=== PATIENT | female | born 1930 | race Caucasian/White ===

== ENCOUNTER 2017-08-20 14:53 | Observation (INO) ==
[2017-08-20] MEDS ORDERED: Ondansetron 4 MG/2 ML VIAL IVP ONE (15:06)
[2017-08-20] MEDS ORDERED: *HR* HYDROmorphone (PF) 1 MG/ML SYRINGE IVP ONE (15:06)
--- NOTE | 2017-08-20 15:23 | Emergency Department Note ---
Disposition Clinical Impression: Frequent falls, Weakness, Low back pain, Pancytopenia Disposition: Admitted As Inpatient Condition: Good Referrals: Hong Garnett MD [Primary Care Provider] - Forms: ED Satisfaction Letter General Adult HPI - General Chief complaint: ED Back Pain/Injury Stated complaint: Back pain post fall x 2 days ago Time Seen by Provider: 08/20/17 14:55 Source: patient, EMS Limitations: no limitations Nursing Notes Reviewed: Yes Vital Signs Reviewed: Yes - History of Present Illness Pain Scale: 8 - Related Data Home Medications Medication Instructions Recorded Confirmed ALPRAZolam [Xanax 0.5 MG Tablet] 0.5 mg PO DAILY 08/20/17 08/20/17 Alendronate Sodium [Alendronate 70 mg PO QWEEK 08/20/17 08/20/17 Sodium] Aspirin [Lo-Dose Aspirin EC] 81 mg PO DAILY 08/20/17 08/20/17 Cholecalciferol (Vitamin D3) 2,000 unit PO DAILY 08/20/17 08/20/17 [Vitamin D] Citalopram Hydrobromide 10 mg PO DAILY 08/20/17 08/20/17 [Citalopram HBr] Docusate [Colace] 100 mg PO BID 08/20/17 08/20/17 Fluticasone/Salmeterol [Advair 1 puff IH BID 08/20/17 08/20/17 100-50 Diskus] Levothyroxine Sodium 25 mcg PO DAILY 08/20/17 08/20/17 Lisinopril [Zestril] 10 mg PO DAILY 08/20/17 08/20/17 Metformin HCl [Metformin HCl ER] 500 mg PO QPM 08/20/17 08/20/17 Simvastatin [Zocor] 40 mg PO DAILY 08/20/17 08/20/17 Verapamil ER (24 HR) [Calan SR] 240 mg PO DAILY 08/20/17 08/20/17 Allergies Allergy/AdvReac Type Severity Reaction Status Date / Time cephalexin [From Keflex] AdvReac See Verified 08/20/17 17:00 Comments morphine AdvReac Itching Verified 08/20/17 17:00 Past Medical History - Past Medical History Medical history: Reports: hyperlipidemia, hypertension, osteoporosis Surgical history: Reports: hip replacement, other Psychiatric history: Reports: anxiety, depression 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 - Social History Smoking Status: Never smoker Smokeless Tobacco Status: No Alcohol use: Reports: none Drug use: Reports: none Physical Exam - General Limitations: no limitations General appearance: alert, in no apparent distress Course Vital Signs Temperature 97.6 F 08/20/17 14:56 Pulse Rate 84 08/20/17 14:56 Respiratory Rate 18 08/20/17 14:56 Blood Pressure 129/64 08/20/17 14:56 O2 Sat by Pulse Oximetry 97 08/20/17 14:56 Temperature 97.6 F 08/20/17 14:56 Pulse Rate 72 08/20/17 18:50 Respiratory Rate 18 08/20/17 18:50 Blood Pressure 129/64 08/20/17 18:50 O2 Sat by Pulse Oximetry 99 08/20/17 18:50 Oxygen Delivery Oxygen Delivery Room Air Medical Decision Making - MDM Narrative Medical decision making narrative: This note has been completed with [employer] software. Though attempts have been made to ensure the accuracy of this chart, errors may still exist. I examined this patient and my medical decision-making was reviewed with the Resident Physician. I agree with the documented findings, disposition and treatment plan as described except to the extent set forth below. Patient seen and evaluated on arrival with EMS and Dr. Sandoval, I agree with his evaluation and management plan, I supervised the care of the patient's stay. She had a fall at home. She says this happens to her frequently is mechanical in nature. She is complaining of low back pain. Said a history of compression fracture in the past. Tenderness on the upper posterior portion of the pelvis and L5. will do some imaging studies on her and the determine best disposition for her. Lumbar Spine CT 08/20/17 14:55 IMPRESSION: 1. No acute abdominal/pelvic traumatic abnormality. 2. Small fat containing umbilical hernia containing the anterior wall of the mid transverse colon with no evidence of vascular compromise. Right rectus abdominus atrophy with loss of the main. 3. Hepatic cysts. No follow-up imaging is recommended. 4. Decreased bone mineral density. 5. Stable multilevel lumbar spine degenerative changes with remote T12, L1, and L5 compression versus insufficiency fractures. No acute lumbar spine fracture. 6. Normal pelvic alignment with no acute fracture. Normal bilateral hip arthroplasty alignment. D/ / 08/20/2017 16:31:07 Clarence Conn MD / vickie Interpreting Provider: Clarence Conn MD Abdomen/Pelvis CT 08/20/17 14:56 IMPRESSION: 1. No acute abdominal/pelvic traumatic abnormality. 2. Small fat containing umbilical hernia containing the anterior wall of the mid transverse colon with no evidence of vascular compromise. Right rectus abdominus atrophy with loss of the main. 3. Hepatic cysts. No follow-up imaging is recommended. 4. Decreased bone mineral density. 5. Stable multilevel lumbar spine degenerative changes with remote T12, L1, and L5 compression versus insufficiency fractures. No acute lumbar spine fracture. 6. Normal pelvic alignment with no acute fracture. Normal bilateral hip arthroplasty alignment. D/ / 08/20/2017 16:31:07 Clarence Conn MD / vickie Interpreting Provider: Clarence Conn MD 1820 hrs.: Roque and clemente bring her in the hospital with her chronic falls. The pain she is having from her compression fractures. And her pancytopenia. For workup. She is in agreement as is hospitalist. - Lab Data Result diagrams: 08/20/17 15:10 08/20/17 15:10 Lab Results 08/20/17 08/20/17 08/20/17 Range/Units 15:10 15:10 16:13 WBC 2.9 L (4.3-11.1) K/mcL RBC 3.61 L (3.82-4.97) M/mcL Hgb 11.1 L (11.5-15.4) g/dL Hct 33.9 L (35.3-44.9) % MCV 93.9 (83.0-100.0) fL MCH 30.7 (28.0-33.3) pg MCHC 32.7 (31.6-35.5) g/dL RDW 18.6 H (11.5-14.5) % Plt Count 133 L (140-400) K/mcL MPV 11.5 (9.4-12.4) fL Immature Gran % 0.0 (0-4) % Seg Neutrophils % 51.0 % Lymphocytes % 31.9 % Monocytes % 12.2 % Eosinophils % 4.2 % Basophils % 0.7 % Neutrophils # 1.5 L (1.6-8.9) K/mcL Lymphocytes # 0.9 (0.6-4.6) K/mcL Monocytes # 0.4 (0.0-1.3) K/mcL Eosinophils # 0.1 (0.0-0.6) K/mcL Basophils # 0.0 (0.0-0.2) K/mcL Sodium 137 (136-145) mEq/L Potassium 3.6 (3.5-5.1) mEq/L Chloride 106 (98-107) mEq/L Carbon Dioxide 26 (23-29) mEq/L BUN 18 (8-23) mg/dL Creatinine 0.69 (0.60-1.20) mg/dL Est GFR ( Amer) > 60 (> 60) Est GFR (Non-Af Amer) > 60 (> 60) BUN/Creatinine Ratio 26 (6-26) Glucose 131 H (70-105) mg/dL Calculated Osmolality 288 (280-300) Calcium 8.7 (8.6-10.3) mg/dL Urine Color Yellow (Yellow) Urine Clarity Clear (Clear) Urine pH 6.0 (5.0-8.0) pH Units Ur Specific [place] 1.022 (1.010-1.025) Urine Protein Negative (Neg-Trace) mg/dL Urine Glucose (UA) Normal (Normal) mg/dL Urine Ketones Negative (Negative) mg/dL Urine Blood Negative (Negative) Urine Nitrite Negative (Negative) Urine Bilirubin Negative (Negative) Urine Urobilinogen Normal (Normal) mg/dL Ur Leukocyte Esterase Negative (Negative) Ur Culture Indicated? NO (NO)
[2017-08-20 15:31] LABS: Basophils % 0.7 %; Eosinophils # 0.1 K/mcL (0.0-0.6); Eosinophils % 4.2 %; Hematocrit 33.9 % (35.3-44.9); Hemoglobin 11.1 g/dL (11.5-15.4); Lymphocytes # 0.9 K/mcL (0.6-4.6); Lymphocytes % 31.9 %; Mean Corpuscular HGB Conc 32.7 g/dL (31.6-35.5); Mean Corpuscular Hemoglobin 30.7 pg (28.0-33.3); Mean Corpuscular Volume 93.9 fL (83.0-100.0); Mean Platelet Volume 11.5 fL (9.4-12.4); Monocytes # 0.4 K/mcL (0.0-1.3); Monocytes % 12.2 %; Neutrophils # 1.5 K/mcL (1.6-8.9); Platelet Count 133 K/mcL (140-400); Red Blood Count 3.61 M/mcL (3.82-4.97); Red Cell Distribution Width 18.6 % (11.5-14.5)
--- NOTE | 2017-08-20 15:34 | Emergency Department Note ---
Disposition Clinical Impression: Frequent falls, Weakness, Low back pain, Pancytopenia Disposition: Admitted As Inpatient Condition: Good Referrals: Hong Garentt MD [Primary Care Provider] - Forms: ED Satisfaction Letter Time of Disposition: 18:35 Back Pain HPI - General Chief Complaint: ED Back Pain/Injury Stated Complaint: Back pain post fall x 2 days ago Time Seen by Provider: 08/20/17 14:55 Source: patient, EMS Mode of arrival: EMS Limitations: no limitations Nursing Notes Reviewed: Yes Vital Signs Reviewed: Yes - History of Present Illness HPI Narrative: patient presents to the ED with the complaint of back pain. patient has h/o frequent falls, b/l hip replacements and chronic lumbar fx's according to medical record review. patient reports she fell 2 days ago after standing up from toilet while pulling her pants up. denies pre-syncope or head injury. no LOC. Denies blood thinners. states she falls all the time. C/o low back and R pelvic/hip pain. Difficult to walk. No fever, n/v, CP, SOB. - Related Data Home Medications Medication Instructions Recorded Confirmed ALPRAZolam [Xanax 0.5 MG Tablet] 0.5 mg PO DAILY 08/20/17 08/20/17 Alendronate Sodium [Alendronate 70 mg PO QWEEK 08/20/17 08/20/17 Sodium] Aspirin [Lo-Dose Aspirin EC] 81 mg PO DAILY 08/20/17 08/20/17 Cholecalciferol (Vitamin D3) 2,000 unit PO DAILY 08/20/17 08/20/17 [Vitamin D] Citalopram Hydrobromide 10 mg PO DAILY 08/20/17 08/20/17 [Citalopram HBr] Docusate [Colace] 100 mg PO BID 08/20/17 08/20/17 Fluticasone/Salmeterol [Advair 1 puff IH BID 08/20/17 08/20/17 100-50 Diskus] Levothyroxine Sodium 25 mcg PO DAILY 08/20/17 08/20/17 Lisinopril [Zestril] 10 mg PO DAILY 08/20/17 08/20/17 Metformin HCl [Metformin HCl ER] 500 mg PO QPM 08/20/17 08/20/17 Simvastatin [Zocor] 40 mg PO DAILY 08/20/17 08/20/17 Verapamil ER (24 HR) [Calan SR] 240 mg PO DAILY 08/20/17 08/20/17 Allergies Allergy/AdvReac Type Severity Reaction Status Date / Time cephalexin [From Keflex] AdvReac See Verified 08/20/17 17:00 Comments morphine AdvReac Itching Verified 08/20/17 17:00 All systems ED: reviewed and negative except as stated. Constitutional: Denies: fever Cardiovascular: Denies: chest pain Gastrointestinal: Denies: abdominal pain Musculoskeletal: Reports: as per HPI, back pain Neurological: Denies: headache Past Medical History - Past Medical History Attestation: Yes The following information was validated with the patient. 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 - Social History Smoking Status: Never smoker Smokeless Tobacco Status: No Alcohol use: Reports: none Drug use: Reports: none Physical Exam - General Limitations: no limitations General appearance: alert, in no apparent distress - Head Head exam: atraumatic, normocephalic, normal inspection - Eye Eye exam: Present: normal appearance, PERRL, EOMI - ENT ENT exam: normal exam, normal oropharynx, mucous membranes moist - Neck Neck exam: Present: normal inspection, full ROM, trachea midline - Chest Chest inspection: Present: normal inspection, symmetric chest wall rise - Respiratory Respiratory exam: Present: normal lung sounds bilaterally - Cardiovascular Cardiovascular exam: Present: regular rate, normal rhythm, normal heart sounds - Abdominal Exam Abdominal exam: Present: soft, Non-Tender. Absent: tenderness, distention, guarding, rebound, rigidity - Extremities Exam Extremities exam: Present: normal inspection, full ROM. Absent: tenderness, pedal edema - Expanded Lower Extremity Exam Hip/Pelvis exam: Present: pelvis stable, other (R hip tenderness along greater trochanter) Upper leg exam: Present: normal inspection, full ROM Knee exam: Present: normal inspection, full ROM, other (well healed vertical incision on R knee, patient denies replacement or pain) Lower leg exam: Present: normal inspection, full ROM Ankle exam: Present: normal inspection, full ROM Foot/toe exam: Present: normal inspection, full ROM Neurovascular/Tendon exam: Present: normal capillary refill Gait: not tested/not observed - Back Exam Back exam: Present: tenderness (R lumbar and mid lumbar midline ). Absent: full ROM - Neurological Exam Neurological exam: Present: alert, oriented X3 - Psychiatric Psychiatric exam: Present: normal affect, normal mood Course Course Narrative: no fracture on imaging. However, the patient is newly pancytopenic could be a reason for her increasing falls. When the hospitalist service for pain management, PT, OT and hematology consult to see if further workup would be needed as this is new for her, according relax. Vital Signs Temperature 97.6 F 08/20/17 14:56 Pulse Rate 84 08/20/17 14:56 Respiratory Rate 18 08/20/17 14:56 Blood Pressure 129/64 08/20/17 14:56 O2 Sat by Pulse Oximetry 97 08/20/17 14:56 Temperature 97.6 F 08/20/17 14:56 Pulse Rate 84 08/20/17 14:56 Respiratory Rate 18 08/20/17 14:56 Blood Pressure 129/64 08/20/17 14:56 O2 Sat by Pulse Oximetry 97 08/20/17 14:56 Oxygen Delivery Oxygen Delivery Room Air Back Pain/Injury - Medical Records Medical records reviewed: Yes I reviewed the patient's medical records. - Lab Data Lab results reviewed: Yes I reviewed the patient's lab results. Result diagrams: 08/20/17 15:10 08/20/17 15:10 Lab Results 08/20/17 08/20/17 08/20/17 Range/Units 15:10 15:10 16:13 WBC 2.9 L (4.3-11.1) K/mcL RBC 3.61 L (3.82-4.97) M/mcL Hgb 11.1 L (11.5-15.4) g/dL Hct 33.9 L (35.3-44.9) % MCV 93.9 (83.0-100.0) fL MCH 30.7 (28.0-33.3) pg MCHC 32.7 (31.6-35.5) g/dL RDW 18.6 H (11.5-14.5) % Plt Count 133 L (140-400) K/mcL MPV 11.5 (9.4-12.4) fL Immature Gran % 0.0 (0-4) % Seg Neutrophils % 51.0 % Lymphocytes % 31.9 % Monocytes % 12.2 % Eosinophils % 4.2 % Basophils % 0.7 % Neutrophils # 1.5 L (1.6-8.9) K/mcL Lymphocytes # 0.9 (0.6-4.6) K/mcL Monocytes # 0.4 (0.0-1.3) K/mcL Eosinophils # 0.1 (0.0-0.6) K/mcL Basophils # 0.0 (0.0-0.2) K/mcL Sodium 137 (136-145) mEq/L Potassium 3.6 (3.5-5.1) mEq/L Chloride 106 (98-107) mEq/L Carbon Dioxide 26 (23-29) mEq/L BUN 18 (8-23) mg/dL Creatinine 0.69 (0.60-1.20) mg/dL Est GFR ( Amer) > 60 (> 60) Est GFR (Non-Af Amer) > 60 (> 60) BUN/Creatinine Ratio 26 (6-26) Glucose 131 H (70-105) mg/dL Calculated Osmolality 288 (280-300) Calcium 8.7 (8.6-10.3) mg/dL Urine Color Yellow (Yellow) Urine Clarity Clear (Clear) Urine pH 6.0 (5.0-8.0) pH Units Ur Specific [place] 1.022 (1.010-1.025) Urine Protein Negative (Neg-Trace) mg/dL Urine Glucose (UA) Normal (Normal) mg/dL Urine Ketones Negative (Negative) mg/dL Urine Blood Negative (Negative) Urine Nitrite Negative (Negative) Urine Bilirubin Negative (Negative) Urine Urobilinogen Normal (Normal) mg/dL Ur Leukocyte Esterase Negative (Negative) Ur Culture Indicated? NO (NO) - Radiology Data Radiology results reviewed: Yes I reviewed the patient's radiology results. Lumbar Spine CT 08/20/17 14:55 IMPRESSION: 1. No acute abdominal/pelvic traumatic abnormality. 2. Small fat containing umbilical hernia containing the anterior wall of the mid transverse colon with no evidence of vascular compromise. Right rectus abdominus atrophy with loss of the main. 3. Hepatic cysts. No follow-up imaging is recommended. 4. Decreased bone mineral density. 5. Stable multilevel lumbar spine degenerative changes with remote T12, L1, and L5 compression versus insufficiency fractures. No acute lumbar spine fracture. 6. Normal pelvic alignment with no acute fracture. Normal bilateral hip arthroplasty alignment. D/ / 08/20/2017 16:31:07 Clarence Conn MD / vickie Interpreting Provider: Clarence Conn MD Abdomen/Pelvis CT 08/20/17 14:56 IMPRESSION: 1. No acute abdominal/pelvic traumatic abnormality. 2. Small fat containing umbilical hernia containing the anterior wall of the mid transverse colon with no evidence of vascular compromise. Right rectus abdominus atrophy with loss of the main. 3. Hepatic cysts. No follow-up imaging is recommended. 4. Decreased bone mineral density. 5. Stable multilevel lumbar spine degenerative changes with remote T12, L1, and L5 compression versus insufficiency fractures. No acute lumbar spine fracture. 6. Normal pelvic alignment with no acute fracture. Normal bilateral hip arthroplasty alignment. D/ / 08/20/2017 16:31:07 Clarence Conn MD / vickie Interpreting Provider: Clarence Conn MD - EKG Data EKG attestation: Yes I reviewed and interpreted this EKG. EKG results narrative: Sinus rhythm, rate 84, IN interval 183, QRS 82, QTC 34, normal axis, no acute ischemic changes.
[2017-08-20 15:45] LABS: BUN/Creatinine Ratio 26 (6-26); Blood Urea Nitrogen 18 mg/dL (8-23); Calcium 8.7 mg/dL (8.6-10.3); Carbon Dioxide 26 mEq/L (23-29); Chloride 106 mEq/L (98-107); Glucose 131 mg/dL (70-105); Osmolality,Calculated 288 (280-300); Potassium 3.6 mEq/L (3.5-5.1); Sodium 137 mEq/L (136-145); eGFR For African Americans > 60 (> 60); eGFR For Non-African Americans > 60 (> 60)
[2017-08-20 16:27] LABS: Bilirubin,Urine Negative (Negative); Blood,Urine Negative (Negative); Clarity,Urine Clear (Clear); Color,Urine Yellow (Yellow); Glucose,Urine (UA) Normal (Normal); Ketones,Urine Negative (Negative); Leukocyte Esterase,Urine Negative (Negative); Nitrite,Urine Negative (Negative); Protein,Urine Negative (Neg-Trace); Specific Gravity,Urine 1.022 (1.010-1.025); Urobilinogen,Urine Normal (Normal)
[2017-08-20] MEDS ORDERED: Ipratropium/Albuterol Neb 3 ML IH PRN (22:49)
[2017-08-20] MEDS ORDERED: Acetaminophen 325 MG TABLET PO PRN (22:49)
[2017-08-20] MEDS ORDERED: *HR* OxyCODONE Immed Rel 5 MG TABLET PO PRN (22:53)
[2017-08-20] MEDS ORDERED: *HR* Dextrose 50 % in Water (Syg) 50 ML SYRINGE IVP PRN (22:53)
[2017-08-20] MEDS ORDERED: D5% in Water 1,000 ML IVC PRN (22:53)
[2017-08-20] MEDS ORDERED: Dextrose Gel 15 GM/37.5 ML TUBE PO PRN ×2 (22:53)
[2017-08-20] MEDS ORDERED: *HR* HYDROmorphone (PF) 1 MG/ML SYRINGE IVP PRN (22:53)
[2017-08-20] MEDS ORDERED: Naloxone 0.4 MG/ML INJ IVP PRN (22:53)
[2017-08-20] MEDS ORDERED: Ondansetron 4 MG/2 ML VIAL IVP PRN (22:53)
--- NOTE | 2017-08-20 23:02 | Internal Med History&Physical ---
Date of Encounter: 08/20/17 Time of Encounter: 22:58 Assessment and Plan (1) Acute bronchitis Current visit: Yes Status: Acute Severe weakness and debility possibly secondary to Acute bacterial bronchitis, associated with neutropenia Start azithromycin, check chest x-ray Consider checking Legionella Blood cultures Omeprazole for GI prophylaxis and subcutaneous insulin for DVT prophylaxis. The patient will be admitted for observation. Full code. Time spent on this admission 40 minutes Qualifiers: Bronchitis organism: unspecified organism Qualified Code(s): J20.9 - Acute bronchitis, unspecified (2) Lumbar compression fracture Current visit: Yes Status: Acute Multiple compression fractures, not acute Pain control Qualifiers: Encounter type: sequela Lumbar vertebra fracture level: L5 Fracture type : closed Qualified Code(s): S32.050S - Wedge compression fracture of fifth lumbar vertebra, sequela (3) Neutropenia Current visit: Yes Status: Acute Unclear etiology accompanied also by anemia and mild thrombocytopenia Recheck CBC in the morning Qualifiers: Neutropenia type: unspecified Qualified Code(s): D70.9 - Neutropenia, unspecified (4) Debility Current visit: Yes Status: Acute Physical therapy ordered (5) Diabetes Current visit: Yes Status: Acute Hold metformin Use insulin sliding scale for now Qualifiers: Diabetes mellitus type: type 2 Diabetes mellitus complication status: without complication Diabetes mellitus terminal manager insulin use: without terminal manager use Qualified Code(s): E11.9 - Type 2 diabetes mellitus without complications (6) Frequent falls Current visit: Yes Status: Acute Fall precautions Internal Medicine - H&P: HPI Chief complaint: Frequent falls, back pain Admitted From: Emergency Dept History of present illness: Ms. 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 The patient came to the emergency room complaining of back pain and has been coughing also for the past few days. White blood cell count was 2.9, neutrophils 1.5. Glucose 131, CT scan of the abdomen and pelvis and lumbar area showed old compression fractures T12-L1 and L5 that or not acute, hepatic cysts, and an umbilical hernia. The patient says that she experienced a couple of episodes of non-quantified fever couple of days ago, no sick contacts, has been having a productive cough. No chest x-ray has been done in the ER. She has been falling on and off for the past few months with no specifics complaints. No dizziness, feels very weak. Past Med Surg Social Fam HX - Past Medical History Medical history: diabetes (Not insulin-dependent), hyperlipidemia, hypertension , osteoporosis, other (Osteoporosis, anxiety, hypothyroidism, depression) Psychiatric history: anxiety, depression - Past Surgical History Surgical History: hip replacement, other (Right total knee replacement, appendectomy and cholecystectomy) - Social History Smoking Status: Never smoker Smokeless Tobacco Status: No Alcohol use: none Drug use: none - Family History Mother Living Status: Cause of : [place] Hx Family Cardiac Disorders: Yes ([place]) - Additional Family History Additional family history: Mother with CAD Internal Medicine - H&P: Meds ALPRAZolam [Xanax 0.5 MG Tablet] 0.5 mg PO DAILY 08/20/17 [History] Alendronate Sodium [Alendronate Sodium] 70 mg PO QWEEK 08/20/17 [History] Aspirin [Lo-Dose Aspirin EC] 81 mg PO DAILY 08/20/17 [History] Cholecalciferol (Vitamin D3) [Vitamin D] 2,000 unit PO DAILY 08/20/17 [History] Citalopram Hydrobromide [Citalopram HBr] 10 mg PO DAILY 08/20/17 [History] Docusate [Colace] 100 mg PO BID 08/20/17 [History] Fluticasone/Salmeterol [Advair 100-50 Diskus] 1 puff IH BID 08/20/17 [History] Levothyroxine Sodium 25 mcg PO DAILY 08/20/17 [History] Lisinopril [Zestril] 10 mg PO DAILY 08/20/17 [History] Metformin HCl [Metformin HCl ER] 500 mg PO QPM 08/20/17 [History] Simvastatin [Zocor] 40 mg PO DAILY 08/20/17 [History] Verapamil ER (24 HR) [Calan SR] 240 mg PO DAILY 08/20/17 [History] 3 Allergy/AdvReac Type Severity Reaction Status Date / Time cephalexin [From Keflex] AdvReac See Verified 08/20/17 17:00 Comments morphine AdvReac Itching Verified 08/20/17 17:00 All Systems PM: A 10-system review of systems was performed and is negative for pertinent findings except as documented above in the HPI. Review of systems: No chest pain, feels mildly short of breath, other systems out of the 10 reviewed were negative - Constitutional Vitals: Temp Pulse Resp BP Pulse Ox 98.0 F 75 16 107/64 98 08/20/17 20:59 08/20/17 20:59 08/20/17 20:59 08/20/17 20:59 08/20/17 21:26 General appearance: Present: A&O X 3 - Head Head exam: Present: atraumatic, normocephalic - Eye Eye exam: Present: PERRL, conjuntiva pink, sclera anicteric Pupils: Present: PERRL - Neck Neck exam general surgery: Present: supple, trachea midline. Absent: lymphadenopathy - Respiratory Respiratory exam: Present: CTAB. Absent: accessory muscle use, rales, rhonchi, wheezes - Cardiovascular Cardiovascular exam: Present: RRR, +S1, +S2. Absent: diastolic murmur, gallop, rubs, systolic murmur - GI/Abdominal GI/Abdominal exam: Present: normal bowel sounds, soft, no peritoneal signs. Absent: distended, tenderness - Extremities Exam Extremities exam: Present: warm, radial pulses palpable and symmetrical. Absent : calf tenderness, cyanotic, pedal edema - Neurological Exam Neurological exam: Present: CN II-XII intact, oriented X3, no focal deficits. Absent: pronater drift, facial droop, speech deficit - Skin Skin exam: Present: dry, intact Internal Med - H&P Results - Labs CBC & Chem 7: 08/20/17 15:10 08/20/17 15:10
[2017-08-21] MEDS: Azithromycin 500 MG in D5% in Water 250 ML IVPB SCH ×2 (00:36→21:38)
[2017-08-21] MEDS: 0.9 % Sodium Chloride 1,000 ML IVC SCH ×2 (00:36→16:29)
[2017-08-21] MEDS: *HR* Heparin 5,000 UNIT/ML VIAL SQ SCH ×3 (00:36→16:28)
[2017-08-21] MEDS: ALPRAZolam 0.5 MG TABLET PO SCH ×2 (00:42→21:34)
[2017-08-21] MEDS: Levothyroxine 25 MCG TABLET PO SCH (06:15)
[2017-08-21 07:14] LABS: Basophils % 0.6 %; Eosinophils # 0.4 K/mcL (0.0-0.6); Immature Granulocytes % 0.3 % (0-4); Immature Platelets 5.2 % (1.1-6.1); Lymphocytes % 51.4 %; Mean Corpuscular HGB Conc 33.3 g/dL (31.6-35.5); Mean Corpuscular Hemoglobin 30.7 pg (28.0-33.3); Mean Corpuscular Volume 92.2 fL (83.0-100.0); Mean Platelet Volume 11.5 fL (9.4-12.4); Monocytes # 0.5 K/mcL (0.0-1.3); Monocytes % 12.8 %; Neutrophils # 0.8 K/mcL (1.6-8.9); Platelet Count 106 K/mcL (140-400); Red Blood Count 3.58 M/mcL (3.82-4.97); Red Cell Distribution Width 18.1 % (11.5-14.5); Segmented Neutrophils % 22.9 %
[2017-08-21 07:17] LABS: Lymphocytes # 1.9 K/mcL (0.6-4.6)
[2017-08-21 08:40] LABS: Anisocytosis 1+ (Not Present); Platelet Estimate Decreased (Normal); Schistocytes 1+ (Not Present)
[2017-08-21] MEDS ORDERED: ALPRAZolam 0.5 MG TABLET PO SCH (09:00)
[2017-08-21] MEDS: Aspirin Enteric Coated 81 MG Tablet PO SCH (09:02)
[2017-08-21] MEDS: Verapamil ER (24 HR) 240 MG TABLET.ER PO SCH (09:12)
[2017-08-21] MEDS: Insulin LISPRO 300 UNITS/3 ML VIAL SQ SCH ×3 (09:19→16:19)
--- NOTE | 2017-08-21 12:40 | Internal Med Progress Note ---
Date of Encounter: 08/21/17 Time of Encounter: 12:37 - Assessment and plan (1) Acute bronchitis Current Visit: Yes Status: Acute Assessment and plan: Patient has acute bronchitis likely secondary to the viral infection. Patient is presently on azithromycin. We will continue azithromycin for now. Qualifiers: Bronchitis organism: unspecified organism Qualified Code(s): J20.9 - Acute bronchitis, unspecified (2) Neutropenia Current Visit: Yes Status: Acute Assessment and plan: Patient has neutropenia is likely secondary to the viral bronchitis. Please note that influenza is negative. Neutrophil count is upward trending. We will recheck CBC tomorrow If neutrophil count is within normal limits then we will send patient home Qualifiers: Neutropenia type: unspecified Qualified Code(s): D70.9 - Neutropenia, unspecified (3) Frequent falls Current Visit: Yes Status: Acute Assessment and plan: Patient is known to have a frequent falls. Patient's daughter at bedside. Patient's daughter claims that patient is using walker at home. Patient due for her to use walker occasionally and then she plans of falling. Patient's daughter feel comfortable taking care of patient at home. (4) Low back pain Current Visit: Yes Status: Acute Assessment and plan: Patient has a persistent low back pain. This is likely secondary to the compression fractures which are present for more than few years. At this point patient's back pain is very well controlled with the present medications. We will continue the same medications for now. Qualifiers: Chronicity: chronic Back pain laterality: unspecified Sciatica presence: unspecified whether sciatica present Qualified Code(s): M54.5 - Low back pain ; G89.29 - Other chronic pain; G89.29 - Other chronic pain - Subjective Interval history: Patient seen and examined. Chart reviewed. Patient is comfortably lying in a bed. Patient's family at bedside. She occasionally complains of low back pain but which is very well controlled with the present pain medications Patient denies chest pain, nausea, shortness of breath, abdominal pain, diarrhea and dizziness - Constitutional Vitals: Temp Pulse Resp BP Pulse Ox 97.5 F L 67 16 102/65 96 08/21/17 11:36 08/21/17 11:36 08/21/17 11:36 08/21/17 11:36 08/21/17 11:36 General appearance: Present: A&O X 3 - Head Head exam: Present: atraumatic, normocephalic - Eye Eye exam: Present: PERRL, conjuntiva pink, sclera anicteric Pupils: Present: PERRL - Neck Neck exam general surgery: Present: supple, trachea midline. Absent: lymphadenopathy - Respiratory Respiratory exam: Present: CTAB. Absent: accessory muscle use, rales, rhonchi, wheezes - Cardiovascular Cardiovascular exam: Present: RRR, +S1, +S2. Absent: diastolic murmur, gallop, rubs, systolic murmur - GI/Abdominal GI/Abdominal exam: Present: normal bowel sounds, soft, no peritoneal signs. Absent: distended, tenderness - Extremities Exam Extremities exam: Present: warm, radial pulses palpable and symmetrical. Absent : calf tenderness, cyanotic, pedal edema - Neurological Exam Neurological exam: Present: CN II-XII intact, oriented X3, no focal deficits. Absent: pronater drift, facial droop, speech deficit - Skin Skin exam: Present: dry, intact Internal Medicine: Result - Labs CBC & Chem 7: 08/21/17 05:59 08/20/17 15:10 Labs: Short CBC 08/21/17 Range/Units 05:59 WBC 3.6 L (4.3-11.1) K/mcL Hgb 11.0 L (11.5-15.4) g/dL Hct 33.0 L (35.3-44.9) % Plt Count 106 L (140-400) K/mcL Neutrophils # 0.8 L (1.6-8.9) K/mcL - Impressions Impressions Chest X-Ray 08/21/17 22:53 IMPRESSION: No significant findings in the chest. D/ / Moses Burrows MD / Moses Burrows MD Interpreting Provider: Moses Burrows MD Consult Discharge Plan - Plan Referrals: Hong Garnett MD [Primary Care Provider] -
[2017-08-21] MEDS ORDERED: GuaiFENesin Liq 200 MG/10 ML UDC PO PRN (15:27)
--- NOTE | 2017-08-21 16:35 | Electrocardiograph Report ---
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
[2017-08-22] MEDS: *HR* Heparin 5,000 UNIT/ML VIAL SQ SCH (05:32)
[2017-08-22] MEDS: Levothyroxine 25 MCG TABLET PO SCH (05:32)
[2017-08-22 07:56] LABS: Hematocrit 30.8 % (35.3-44.9); Hemoglobin 10.4 g/dL (11.5-15.4); Immature Platelets 5.2 % (1.1-6.1); Mean Corpuscular HGB Conc 33.8 g/dL (31.6-35.5); Mean Corpuscular Hemoglobin 30.9 pg (28.0-33.3); Mean Corpuscular Volume 91.4 fL (83.0-100.0); Platelet Count 102 K/mcL (140-400); Red Blood Count 3.37 M/mcL (3.82-4.97); Red Cell Distribution Width 18.3 % (11.5-14.5)
[2017-08-22] MEDS: Insulin LISPRO 300 UNITS/3 ML VIAL SQ SCH ×2 (09:10→12:45)
[2017-08-22] MEDS: Verapamil ER (24 HR) 240 MG TABLET.ER PO SCH (09:28)
[2017-08-22] MEDS: Aspirin Enteric Coated 81 MG Tablet PO SCH (09:29)
[2017-08-22] MEDS: 0.9 % Sodium Chloride 1,000 ML IVC SCH (09:32)
[2017-08-22 09:56] LABS: Alanine Aminotransferase 17 Units/L (7-52); Albumin 2.9 g/dL (3.5-5.7); Albumin/Globulin Ratio 1.2 (1.1-2.2); Alkaline Phosphatase 49 Units/L (34-104); Aspartate Amino Transferase 22 Units/L (13-39); BUN/Creatinine Ratio 21 (6-26); Bilirubin,Total 0.8 mg/dL (0.3-1.0); Blood Urea Nitrogen 11 mg/dL (8-23); Carbon Dioxide 23 mEq/L (23-29); Chloride 108 mEq/L (98-107); Globulin 2.4 g/dL (2.4-3.5); Glucose 94 mg/dL (70-105); Osmolality,Calculated 283 (280-300); Potassium 3.7 mEq/L (3.5-5.1); Sodium 137 mEq/L (136-145); Total Protein 5.3 g/dL (6.4-8.9); eGFR For African Americans > 60 (> 60); eGFR For Non-African Americans > 60 (> 60)
[2017-08-22 11:41] VITALS: BP 120/57
--- NOTE | 2017-08-22 12:58 | Discharge Summary ---
Date of Encounter: 08/22/17 Time of Encounter: 12:56 - Discharge Diagnosis (1) Acute bronchitis Priority: Primary Status: Acute Qualifiers: Bronchitis organism: unspecified organism Qualified Code(s): J20.9 - Acute bronchitis, unspecified (2) Neutropenia Priority: Primary Status: Acute Qualifiers: Neutropenia type: unspecified Qualified Code(s): D70.9 - Neutropenia, unspecified (3) Frequent falls Priority: Primary Status: Acute (4) Low back pain Priority: Secondary Status: Acute Qualifiers: Chronicity: chronic Back pain laterality: unspecified Sciatica presence: unspecified whether sciatica present Qualified Code(s): M54.5 - Low back pain ; G89.29 - Other chronic pain; G89.29 - Other chronic pain - Discharge Medications Home Medications: ALPRAZolam [Xanax 0.5 MG Tablet] 0.5 mg PO HS 08/20/17 [History] Alendronate Sodium 70 mg PO QWEEK 08/20/17 [History] Aspirin [Lo-Dose Aspirin EC] 81 mg PO DAILY 08/20/17 [History] Cholecalciferol (Vitamin D3) [Vitamin D3] 2,000 unit PO DAILY 08/20/17 [History] Citalopram Hydrobromide [Citalopram HBr] 10 mg PO HS 08/20/17 [History] Docusate [Colace] 100 mg PO BID 08/20/17 [History] Fluticasone/Salmeterol [Advair 100-50 Diskus] 1 puff IH BID 08/20/17 [History] Levothyroxine Sodium 25 mcg PO DAILY 08/20/17 [History] Lisinopril [Zestril] 10 mg PO DAILY 08/20/17 [History] Metformin HCl [Metformin HCl ER] 500 mg PO QPM 08/20/17 [History] Simvastatin [Zocor] 40 mg PO DAILY 08/20/17 [History] Verapamil ER (24 HR) [Calan SR] 240 mg PO DAILY 08/20/17 [History] Allergies/Adverse Reactions: 3 Allergy/AdvReac Type Severity Reaction Status Date / Time cephalexin [From Keflex] AdvReac See Verified 08/20/17 17:00 Comments morphine AdvReac Itching Verified 08/20/17 17:00 Date of admission: 08/20/17 20:01 Primary care physician: Hong Garnett MD Consults: 08/20/17 22:55 Consult to Occupational Therapy [CONS] Routine Comment: Evaluate, develop and implement POC Reason for Consult: eval Consult to Physical Therapy [CONS] Routine Comment: Evaluate, develop and implement POC Reason for Consult: eval Consult to Environmental Engineering Aide [CONS] Routine Reason for SW Consult: eval Discharging clinician: Kalyan Siegel - Patient Status Disposition: Home, Self-Care Condition: Good Overall status at discharge: patient is progressing back to baseline - Discharge Instructions Follow Up With: Hong Garnett MD [Primary Care Provider] - Marina Calix MD [Partnered Physician] - - Diet and Activity Activity: increase activity as tolerated Diet: low salt diet Interval History: Ms. 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 The patient came to the emergency room complaining of back pain and has been coughing also for the past few days. White blood cell count was 2.9, neutrophils 1.5. Glucose 131, CT scan of the abdomen and pelvis and lumbar area showed old compression fractures T12-L1 and L5 that or not acute, hepatic cysts, and an umbilical hernia. The patient says that she experienced a couple of episodes of non-quantified fever couple of days ago, no sick contacts, has been having a productive cough. Hospital course: Patient was hospitalized. She was started on IV azithromycin. Noted that patient had a pancytopenia. Her white blood cell count along with the hemoglobin/platelets were started improving. Patient and family was appreciative of the care provided. Physical therapy evaluated the patient and recommended SNF/ECF. I had a long discussion with the patient and patient's family at this afternoon. Patient clearly mentioned to me that she does not want to go to ECF/SNF for any further treatment/therapy. Patient's pancytopenia is improving, this is likely secondary to viral infection. I have spoken to ( hemililanitology) for a follow-up appointment. Plan Patient can go home today. Next line no new medications added. Patient will follow up with hematology as mentioned above. At the time of discharge QUESTIONS answered. Patient and her family member does not have any concern, updated, and recommendations. - Time Spent with Patient Total time spent providing and/or coordinating discharge services: - Constitutional Vitals: Temp Pulse Resp BP Pulse Ox 97.6 F 69 16 120/57 94 08/22/17 11:34 08/22/17 11:34 08/22/17 11:34 08/22/17 11:34 08/22/17 11:34 General appearance: Present: A&O X 3 - Head Head exam: Present: atraumatic, normocephalic - Eye Eye exam: Present: PERRL, conjuntiva pink, sclera anicteric Pupils: Present: PERRL - Neck Neck exam general surgery: Present: supple, trachea midline. Absent: lymphadenopathy - Respiratory Respiratory exam: Present: CTAB. Absent: accessory muscle use, rales, rhonchi, wheezes - Cardiovascular Cardiovascular exam: Present: RRR, +S1, +S2. Absent: diastolic murmur, gallop, rubs, systolic murmur - GI/Abdominal GI/Abdominal exam: Present: normal bowel sounds, soft, no peritoneal signs. Absent: distended, tenderness - Extremities Exam Extremities exam: Present: warm, radial pulses palpable and symmetrical. Absent : calf tenderness, cyanotic, pedal edema - Neurological Exam Neurological exam: Present: CN II-XII intact, oriented X3, no focal deficits. Absent: pronater drift, facial droop, speech deficit - Skin Skin exam: Present: dry, intact
== END 2017-08-22 13:52 | disposition home or self-care (01) ==
LOC: 3BNU 14:53 → EMEROO 14:53 → 3BNU 20:28
PROVIDERS: ADMIT Internal Medicine; ATTEND Registered Nurse

== ENCOUNTER 2018-06-01 12:20 | Inpatient (IN) ==
--- NOTE | 2018-06-01 12:29 | Emergency Department Note ---
Disposition Clinical Impression: Pneumatosis intestinalis of large intestine, Elevated lactic acid level, Hypokalemia, Hyperglycemia, Elevated troponin, Lactic acidosis Hypotension Qualifiers: Hypotension type: unspecified hypotension type Qualified Code(s): I95.9 - Hypotension, unspecified Hypothermia Qualifiers: Encounter type: initial encounter Qualified Code(s): T68.XXXA - Hypothermia, initial encounter Disposition: Admitted As Inpatient Condition: Critical General Adult HPI - General Stated complaint: Weakness Time Seen by Provider: 06/01/18 12:22 Nursing Notes Reviewed: Yes Vital Signs Reviewed: Yes - History of Present Illness HPI Narrative: 88-year-old female this emergency department via EMS after being found down at home. Reported that she was acting normal yesterday per her family. Reports that this morning, her grandson cannot get into her house. EMS and police came and had to break into the door and found patient down at the bathroom. Patient states that she has been very constipated over the last week. Reports that she has some abdominal tenderness. - Related Data Home Medications Medication Instructions Recorded Confirmed ALPRAZolam [Xanax 0.5 MG Tablet] 0.5 mg PO HS 08/20/17 06/01/18 Alendronate Sodium 70 mg PO QWEEK 08/20/17 06/01/18 Aspirin [Lo-Dose Aspirin EC] 81 mg PO DAILY 08/20/17 01/08/18 Cholecalciferol (Vitamin D3) 2,000 unit PO DAILY 08/20/17 01/08/18 [Vitamin D3] Citalopram Hydrobromide 10 mg PO HS 08/20/17 06/01/18 [Citalopram HBr] Docusate [Colace] 100 mg PO BID 08/20/17 01/08/18 Fluticasone/Salmeterol [Advair 1 puff IH BID 08/20/17 01/08/18 100-50 Diskus] Levothyroxine Sodium 25 mcg PO DAILY 08/20/17 06/01/18 Lisinopril [Zestril] 10 mg PO DAILY 08/20/17 06/01/18 Metformin HCl [Metformin HCl ER] 500 mg PO QPM 08/20/17 06/01/18 Simvastatin [Zocor] 40 mg PO DAILY 08/20/17 06/01/18 Verapamil ER (24 HR) [Calan SR] 240 mg PO DAILY 08/20/17 06/01/18 Previous Rx's Medication Instructions Recorded Cyanocobalamin (Vitamin B-12) 1,000 mcg PO DAILY #30 tablet.er 01/08/18 [B-12] Allergies Allergy/AdvReac Type Severity Reaction Status Date / Time cephalexin [From Keflex] AdvReac See Verified 09/16/17 10:53 Comments morphine AdvReac Itching Verified 09/16/17 10:53 All systems ED: reviewed and negative except as stated. Review of Systems: As Per HPI Constitutional: Denies: fever Cardiovascular: Denies: chest pain Respiratory: Denies: cough, dyspnea Gastrointestinal: Reports: abdominal pain, nausea, vomiting, constipation Genitourinary: Denies: urgency, dysuria, frequency Musculoskeletal: Denies: back pain Past Medical History - Past Medical History Medical history: Reports: diabetes (Not insulin-dependent), hyperlipidemia, hypertension, osteoporosis, other (Osteoporosis, anxiety, hypothyroidism, depression) Surgical history: Reports: hip replacement, other (Right total knee replacement , appendectomy and cholecystectomy) Psychiatric history: Reports: anxiety, depression TEST CASE DEVELOPER history: Reports: no TEST CASE DEVELOPER history - Social History Smoking Status: Never smoker Smokeless Tobacco Status: No Alcohol use: Reports: none Drug use: Reports: none Physical Exam - General Limitations: altered mental status General appearance: alert - Head Head exam: normocephalic - Eye Eye exam: Present: EOMI - ENT ENT exam: mucous membranes dry - Neck Neck exam: Present: trachea midline - Chest Chest inspection: Present: symmetric chest wall rise - Respiratory Respiratory exam: Present: normal lung sounds bilaterally, respiratory distress (Requiring oxygen) - Cardiovascular Cardiovascular exam: Present: normal rhythm, tachycardia, normal heart sounds - Abdominal Exam Abdominal exam: Present: tenderness. Absent: guarding, rebound, rigidity - Extremities Exam Extremities exam: Present: other (Decreased capillary refill) - Back Exam Back exam: Present: normal inspection - Neurological Exam Neurological exam: Present: alert, CN II-XII intact - Psychiatric Psychiatric exam: Present: anxious - Skin Skin exam: Present: other (Cool) Course Vital Signs Temperature 95.5 F L 06/01/18 12:23 Pulse Rate 102 06/01/18 12:23 Respiratory Rate 20 06/01/18 12:23 Blood Pressure 74/56 06/01/18 12:23 O2 Sat by Pulse Oximetry 91 06/01/18 12:23 Temperature 97.6 F 06/01/18 13:42 Pulse Rate 73 06/01/18 15:42 Respiratory Rate 20 06/01/18 15:42 Blood Pressure 80/39 06/01/18 15:42 O2 Sat by Pulse Oximetry 96 06/01/18 15:42 Oxygen Delivery Oxygen Delivery Nasal Cannula Medical Decision Making - MDM Narrative Medical decision making narrative: 88-year-old female presents emergency department with concern for altered mental status after being found at home. Patient initially appearing altered upon arrival. Accu-Chek was in the mid 300s. We will obtain CT scan of the head, cervical spine, abdomen and pelvis. EKG did not reveal any ischemic ST changes. Lactic acid was 6.6. Blood cultures have been obtained. Patient received 500 mL of fluid on EMS. We have a ordered additional 2 L of fluids here. Patient had a map around 60. She was fluid responsive. It was noted however, that patient had not received entire fluid bolus by the time she went to surgery. There was no evidence of swelling on the arm. Patient's initial temperature was 95.5 degrees. warm blankets and better hugger was placed at that time. We ordered warmed IV fluids. She was tachycardic. Patient had blood cultures obtained. In the abdomen and pelvis, there was concern for pneumatosis within the distal descending colon and proximal sigmoid colon. Bowel ischemia should be considered per radiology. We have called general surgery and has spoken to Dr. Reyez. Patient is DNR comfort care. However, to undergo the operation, she would have to be a full code. I spoken to family at bedside and discussed that without surgery, patient will most likely . I will also inform them that with surgery, is a high chance of as well. Family and patient are willing to take the risk of surgery. Patient was given levoquin and flagyl here for antimicrobial therapy. Patient has a VBG with a pH of 7.126. Initially she was hyperglycemic. Beta hydroxy butyric acid marginally elevated. Bicarb at 16. After initial administration of fluids, patient's repeat Accu-Chek was 108. We did not start insulin at that time as patient's acidosis most likely secondary to her abdominal pathology. Patient's blood pressures were tentative throughout her stay. Patient normally has a systolic blood pressure at 100 at previous visits. Written consent was obtained to place central line. However, patient was coughing incessantly and was very uncomfortable when we attempted to lay the bed back. I spoke with Dr. Reyez on the phone, who stated that he would perform central line placement in the operating room as this would be a more controlled environment for the patient. Agree with plan. Family agreed with entire plan for surgery. Cervical Spine CT 06/01/18 12:27 IMPRESSION: No acute fracture or listhesis of the cervical spine evident. D/ / Nathan Zamora MD / Nathan Zamora MD Interpreting Provider: Nathan Zamora MD Chest X-Ray 06/01/18 12:27 IMPRESSION: 1. No acute process identified. D/ / Jair Flores MD / Jair Flores MD Interpreting Provider: Jair Flores MD Head CT 06/01/18 12:27 IMPRESSION: Atrophy and mild small vessel ischemic disease. D/ / Jean Juan MD / Jean Juan MD Interpreting Provider: Jean Juan MD Abdomen/Pelvis CT 06/01/18 13:25 IMPRESSION: Mural thickening and pneumatosis is seen within the distal descending colon and proximal sigmoid colon. Bowel ischemia should be considered in the appropriate clinical setting. Suggest correlation with lactate. Surgical consultation suggested. Small ventral hernia containing knuckle of transverse colon, though without evidence of bowel dilatation to suggest obstruction. Moderate fecal loading of the colon. Urothelial enhancement is seen of the renal pelves. Suggest correlation with urinalysis if infection is a clinical consideration. D/ / Jean Juan MD / Jean Juan MD Interpreting Provider: Jean Juan MD Vital Signs Temperature 95.5 F L 06/01/18 12:23 Pulse Rate 102 06/01/18 12:23 Respiratory Rate 20 06/01/18 12:23 Blood Pressure 74/56 06/01/18 12:23 O2 Sat by Pulse Oximetry 91 06/01/18 12:23 Temperature 97.6 F 06/01/18 13:42 Pulse Rate 86 06/01/18 13:42 Respiratory Rate 24 06/01/18 13:42 Blood Pressure 83/42 06/01/18 13:42 O2 Sat by Pulse Oximetry 100 06/01/18 13:42 Oxygen Delivery Oxygen Delivery Nasal Cannula - Lab Data Result diagrams: 06/01/18 12:51 06/01/18 15:05 Lab Results 06/01/18 06/01/18 06/01/18 Range/Units 12:51 12:51 12:51 WBC 12.6 H (4.3-11.1) K/mcL RBC 4.30 (3.82-4.97) M/mcL Hgb 13.5 (11.5-15.4) g/dL Hct 42.3 (35.3-44.9) % MCV 98.4 (83.0-100.0) fL MCH 31.4 (28.0-33.3) pg MCHC 31.9 (31.6-35.5) g/dL RDW 19.0 H (11.5-14.5) % Plt Count 255 (140-400) K/mcL MPV 11.1 (9.4-12.4) fL Immature Gran % 0.5 (0-4) % Seg Neutrophils % 60.6 % Lymphocytes % 33.6 % Monocytes % 1.8 % Eosinophils % 3.1 % Basophils % 0.4 % Neutrophils # 7.6 (1.6-8.9) K/mcL Lymphocytes # 4.2 (0.6-4.6) K/mcL Monocytes # 0.2 (0.0-1.3) K/mcL Eosinophils # 0.4 (0.0-0.6) K/mcL Basophils # 0.1 (0.0-0.2) K/mcL Nucleated RBCs/100 WBC 0.4 H (0) /100 WBC PT 11.2 (9.4-12.1) Seconds INR 1.0 APTT 24.0 L (26.0-36.0) Seconds VBG pH (7.32-7.42) pH Units VBG pCO2 (41-51) mmHg VBG pO2 (25-50) mmHg VBG HCO3 (21-27) mEq/L Carboxyhemoglobin (0-5) % Sodium 136 (136-145) mEq/L Potassium 3.3 L (3.5-5.1) mEq/L Chloride 102 (98-107) mEq/L Carbon Dioxide 15 L (23-29) mEq/L BUN 26 H (8-23) mg/dL Creatinine 1.20 (0.60-1.20) mg/dL Est GFR ( Amer) 52 L (> 60) Est GFR (Non-Af Amer) 43 L (> 60) BUN/Creatinine Ratio 22 (6-26) Glucose 345 H (70-105) mg/dL Calculated Osmolality 300 (280-300) Lactic Acid (0.5-2.2) mmol/L Calcium 9.1 (8.6-10.3) mg/dL Phosphorus (2.7-4.5) mg/dL Magnesium (1.6-2.6) mg/dL Total Bilirubin 1.9 H (0.3-1.0) mg/dL Direct Bilirubin 0.3 H (0.0-0.2) mg/dL Indirect Bilirubin 1.6 H (0.0-1.2) mg/dL AST 29 (13-39) Units/L ALT 21 (7-52) Units/L Alkaline Phosphatase 73 (34-104) Units/L Ammonia (16-53) mcmol/L Creatine Kinase 103 (30-223) Units/L Troponin I < 0.03 (< 0.04) ng/mL Serum Total Protein 6.5 (6.4-8.9) g/dL Albumin 4.1 (3.5-5.7) g/dL Globulin 2.4 (2.4-3.5) g/dL Albumin/Globulin Ratio 1.7 (1.1-2.2) Triglycerides 116 (< 150) mg/dL Cholesterol 117 (< 200) mg/dL LDL Cholesterol, Calc 37 (0-99) mg/dL VLDL Cholesterol, Calc 23 (< 31) mg/dL HDL Cholesterol 57 (40-59) mg/dL Cholesterol/HDL Ratio 2.1 (0-4.9) Beta-Hydroxybutyric Acd (0.02-0.27) mmol/L TSH 11.408 H (0.340-5.600) mcIU/mL Urine Color (Yellow) Urine Clarity (Clear) Urine pH (5.0-8.0) pH Units Ur Specific [place] (1.010-1.025) Urine Protein (Neg-Trace) mg/dL Urine Glucose (UA) (Normal) mg/dL Urine Ketones (Negative) mg/dL Urine Blood (Negative) Urine Nitrite (Negative) Urine Bilirubin (Negative) Urine Urobilinogen (Normal) mg/dL Ur Leukocyte Esterase (Negative) Urine Microscopic RBC (0-3) per hpf Urine Microscopic WBC (0-3) per hpf Ur Squamous Epith Cells (None-Few) per lpf Ur Transition Epith Cell (None-Few) per hpf Ur Renal Epithelial Cell (None-Few) per hpf Amorphous Sediment (Few) Urine Bacteria (None-Few) per hpf Hyaline Casts (None-Few) per lpf Granular Casts (None Seen) per lpf Urine Mucus (Few) Ur Culture Indicated? (NO) Salicylates < 2.5 L (15.0-30.0) mg/dL Urine Opiates Screen (Artoew=091) ng/mL Acetaminophen < 10 L (10-20) mcg/mL Ur Barbiturates Screen (Icklvv=241) ng/mL Ur Phencyclidine Scrn (Cutoff=25) ng/mL Ur Amphetamines Screen (Rwohwv=5908) ng/mL U Benzodiazepines Scrn (Gubark=638) ng/mL Urine Cocaine Screen (Cutoff= 300) ng/mL U Marijuana (THC) Screen (Cutoff = 50) ng/mL Ur Drug Screen Interp Ethyl Alcohol < 10 (Less than 10) mg/dL Person Notif of Crit 06/01/18 06/01/18 06/01/18 Range/Units 12:51 12:51 12:51 WBC (4.3-11.1) K/mcL RBC (3.82-4.97) M/mcL Hgb (11.5-15.4) g/dL Hct (35.3-44.9) % MCV (83.0-100.0) fL MCH (28.0-33.3) pg MCHC (31.6-35.5) g/dL RDW (11.5-14.5) % Plt Count (140-400) K/mcL MPV (9.4-12.4) fL Immature Gran % (0-4) % Seg Neutrophils % % Lymphocytes % % Monocytes % % Eosinophils % % Basophils % % Neutrophils # (1.6-8.9) K/mcL Lymphocytes # (0.6-4.6) K/mcL Monocytes # (0.0-1.3) K/mcL Eosinophils # (0.0-0.6) K/mcL Basophils # (0.0-0.2) K/mcL Nucleated RBCs/100 WBC (0) /100 WBC PT (9.4-12.1) Seconds INR APTT (26.0-36.0) Seconds VBG pH (7.32-7.42) pH Units VBG pCO2 (41-51) mmHg VBG pO2 (25-50) mmHg VBG HCO3 (21-27) mEq/L Carboxyhemoglobin 5.2 H (0-5) % Sodium (136-145) mEq/L Potassium (3.5-5.1) mEq/L Chloride (98-107) mEq/L Carbon Dioxide (23-29) mEq/L BUN (8-23) mg/dL Creatinine (0.60-1.20) mg/dL Est GFR ( Amer) (> 60) Est GFR (Non-Af Amer) (> 60) BUN/Creatinine Ratio (6-26) Glucose (70-105) mg/dL Calculated Osmolality (280-300) Lactic Acid (0.5-2.2) mmol/L Calcium (8.6-10.3) mg/dL Phosphorus (2.7-4.5) mg/dL Magnesium (1.6-2.6) mg/dL Total Bilirubin (0.3-1.0) mg/dL Direct Bilirubin (0.0-0.2) mg/dL Indirect Bilirubin (0.0-1.2) mg/dL AST (13-39) Units/L ALT (7-52) Units/L Alkaline Phosphatase (34-104) Units/L Ammonia 78 H (16-53) mcmol/L Creatine Kinase (30-223) Units/L Troponin I (< 0.04) ng/mL Serum Total Protein (6.4-8.9) g/dL Albumin (3.5-5.7) g/dL Globulin (2.4-3.5) g/dL Albumin/Globulin Ratio (1.1-2.2) Triglycerides (< 150) mg/dL Cholesterol (< 200) mg/dL LDL Cholesterol, Calc (0-99) mg/dL VLDL Cholesterol, Calc (< 31) mg/dL HDL Cholesterol (40-59) mg/dL Cholesterol/HDL Ratio (0-4.9) Beta-Hydroxybutyric Acd 0.34 H (0.02-0.27) mmol/L TSH (0.340-5.600) mcIU/mL Urine Color (Yellow) Urine Clarity (Clear) Urine pH (5.0-8.0) pH Units Ur Specific [place] (1.010-1.025) Urine Protein (Neg-Trace) mg/dL Urine Glucose (UA) (Normal) mg/dL Urine Ketones (Negative) mg/dL Urine Blood (Negative) Urine Nitrite (Negative) Urine Bilirubin (Negative) Urine Urobilinogen (Normal) mg/dL Ur Leukocyte Esterase (Negative) Urine Microscopic RBC (0-3) per hpf Urine Microscopic WBC (0-3) per hpf Ur Squamous Epith Cells (None-Few) per lpf Ur Transition Epith Cell (None-Few) per hpf Ur Renal Epithelial Cell (None-Few) per hpf Amorphous Sediment (Few) Urine Bacteria (None-Few) per hpf Hyaline Casts (None-Few) per lpf Granular Casts (None Seen) per lpf Urine Mucus (Few) Ur Culture Indicated? (NO) Salicylates (15.0-30.0) mg/dL Urine Opiates Screen (Aslpum=283) ng/mL Acetaminophen (10-20) mcg/mL Ur Barbiturates Screen (Xfnkvd=322) ng/mL Ur Phencyclidine Scrn (Cutoff=25) ng/mL Ur Amphetamines Screen (Ffetkz=9776) ng/mL U Benzodiazepines Scrn (Avwgrx=087) ng/mL Urine Cocaine Screen (Cutoff= 300) ng/mL U Marijuana (THC) Screen (Cutoff = 50) ng/mL Ur Drug Screen Interp Ethyl Alcohol (Less than 10) mg/dL Person Notif of Crit 06/01/18 06/01/18 06/01/18 Range/Units 13:35 15:04 15:05 WBC (4.3-11.1) K/mcL RBC (3.82-4.97) M/mcL Hgb (11.5-15.4) g/dL Hct (35.3-44.9) % MCV (83.0-100.0) fL MCH (28.0-33.3) pg MCHC (31.6-35.5) g/dL RDW (11.5-14.5) % Plt Count (140-400) K/mcL MPV (9.4-12.4) fL Immature Gran % (0-4) % Seg Neutrophils % % Lymphocytes % % Monocytes % % Eosinophils % % Basophils % % Neutrophils # (1.6-8.9) K/mcL Lymphocytes # (0.6-4.6) K/mcL Monocytes # (0.0-1.3) K/mcL Eosinophils # (0.0-0.6) K/mcL Basophils # (0.0-0.2) K/mcL Nucleated RBCs/100 WBC (0) /100 WBC PT (9.4-12.1) Seconds INR APTT (26.0-36.0) Seconds VBG pH 7.13 L* (7.32-7.42) pH Units VBG pCO2 47 (41-51) mmHg VBG pO2 57 H (25-50) mmHg VBG HCO3 16 L (21-27) mEq/L Carboxyhemoglobin (0-5) % Sodium 137 (136-145) mEq/L Potassium 3.1 L (3.5-5.1) mEq/L Chloride 108 H (98-107) mEq/L Carbon Dioxide 16 L (23-29) mEq/L BUN 26 H (8-23) mg/dL Creatinine 1.07 (0.60-1.20) mg/dL Est GFR ( Amer) 59 L (> 60) Est GFR (Non-Af Amer) 49 L (> 60) BUN/Creatinine Ratio 24 (6-26) Glucose 109 H (70-105) mg/dL Calculated Osmolality 289 (280-300) Lactic Acid 6.6 H* (0.5-2.2) mmol/L Calcium 8.0 L (8.6-10.3) mg/dL Phosphorus 2.9 (2.7-4.5) mg/dL Magnesium 1.7 (1.6-2.6) mg/dL Total Bilirubin (0.3-1.0) mg/dL Direct Bilirubin (0.0-0.2) mg/dL Indirect Bilirubin (0.0-1.2) mg/dL AST (13-39) Units/L ALT (7-52) Units/L Alkaline Phosphatase (34-104) Units/L Ammonia (16-53) mcmol/L Creatine Kinase (30-223) Units/L Troponin I (< 0.04) ng/mL Serum Total Protein (6.4-8.9) g/dL Albumin (3.5-5.7) g/dL Globulin (2.4-3.5) g/dL Albumin/Globulin Ratio (1.1-2.2) Triglycerides (< 150) mg/dL Cholesterol (< 200) mg/dL LDL Cholesterol, Calc (0-99) mg/dL VLDL Cholesterol, Calc (< 31) mg/dL HDL Cholesterol (40-59) mg/dL Cholesterol/HDL Ratio (0-4.9) Beta-Hydroxybutyric Acd (0.02-0.27) mmol/L TSH (0.340-5.600) mcIU/mL Urine Color (Yellow) Urine Clarity (Clear) Urine pH (5.0-8.0) pH Units Ur Specific [place] (1.010-1.025) Urine Protein (Neg-Trace) mg/dL Urine Glucose (UA) (Normal) mg/dL Urine Ketones (Negative) mg/dL Urine Blood (Negative) Urine Nitrite (Negative) Urine Bilirubin (Negative) Urine Urobilinogen (Normal) mg/dL Ur Leukocyte Esterase (Negative) Urine Microscopic RBC (0-3) per hpf Urine Microscopic WBC (0-3) per hpf Ur Squamous Epith Cells (None-Few) per lpf Ur Transition Epith Cell (None-Few) per hpf Ur Renal Epithelial Cell (None-Few) per hpf Amorphous Sediment (Few) Urine Bacteria (None-Few) per hpf Hyaline Casts (None-Few) per lpf Granular Casts (None Seen) per lpf Urine Mucus (Few) Ur Culture Indicated? (NO) Salicylates (15.0-30.0) mg/dL Urine Opiates Screen (Ijbjuv=402) ng/mL Acetaminophen (10-20) mcg/mL Ur Barbiturates Screen (Sildzl=162) ng/mL Ur Phencyclidine Scrn (Cutoff=25) ng/mL Ur Amphetamines Screen (Qfpbuz=7093) ng/mL U Benzodiazepines Scrn (Cyccul=289) ng/mL Urine Cocaine Screen (Cutoff= 300) ng/mL U Marijuana (THC) Screen (Cutoff = 50) ng/mL Ur Drug Screen Interp Ethyl Alcohol (Less than 10) mg/dL Person Notif of Tiffany JO 06/01/18 06/01/18 Range/Units 15:11 15:13 WBC (4.3-11.1) K/mcL RBC (3.82-4.97) M/mcL Hgb (11.5-15.4) g/dL Hct (35.3-44.9) % MCV (83.0-100.0) fL MCH (28.0-33.3) pg MCHC (31.6-35.5) g/dL RDW (11.5-14.5) % Plt Count (140-400) K/mcL MPV (9.4-12.4) fL Immature Gran % (0-4) % Seg Neutrophils % % Lymphocytes % % Monocytes % % Eosinophils % % Basophils % % Neutrophils # (1.6-8.9) K/mcL Lymphocytes # (0.6-4.6) K/mcL Monocytes # (0.0-1.3) K/mcL Eosinophils # (0.0-0.6) K/mcL Basophils # (0.0-0.2) K/mcL Nucleated RBCs/100 WBC (0) /100 WBC PT (9.4-12.1) Seconds INR APTT (26.0-36.0) Seconds VBG pH (7.32-7.42) pH Units VBG pCO2 (41-51) mmHg VBG pO2 (25-50) mmHg VBG HCO3 (21-27) mEq/L Carboxyhemoglobin (0-5) % Sodium (136-145) mEq/L Potassium (3.5-5.1) mEq/L Chloride (98-107) mEq/L Carbon Dioxide (23-29) mEq/L BUN (8-23) mg/dL Creatinine (0.60-1.20) mg/dL Est GFR ( Amer) (> 60) Est GFR (Non-Af Amer) (> 60) BUN/Creatinine Ratio (6-26) Glucose (70-105) mg/dL Calculated Osmolality (280-300) Lactic Acid (0.5-2.2) mmol/L Calcium (8.6-10.3) mg/dL Phosphorus (2.7-4.5) mg/dL Magnesium (1.6-2.6) mg/dL Total Bilirubin (0.3-1.0) mg/dL Direct Bilirubin (0.0-0.2) mg/dL Indirect Bilirubin (0.0-1.2) mg/dL AST (13-39) Units/L ALT (7-52) Units/L Alkaline Phosphatase (34-104) Units/L Ammonia (16-53) mcmol/L Creatine Kinase (30-223) Units/L Troponin I (< 0.04) ng/mL Serum Total Protein (6.4-8.9) g/dL Albumin (3.5-5.7) g/dL Globulin (2.4-3.5) g/dL Albumin/Globulin Ratio (1.1-2.2) Triglycerides (< 150) mg/dL Cholesterol (< 200) mg/dL LDL Cholesterol, Calc (0-99) mg/dL VLDL Cholesterol, Calc (< 31) mg/dL HDL Cholesterol (40-59) mg/dL Cholesterol/HDL Ratio (0-4.9) Beta-Hydroxybutyric Acd (0.02-0.27) mmol/L TSH (0.340-5.600) mcIU/mL Urine Color Yellow (Yellow) Urine Clarity Hazy A (Clear) Urine pH 6.0 (5.0-8.0) pH Units Ur Specific [place] > 1.030 H (1.010-1.025) Urine Protein 100 H (Neg-Trace) mg/dL Urine Glucose (UA) Normal (Normal) mg/dL Urine Ketones Negative (Negative) mg/dL Urine Blood Moderate H (Negative) Urine Nitrite Negative (Negative) Urine Bilirubin Negative (Negative) Urine Urobilinogen Normal (Normal) mg/dL Ur Leukocyte Esterase Negative (Negative) Urine Microscopic RBC 30-50 H (0-3) per hpf Urine Microscopic WBC 5-15 H (0-3) per hpf Ur Squamous Epith Cells Many H (None-Few) per lpf Ur Transition Epith Cell Few (None-Few) per hpf Ur Renal Epithelial Cell Few (None-Few) per hpf Amorphous Sediment Many H (Few) Urine Bacteria None Seen (None-Few) per hpf Hyaline Casts Few (None-Few) per lpf Granular Casts Few H (None Seen) per lpf Urine Mucus Moderate H (Few) Ur Culture Indicated? NO (NO) Salicylates (15.0-30.0) mg/dL Urine Opiates Screen Negative (Ctoezy=271) ng/mL Acetaminophen (10-20) mcg/mL Ur Barbiturates Screen Negative (Bxtocy=256) ng/mL Ur Phencyclidine Scrn Negative (Cutoff=25) ng/mL Ur Amphetamines Screen Negative (Rtojvp=3668) ng/mL U Benzodiazepines Scrn Positive H (Vteuof=308) ng/mL Urine Cocaine Screen Negative (Cutoff= 300) ng/mL U Marijuana (THC) Screen Negative (Cutoff = 50) ng/mL Ur Drug Screen Interp See Below Ethyl Alcohol (Less than 10) mg/dL Person Notif of Crit - EKG Data EKG #1 EKG attestation: Yes I reviewed and interpreted this EKG. EKG results narrative: 12:33 Heart rate 91 bpm, VA interval 191 ms, QRS duration 89 ms, QT 378 ms, QTC 466 ms , normal axis. Sinus rhythm ventricular rate of [address] changes. Attestation Statement - Attestation Attestation: I, Cole Barry DO, examined this patient [id number] and my medical decision-making was reviewed with Dr. Adolfo Ortega, Resident Physician. I agree with the documented findings, disposition and treatment plan as described except to the extent set forth below. Please see my progress notes for details.
[2018-06-01] MEDS ORDERED: 0.9 % Sodium Chloride 1,000 ML IVC ONE ×2 (12:36→13:52)
[2018-06-01] MEDS ORDERED: Levofloxacin 750 MG/150 ML 750 MG/150 ML BAG IVPB ONE (13:00)
[2018-06-01] MEDS ORDERED: Isovue-370 500 ML INFUS..BTL IV ONE (13:25)
--- NOTE | 2018-06-01 13:26 | Emergency Department Note ---
Disposition Clinical Impression: Pneumatosis intestinalis of large intestine, Elevated lactic acid level, Hypokalemia, Hyperglycemia, Hypotension, Hypothermia Disposition: Admitted As Inpatient Condition: Critical Referrals: Hong Garnett MD [Primary Care Provider] - Forms: ED Satisfaction Letter Time of Disposition: 15:51 General Adult HPI - General Chief complaint: ED Altered Mental Status Stated complaint: Weakness Time Seen by Provider: 06/01/18 12:22 Source: EMS Limitations: altered mental status - History of Present Illness Pain Scale: 0 - Related Data Home Medications Medication Instructions Recorded Confirmed ALPRAZolam [Xanax 0.5 MG Tablet] 0.5 mg PO HS 08/20/17 06/01/18 Alendronate Sodium 70 mg PO QWEEK 08/20/17 06/01/18 Aspirin [Lo-Dose Aspirin EC] 81 mg PO DAILY 08/20/17 01/08/18 Cholecalciferol (Vitamin D3) 2,000 unit PO DAILY 08/20/17 01/08/18 [Vitamin D3] Citalopram Hydrobromide 10 mg PO HS 08/20/17 06/01/18 [Citalopram HBr] Docusate [Colace] 100 mg PO BID 08/20/17 01/08/18 Fluticasone/Salmeterol [Advair 1 puff IH BID 08/20/17 01/08/18 100-50 Diskus] Levothyroxine Sodium 25 mcg PO DAILY 08/20/17 06/01/18 Lisinopril [Zestril] 10 mg PO DAILY 08/20/17 06/01/18 Metformin HCl [Metformin HCl ER] 500 mg PO QPM 08/20/17 06/01/18 Simvastatin [Zocor] 40 mg PO DAILY 08/20/17 06/01/18 Verapamil ER (24 HR) [Calan SR] 240 mg PO DAILY 08/20/17 06/01/18 Previous Rx's Medication Instructions Recorded Cyanocobalamin (Vitamin B-12) 1,000 mcg PO DAILY #30 tablet.er 01/08/18 [B-12] Allergies Allergy/AdvReac Type Severity Reaction Status Date / Time cephalexin [From Keflex] AdvReac See Verified 09/16/17 10:53 Comments morphine AdvReac Itching Verified 09/16/17 10:53 Past Medical History - Past Medical History Medical history: Reports: diabetes (Not insulin-dependent), hyperlipidemia, hypertension, osteoporosis, other (Osteoporosis, anxiety, hypothyroidism, depression) Surgical history: Reports: hip replacement, other (Right total knee replacement , appendectomy and cholecystectomy) Psychiatric history: Reports: anxiety, depression BACCARAT MANAGER history: Reports: no BACCARAT MANAGER history - Social History Smoking Status: Never smoker Smokeless Tobacco Status: No Alcohol use: Reports: none Drug use: Reports: none Physical Exam - General Limitations: altered mental status General appearance: alert, in no apparent distress Course Vital Signs Temperature 95.5 F L 06/01/18 12:23 Pulse Rate 102 06/01/18 12:23 Respiratory Rate 20 06/01/18 12:23 Blood Pressure 74/56 06/01/18 12:23 O2 Sat by Pulse Oximetry 91 06/01/18 12:23 Temperature 97.6 F 06/01/18 13:42 Pulse Rate 73 06/01/18 15:42 Respiratory Rate 20 06/01/18 15:42 Blood Pressure 80/39 06/01/18 15:42 O2 Sat by Pulse Oximetry 96 06/01/18 15:42 Oxygen Delivery Oxygen Delivery Nasal Cannula Medical Decision Making - Lab Data Result diagrams: 06/01/18 12:51 06/01/18 12:51 Lab Results 06/01/18 06/01/18 06/01/18 Range/Units 12:51 12:51 12:51 WBC 12.6 H (4.3-11.1) K/mcL RBC 4.30 (3.82-4.97) M/mcL Hgb 13.5 (11.5-15.4) g/dL Hct 42.3 (35.3-44.9) % MCV 98.4 (83.0-100.0) fL MCH 31.4 (28.0-33.3) pg MCHC 31.9 (31.6-35.5) g/dL RDW 19.0 H (11.5-14.5) % Plt Count 255 (140-400) K/mcL MPV 11.1 (9.4-12.4) fL Immature Gran % 0.5 (0-4) % Seg Neutrophils % 60.6 % Lymphocytes % 33.6 % Monocytes % 1.8 % Eosinophils % 3.1 % Basophils % 0.4 % Neutrophils # 7.6 (1.6-8.9) K/mcL Lymphocytes # 4.2 (0.6-4.6) K/mcL Monocytes # 0.2 (0.0-1.3) K/mcL Eosinophils # 0.4 (0.0-0.6) K/mcL Basophils # 0.1 (0.0-0.2) K/mcL Nucleated RBCs/100 WBC 0.4 H (0) /100 WBC PT 11.2 (9.4-12.1) Seconds INR 1.0 APTT 24.0 L (26.0-36.0) Seconds VBG pH (7.32-7.42) pH Units VBG pCO2 (41-51) mmHg VBG pO2 (25-50) mmHg VBG HCO3 (21-27) mEq/L Carboxyhemoglobin (0-5) % Sodium 136 (136-145) mEq/L Potassium 3.3 L (3.5-5.1) mEq/L Chloride 102 (98-107) mEq/L Carbon Dioxide 15 L (23-29) mEq/L BUN 26 H (8-23) mg/dL Creatinine 1.20 (0.60-1.20) mg/dL Est GFR ( Amer) 52 L (> 60) Est GFR (Non-Af Amer) 43 L (> 60) BUN/Creatinine Ratio 22 (6-26) Glucose 345 H (70-105) mg/dL Calculated Osmolality 300 (280-300) Lactic Acid (0.5-2.2) mmol/L Calcium 9.1 (8.6-10.3) mg/dL Phosphorus (2.7-4.5) mg/dL Magnesium (1.6-2.6) mg/dL Total Bilirubin 1.9 H (0.3-1.0) mg/dL Direct Bilirubin 0.3 H (0.0-0.2) mg/dL Indirect Bilirubin 1.6 H (0.0-1.2) mg/dL AST 29 (13-39) Units/L ALT 21 (7-52) Units/L Alkaline Phosphatase 73 (34-104) Units/L Ammonia (16-53) mcmol/L Creatine Kinase 103 (30-223) Units/L Troponin I < 0.03 (< 0.04) ng/mL Serum Total Protein 6.5 (6.4-8.9) g/dL Albumin 4.1 (3.5-5.7) g/dL Globulin 2.4 (2.4-3.5) g/dL Albumin/Globulin Ratio 1.7 (1.1-2.2) Triglycerides 116 (< 150) mg/dL Cholesterol 117 (< 200) mg/dL LDL Cholesterol, Calc 37 (0-99) mg/dL VLDL Cholesterol, Calc 23 (< 31) mg/dL HDL Cholesterol 57 (40-59) mg/dL Cholesterol/HDL Ratio 2.1 (0-4.9) Beta-Hydroxybutyric Acd (0.02-0.27) mmol/L TSH 11.408 H (0.340-5.600) mcIU/mL Urine Color (Yellow) Urine Clarity (Clear) Urine pH (5.0-8.0) pH Units Ur Specific [place] (1.010-1.025) Urine Protein (Neg-Trace) mg/dL Urine Glucose (UA) (Normal) mg/dL Urine Ketones (Negative) mg/dL Urine Blood (Negative) Urine Nitrite (Negative) Urine Bilirubin (Negative) Urine Urobilinogen (Normal) mg/dL Ur Leukocyte Esterase (Negative) Salicylates < 2.5 L (15.0-30.0) mg/dL Urine Opiates Screen (Bfxhrj=363) ng/mL Acetaminophen < 10 L (10-20) mcg/mL Ur Barbiturates Screen (Lmpkvc=292) ng/mL Ur Phencyclidine Scrn (Cutoff=25) ng/mL Ur Amphetamines Screen (Hakzjb=2378) ng/mL U Benzodiazepines Scrn (Njuxdc=603) ng/mL Urine Cocaine Screen (Cutoff= 300) ng/mL U Marijuana (THC) Screen (Cutoff = 50) ng/mL Ur Drug Screen Interp Ethyl Alcohol < 10 (Less than 10) mg/dL Person Notif of Crit 06/01/18 06/01/18 06/01/18 Range/Units 12:51 12:51 12:51 WBC (4.3-11.1) K/mcL RBC (3.82-4.97) M/mcL Hgb (11.5-15.4) g/dL Hct (35.3-44.9) % MCV (83.0-100.0) fL MCH (28.0-33.3) pg MCHC (31.6-35.5) g/dL RDW (11.5-14.5) % Plt Count (140-400) K/mcL MPV (9.4-12.4) fL Immature Gran % (0-4) % Seg Neutrophils % % Lymphocytes % % Monocytes % % Eosinophils % % Basophils % % Neutrophils # (1.6-8.9) K/mcL Lymphocytes # (0.6-4.6) K/mcL Monocytes # (0.0-1.3) K/mcL Eosinophils # (0.0-0.6) K/mcL Basophils # (0.0-0.2) K/mcL Nucleated RBCs/100 WBC (0) /100 WBC PT (9.4-12.1) Seconds INR APTT (26.0-36.0) Seconds VBG pH (7.32-7.42) pH Units VBG pCO2 (41-51) mmHg VBG pO2 (25-50) mmHg VBG HCO3 (21-27) mEq/L Carboxyhemoglobin 5.2 H (0-5) % Sodium (136-145) mEq/L Potassium (3.5-5.1) mEq/L Chloride (98-107) mEq/L Carbon Dioxide (23-29) mEq/L BUN (8-23) mg/dL Creatinine (0.60-1.20) mg/dL Est GFR ( Amer) (> 60) Est GFR (Non-Af Amer) (> 60) BUN/Creatinine Ratio (6-26) Glucose (70-105) mg/dL Calculated Osmolality (280-300) Lactic Acid (0.5-2.2) mmol/L Calcium (8.6-10.3) mg/dL Phosphorus (2.7-4.5) mg/dL Magnesium (1.6-2.6) mg/dL Total Bilirubin (0.3-1.0) mg/dL Direct Bilirubin (0.0-0.2) mg/dL Indirect Bilirubin (0.0-1.2) mg/dL AST (13-39) Units/L ALT (7-52) Units/L Alkaline Phosphatase (34-104) Units/L Ammonia 78 H (16-53) mcmol/L Creatine Kinase (30-223) Units/L Troponin I (< 0.04) ng/mL Serum Total Protein (6.4-8.9) g/dL Albumin (3.5-5.7) g/dL Globulin (2.4-3.5) g/dL Albumin/Globulin Ratio (1.1-2.2) Triglycerides (< 150) mg/dL Cholesterol (< 200) mg/dL LDL Cholesterol, Calc (0-99) mg/dL VLDL Cholesterol, Calc (< 31) mg/dL HDL Cholesterol (40-59) mg/dL Cholesterol/HDL Ratio (0-4.9) Beta-Hydroxybutyric Acd 0.34 H (0.02-0.27) mmol/L TSH (0.340-5.600) mcIU/mL Urine Color (Yellow) Urine Clarity (Clear) Urine pH (5.0-8.0) pH Units Ur Specific [place] (1.010-1.025) Urine Protein (Neg-Trace) mg/dL Urine Glucose (UA) (Normal) mg/dL Urine Ketones (Negative) mg/dL Urine Blood (Negative) Urine Nitrite (Negative) Urine Bilirubin (Negative) Urine Urobilinogen (Normal) mg/dL Ur Leukocyte Esterase (Negative) Salicylates (15.0-30.0) mg/dL Urine Opiates Screen (Lngmje=463) ng/mL Acetaminophen (10-20) mcg/mL Ur Barbiturates Screen (Ptuaku=658) ng/mL Ur Phencyclidine Scrn (Cutoff=25) ng/mL Ur Amphetamines Screen (Aslzue=1629) ng/mL U Benzodiazepines Scrn (Nooexi=771) ng/mL Urine Cocaine Screen (Cutoff= 300) ng/mL U Marijuana (THC) Screen (Cutoff = 50) ng/mL Ur Drug Screen Interp Ethyl Alcohol (Less than 10) mg/dL Person Notif of Crit 06/01/18 06/01/18 06/01/18 Range/Units 13:35 15:04 15:05 WBC (4.3-11.1) K/mcL RBC (3.82-4.97) M/mcL Hgb (11.5-15.4) g/dL Hct (35.3-44.9) % MCV (83.0-100.0) fL MCH (28.0-33.3) pg MCHC (31.6-35.5) g/dL RDW (11.5-14.5) % Plt Count (140-400) K/mcL MPV (9.4-12.4) fL Immature Gran % (0-4) % Seg Neutrophils % % Lymphocytes % % Monocytes % % Eosinophils % % Basophils % % Neutrophils # (1.6-8.9) K/mcL Lymphocytes # (0.6-4.6) K/mcL Monocytes # (0.0-1.3) K/mcL Eosinophils # (0.0-0.6) K/mcL Basophils # (0.0-0.2) K/mcL Nucleated RBCs/100 WBC (0) /100 WBC PT (9.4-12.1) Seconds INR APTT (26.0-36.0) Seconds VBG pH 7.13 L* (7.32-7.42) pH Units VBG pCO2 47 (41-51) mmHg VBG pO2 57 H (25-50) mmHg VBG HCO3 16 L (21-27) mEq/L Carboxyhemoglobin (0-5) % Sodium (136-145) mEq/L Potassium (3.5-5.1) mEq/L Chloride (98-107) mEq/L Carbon Dioxide (23-29) mEq/L BUN (8-23) mg/dL Creatinine (0.60-1.20) mg/dL Est GFR ( Amer) (> 60) Est GFR (Non-Af Amer) (> 60) BUN/Creatinine Ratio (6-26) Glucose (70-105) mg/dL Calculated Osmolality (280-300) Lactic Acid 6.6 H* (0.5-2.2) mmol/L Calcium (8.6-10.3) mg/dL Phosphorus 2.9 (2.7-4.5) mg/dL Magnesium 1.7 (1.6-2.6) mg/dL Total Bilirubin (0.3-1.0) mg/dL Direct Bilirubin (0.0-0.2) mg/dL Indirect Bilirubin (0.0-1.2) mg/dL AST (13-39) Units/L ALT (7-52) Units/L Alkaline Phosphatase (34-104) Units/L Ammonia (16-53) mcmol/L Creatine Kinase (30-223) Units/L Troponin I (< 0.04) ng/mL Serum Total Protein (6.4-8.9) g/dL Albumin (3.5-5.7) g/dL Globulin (2.4-3.5) g/dL Albumin/Globulin Ratio (1.1-2.2) Triglycerides (< 150) mg/dL Cholesterol (< 200) mg/dL LDL Cholesterol, Calc (0-99) mg/dL VLDL Cholesterol, Calc (< 31) mg/dL HDL Cholesterol (40-59) mg/dL Cholesterol/HDL Ratio (0-4.9) Beta-Hydroxybutyric Acd (0.02-0.27) mmol/L TSH (0.340-5.600) mcIU/mL Urine Color (Yellow) Urine Clarity (Clear) Urine pH (5.0-8.0) pH Units Ur Specific [place] (1.010-1.025) Urine Protein (Neg-Trace) mg/dL Urine Glucose (UA) (Normal) mg/dL Urine Ketones (Negative) mg/dL Urine Blood (Negative) Urine Nitrite (Negative) Urine Bilirubin (Negative) Urine Urobilinogen (Normal) mg/dL Ur Leukocyte Esterase (Negative) Salicylates (15.0-30.0) mg/dL Urine Opiates Screen (Ymuxvv=048) ng/mL Acetaminophen (10-20) mcg/mL Ur Barbiturates Screen (Jovmsm=280) ng/mL Ur Phencyclidine Scrn (Cutoff=25) ng/mL Ur Amphetamines Screen (Wdkirf=0382) ng/mL U Benzodiazepines Scrn (Kbfgdz=811) ng/mL Urine Cocaine Screen (Cutoff= 300) ng/mL U Marijuana (THC) Screen (Cutoff = 50) ng/mL Ur Drug Screen Interp Ethyl Alcohol (Less than 10) mg/dL Person Notif of Tiffany JO 06/01/18 06/01/18 Range/Units 15:11 15:13 WBC (4.3-11.1) K/mcL RBC (3.82-4.97) M/mcL Hgb (11.5-15.4) g/dL Hct (35.3-44.9) % MCV (83.0-100.0) fL MCH (28.0-33.3) pg MCHC (31.6-35.5) g/dL RDW (11.5-14.5) % Plt Count (140-400) K/mcL MPV (9.4-12.4) fL Immature Gran % (0-4) % Seg Neutrophils % % Lymphocytes % % Monocytes % % Eosinophils % % Basophils % % Neutrophils # (1.6-8.9) K/mcL Lymphocytes # (0.6-4.6) K/mcL Monocytes # (0.0-1.3) K/mcL Eosinophils # (0.0-0.6) K/mcL Basophils # (0.0-0.2) K/mcL Nucleated RBCs/100 WBC (0) /100 WBC PT (9.4-12.1) Seconds INR APTT (26.0-36.0) Seconds VBG pH (7.32-7.42) pH Units VBG pCO2 (41-51) mmHg VBG pO2 (25-50) mmHg VBG HCO3 (21-27) mEq/L Carboxyhemoglobin (0-5) % Sodium (136-145) mEq/L Potassium (3.5-5.1) mEq/L Chloride (98-107) mEq/L Carbon Dioxide (23-29) mEq/L BUN (8-23) mg/dL Creatinine (0.60-1.20) mg/dL Est GFR ( Amer) (> 60) Est GFR (Non-Af Amer) (> 60) BUN/Creatinine Ratio (6-26) Glucose (70-105) mg/dL Calculated Osmolality (280-300) Lactic Acid (0.5-2.2) mmol/L Calcium (8.6-10.3) mg/dL Phosphorus (2.7-4.5) mg/dL Magnesium (1.6-2.6) mg/dL Total Bilirubin (0.3-1.0) mg/dL Direct Bilirubin (0.0-0.2) mg/dL Indirect Bilirubin (0.0-1.2) mg/dL AST (13-39) Units/L ALT (7-52) Units/L Alkaline Phosphatase (34-104) Units/L Ammonia (16-53) mcmol/L Creatine Kinase (30-223) Units/L Troponin I (< 0.04) ng/mL Serum Total Protein (6.4-8.9) g/dL Albumin (3.5-5.7) g/dL Globulin (2.4-3.5) g/dL Albumin/Globulin Ratio (1.1-2.2) Triglycerides (< 150) mg/dL Cholesterol (< 200) mg/dL LDL Cholesterol, Calc (0-99) mg/dL VLDL Cholesterol, Calc (< 31) mg/dL HDL Cholesterol (40-59) mg/dL Cholesterol/HDL Ratio (0-4.9) Beta-Hydroxybutyric Acd (0.02-0.27) mmol/L TSH (0.340-5.600) mcIU/mL Urine Color Yellow (Yellow) Urine Clarity Hazy A (Clear) Urine pH 6.0 (5.0-8.0) pH Units Ur Specific [place] > 1.030 H (1.010-1.025) Urine Protein 100 H (Neg-Trace) mg/dL Urine Glucose (UA) Normal (Normal) mg/dL Urine Ketones Negative (Negative) mg/dL Urine Blood Moderate H (Negative) Urine Nitrite Negative (Negative) Urine Bilirubin Negative (Negative) Urine Urobilinogen Normal (Normal) mg/dL Ur Leukocyte Esterase Negative (Negative) Salicylates (15.0-30.0) mg/dL Urine Opiates Screen Negative (Mzbgwr=706) ng/mL Acetaminophen (10-20) mcg/mL Ur Barbiturates Screen Negative (Baeezv=106) ng/mL Ur Phencyclidine Scrn Negative (Cutoff=25) ng/mL Ur Amphetamines Screen Negative (Esxnlg=0908) ng/mL U Benzodiazepines Scrn Positive H (Cokkqw=502) ng/mL Urine Cocaine Screen Negative (Cutoff= 300) ng/mL U Marijuana (THC) Screen Negative (Cutoff = 50) ng/mL Ur Drug Screen Interp See Below Ethyl Alcohol (Less than 10) mg/dL Person Notif of Crit Attestation Statement - Attestation Attestation: I, Cole Barry DO, examined this patient [id number] and my medical decision-making was reviewed with Dr. Adolfo Ortega, Resident Physician. I agree with the documented findings, disposition and treatment plan as described except to the extent set forth below. Please see my progress notes for details. 88-year-old female presents EMS for evaluation of generalized weakness and being found down in her house. The please officers had to break the front door down to get into her home to remove her. Patient is found lying on the ground. She said that she got up to go to the bathroom because she needed to have a bowel movement and then she was so weak that she just sat down on the floor. She is unable to get herself up off the floor after that. She had a chest pain shortness of breath headache vision changes nausea vomiting or diarrhea. No recent fevers or chills. Patient has not fallen or injured herself. Denies any head trauma. She did not lose consciousness. She was just too weak to get up off the floor. On presentation here to the emergency room she is hypotensive and hypothermic at 95.5 by rectal temperature. Vital signs will be addressed with 2 large-bore IVs warm fluids and a bear hugger. Patient will have chest x-ray CT the head CT the abdomen CBC chemistry troponin and liver function testing lipase urinalysis as well as lactic acid and blood cultures to be collected. Patient is concerning for injury sustained while lying on the floor as well as a CPK will be added on. Patient is otherwise clinically stable at this point but does have concerning vital signs. She is mentating answering questions. Family is not currently at the bedside so we will consult them and discussed the recommendations as well as the patient's wishes for medical intervention once our treatment course has been established. See detailed documentation the physical exam, medical intervention, medical decision -making and disposition the resident physician's note. No critical care applied to the patient's treatment course initially. 1500 Multiple medical issues have been presenting themselves during the patient's treatment course here in the emergency room. Patient appears to be fluid responsive. Her blood pressure has continued to elevate. Patient does show a electrolyte abnormalities.b daily anemia is noted. Potassium repletion will be started. Patient also shows signs of diabetic ketoacidosis. Glucose is 345. VBG showed a pH of 7.13. Patient's abdomen has not changed in presentation she has had low urinary output. Her kidney function appears to be relatively stable at this point. The CT imaging of the head and cervical spine are unremarkable for acute bleed or injury. CT the abdomen with IV contrast shows what appears to be pneumatosis intestinalis of the colon with stool ball. The on-call surgeon Dr. Reyez was contacted and recommended immediate surgery with the family is going to continue with the patient being a full code. We will work on placing a central line for the patient considering she is going to go to surgery needs a definitive stable line. Currently she does not show any signs of respiratory decompensation. His presenting here with a critical illness that is life-threatening. We will continue to monitor closely here in the emergency room. IV antibiotics of our treatment provided Levaquin and Flagyl. Family was informed. Central line consent will be completed. Procedure will be completed by the resident physician's and her my direct supervision. Patient will need admission to the hospital once surgical evaluation has been completed. Disposition will be admission. Medical condition is critical. 45 minutes of critical care applied the patient's treatment course secondary to multidisciplinary intervention evaluation consultations. 1535 Attempt was made to lie the patient flat to perform the central line. Every time that her flat within several seconds she starts to cough and gag. Patient does not show any signs of crackles or pulse ox deficits on auscultation but she is not tolerant of lying flat at this point. At that point we decided to hold off with the central line since she is to be peripheral IVs and she has been fluid responsive. We will allow the central lines either replaced after intubation in the operative suite or even need be. Patient has progressed from a DNR CC on arrival here to DNR CCA after initial conversations now to a full code with request for intubation and surgical intervention on her abdomen. All the family members are all at the bedside discussing with the patient reviewing the presentation. They understand that if she does not have the surgery she is going to she also stands understands that there is a good chance if she has a surgery that she could never come off the ventilator and could still potentially . Patient is electively decided to have the surgery completed. Patient's blood pressure historically has been between 100 systolic to 116 systolic. She is low today but she was fluid responsive. Patient is still mentating appropriately. Central line attempt will be deferred at this point to the patient is in the surgical suite and intubated. Patient's family informed and they are comfortable with the plan appreciated. Patient is still stable here in the emergency room and set up to transport to the surgical suite for emergent surgical intervention. Conversation was had with the operative physician Dr. Reyez and he is requesting not to attempt a central line in the groin and to transport the patient to surgery where he will place an IJ after patient has been intubated. This is the most prudent plan at this time secondary to the patient's inability to lie flat during the emergency room treatment. Patient will be transported to the surgical suite at this time. Patient left our emergency room in stable medical condition. Medications were provided here in the department. Patient is being transported to the surgical suite for surgical intervention of potentially life-threatening medical illness. Patient does not have any acute infectious etiology of what appears to have the elevated white blood cell count and lactic acidosis secondary to the ischemic bowel that was found on CT scan.
[2018-06-01 13:30] LABS: Basophils # 0.1 K/mcL (0.0-0.2); Basophils % 0.4 %; Eosinophils # 0.4 K/mcL (0.0-0.6); Eosinophils % 3.1 %; Hematocrit 42.3 % (35.3-44.9); Hemoglobin 13.5 g/dL (11.5-15.4); Immature Granulocytes % 0.5 % (0-4); Lymphocytes # 4.2 K/mcL (0.6-4.6); Lymphocytes % 33.6 %; Mean Corpuscular HGB Conc 31.9 g/dL (31.6-35.5); Mean Corpuscular Hemoglobin 31.4 pg (28.0-33.3); Mean Corpuscular Volume 98.4 fL (83.0-100.0); Mean Platelet Volume 11.1 fL (9.4-12.4); Monocytes # 0.2 K/mcL (0.0-1.3); Monocytes % 1.8 %; Neutrophils # 7.6 K/mcL (1.6-8.9); Nucleated Red Blood Cells 0.4 /100 WBC (0); Platelet Count 255 K/mcL (140-400); Segmented Neutrophils % 60.6 %
[2018-06-01 13:45] LABS: Prothrombin Time 11.2 Seconds (9.4-12.1)
[2018-06-01 13:46] LABS: VBG HCO3 16 mEq/L (21-27); VBG PCO2 47 mmHg (41-51); VBG PH 7.13 pH Units (7.32-7.42); VBG PO2 57 mmHg (25-50)
[2018-06-01] MEDS ORDERED: Ondansetron 4 MG/2 ML VIAL IVP ONE ×2 (13:54→15:20)
[2018-06-01 13:57] LABS: Acetaminophen < 10 mcg/mL (10-20); Alanine Aminotransferase 21 Units/L (7-52); Albumin 4.1 g/dL (3.5-5.7); Albumin/Globulin Ratio 1.7 (1.1-2.2); Alkaline Phosphatase 73 Units/L (34-104); Aspartate Amino Transferase 29 Units/L (13-39); BUN/Creatinine Ratio 22 (6-26); Bilirubin,Direct 0.3 mg/dL (0.0-0.2); Bilirubin,Indirect 1.6 mg/dL (0.0-1.2); Bilirubin,Total 1.9 mg/dL (0.3-1.0); Blood Urea Nitrogen 26 mg/dL (8-23); Calcium 9.1 mg/dL (8.6-10.3); Carbon Dioxide 15 mEq/L (23-29); Chloride 102 mEq/L (98-107); Creatine Kinase 103 Units/L (30-223); Ethanol < 10 mg/dL (Less than 10); Globulin 2.4 g/dL (2.4-3.5); Glucose 345 mg/dL (70-105); Osmolality,Calculated 300 (280-300); Potassium 3.3 mEq/L (3.5-5.1); Salicylate < 2.5 mg/dL (15.0-30.0); Sodium 136 mEq/L (136-145); Total Protein 6.5 g/dL (6.4-8.9); Troponin I < 0.03 ng/mL (< 0.04); eGFR For Non-African Americans 43 (> 60)
[2018-06-01 14:04] LABS: Chol/HDL Ratio 2.1 (0-4.9); Cholesterol 117 mg/dL (< 200); HDL Cholesterol 57 mg/dL (40-59); LDL Cholesterol,Calculated 37 mg/dL (0-99); Triglycerides 116 mg/dL (< 150)
[2018-06-01] MEDS ORDERED: Potassium Chloride 40 MEQ, Lidocaine 1% 2 ML in D5% in Water 500 ML IVPB ONE (14:04)
[2018-06-01 14:10] LABS: Thyroid Stimulating Hormone 11.408 mcIU/mL (0.340-5.600)
[2018-06-01] MEDS ORDERED: Insulin Regular, Human 100 UNIT/ML IV PRN ×2 (14:16→19:47)
[2018-06-01] MEDS ORDERED: *HR* Dextrose 50 % in Water (Syg) 50 ML SYRINGE IVP PRN ×3 (14:16→21:54)
[2018-06-01] MEDS ORDERED: Insulin Human Regular 100 UNIT in 0.9 % Sodium Chloride 100 ML IVC SCH ×2 (14:30→19:47)
[2018-06-01] MEDS ORDERED: MetroNIDAZOLE 500 MG/100 ML 500 MG/100 ML BAG IVPB ONE (14:53)
[2018-06-01] MEDS ORDERED: *HR* LORazepam 2 MG/ML VIAL IVP ONE (15:20)
[2018-06-01] MEDS ORDERED: *HR* FentaNYL (PF) 100 MCG/2 ML VIAL IVP ONE (15:22)
[2018-06-01 15:37] LABS: Magnesium 1.7 mg/dL (1.6-2.6); Phosphorous 2.9 mg/dL (2.7-4.5)
[2018-06-01 15:52] LABS: Bacteria,Urine None Seen per hpf (None-Few); Bilirubin,Urine Negative (Negative); Blood,Urine Moderate (Negative); Color,Urine Yellow (Yellow); Glucose,Urine (UA) Normal (Normal); Ketones,Urine Negative (Negative); Leukocyte Esterase,Urine Negative (Negative); Nitrite,Urine Negative (Negative); Protein,Urine 100 mg/dL (Neg-Trace); RBC,Urine 30-50 per hpf (0-3); Specific Gravity,Urine > 1.030 (1.010-1.025); Squamous Epithelial Cell,Urine Many per lpf (None-Few); Urobilinogen,Urine Normal (Normal)
[2018-06-01 15:57] LABS: Clarity,Urine Hazy (Clear)
[2018-06-01 15:58] LABS: Amphetamine Screen,Urine Negative ng/mL (Cutoff=1000); Barbiturate Screen,Urine Negative ng/mL (Cutoff=200); Benzodiazepines Screen,Urine Positive ng/mL (Cutoff=200); Cannabinoid Screen,Urine Negative ng/mL (Cutoff = 50); Cocaine Screen,Urine Negative ng/mL (Cutoff= 300); Opiate Screen,Urine Negative ng/mL (Cutoff=300); Phencyclidine Screen,Urine Negative ng/mL (Cutoff=25)
[2018-06-01] MEDS ORDERED: Norepinephrine 4 MG in D5% in Water 250 ML IVC SCH (16:00)
[2018-06-01 16:21] LABS: Mucus,Urine Moderate (Few)
[2018-06-01 16:28] LABS: Amorphous Sediment,Urine Many (Few); Granular Casts,Urine Few per lpf (None Seen); Hyaline Casts,Urine Few per lpf (None-Few)
[2018-06-01 16:29] LABS: Renal Epithelial Cells,Urine Few per hpf (None-Few); Transitional Epi Cells,Urine Few per hpf (None-Few)
[2018-06-01] MEDS ORDERED: Sodium Bicarbonate 50 MEQ/50 ML VIAL ONE (16:57)
[2018-06-01] MEDS ORDERED: *HR* Vasopressin 20 UNIT/ML VIAL ONE (16:57)
[2018-06-01 16:58] LABS: Potassium 3.1 mEq/L (3.5-5.1)
--- NOTE | 2018-06-01 17:07 | Anesthesia Evaluation PreOp ---
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: Denies Any Significant HX Other Medical History: Diabetes Type II, Thyroid (Hypothyroid), Other (Anxiety Depression) Anesthesia History: No Prior Anesthetic Complications Alcohol Use: none Drug use: none Medications and Allergies ALPRAZolam [Xanax 0.5 MG Tablet] 0.5 mg PO HS 08/20/17 [History] Alendronate Sodium 70 mg PO QWEEK 08/20/17 [History] Aspirin [Lo-Dose Aspirin EC] 81 mg PO DAILY 08/20/17 [History] Cholecalciferol (Vitamin D3) [Vitamin D3] 2,000 unit PO DAILY 08/20/17 [History] Citalopram Hydrobromide [Citalopram HBr] 10 mg PO HS 08/20/17 [History] Docusate [Colace] 100 mg PO BID 08/20/17 [History] Fluticasone/Salmeterol [Advair 100-50 Diskus] 1 puff IH BID 08/20/17 [History] Levothyroxine Sodium 25 mcg PO DAILY 08/20/17 [History] Lisinopril [Zestril] 10 mg PO DAILY 08/20/17 [History] Metformin HCl [Metformin HCl ER] 500 mg PO QPM 08/20/17 [History] Simvastatin [Zocor] 40 mg PO DAILY 08/20/17 [History] Verapamil ER (24 HR) [Calan SR] 240 mg PO DAILY 08/20/17 [History] Cyanocobalamin (Vitamin B-12) [B-12] 1,000 mcg PO DAILY #30 tablet.er 01/08/18 [ Rx] 3 Allergy/AdvReac Type Severity Reaction Status Date / Time cephalexin [From Keflex] AdvReac See Verified 09/16/17 10:53 Comments morphine AdvReac Itching Verified 09/16/17 10:53 - Meds/Allergy Pre-op Review Medications Reviewed: Yes Allergies Reviewed: Yes Beta Blockers on Current Med List: No Anesthesia Results - Labs 06/01/18 12:51 06/01/18 15:05 - Imaging EKG: report reviewed (SR) Anesthesia Exam Vital Signs/O2 Sat/Glucose, Most Current Temp Pulse Resp BP Pulse Ox 06/01/18 15:42 73 20 80/39 96 06/01/18 13:42 97.6 F 86 24 83/42 100 Height: 5'0 Weight: 142 lbs NPO (# of Hours): MN Pain Scale: 0 - HEENT Pupil (Motor): Pupils equal, EOMI Mallampati: II Oral Opening: Greater than 3 - MECHANICAL MAINTENANCE SUPERVISOR LOC: Oriented MECHANICAL MAINTENANCE SUPERVISOR Motor: Normal RUE, Normal LUE, Normal RLE, Normal LLE, Normal Face MECHANICAL MAINTENANCE SUPERVISOR Sensory: Normal: RUE, LUE, RLE, LLE, Face - Cardiac Rhythm: Regular Murmur: None JVD: No Carotid Bruit: No - Pulmonary Breath Sounds: bilateral Clear Respiratory Effort: Symmetrical Anesthesia Assess/Plan ASA Score: 4, E Modified [place] Scale for Level of Consciousness: Cooperative, oriented, and tranquil Anesthetic Plan: General Monitoring Plan: Standard Monitors Recovery Plan: PACU (Discussed GA, high risk, ICU, agrees to proceed)
[2018-06-01] MEDS ORDERED: *HR* FentaNYL (PF) 100 MCG/2 ML VIAL ONE (17:20)
--- NOTE | 2018-06-01 17:26 | General Surg History&Physical ---
Date of Encounter: 06/01/18 Time of Encounter: 17:24 Assessment and Plan (1) Pneumatosis coli Current Visit: Yes Status: Acute Plan for exporter laparotomy with descending colectomy and end ostomy with Mejias's pouch. Risks, benefits, and expected outcomes explained to the patient and her family. They understand that she is extraordinarily ill and there is a significant chance she may not survive the operation. The patient understands well may wish to proceed. The assessment and plan as outlined above was discussed with the patient and/or family members who expressed understanding and agreement. All questions were answered. History of Present Illness HPI: Ms. Robison is a 88 year old female that presents to the emergency department with onset of abdominal pain since chest her today. She reports having difficulty with bowel movements over the last 2 weeks. She states she has had the inability to have a bowel movement of the last 4 days. She was evaluated in the emergency department I was called due to pneumatosis within the colon on the left. Past Med Surg Social Fam HX - Past Medical History Medical history: diabetes (Not insulin-dependent), hyperlipidemia, hypertension , osteoporosis, other (Osteoporosis, anxiety, hypothyroidism, depression) Psychiatric history: anxiety, depression - Past Surgical History Surgical History: hip replacement, other (Right total knee replacement, appendectomy and cholecystectomy) Additional surgical history: knee surgery, multiple ortho fractures - Social History Smoking Status: Never smoker Smokeless Tobacco Status: No Alcohol use: none Drug use: none - Family History Mother Living Status: Hx Family Cardiac Disorders: Yes ([place]) Medications and Allergies ALPRAZolam [Xanax 0.5 MG Tablet] 0.5 mg PO HS 08/20/17 [History] Alendronate Sodium 70 mg PO QWEEK 08/20/17 [History] Aspirin [Lo-Dose Aspirin EC] 81 mg PO DAILY 08/20/17 [History] Cholecalciferol (Vitamin D3) [Vitamin D3] 2,000 unit PO DAILY 08/20/17 [History] Citalopram Hydrobromide [Citalopram HBr] 10 mg PO HS 08/20/17 [History] Docusate [Colace] 100 mg PO BID 08/20/17 [History] Fluticasone/Salmeterol [Advair 100-50 Diskus] 1 puff IH BID 08/20/17 [History] Levothyroxine Sodium 25 mcg PO DAILY 08/20/17 [History] Lisinopril [Zestril] 10 mg PO DAILY 08/20/17 [History] Metformin HCl [Metformin HCl ER] 500 mg PO QPM 08/20/17 [History] Simvastatin [Zocor] 40 mg PO DAILY 08/20/17 [History] Verapamil ER (24 HR) [Calan SR] 240 mg PO DAILY 08/20/17 [History] Cyanocobalamin (Vitamin B-12) [B-12] 1,000 mcg PO DAILY #30 tablet.er 01/08/18 [ Rx] 3 Allergy/AdvReac Type Severity Reaction Status Date / Time cephalexin [From Keflex] AdvReac See Verified 09/16/17 10:53 Comments morphine AdvReac Itching Verified 09/16/17 10:53 Review of Systems All systems PM: reviewed and no additional remarkable complaints except as stated All systems PM: The remainder of the systems were reviewed and are negative General Surgery Exam Initial Vital Signs Temp Pulse Resp BP Pulse Ox 95.5 F L 102 20 74/56 91 06/01/18 12:23 06/01/18 12:23 06/01/18 12:23 06/01/18 12:23 06/01/18 12:23 - Eyes PERRL - ENT normal nares, decreased hearing, poor mcfp - Neck trachea midline - Respiratory normal respiratory effort - Cardiovascular Cardiovascular exam: Present: tachycardia - Abdomen Abdomen general surgery: Present: soft, tender - Integumentary Integumentary general surgery: Present: warm and dry - Neurologic Present: CN 2-12 grossly intact, normal coordination - Musculoskeletal Present: normal posture - Psychiatric Psychiatric general surgery: Present: A&Ox3 Results - Labs 06/01/18 12:51 06/01/18 15:05 Abnormal lab results WBC 12.6 K/mcL (4.3-11.1) H 06/01/18 12:51 RDW 19.0 % (11.5-14.5) H 06/01/18 12:51 Nucleated RBCs/100 WBC 0.4 /100 WBC (0) H 06/01/18 12:51 APTT 24.0 Seconds (26.0-36.0) L 06/01/18 12:51 VBG pH 7.13 pH Units (7.32-7.42) L* 06/01/18 13:35 VBG pO2 57 mmHg (25-50) H 06/01/18 13:35 VBG HCO3 16 mEq/L (21-27) L 06/01/18 13:35 Carboxyhemoglobin 5.2 % (0-5) H 06/01/18 12:51 Potassium 3.1 mEq/L (3.5-5.1) L 06/01/18 15:05 Chloride 108 mEq/L (98-107) H 06/01/18 15:05 Carbon Dioxide 16 mEq/L (23-29) L 06/01/18 15:05 BUN 26 mg/dL (8-23) H 06/01/18 15:05 Est GFR ( Amer) 59 (> 60) L 06/01/18 15:05 Est GFR (Non-Af Amer) 49 (> 60) L 06/01/18 15:05 Glucose 109 mg/dL (70-105) H 06/01/18 15:05 Lactic Acid 6.6 mmol/L (0.5-2.2) H* 06/01/18 15:04 Calcium 8.0 mg/dL (8.6-10.3) L 06/01/18 15:05 Total Bilirubin 1.9 mg/dL (0.3-1.0) H 06/01/18 12:51 Direct Bilirubin 0.3 mg/dL (0.0-0.2) H 06/01/18 12:51 Indirect Bilirubin 1.6 mg/dL (0.0-1.2) H 06/01/18 12:51 Ammonia 78 mcmol/L (16-53) H 06/01/18 12:51 Beta-Hydroxybutyric Acd 0.34 mmol/L (0.02-0.27) H 06/01/18 12:51 TSH 11.408 mcIU/mL (0.340-5.600) H 06/01/18 12:51 Urine Clarity Hazy (Clear) A 06/01/18 15:13 Ur Specific [place] > 1.030 (1.010-1.025) H 06/01/18 15:13 Urine Protein 100 mg/dL (Neg-Trace) H 06/01/18 15:13 Urine Blood Moderate (Negative) H 10/14/18 15:13 Urine Microscopic RBC 30-50 per hpf (0-3) H 06/01/18 15:13 Urine Microscopic WBC 5-15 per hpf (0-3) H 06/01/18 15:13 Ur Squamous Epith Cells Many per lpf (None-Few) H 06/01/18 15:13 Amorphous Sediment Many (Few) H 06/01/18 15:13 Granular Casts Few per lpf (None Seen) H 06/01/18 15:13 Urine Mucus Moderate (Few) H 06/01/18 15:13 Salicylates < 2.5 mg/dL (15.0-30.0) L 06/01/18 12:51 Acetaminophen < 10 mcg/mL (10-20) L 06/01/18 12:51 U Benzodiazepines Scrn Positive ng/mL (Xaqqef=813) H 06/01/18 15:11 All other labs normal.
[2018-06-01] MEDS ORDERED: Heparin 1,000 UNITS/500 mL 500 ML ONE (17:46)
[2018-06-01] MEDS ORDERED: *HR* PHENYLEPHRINE 1,000 MCG/10 ML SYRINGE IVP ONE (18:04)
[2018-06-01] MEDS ORDERED: CefOXitin 2,000 MG VIAL ONE (18:19)
[2018-06-01 19:21] LABS: ABG Base Excess -6 mEq/L (-2 to 3); ABG HCO3 22 mEq/L (21-27); ABG Oxygen Saturation 99 % (95-98); ABG PCO2 56 mmHg (35-45); ABG PH 7.21 pH Units (7.32-7.45); ABG PO2 150 mmHg (85-104); ABG TCO2 24 mEq/L (20-26)
[2018-06-01] MEDS ORDERED: *HR* Midazolam HCl 2 MG/2 ML VIAL ONE (19:22)
[2018-06-01] MEDS ORDERED: *HR* Morphine 10 MG/ML VIAL ONE (19:23)
[2018-06-01] MEDS ORDERED: *HR* FentaNYL (PF) 100 MCG/2 ML VIAL IVP PRN (19:37)
[2018-06-01] MEDS ORDERED: Naloxone 0.4 MG/ML INJ IVP PRN (19:47)
[2018-06-01] MEDS: 0.9 % Sodium Chloride 1,000 ML IVC SCH ×2 (20:13→20:51)
[2018-06-01] MEDS ORDERED: Potassium Chloride 40 MEQ/200 ML BAG IVPB PRN (20:49)
[2018-06-01] MEDS ORDERED: Artificial Tears SOLN 15 ML BOTTLE BOTH EYES PRN (21:01)
[2018-06-01] MEDS ORDERED: Piperacillin/Tazobactam 4.5 GM in 0.9 % Sodium Chloride Mini Bag 100 ML IVPB ONE (21:13)
--- NOTE | 2018-06-01 21:21 | Internal Medicine Consult Note ---
<Lesa Qureshi - Last Filed: 06/01/18 21:59> Date of Encounter: 06/01/18 - Time Spent With Patient Total time spent is greater than 50% in coordination of care (as documented) at patient's floor/unit and/or counseling patient: Internal Medicine - CN: HPI - Data of Consult Requesting Physician: Axel Reyez DO - Consult Narrative History of present illness: Ms. Robison is a 88 year old female Internal Medicine - CN: Meds ALPRAZolam [Xanax 0.5 MG Tablet] 0.5 mg PO HS 08/20/17 [History] Alendronate Sodium 70 mg PO QWEEK 08/20/17 [History] Aspirin [Lo-Dose Aspirin EC] 81 mg PO DAILY 08/20/17 [History] Cholecalciferol (Vitamin D3) [Vitamin D3] 2,000 unit PO DAILY 08/20/17 [History] Citalopram Hydrobromide [Citalopram HBr] 10 mg PO HS 08/20/17 [History] Docusate [Colace] 100 mg PO BID 08/20/17 [History] Fluticasone/Salmeterol [Advair 100-50 Diskus] 1 puff IH BID 08/20/17 [History] Levothyroxine Sodium 25 mcg PO DAILY 08/20/17 [History] Lisinopril [Zestril] 10 mg PO DAILY 08/20/17 [History] Metformin HCl [Metformin HCl ER] 500 mg PO QPM 08/20/17 [History] Simvastatin [Zocor] 40 mg PO DAILY 08/20/17 [History] Verapamil ER (24 HR) [Calan SR] 240 mg PO DAILY 08/20/17 [History] Cyanocobalamin (Vitamin B-12) [B-12] 1,000 mcg PO DAILY #30 tablet.er 01/08/18 [ Rx] 3 Allergy/AdvReac Type Severity Reaction Status Date / Time cephalexin [From Keflex] AdvReac See Verified 09/16/17 10:53 Comments morphine AdvReac Itching Verified 09/16/17 10:53 Hospitalist - CN: Exam - Constitutional Vitals: Temp Pulse Resp BP Pulse Ox 96.8 F L 89 16 97/40 96 06/01/18 20:00 06/01/18 21:00 10/14/18 21:00 06/01/18 21:00 06/01/18 21:00 Internal Medicine - CN: Reslt - Labs CBC & Chem 7: 06/01/18 12:51 06/01/18 15:05 - ABG Interpretation ABG results: ABG ABG pH 7.11 pH Units (7.32-7.45) L* 06/01/18 21:34 ABG pCO2 68 mmHg (35-45) H 06/01/18 21:34 ABG pO2 86 mmHg (85-104) D 06/01/18 21:34 ABG O2 Saturation 92 % (95-98) L 06/01/18 21:34 PT/INR, D-dimer PT 11.2 Seconds (9.4-12.1) 06/01/18 12:51 - Impressions Impressions Chest X-Ray 06/01/18 19:51 IMPRESSION: Left-sided chest tube projects in appropriate position. Small left apical pneumothorax. Endotracheal tube is 3.3 cm above the mag. Right IJ central venous catheter projects over the cavoatrial junction. No evidence of right pneumothorax. D/ / 06/01/2018 20:25:34 Yvon Laurent MD / [facility] Interpreting Provider: Yvon Laurent MD Consult Discharge Plan - Plan Referrals: Hong Garnett MD [Primary Care Provider] - - Attending Attestation Helen Robison is an 88 year old woman now admitted to ICU after found down in her home prior to which she had complaints of chest and abdominal pain with significant malaise and fatigue. On arrival she was hypotensive and hypothermic. She had significant electrolyte derangements and on imaging seen to have pneumatosis coli with bowel ischemia. She was taken to the OR emergently after discussion with family members about prognosis. There was an attempt at a left subclavian line which resulted in an apical pneumothorax and has a chest tube in place. She is now in the ICU in critical state. The patient was seen and examined by me. On Nuvia-hugger. Pupils not reactive light. Dry mucous membranes. Pale conjunctivae. Diminished breath sounds bilaterally. Nl s1/s2. Soft abdomen with surgical dressing in place and left colostomy tube noted. Urine noted in wang collecting bag. No peripheral edema. Livedo reticularis present on feet. Patient not reacting to painful stimuli even while off sedation. RASS-5. Labs reviewed; cxr seen independently w/ no focal consolidations noted. ICU management for septic shock secondary to intra-abdominal surgical abdomen s/ p ex-lap. Advise to discontinue Cipro/metro and start meropenem 1gr q8hrs. Add micafungin 100mg q24hr empirically due to concern for Yolanda species as part of mixed GI terra in the setting of perforated viscus. Continue aggressive IVF fluids. Hold on dopamine and add on vasopressin as a second pressor if needed in conjunction with norepinephrine. Repeat ABG as she is currently manifesting a concomitant respiratory and metabolic acidosis; may require bicarb drip and increase in TV/RR. Will need to consider stress dose steroids if no improvement in hemodynamics. Obtain ScvO2. Monitor glycemia w/ goal <180mg/dl. Supplement electrolytes accordingly. DVT & stress ulcer prophylaxis indicated. HOB elevation. Oral hygiene. Poor prognosis. CCT 70 mins <Gary Light - Last Filed: 06/01/18 22:11> Date of Encounter: 06/01/18 Time of Encounter: 21:28 - Assessment and plan (1) Septic shock Current Visit: Yes Status: Acute Assessment and plan: Secondary to intra-abdominal process: Merle thickening and pneumatosis in the distal descending colon and proximal sigmoid colon with possible bowel ischemia as per CT Patient not responsive to fluids on norepinephrine and vasopressin with goal of map of 60 Patient will be started on meropenem and micafungin to cover fungal and intra- abdominal bacteria Lactic acid 6.6, repeat lactic acid Also give patient albumin to increase intravascular oncotic pressure (2) Pneumatosis coli Current Visit: Yes Status: Acute Assessment and plan: Patient is status post exploratory laparotomy with descending colectomy and an ostomy with Mejias's pouch (3) RONY (acute kidney injury) Current Visit: Yes Status: Acute Assessment and plan: Since baseline serum creatinine is 0.6. Currently her serum creatinines 1.07 This is most likely secondary to prerenal azotemia secondary to septic shock. Patient also received IV contrast for his CT scan She has received IV fluids and is currently on vasopressor support We will avoid nephrotoxic agents and repeat BMP. (4) Diabetes Current Visit: Yes Status: Acute Assessment and plan: Patient has a history of diabetes [id number] Every 4 hours Accu-Cheks Low-dose sliding scale insulin Goals glucose 140-180 Nothing by mouth diet Consult nutrition for evaluation and management of to feeds. Qualifiers: Diabetes mellitus type: type 2 Diabetes mellitus manager terminal insulin use: without care home use Diabetes mellitus complication status: without complication Qualified Code(s): E11.9 - Type 2 diabetes mellitus without complications (5) Hypokalemia Current Visit: Yes Status: Acute Assessment and plan: Replacing per electrolyte protocol (6) Metabolic acidosis with respiratory acidosis Current Visit: Yes Status: Acute Assessment and plan: Patient has metabolic acidosis secondary to lactic acidosis from her septic shock Lactic acidosis has improved from 6.6-3.4. We will repeat lactic acid in 6 hours. Patient most recent ABG shows a pH of 7.11 with PCO2 of 68. Her tidal volume was increased from 300-380. We will repeat ABG in 1 hour. Patient's rate is 16 and she was not breathing above the ventilator. - Time Spent With Patient Total time spent is greater than 50% in coordination of care (as documented) at patient's floor/unit and/or counseling patient: Internal Medicine - CN: HPI - Data of Consult Patient: new to practice Consult date: 06/01/18 Requesting Physician: Axel Reyez DO - Consult Narrative Reason for consult: ICu management History of present illness: Ms. Robison is a 88 year old female resented with chief complaint of weakness. Information is obtained from EMR as patient is intubated and sedated upon my evaluation and there is no family at bedside. Patient was found down in her house. She stated that she went to the bathroom but felt so weak she had to sit down on the floor. Police officers had to break into her house to remove her. At that time patient denied any head trauma, injury, falls to the ED physician. In the emergency department patient was found to be hypotensive, hypothermic. Her CT head, CT cervical spine were negative. CT abdomen and pelvis showed pneumatosis intestinalis. Patient was responsive to IV fluids but her blood pressure recorded in EMR was around 90-80 systolics. Patient had lactic acidosis 6.6, VBG pH of 7.13 with repeat ABG pH is 7.21, PCO2 56. Dr. Reyez was consulted and patient was immediately taken to surgery after family and patient agreed. She was given IV Levaquin and Flagyl. EGD physicians could not place a central line and deferred it to surgery. Patient underwent exploratory laparotomy with descending colectomy and and ostomy with Mejias's pouch. Patient did not have any complications perioperatively except for patient developed a left apical pneumothorax after attempted left subclavian CVC placement. Patient then had a right IJ placed by surgery. Upon presentation to ICU patient was hypotensive, on 30 g of Levophed, intubated. She was not sedated but not responding to any commands or verbal stimuli. Past Med Surg Social Fam HX - Past Medical History Medical history: diabetes, hyperlipidemia, hypertension, osteoporosis, other Psychiatric history: anxiety, depression - Past Surgical History Surgical History: hip replacement, other Additional surgical history: knee surgery, multiple ortho fractures - Social History Smoking Status: Never smoker Smokeless Tobacco Status: No Alcohol use: none Drug use: none - Family History Mother Living Status: Hx Family Cardiac Disorders: Yes ([place]) ROS unobtainable: due to endotracheal tube Hospitalist - CN: Exam - Constitutional Vitals: Temp Pulse Resp BP Pulse Ox 96.8 F L 89 16 97/40 96 06/01/18 20:00 06/01/18 21:00 06/01/18 21:00 06/01/18 21:00 06/01/18 21:00 Exam: General: Intubated, not responsive to verbal stimuli HEENT: Head atraumatic, normocephalic, PERRL, absent ear discharge or trauma, endotracheal tube, OG tube in place Neck: nontender to palpation, absent lymphadenopathy, right IJ CVC Cardiovascualr: Regular rate and rhythm with no murmur, absent gallops or rubs, absent pedal edema, radial pulses 2 out of 4 Lungs: Decreased breath sounds in the left lobe anteriorly. Left chest tube Abdomen: Soft. Midline and shows an intact, left ostomy intact, TATE drain with serosanguineous bloody fluid Skin: warm and dry, absent rash, absent open wounds and nodules MSK: absent clubbing, cyanosis, joints without swelling Neuro: Intubated Psych: Intubated Internal Medicine - CN: Reslt - Labs CBC & Chem 7: 06/01/18 21:15 06/01/18 21:15 - ABG Interpretation ABG results: ABG ABG pH 7.21 pH Units (7.32-7.45) L 06/01/18 19:19 ABG pCO2 56 mmHg (35-45) H 06/01/18 19:19 ABG pO2 150 mmHg (85-104) H 06/01/18 19:19 ABG O2 Saturation 99 % (95-98) H 06/01/18 19:19 PT/INR, D-dimer PT 11.2 Seconds (9.4-12.1) 06/01/18 12:51 - Impressions Impressions Chest X-Ray 06/01/18 19:51 IMPRESSION: Left-sided chest tube projects in appropriate position. Small left apical pneumothorax. Endotracheal tube is 3.3 cm above the mag. Right IJ central venous catheter projects over the cavoatrial junction. No evidence of right pneumothorax. D/ / 06/01/2018 20:25:34 Yvon Laurent MD / [facility] Interpreting Provider: Yvon Laurent MD
[2018-06-01] MEDS: *HR* Heparin 5,000 UNIT/ML VIAL SQ SCH (21:30)
[2018-06-01] MEDS: FentaNYL (PF) 1,000 MCG in 0.9 % Sodium Chloride 80 ML IVC SCH (21:31)
[2018-06-01 21:40] LABS: ABG Base Excess -9 mEq/L (-2 to 3); ABG HCO3 22 mEq/L (21-27); ABG Oxygen Saturation 92 % (95-98); ABG PCO2 68 mmHg (35-45); ABG PH 7.11 pH Units (7.32-7.45); ABG PO2 86 mmHg (85-104); ABG TCO2 24 mEq/L (20-26); Blood Gas Modality PRVC; Blood Gas PEEP 5 cm H2O; Blood Gas Respiration Rate 16; Blood Gas VT 300 cc
[2018-06-01 21:44] LABS: Basophils % 0.2 %; Immature Granulocytes % 0.5 % (0-4); Nucleated Red Blood Cells 0.1 /100 WBC (0)
[2018-06-01 21:45] LABS: Basophils # 0.1 K/mcL (0.0-0.2); Hematocrit 33.1 % (35.3-44.9); Hemoglobin 10.7 g/dL (11.5-15.4); Lymphocytes # 0.9 K/mcL (0.6-4.6); Mean Corpuscular HGB Conc 32.3 g/dL (31.6-35.5); Mean Corpuscular Hemoglobin 31.7 pg (28.0-33.3); Mean Corpuscular Volume 97.9 fL (83.0-100.0); Mean Platelet Volume 10.9 fL (9.4-12.4); Monocytes # 3.3 K/mcL (0.0-1.3); Monocytes % 10.6 %; Platelet Count 225 K/mcL (140-400); Red Blood Count 3.38 M/mcL (3.82-4.97); Red Cell Distribution Width 19.1 % (11.5-14.5); Segmented Neutrophils % 85.7 %
[2018-06-01 21:46] LABS: VBG Ionized Calcium 1.05 mmol/L (1.15-1.35)
[2018-06-01] MEDS: Norepinephrine 4 MG in D5% in Water 250 ML IVC SCH (21:48)
[2018-06-01 21:49] LABS: Neutrophils # 26.7 K/mcL (1.6-8.9)
[2018-06-01] MEDS: Micafungin 100 MG in 0.9 % Sodium Chloride Mini Bag 100 ML IVPB SCH (21:52)
[2018-06-01] MEDS ORDERED: Dextrose Gel 15 GM/37.5 ML TUBE PO PRN ×2 (21:54)
[2018-06-01] MEDS ORDERED: D5% in Water 1,000 ML IVC PRN (21:54)
[2018-06-01 22:00] LABS: Alanine Aminotransferase 25 Units/L (7-52); Albumin 3.1 g/dL (3.5-5.7); Albumin/Globulin Ratio 1.6 (1.1-2.2); Alkaline Phosphatase 57 Units/L (34-104); Aspartate Amino Transferase 37 Units/L (13-39); BUN/Creatinine Ratio 25 (6-26); Bilirubin,Total 1.4 mg/dL (0.3-1.0); Blood Urea Nitrogen 26 mg/dL (8-23); Calcium 7.2 mg/dL (8.6-10.3); Carbon Dioxide 21 mEq/L (23-29); Chloride 108 mEq/L (98-107); Globulin 1.9 g/dL (2.4-3.5); Glucose 275 mg/dL (70-105); Osmolality,Calculated 301 (280-300); Potassium 3.7 mEq/L (3.5-5.1); Sodium 138 mEq/L (136-145); eGFR For Non-African Americans 51 (> 60)
[2018-06-01 22:09] LABS: Magnesium 2.2 mg/dL (1.6-2.6); Phosphorous 4.3 mg/dL (2.7-4.5)
[2018-06-01] MEDS: Vasopressin 40 UNIT in D5% in Water 100 ML IV SCH (22:29)
[2018-06-01 22:32] LABS: Platelet Estimate Normal (Normal)
[2018-06-01 23:22] LABS: ABG Base Excess -8 mEq/L (-2 to 3); ABG HCO3 20 mEq/L (21-27); ABG Oxygen Saturation 95 % (95-98); ABG PCO2 52 mmHg (35-45); ABG PH 7.19 pH Units (7.32-7.45); ABG PO2 93 mmHg (85-104); ABG TCO2 22 mEq/L (20-26); Blood Gas Modality PRVC; Blood Gas PEEP 5 cm H2O; Blood Gas Respiration Rate 16; Blood Gas VT 380 cc
[2018-06-01] MEDS: Meropenem 1,000 MG in Water for inj. (sterile) 20 ML 10 ML IVPB SCH (23:22)
[2018-06-01] MEDS: Insulin LISPRO 300 UNITS/3 ML VIAL SQ SCH (23:22)
[2018-06-01] MEDS: Artificial Tears SOLN 15 ML BOTTLE BOTH EYES SCH (23:22)
[2018-06-02] MEDS ORDERED: MetroNIDAZOLE 500 MG/100 ML 500 MG/100 ML BAG IVPB SCH
[2018-06-02] MEDS: Norepinephrine 4 MG in D5% in Water 250 ML IVC SCH ×6 (00:06→21:36)
[2018-06-02 01:09] LABS: Mixed Venous Blood pCO2 53 mmHg (44-46); Mixed Venous Blood pH 7.17 pH Units (7.34-7.36); Mixed Venous Blood pO2 181 mmHg (35-45)
[2018-06-02] MEDS ORDERED: *HR* Phenylephrine 10 MG/ML VIAL ONE (01:19)
[2018-06-02] MEDS ORDERED: D5% in Water 250 ML ONE ×2 (01:20→05:38)
[2018-06-02 01:30] LABS: Mixed Venous Blood O2 Hgb 93.3 % (60-80)
[2018-06-02 03:52] LABS: Hematocrit 26.5 % (35.3-44.9); Mean Corpuscular HGB Conc 32.5 g/dL (31.6-35.5); Mean Corpuscular Hemoglobin 31.2 pg (28.0-33.3); Mean Platelet Volume 10.9 fL (9.4-12.4); Platelet Count 194 K/mcL (140-400); Red Blood Count 2.76 M/mcL (3.82-4.97); Red Cell Distribution Width 19.3 % (11.5-14.5)
[2018-06-02 04:09] LABS: Hemoglobin 8.6 g/dL (11.5-15.4)
[2018-06-02 04:10] LABS: BUN/Creatinine Ratio 28 (6-26); Blood Urea Nitrogen 29 mg/dL (8-23); Calcium 6.7 mg/dL (8.6-10.3); Carbon Dioxide 19 mEq/L (23-29); Chloride 110 mEq/L (98-107); Glucose 248 mg/dL (70-105); Osmolality,Calculated 300 (280-300); Phosphorous 3.5 mg/dL (2.7-4.5); Potassium 3.9 mEq/L (3.5-5.1); Sodium 138 mEq/L (136-145); eGFR For Non-African Americans 50 (> 60)
[2018-06-02 04:22] LABS: Lymphocytes # 0.5 K/mcL (0.6-4.6); Neutrophils # 22.3 K/mcL (1.6-8.9); Platelet Estimate Normal (Normal)
[2018-06-02] MEDS: *HR* Heparin 5,000 UNIT/ML VIAL SQ SCH ×3 (05:10→21:30)
[2018-06-02] MEDS: Hydrocortisone Sodium Succ 100 MG/2 ML VIAL IVP SCH ×3 (05:10→17:33)
[2018-06-02] MEDS: Insulin LISPRO 300 UNITS/3 ML VIAL SQ SCH ×4 (05:11→19:54)
[2018-06-02] MEDS: Artificial Tears SOLN 15 ML BOTTLE BOTH EYES SCH ×5 (05:11→19:51)
[2018-06-02 05:12] LABS: ABG Base Excess -6 mEq/L (-2 to 3); ABG HCO3 20 mEq/L (21-27); ABG Oxygen Saturation 100 % (95-98); ABG PCO2 41 mmHg (35-45); ABG PH 7.31 pH Units (7.32-7.45); ABG PO2 198 mmHg (85-104); ABG TCO2 22 mEq/L (20-26); Blood Gas Modality PRVC; Blood Gas PEEP 5 cm H2O; Blood Gas Respiration Rate 16; Blood Gas VT 400 cc
[2018-06-02] MEDS ORDERED: *HR* Norepinephrine 4 MG/4 ML VIAL IVC ONE (05:38)
[2018-06-02] MEDS ORDERED: Piperacillin/Tazobactam 3.375 GM in 0.9 % Sodium Chloride Mini Bag 100 ML IVPB SCH (06:00)
[2018-06-02] MEDS ORDERED: Famotidine 20 MG/2 ML VIAL IVP SCH (06:00)
[2018-06-02] MEDS: 0.9 % Sodium Chloride 1,000 ML IVC SCH ×2 (06:35→18:45)
--- NOTE | 2018-06-02 07:16 | Anesthesia Procedures ---
Date of Encounter: 06/02/18 Time of Encounter: 17:05 Procedures: Anesthesia - Arterial Line Consent obtained: written consent Time out performed: Yes Sedation: Versed (mg): 2 Sedation: Fentanyl (mcg): 100 (under general anesthesia) Size (Gauge): 20 Length (inches): 1 3/4 Technique Used: sterile prep, guide wire technique, direct puncture technique Post-Procedure: line taped into place Patient tolerated procedure: no complications Complications: none Site: Radial R - Central Line Placement Right IJ Consent obtained: written consent Time out performed: Yes Patient placed on monitor/pulse ox: Yes Sedation: Versed (mg): 2 (under GA) Sedation: Fentanyl (mcg): 100 prep: mask, gown, gloves Central line prep: Chlorhexidine scrub Ultrasound used for placement: Yes Technique: Seldinger Lumen Inserted: triple Size / Length: 7 Fr / 16 cm Post procedure: sutured in place Post procedure x-ray: tip of catheter in good position Patient tolerated procedure: well Complications: none
--- NOTE | 2018-06-02 08:46 | General Surgery Progress Note ---
Date of Encounter: 06/02/18 Time of Encounter: 08:00 - Assessment and Plan (1) Pneumatosis intestinalis of large intestine Current Visit: Yes Status: Acute POD #1, s/p exploratory laparotomy, descending colectomy and end ostomy with Mejias's pouch on 06/01/[address] Reyez. Ostomy is pink and moist with some edema, small amount of bowel sweat present. Abdominal exam is otherwise as expected. No signs or symptoms of infection. Incisions are clean, dry, and intact. She is intubated and sedated but does open her eyes to conversation and nonce her head/mouth words yes a little bit when asked about pain in the abdomen. She is noted to be on norepinephrine (previously also on Vassopressin but this as been weaned). Plan: supportive care and discomfort management while awaiting return of bowel function continue G.I. and DVT prophylaxis per primary team continue NG to low intermittent wall suction NPO. Add scheduled Ofirmev for pain control continue fentanyl GTT for sedation and pain control per primary team serial abdominal exams repeat a.m. 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 Will continue to closely monitor. Repeat H&H at 4 PM today Qualifiers: Anemia type: unspecified type Qualified Code(s): D64.9 - Anemia, unspecified Subjective Narrative: Intubated and mildly sedated. Does mouth "yes, a little it," to pain. Does not answer any other ROS questions Objective Vital Signs - Last 8 Hours Temp Pulse Resp BP Pulse Ox 06/02/18 08:00 81 17 85/40 100 06/02/18 07:42 16 76/33 98 06/02/18 07:20 97.9 F 06/02/18 07:00 79 17 104/54 100 06/02/18 06:00 101 16 138/60 100 06/02/18 05:00 91 16 108/47 100 06/02/18 04:43 98.3 F 06/02/18 04:00 90 16 98/45 100 06/02/18 03:00 93 26 101/45 99 06/02/18 02:08 94 06/02/18 02:00 89 18 100/40 98 06/02/18 01:03 18 80/34 98 06/02/18 01:00 100 16 105/45 99 Intake and Output 06/01/18 06/02/18 06/02/18 23:59 07:59 15:59 Intake Total 2236 / 3440 2079 Output Total 805 / 805 285 / 285 Balance 1431 / 2635 1795 / 1795 Intake: IV Fluids 2236 / 2236 2079 / 2079 Vasostrict 40 UNIT In Dextrose 37 / 37 5% 100 ML @ 0.04 UNIT/MIN 6.12 mls/hr IV .[id number] TU Rx#: [id number] 0.9 % Sodium Chloride 1,000 ML 1100 / 1100 1000 / 1000 @ 100 mls/hr IVC .Q10H TU Rx#: [id number] ALBURX 5% 12.5 gm In 250 ml @ 250 / 250 60 mls/hr IVC .Q4H10M TU Rx#: [id number] DOBUTamine Premix 250 MG/250 ML 1 / 1 250 mg In 250 ml @ 2.5 MCG/KG/ MIN 9.662 mls/hr IVC .Q24H [facility]U Rx#:[id number] FentaNYL (PF) 1,000 MCG In 0.9 0 / 0 20 / 20 % Sodium Chloride 80 ML @ 50 MCG/HR 5 mls/hr IVC CONT TU Rx #:[id number] Levophed 4 MG In Dextrose 5% 254 / 254 772 / 772 250 ML @ 5 MCG/MIN 19.05 mls/hr IVC CONT [facility] Rx#:[id number] ALBURX 5% 12.5 gm In 250 ml @ 250 / 250 60 mls/hr IVPB ONCE ONE Rx#: [id number] Merrem 1,000 MG In Water for inj. (sterile) 10 ML @ 120 mls/ hr IVPB Q8HR [facility] Rx#:[id number] Mycamine 100 MG In 0.9 % Sodium 100 / 100 Chloride (Mini-Bag +) 100 ML @ 100 mls/hr IVPB DAILY [facility] Rx#: [id number] KCl 40 MEQ Xylocaine 2 ML In 522 / 522 Dextrose 5% 500 ML @ 130.5 mls/ hr IVPB ONCE ONE Rx#:[id number] Oral 0 / 0 Output: Stool 0 / 0 Estimated Blood Loss 100 / 100 Urine Amount (Catheter) 400 / 400 Catheter 175 / 175 275 / 275 Wound Drainage 130 / 130 10 / 10 Right Lower Abdomen 130 / 130 10 / 10 Chest Tube Drainage 0 / 0 0 / 0 Left Lateral Chest 0 / 0 0 / 0 Other: Blood Glucose* 317 - General physical appearance no distress, other (intubated) - Eyes other (not assessed; did open eyes to conversation) - ENT normal nares (ETT and NG noted), normal mucosa - Neck Neck exam: trachea midline - Respiratory other (Mechanical breath sounds) - Cardiovascular Cardiovascular exam: Present: RRR - Abdomen Abdomen: Present: soft, tender (Expected postoperative), wound (Ostomy is edematous but pink and moist. There is a small amount of bowel sweat present; small amount of sanguenious drainage noted). Absent: bowel sounds present Hernia: none - Incision Incision: Present: clean and dry, intact - Integumentary no rash - Neurologic other (sedated) - Musculoskeletal normal posture - Psychiatric other (sedated, but responds to conversation) - Labs 06/02/18 03:13 06/02/18 03:13 Diabetes panel 06/01/18 06/02/18 Range/Units 21:15 03:13 Sodium 138 138 (136-145) mEq/L Potassium 3.7 3.9 (3.5-5.1) mEq/L Chloride 108 H 110 H (98-107) mEq/L Carbon Dioxide 21 L 19 L (23-29) mEq/L BUN 26 H 29 H (8-23) mg/dL Creatinine 1.02 1.05 (0.60-1.20) mg/dL Glucose 275 H 248 H (70-105) mg/dL Calcium 7.2 L 6.7 L (8.6-10.3) mg/dL AST 37 (13-39) Units/L ALT 25 (7-52) Units/L Alkaline Phosphatase 57 (34-104) Units/L Albumin 3.1 L (3.5-5.7) g/dL Calcium panel 06/01/18 06/02/18 Range/Units 21:15 03:13 Calcium 7.2 L 6.7 L (8.6-10.3) mg/dL Phosphorus 4.3 3.5 (2.7-4.5) mg/dL Albumin 3.1 L (3.5-5.7) g/dL Pituitary panel 06/01/18 06/02/18 Range/Units 21:15 03:13 Sodium 138 138 (136-145) mEq/L Potassium 3.7 3.9 (3.5-5.1) mEq/L Chloride 108 H 110 H (98-107) mEq/L Carbon Dioxide 21 L 19 L (23-29) mEq/L BUN 26 H 29 H (8-23) mg/dL Creatinine 1.02 1.05 (0.60-1.20) mg/dL Glucose 275 H 248 H (70-105) mg/dL Calcium 7.2 L 6.7 L (8.6-10.3) mg/dL Adrenal panel 06/01/18 06/02/18 Range/Units 21:15 03:13 Sodium 138 138 (136-145) mEq/L Potassium 3.7 3.9 (3.5-5.1) mEq/L Chloride 108 H 110 H (98-107) mEq/L Carbon Dioxide 21 L 19 L (23-29) mEq/L BUN 26 H 29 H (8-23) mg/dL Creatinine 1.02 1.05 (0.60-1.20) mg/dL Glucose 275 H 248 H (70-105) mg/dL Calcium 7.2 L 6.7 L (8.6-10.3) mg/dL Total Bilirubin 1.4 H (0.3-1.0) mg/dL AST 37 (13-39) Units/L ALT 25 (7-52) Units/L Alkaline Phosphatase 57 (34-104) Units/L Albumin 3.1 L (3.5-5.7) g/dL Consult Discharge Plan - Plan Referrals: Hong Garnett MD [Primary Care Provider] -
[2018-06-02] MEDS ORDERED: Meropenem 1,000 MG in Water for inj. (sterile) 20 ML 10 ML IVPB SCH (09:00)
[2018-06-02] MEDS: Chlorhexidine Rinse 15 ML MOUTHWASH MM SCH ×2 (09:03→21:30)
[2018-06-02] MEDS: Micafungin 100 MG in 0.9 % Sodium Chloride Mini Bag 100 ML IVPB SCH (09:03)
--- NOTE | 2018-06-02 10:00 | Pulmonology Consult Note ---
<JaylenRonni M - Last Filed: 06/02/18 16:31> Date of Encounter: 06/02/18 Medications and Allergies ALPRAZolam [Xanax 0.5 MG Tablet] 0.5 mg PO HS 08/20/17 [History] Alendronate Sodium 70 mg PO QWEEK 08/20/17 [History] Aspirin [Lo-Dose Aspirin EC] 81 mg PO DAILY 08/20/17 [History] Cholecalciferol (Vitamin D3) [Vitamin D3] 2,000 unit PO DAILY 08/20/17 [History] Citalopram Hydrobromide [Citalopram HBr] 10 mg PO HS 08/20/17 [History] Docusate [Colace] 100 mg PO BID 08/20/17 [History] Fluticasone/Salmeterol [Advair 100-50 Diskus] 1 puff IH BID 08/20/17 [History] Levothyroxine Sodium 25 mcg PO DAILY 08/20/17 [History] Lisinopril [Zestril] 10 mg PO DAILY 08/20/17 [History] Metformin HCl [Metformin HCl ER] 500 mg PO QPM 08/20/17 [History] Simvastatin [Zocor] 40 mg PO DAILY 08/20/17 [History] Verapamil ER (24 HR) [Calan SR] 240 mg PO DAILY 08/20/17 [History] Cyanocobalamin (Vitamin B-12) [B-12] 1,000 mcg PO DAILY #30 tablet.er 01/08/18 [ Rx] 3 Allergy/AdvReac Type Severity Reaction Status Date / Time cephalexin [From Keflex] AdvReac See Verified 09/16/17 10:53 Comments morphine AdvReac Itching Verified 09/16/17 10:53 All Systems: The remainder of the systems were reviewed and are negative Physical Examination Vital Signs: Vital Signs, Last 4 Hours Temp Pulse Resp BP Pulse Ox 06/02/18 09:27 17 83/32 100 06/02/18 09:00 97.9 F 88 16 107/46 100 06/02/18 08:00 81 17 85/40 100 06/02/18 07:42 16 76/33 98 06/02/18 07:20 97.9 F 06/02/18 07:00 79 17 104/54 100 Ventilator Settings Ventilator Settings: Ventilator Settings, Last 8 Hours Ventilator Tidal Volume 400 Setting Ventilator Tidal Volume 400 Setting Ventilator Tidal Volume 400 Setting Ventilator Tidal Volume 400 Setting Ventilator Tidal Volume 400 Setting Ventilator Tidal Volume 400 Setting Ventilator Tidal Volume 400 Setting Ventilator Tidal Volume 400 Setting Ventilator Tidal Volume 400 Setting Ventilator Tidal Volume 400 Setting Ventilator Respiratory Rate 16 Setting Ventilator Respiratory Rate 16 Setting Ventilator Respiratory Rate 16 Setting Ventilator Respiratory Rate 16 Setting Ventilator Respiratory Rate 16 Setting Ventilator Respiratory Rate 16 Setting Ventilator Respiratory Rate 16 Setting Ventilator Respiratory Rate 16 Setting Ventilator Respiratory Rate 16 Setting Ventilator Respiratory Rate 16 Setting Actual Respiratory Rate 18 Actual Respiratory Rate 19 Actual Respiratory Rate 17 Actual Respiratory Rate 23 Actual Respiratory Rate 17 Actual Respiratory Rate 17 Actual Respiratory Rate 17 Actual Respiratory Rate 17 Actual Respiratory Rate 17 Positive End Expiratory 3 Pressure Positive End Expiratory 3 Pressure Positive End Expiratory 3 Pressure Positive End Expiratory 3 Pressure Positive End Expiratory 3 Pressure Positive End Expiratory 5 Pressure Positive End Expiratory 5 Pressure Positive End Expiratory 5 Pressure Positive End Expiratory 5 Pressure Positive End Expiratory 5 Pressure Peak Inspiratory Airway 16 Pressure Peak Inspiratory Airway 10 Pressure Peak Inspiratory Airway 14 Pressure Peak Inspiratory Airway 7.9 Pressure Peak Inspiratory Airway 15 Pressure Peak Inspiratory Airway 18 Pressure Peak Inspiratory Airway 18 Pressure Peak Inspiratory Airway 18 Pressure Peak Inspiratory Airway 18 Pressure Results - Laboratory Findings CBC and BMP: 06/02/18 03:13 06/02/18 03:13 ABG ABG pH 7.31 pH Units (7.32-7.45) L D 06/02/18 04:54 ABG pCO2 41 mmHg (35-45) 06/02/18 04:54 ABG pO2 198 mmHg (85-104) H D 06/02/18 04:54 ABG O2 Saturation 100 % (95-98) H 06/02/18 04:54 PT/INR, D-dimer PT 11.2 Seconds (9.4-12.1) 06/01/18 12:51 Abnormal lab findings: Abnormal lab results WBC 22.7 K/mcL (4.3-11.1) H 06/02/18 03:13 RBC 2.76 M/mcL (3.82-4.97) L 06/02/18 03:13 Hgb 8.6 g/dL (11.5-15.4) L D 06/02/18 03:13 Hct 26.5 % (35.3-44.9) L 06/02/18 03:13 RDW 19.3 % (11.5-14.5) H 06/02/18 03:13 Band Neutrophils % 14.0 % (0-4) H 06/02/18 03:13 Neutrophils # 22.3 K/mcL (1.6-8.9) H 06/02/18 03:13 Lymphocytes # 0.5 K/mcL (0.6-4.6) L 06/02/18 03:13 Monocytes # 3.3 K/mcL (0.0-1.3) H 06/01/18 21:15 Nucleated RBCs/100 WBC 0.1 /100 WBC (0) H 06/01/18 21:15 APTT 24.0 Seconds (26.0-36.0) L 06/01/18 12:51 ABG pH 7.31 pH Units (7.32-7.45) L D 06/02/18 04:54 ABG pO2 198 mmHg (85-104) H D 06/02/18 04:54 ABG HCO3 20 mEq/L (21-27) L 06/02/18 04:54 ABG O2 Saturation 100 % (95-98) H 06/02/18 04:54 ABG Base Excess -6 mEq/L (-2 to 3) L 06/02/18 04:54 Mixed VBG pH 7.17 pH Units (7.34-7.36) L 06/02/18 01:02 Mixed VBG pCO2 53 mmHg (44-46) H 06/02/18 01:02 Mixed VBG pO2 181 mmHg (35-45) H 06/02/18 01:02 Mixed VBG Oxyhemoglobin 93.3 % (60-80) H 06/02/18 01:02 Carboxyhemoglobin 5.2 % (0-5) H 06/01/18 12:51 Chloride 110 mEq/L (98-107) H 06/02/18 03:13 Carbon Dioxide 19 mEq/L (23-29) L 06/02/18 03:13 BUN 29 mg/dL (8-23) H 06/02/18 03:13 Est GFR (Non-Af Amer) 50 (> 60) L 06/02/18 03:13 BUN/Creatinine Ratio 28 (6-26) H 06/02/18 03:13 Glucose 248 mg/dL (70-105) H 06/02/18 03:13 POC Glucose 316 mg/dL (70-99) H 06/01/18 23:18 Lactic Acid 3.4 mmol/L (0.5-2.2) H 06/02/18 03:13 Calcium 6.7 mg/dL (8.6-10.3) L 06/02/18 03:13 Venous Ioniz Calcium 1.05 mmol/L (1.15-1.35) L 06/01/18 21:43 Total Bilirubin 1.4 mg/dL (0.3-1.0) H 06/01/18 21:15 Direct Bilirubin 0.3 mg/dL (0.0-0.2) H 06/01/18 12:51 Indirect Bilirubin 1.6 mg/dL (0.0-1.2) H 06/01/18 12:51 Ammonia 78 mcmol/L (16-53) H 06/01/18 12:51 Serum Total Protein 5.0 g/dL (6.4-8.9) L 06/01/18 21:15 Albumin 3.1 g/dL (3.5-5.7) L 06/01/18 21:15 Globulin 1.9 g/dL (2.4-3.5) L 06/01/18 21:15 Beta-Hydroxybutyric Acd 0.34 mmol/L (0.02-0.27) H 06/01/18 12:51 TSH 11.408 mcIU/mL (0.340-5.600) H 06/01/18 12:51 Urine Clarity Hazy (Clear) A 06/01/18 15:13 Ur Specific [place] > 1.030 (1.010-1.025) H 06/01/18 15:13 Urine Protein 100 mg/dL (Neg-Trace) H 06/01/18 15:13 Urine Blood Moderate (Negative) H 06/01/18 15:13 Urine Microscopic RBC 30-50 per hpf (0-3) H 06/01/18 15:13 Urine Microscopic WBC 5-15 per hpf (0-3) H 06/01/18 15:13 Ur Squamous Epith Cells Many per lpf (None-Few) H 06/01/18 15:13 Amorphous Sediment Many (Few) H 06/01/18 15:13 Granular Casts Few per lpf (None Seen) H 06/01/18 15:13 Urine Mucus Moderate (Few) H 06/01/18 15:13 Salicylates < 2.5 mg/dL (15.0-30.0) L 06/01/18 12:51 Acetaminophen < 10 mcg/mL (10-20) L 06/01/18 12:51 U Benzodiazepines Scrn Positive ng/mL (Dfzxac=682) H 06/01/18 15:11 - Clinical Findings Intake & Output: Intake & Output 06/01/18 06/02/18 06/02/18 23:59 07:59 15:59 Intake Total 2236 / 3440 2080 / 2080 Output Total 805 / 805 285 / 285 150 / 150 Balance 1431 / 2635 1795 / 1795 -150 / -150 Consult Discharge Plan - Plan Referrals: Hong Garnett MD [Primary Care Provider] - - Attending Attestation I examined this patient and my medical decision-making was reviewed with the Resident Physician. I agree with the documented findings, disposition and treatment plan as described except to the extent set forth below. Patient seen and examined. Labs, radiology, chart personally reviewed. 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 This might effect her blood pressure, however in my opinion she needs to be comfortable. Discussed with the family at the bedside. Pulmonary: Acceptable oxygenation and ventilation and lowered PEEP because of the chest tube and try to lower positive pressure. Pt is not ready for SBT because she still unstable Cardiovascular: Pt in shock, spetic in nature. I would give her more fluid resuscitation and she is currently on vasopressor and will titrate based on her mean arterial blood pressure. GI: Nutrition per dietary and GI prophylaxis per routine. Patient is nothing by mouth after surgery at this time and as far as nutrition we will deffer to the surgery team when to start Heme: DVT prophylaxis per routine. Mechanical ID: Continue antibiotics and plan to de-escalation. Changed meropenum to zosyn and change to fluconazoe. Renal; urine out put and renal funtion reviewed Endorcine: blood glucose is monitored. Resume thyroid medication soon and continue steroid. Lines: all lines checked and no evidence of infections Skin: skin care to prevent pressure ulcers per nursing routine care I suspect prognosis is poor and her CODE STATUS needs to be readdressed in 24 hours time. I spent 35 min of Critical Care time with this patient. It involved decision making of high complexity to assess, manipulate, and support vital organ system failure and/or to prevent further life threatening deterioration of the patient' s condition. The time involved in the performance of separately reportable procedures was not counted toward critical care time. <Tyree Mejia S - Last Filed: 06/02/18 18:39> Date of Encounter: 06/02/18 Time of Encounter: 08:00 Assessment and Plan (1) Septic shock Current Visit: Yes Status: Acute 2/2 pneumatosis intestinalis Patient is post-op day 1 for descending colectomy WBC improved 31.1 > 22.7 Discontinued meropenem Started on fluconazole Started on zosyn Patient on levophed Vasopressin PRN Patient on hydrocortisone Patient getting LR fluids (2) Pneumatosis intestinalis of large intestine Current Visit: Yes Status: Acute Patient is post-op day 1 for exploratory laparotomy with descending colectomy and ostomy by Dr. Reyez Incisions are clean, dry, and intact Patient's Hgb dropped to 8.1 from 8.6, gave 2 units of PRBCs Continue ofirmev for pain control Continue fentanyl for pain control and sedation NPO (3) RONY (acute kidney injury) Current Visit: Yes Status: Acute Improving Cr 1.07 > 1.05 (4) Metabolic acidosis with respiratory acidosis Current Visit: Yes Status: Acute Patient on vent with settings rate 16, FiO2 60%, PEEP 3, Tidal volume 400 Lowered PEEP to keep positive pressure low since patient has a chest tube ABG with pH 7.31, pCO2 41, HCO3 20 Lactate 6.6 > 3.4 today Will continue to monitor respiratory status (5) Diabetes Current Visit: Yes Status: Acute Patient's recent glucose 248 Discontinued insulin drip Increased insulin coverage to high dose sliding scale Q4hr Continue to monitor Qualifiers: Diabetes mellitus type: type 2 Diabetes mellitus fpc insulin use: without easter bunny use Diabetes mellitus complication status: without complication Qualified Code(s): E11.9 - Type 2 diabetes mellitus without complications (6) Electrolyte abnormality Current Visit: Yes Status: Acute Patient on electrolyte replacement protocol Continue to monitor (7) DVT prophylaxis Current Visit: Yes Status: Acute SCDs History of Present Illness Consult date: 06/02/18 Requesting physician: Ronni York Reason for consult: other (septic shock secondary to intra-abdominal process) Chief complaint: Weakness History of present illness: 88 year old female with PMHx of HTN, DM, HLD found down in her home by EMS after feeling very weak. Patient states she did not lose consciousness. In the ED, patient was hypotensive and hypothermic. Head and spine CT were negative. CT abdomen/pelvis showed pneumatosis intestinalis. After fluid resuscitation, patient was still hypotensive with a systolic of 80-90s. Initial lactate was 6.6, with ABG pH of 7.21 and pCO2 of 56. Dr. Reyez was consulted and patient was taken to surgery for exploratory laparotomy with descending colectomy and ostomy. Patient developed a left pneumothorax after attempted placement of left subclavian CVC. Surgery then placed right IJ. Patient remained intubated and was transferred to ICU for close monitoring. Patient was still hypotensive requiring levophed. She was also given albumin infusion, meropenem and micafungin. Patient is responsive this morning on vent. She denies SOB, CP, fevers/chills. She admits to some abdominal pain. Past Med Surg Social Fam HX - Past Medical History Medical history: diabetes, hyperlipidemia, hypertension, osteoporosis, other Psychiatric history: anxiety, depression - Past Surgical History Surgical History: hip replacement, other Additional surgical history: knee surgery, multiple ortho fractures - Social History Smoking Status: Never smoker Smokeless Tobacco Status: No Alcohol use: none Drug use: none - Family History Mother Living Status: Hx Family Cardiac Disorders: Yes (OK) All Systems: The remainder of the systems were reviewed and are negative Physical Examination Vital Signs: Vital Signs, Last 4 Hours Temp Pulse Resp BP Pulse Ox 06/02/18 09:27 17 83/32 100 06/02/18 09:00 97.9 F 88 16 107/46 100 06/02/18 08:00 81 17 85/40 100 06/02/18 07:42 16 76/33 98 06/02/18 07:20 97.9 F 06/02/18 07:00 79 17 104/54 100 General appearance: no acute distress, asleep, other (intubated) Effort: other (vent) Auscultation: left: diminished breath sounds, right: clear Cardiovascular: regular rate and rhythm Gastrointestinal: soft, tender (appropriately), other (ostomy is intact and edematous) Extremities: no cyanosis, pink and warm, pulses normal Musculoskeletal: no deformities normal mental status mood appropriate Ventilator Settings Ventilator Settings: Ventilator Settings, Last 8 Hours Ventilator Tidal Volume 400 Setting Ventilator Tidal Volume 400 Setting Ventilator Tidal Volume 400 Setting Ventilator Tidal Volume 400 Setting Ventilator Tidal Volume 400 Setting Ventilator Tidal Volume 400 Setting Ventilator Tidal Volume 400 Setting Ventilator Tidal Volume 400 Setting Ventilator Tidal Volume 400 Setting Ventilator Tidal Volume 400 Setting Ventilator Respiratory Rate 16 Setting Ventilator Respiratory Rate 16 Setting Ventilator Respiratory Rate 16 Setting Ventilator Respiratory Rate 16 Setting Ventilator Respiratory Rate 16 Setting Ventilator Respiratory Rate 16 Setting Ventilator Respiratory Rate 16 Setting Ventilator Respiratory Rate 16 Setting Ventilator Respiratory Rate 16 Setting Ventilator Respiratory Rate 16 Setting Actual Respiratory Rate 18 Actual Respiratory Rate 19 Actual Respiratory Rate 17 Actual Respiratory Rate 23 Actual Respiratory Rate 17 Actual Respiratory Rate 17 Actual Respiratory Rate 17 Actual Respiratory Rate 17 Actual Respiratory Rate 17 Positive End Expiratory 3 Pressure Positive End Expiratory 3 Pressure Positive End Expiratory 3 Pressure Positive End Expiratory 3 Pressure Positive End Expiratory 3 Pressure Positive End Expiratory 5 Pressure Positive End Expiratory 5 Pressure Positive End Expiratory 5 Pressure Positive End Expiratory 5 Pressure Positive End Expiratory 5 Pressure Peak Inspiratory Airway 16 Pressure Peak Inspiratory Airway 10 Pressure Peak Inspiratory Airway 14 Pressure Peak Inspiratory Airway 7.9 Pressure Peak Inspiratory Airway 15 Pressure Peak Inspiratory Airway 18 Pressure Peak Inspiratory Airway 18 Pressure Peak Inspiratory Airway 18 Pressure Peak Inspiratory Airway 18 Pressure Results - Laboratory Findings CBC and BMP: 06/02/18 16:48 06/02/18 03:13 ABG ABG pH 7.31 pH Units (7.32-7.45) L D 06/02/18 04:54 ABG pCO2 41 mmHg (35-45) 06/02/18 04:54 ABG pO2 198 mmHg (85-104) H D 06/02/18 04:54 ABG O2 Saturation 100 % (95-98) H 06/02/18 04:54 PT/INR, D-dimer PT 11.2 Seconds (9.4-12.1) 06/01/18 12:51 Abnormal lab findings: Abnormal lab results WBC 22.7 K/mcL (4.3-11.1) H 06/02/18 03:13 RBC 2.76 M/mcL (3.82-4.97) L 06/02/18 03:13 Hgb 8.6 g/dL (11.5-15.4) L D 06/02/18 03:13 Hct 26.5 % (35.3-44.9) L 06/02/18 03:13 RDW 19.3 % (11.5-14.5) H 06/02/18 03:13 Band Neutrophils % 14.0 % (0-4) H 06/02/18 03:13 Neutrophils # 22.3 K/mcL (1.6-8.9) H 06/02/18 03:13 Lymphocytes # 0.5 K/mcL (0.6-4.6) L 06/02/18 03:13 Monocytes # 3.3 K/mcL (0.0-1.3) H 06/01/18 21:15 Nucleated RBCs/100 WBC 0.1 /100 WBC (0) H 06/01/18 21:15 APTT 24.0 Seconds (26.0-36.0) L 06/01/18 12:51 ABG pH 7.31 pH Units (7.32-7.45) L D 06/02/18 04:54 ABG pO2 198 mmHg (85-104) H D 06/02/18 04:54 ABG HCO3 20 mEq/L (21-27) L 06/02/18 04:54 ABG O2 Saturation 100 % (95-98) H 06/02/18 04:54 ABG Base Excess -6 mEq/L (-2 to 3) L 06/02/18 04:54 Mixed VBG pH 7.17 pH Units (7.34-7.36) L 06/02/18 01:02 Mixed VBG pCO2 53 mmHg (44-46) H 06/02/18 01:02 Mixed VBG pO2 181 mmHg (35-45) H 06/02/18 01:02 Mixed VBG Oxyhemoglobin 93.3 % (60-80) H 06/02/18 01:02 Carboxyhemoglobin 5.2 % (0-5) H 06/01/18 12:51 Chloride 110 mEq/L (98-107) H 06/02/18 03:13 Carbon Dioxide 19 mEq/L (23-29) L 06/02/18 03:13 BUN 29 mg/dL (8-23) H 06/02/18 03:13 Est GFR (Non-Af Amer) 50 (> 60) L 06/02/18 03:13 BUN/Creatinine Ratio 28 (6-26) H 06/02/18 03:13 Glucose 248 mg/dL (70-105) H 06/02/18 03:13 POC Glucose 316 mg/dL (70-99) H 06/01/18 23:18 Lactic Acid 3.4 mmol/L (0.5-2.2) H 06/02/18 03:13 Calcium 6.7 mg/dL (8.6-10.3) L 06/02/18 03:13 Venous Ioniz Calcium 1.05 mmol/L (1.15-1.35) L 06/01/18 21:43 Total Bilirubin 1.4 mg/dL (0.3-1.0) H 06/01/18 21:15 Direct Bilirubin 0.3 mg/dL (0.0-0.2) H 06/01/18 12:51 Indirect Bilirubin 1.6 mg/dL (0.0-1.2) H 06/01/18 12:51 Ammonia 78 mcmol/L (16-53) H 06/01/18 12:51 Serum Total Protein 5.0 g/dL (6.4-8.9) L 06/01/18 21:15 Albumin 3.1 g/dL (3.5-5.7) L 06/01/18 21:15 Globulin 1.9 g/dL (2.4-3.5) L 06/01/18 21:15 Beta-Hydroxybutyric Acd 0.34 mmol/L (0.02-0.27) H 06/01/18 12:51 TSH 11.408 mcIU/mL (0.340-5.600) H 06/01/18 12:51 Urine Clarity Hazy (Clear) A 06/01/18 15:13 Ur Specific [place] > 1.030 (1.010-1.025) H 06/01/18 15:13 Urine Protein 100 mg/dL (Neg-Trace) H 06/01/18 15:13 Urine Blood Moderate (Negative) H 06/01/18 15:13 Urine Microscopic RBC 30-50 per hpf (0-3) H 06/01/18 15:13 Urine Microscopic WBC 5-15 per hpf (0-3) H 06/01/18 15:13 Ur Squamous Epith Cells Many per lpf (None-Few) H 06/01/18 15:13 Amorphous Sediment Many (Few) H 06/01/18 15:13 Granular Casts Few per lpf (None Seen) H 06/01/18 15:13 Urine Mucus Moderate (Few) H 06/01/18 15:13 Salicylates < 2.5 mg/dL (15.0-30.0) L 06/01/18 12:51 Acetaminophen < 10 mcg/mL (10-20) L 06/01/18 12:51 U Benzodiazepines Scrn Positive ng/mL (Jtjcal=431) H 06/01/18 15:11 - Clinical Findings Intake & Output: Intake & Output 06/01/18 06/02/18 06/02/18 23:59 07:59 15:59 Intake Total 2236 / 3440 2080 / 2080 Output Total 805 / 805 285 / 285 150 / 150 Balance 1431 / 2635 1795 / 1795 -150 / -150
--- NOTE | 2018-06-02 11:17 | Electrocardiograph Report ---
[address] [place], [place] [address] Test Date: 2018-06-01 Pat Name: Helen Robison Department: EXAM6 Room: 04 Gender: F Cafeteria Aide: : 1930 Requested By: Adolfo Ortega Order Number: [id number] Reading MD: Radha Vogel Measurements Intervals [place] Rate: 91 P: 47 AK: 191 QRS: 81 QRSD: 89 T: 27 QT: 378 QTc: 466 Interpretive Statements Sinus rhythm Borderline right axis deviation Electronically Signed On 06-02-2018 11:15:08 EDT by Radha Vogel
--- NOTE | 2018-06-02 11:54 | Operative Note ---
Date of procedure: 06/02/18 Pre-op diagnosis: Hypotension, acidosis, pneumatosis coli Post-op diagnosis: same Procedure: Exposure laparotomy with descending and sigmoid colon resection, takedown splenic flexure, end colostomy and Mejias's pouch followed by attempted placement of triple-lumen catheter, placement of left sided chest tube Anesthesia: TAYLOR Surgeon: Axel Reyez Was there an physician assistant present: Yes Quality Control Tech Raw Materials: Carol Shipman Estimated blood loss (cc): 100 Specimen: Descending and sigmoid colon Condition: stable Disposition: same day Procedure in Detail: After informed consent, the patient was taken to the operating room placed in the supine position. After adequate sedation and anesthesia the left chest was prepped and draped. I attempted to place a triple-lumen catheter however was unsuccessful. During the course of this I had a sudden oconnor of air into the needle consistent with an iatrogenic pneumothorax. At that point we decided to place a 24-[place] chest tube. Incision was made along the left chest in the fifth sixth intercostal space. Dissection was carried into the chest cavity and the tube was placed. It was secured to skin with 2-0 silk suture and dressed appropriately. Next anesthesia placed a right IJ under ultrasound guidance. The abdomen was prepped and draped. An export for laparotomy was performed. Lysis of adhesions 30 minutes was performed. Once in place Bookwalter retractors placed in the abdomen. Small bowel swept out of the way. Preoperatively patient was found to be acidotic with pneumatosis coli on CT. The splenic flexure was taken down with sharp dissection. The remainder descending colon was dissected free as well. The area of concern was in the distal descending colon and sigmoid colon. This area was resected down to the level of the mid rectum. The inferior mesenteric artery was taken with a harmonic scalpel. Once all vascular been managed then the distal to mid descending colon was stapled with a MAYELIN 75 mm stapler. The distal rectum was stapled with an echelon 60 mm stapler. It was passed off the table. An end ostomy was created on the left abdominal wall and secured with 3-0 Vicryl suture. The abdomen was then explored again and found to have good hemostasis. A 19-[place] Hector drain was placed in the pelvis. The abdominal wall was closed with looped PDS suture 2. Skin was closed with sue.
[2018-06-02] MEDS: FentaNYL (PF) 1,000 MCG in 0.9 % Sodium Chloride 80 ML IVC SCH ×2 (12:30→19:33)
[2018-06-02] MEDS: Acetaminophen IV 1,000 MG/100 ML INFUS..BTL IVPB SCH ×2 (14:15→17:45)
[2018-06-02] MEDS: Levothyroxine Sodium 100 MCG VIAL IVP SCH (14:15)
[2018-06-02] MEDS: Vasopressin 40 UNIT in D5% in Water 100 ML IV SCH (14:30)
--- NOTE | 2018-06-02 15:37 | Anesthesia Evaluation Post Op ---
Date of Encounter: 06/02/18 Time of Encounter: 15:35 - Vital Signs Vital Signs: Vital Signs Temp Pulse Resp BP Pulse Ox 06/02/18 14:00 110 16 102/47 100 06/02/18 13:18 20 91/43 100 06/02/18 13:00 111 18 99/41 53 06/02/18 12:07 99.4 F 06/02/18 11:09 22 114/52 100 06/02/18 11:00 99.4 F 99 18 103/46 62 06/02/18 10:00 103 19 107/40 100 06/02/18 09:27 17 83/32 100 06/02/18 09:00 97.9 F 88 16 107/46 100 06/02/18 08:00 81 17 85/40 100 06/02/18 07:42 16 76/33 98 06/02/18 07:20 97.9 F 06/02/18 07:00 79 17 104/54 100 06/02/18 06:00 101 16 138/60 100 06/02/18 05:00 91 16 108/47 100 06/02/18 04:43 98.3 F 06/02/18 04:00 90 16 98/45 100 06/02/18 03:00 93 26 101/45 99 06/02/18 02:08 94 06/02/18 02:00 89 18 100/40 98 06/02/18 01:03 18 80/34 98 06/02/18 01:00 100 16 105/45 99 06/02/18 00:00 84 16 89/36 98 06/01/18 23:54 97.8 F 06/01/18 23:06 94 06/01/18 23:00 80 18 96/37 98 06/01/18 22:13 16 98/39 97 06/01/18 22:00 86 16 95/37 98 06/01/18 21:00 89 16 97/40 96 06/01/18 20:11 16 81/36 97 06/01/18 20:00 96.8 F L 79 16 89/40 99 06/01/18 19:17 90 06/01/18 15:42 73 20 80/39 96 Intake and Output 06/01/18 06/02/18 06/02/18 23:59 07:59 15:59 Intake Total 3440 / 3440 2079 / 2079 324 / 324 Output Total 805 / 805 285 / 285 335 / 335 Balance 2635 / 2635 1795 / 1795 -11 / -11 Intake: IV Fluids 3440 / 3440 2079 / 2079 324 / 324 Vasostrict 40 UNIT In Dextrose 37 / 37 5% 100 ML @ 0.04 UNIT/MIN 6.12 mls/hr IV .[id number] [facility] Rx#: [id number] 0.9 % Sodium Chloride 1,000 ML 2100 / 2100 1000 / 1000 @ 100 mls/hr IVC .Q10H [facility] Rx#: [id number] ALBURX 5% 12.5 gm In 250 ml @ 250 / 250 60 mls/hr IVC .Q4H10M [facility] Rx#: [id number] DOBUTamine Premix 250 MG/250 ML 1 / 1 250 mg In 250 ml @ 2.5 MCG/KG/ MIN 9.662 mls/hr IVC .Q24H [facility] Rx#:[id number] FentaNYL (PF) 1,000 MCG In 0.9 0 / 0 20 / 20 80 / 80 % Sodium Chloride 80 ML @ 50 MCG/HR 5 mls/hr IVC CONT [facility] Rx #:[id number] Levophed 4 MG In Dextrose 5% 254 / 254 772 / 772 244 / 244 250 ML @ 5 MCG/MIN 19.05 mls/hr IVC CONT [facility] Rx#:[id number] ALBURX 5% 12.5 gm In 250 ml @ 250 / 250 60 mls/hr IVPB ONCE ONE Rx#: [id number] Magnesium Sulfate 2 GM In 0.9 % 104 / 104 Sodium Chloride 100 ML @ 104 mls/hr IVPB ONCE [facility] Rx#: [id number] Merrem 1,000 MG In Water for inj. (sterile) 10 ML @ 120 mls/ hr IVPB Q8HR [facility] Rx#:[id number] Flagyl Premix 500 MG/100 ML 500 100 / 100 mg In 100 ml @ 100 mls/hr IVPB ONCE ONE Rx#:[id number] Mycamine 100 MG In 0.9 % Sodium 100 / 100 Chloride (Mini-Bag +) 100 ML @ 100 mls/hr IVPB DAILY [facility] Rx#: [id number] KCl 40 MEQ Xylocaine 2 ML In 522 / 522 Dextrose 5% 500 ML @ 130.5 mls/ hr IVPB ONCE ONE Rx#:[id number] Oral 0 / 0 Output: Stool 0 / 0 Estimated Blood Loss 100 / 100 Urine Amount (Catheter) 400 / 400 Catheter 175 / 175 275 / 275 300 / 300 Wound Drainage 130 / 130 10 / 10 20 / 20 Right Lower Abdomen 130 / 130 10 / 10 20 / 20 Chest Tube Drainage 0 / 0 0 / 0 15 15 Left Lateral Chest 0 / 0 0 / 0 Other: Blood Glucose* 317 151 - Airway Airway: Intubated - Mental Status Mental Status: Sedated Notes: Laboratory Results Laboratory Tests 02/04/18 06/01/18 06/02/18 09:42 12:51 03:13 WBC 22.7 H Hgb 8.6 L D Hct 26.5 L RDW 19.3 H PT 11.2 INR 1.0 APTT 24.0 L Sample Site ABG pH ABG pCO2 ABG pO2 ABG HCO3 ABG Total CO2 ABG O2 Saturation ABG Base Excess Sodium Potassium Chloride Carbon Dioxide BUN Creatinine Est GFR ( Amer) Est GFR (Non-Af Amer) Glucose Hemoglobin A1c 5.2 06/02/18 06/02/18 03:13 04:54 WBC Hgb Hct RDW PT INR APTT Sample Site Art Line ABG pH 7.31 L D ABG pCO2 41 ABG pO2 198 H D ABG HCO3 20 L ABG Total CO2 22 ABG O2 Saturation 100 H ABG Base Excess -6 L Sodium 138 Potassium 3.9 Chloride 110 H Carbon Dioxide 19 L BUN 29 H Creatinine 1.05 Est GFR ( Amer) > 60 Est GFR (Non-Af Amer) 50 L Glucose 248 H Hemoglobin A1c Anes Supervising Prov Stmt: Pt remains intubated/sedated in ICU4. Was weaned off vasopressin & Dobutamine overnight but remains on Levophed gtt for goal MAP > 60. Unable to assess further.
[2018-06-02 17:08] LABS: Hematocrit 25.1 % (35.3-44.9); Hemoglobin 8.1 g/dL (11.5-15.4)
[2018-06-02] MEDS ORDERED: Ringers Solution, Lactated 1,000 ML ONE (17:10)
[2018-06-02] MEDS: Piperacillin/Tazobactam 3.375 GM in 0.9 % Sodium Chloride Mini Bag 100 ML IVPB SCH (17:33)
[2018-06-02] MEDS ORDERED: Ringers Solution, Lactated 1,000 ML IVC ONE (17:34)
[2018-06-02 18:35] LABS: VBG Ionized Calcium 0.94 mmol/L (1.15-1.35)
[2018-06-02] MEDS ORDERED: 0.9 % Sodium Chloride 250 ML ONE (21:25)
[2018-06-03] MEDS: Hydrocortisone Sodium Succ 100 MG/2 ML VIAL IVP SCH ×5 (00:36→23:57)
[2018-06-03] MEDS: Piperacillin/Tazobactam 3.375 GM in 0.9 % Sodium Chloride Mini Bag 100 ML IVPB SCH ×4 (00:36→23:56)
[2018-06-03] MEDS: Acetaminophen IV 1,000 MG/100 ML INFUS..BTL IVPB SCH ×5 (00:36→23:47)
[2018-06-03] MEDS: Artificial Tears SOLN 15 ML BOTTLE BOTH EYES SCH ×6 (00:42→20:28)
[2018-06-03] MEDS ORDERED: 0.9 % Sodium Chloride 250 ML ONE (00:43)
[2018-06-03] MEDS: Insulin LISPRO 300 UNITS/3 ML VIAL SQ SCH ×7 (00:53→23:47)
[2018-06-03] MEDS: Norepinephrine 4 MG in D5% in Water 250 ML IVC SCH ×4 (01:08→20:38)
[2018-06-03] MEDS: FentaNYL (PF) 1,000 MCG in 0.9 % Sodium Chloride 80 ML IVC SCH ×3 (03:03→19:05)
[2018-06-03] MEDS: 0.9 % Sodium Chloride 1,000 ML IVC SCH (04:45)
[2018-06-03 04:56] LABS: ABG Base Excess -8 mEq/L (-2 to 3); ABG HCO3 19 mEq/L (21-27); ABG Oxygen Saturation 97 % (95-98); ABG PCO2 45 mmHg (35-45); ABG PH 7.23 pH Units (7.32-7.45); ABG PO2 101 mmHg (85-104); ABG TCO2 20 mEq/L (20-26); Blood Gas Modality ASSIST CONTROL; Blood Gas PEEP 3 cm H2O; Blood Gas Respiration Rate 16; Blood Gas VT 400 cc
[2018-06-03] MEDS: Levothyroxine Sodium 100 MCG VIAL IVP SCH (05:25)
[2018-06-03] MEDS: *HR* Heparin 5,000 UNIT/ML VIAL SQ SCH ×3 (05:26→21:10)
[2018-06-03] MEDS: Vasopressin 40 UNIT in D5% in Water 100 ML IV SCH ×2 (05:26→21:10)
[2018-06-03 05:38] LABS: VBG Ionized Calcium 0.98 mmol/L (1.15-1.35)
[2018-06-03 05:43] LABS: Hematocrit 31.6 % (35.3-44.9); Mean Corpuscular HGB Conc 32.9 g/dL (31.6-35.5); Mean Corpuscular Hemoglobin 30.6 pg (28.0-33.3); Mean Corpuscular Volume 92.9 fL (83.0-100.0); Mean Platelet Volume 10.6 fL (9.4-12.4); Nucleated Red Blood Cells 0.2 /100 WBC (0); Platelet Count 141 K/mcL (140-400); Red Cell Distribution Width 19.7 % (11.5-14.5)
[2018-06-03] MEDS ORDERED: Sodium Bicarbonate 100 MEQ in D5% in Water 1,000 ML IVC SCH (05:45)
[2018-06-03 05:49] LABS: Potassium 4.1 mEq/L (3.5-5.1)
[2018-06-03 05:50] LABS: Calcium 6.4 mg/dL (8.6-10.3); Magnesium 1.8 mg/dL (1.6-2.6); Phosphorous 3.2 mg/dL (2.7-4.5)
[2018-06-03 05:51] LABS: Hemoglobin 10.4 g/dL (11.5-15.4)
[2018-06-03 06:13] LABS: Lymphocytes # 2.2 K/mcL (0.6-4.6); Monocytes # 1.3 K/mcL (0.0-1.3); Neutrophils # 18.1 K/mcL (1.6-8.9)
[2018-06-03 06:14] LABS: Platelet Estimate Normal (Normal); Reactive Lymphocytes Present (Not Present); Toxic Granulation Present (Not Present)
[2018-06-03] MEDS: Famotidine 20 MG/2 ML VIAL IVP SCH (07:52)
[2018-06-03] MEDS: Fluconazole 400 MG/200 ML 400 MG/200 ML BAG IVPB SCH (07:52)
[2018-06-03] MEDS: Chlorhexidine Rinse 15 ML MOUTHWASH MM SCH ×2 (07:52→20:27)
--- NOTE | 2018-06-03 08:12 | General Surgery Progress Note ---
Addendum entered and electronically signed by Nicole Stokes CNP 06/03/18 08:14: Inadvertently left off the review of systems and physical exam. Unable to obtain review of systems as patient is intubated and sedated. She does arouse to conversation and denies abdominal pain. VITAL SIGNS: Reviewed. See [facility] GENERAL: In no apparent distress. HEENT: Normocephalic, atraumatic, oropharynx is pink and moist, there is no JVD noted. ETT noted and NG noted. CHEST/RESPIRATORY: The thorax is free from signs of trauma. Lung sounds: course mechanical breath sounds CARDIAC: Regular rate and rhythm. Normal S1 and S2, without murmurs, gallops, or rubs. VASCULAR: No Edema. 2+ peripheral pulses. ABDOMEN: soft, expected postoperative tenderness, absent bowel sounds INCISION: Surgical incision is clean, dry, and intact. There are no signs of cellulitis or infection noted. WOUNDS/DRAINS: colostomy/stoma pink and moist, edematous, small amount of bowel sweat present. TATE with small amount of SS drainage. Left chest tube is without evidence of leaks. Small amount of drainage. MUSCULOSKELETAL: Good range of motion of all major joints. Extremities without clubbing, cyanosis or edema. NEUROLOGIC EXAM: Alert and oriented x 3. Speech normal. Follows commands. PSYCHIATRIC: Mood normal. SKIN: No rash or lesions. Original Note: Date of Encounter: 06/03/18 Time of Encounter: 07:15 - Assessment and Plan (1) Pneumatosis intestinalis of large intestine Current Visit: Yes Status: Acute Date of procedure: 06/01/18 Pre-op diagnosis: Hypotension, acidosis, pneumatosis coli Post-op diagnosis: same Procedure: Exposure laparotomy with descending and sigmoid colon resection, takedown splenic flexure, end colostomy and Mejias's pouch followed by attempted placement of triple-lumen catheter, placement of left sided chest tube Anesthesia: ELISSAA Surgeon: Axel Reyez Was there an assistant professor of dietetics present: Yes Fabricating Machine Operator: Carol Shipman Estimated blood loss (cc): 100 ml POD #2, ABOVE. Ostomy remains pink and moist with slightly more edema, small amount of bowel sweat present. Abdominal exam is otherwise as expected. No signs or symptoms of infection. Incisions are clean, dry, and intact. She is intubated and sedated but does open her eyes to conversation and nodds head /mouth words yes a little bit when asked about pain in the abdomen. She is noted to be on norepinephrine (previously also on Vassopressin and dopamine, dobutamine, but this as been weaned). s/p transfusion 2U PRBCs 06/02; no evidence of acute bleeding currently. Will defer future critical care as there is no evidence of acute surgical bleed. Plan: supportive care and discomfort management while awaiting return of bowel function continue G.I. and DVT prophylaxis per primary team continue NG to low intermittent wall suction NPO. Add scheduled Ofirmev for pain control continue fentanyl GTT for sedation and pain control per primary team serial abdominal exams repeat a.m. 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 Returned to normal, but noted bandemia on WBC this am (5) Anemia Current Visit: Yes Status: Acute No evidence of acute bleeding. Will continue to closely monitor. see a/p above Qualifiers: Anemia type: unspecified type Qualified Code(s): D64.9 - Anemia, unspecifi ed (6) RONY (acute kidney injury) Current Visit: Yes Status: Acute creatinine 1.25; noted fluid resuscitation. Management per primary team/critical care Objective Vital Signs - Last 8 Hours Temp Pulse Resp BP Pulse Ox 06/03/18 07:19 16 104/42 100 06/03/18 07:00 75 18 126/46 100 06/03/18 06:00 80 18 87/39 99 06/03/18 05:07 22 119/71 97 06/03/18 05:00 89 22 105/59 95 06/03/18 04:00 99.5 F 85 20 95/34 98 06/03/18 03:56 99.5 F 87 23 127/59 99 06/03/18 03:38 22 123/69 99 06/03/18 03:36 87 06/03/18 03:00 87 20 111/73 98 06/03/18 02:00 80 16 118/49 100 06/03/18 01:11 17 124/45 100 06/03/18 01:03 99.8 F H 76 16 121/51 100 06/03/18 01:00 78 16 124/45 100 06/03/18 00:48 99.7 F H 71 18 123/57 100 06/03/18 00:23 99.8 F H 85 16 116/51 100 06/03/18 00:05 99.8 F H Intake and Output 06/02/18 06/03/18 06/03/18 23:59 07:59 15:59 Intake Total 3278 / 3278 2636.0 / 2636.0 Output Total 385 / 385 301 / 301 Balance 2893 / 2893 2335.0 / 2335.0 Intake: IV Fluids 3278 / 3278 1986.0 / 1986.0 0.9 % Sodium Chloride 1,000 ML 1000 / 1000 1082 / 1082 @ 100 mls/hr IVC .Q10H [facility] Rx#: [id number] ALBURX 5% 12.5 gm In 250 ml @ 250 / 250 60 mls/hr IVC .Q4H10M [facility] Rx#: [id number] FentaNYL (PF) 1,000 MCG In 0.9 100 / 100 100 / 100 % Sodium Chloride 80 ML @ 50 MCG/HR 5 mls/hr IVC CONT [facility] Rx #:[id number] Levophed 4 MG In Dextrose 5% 508 / 508 504.0 / 504.0 250 ML @ 5 MCG/MIN 19.05 mls/hr IVC CONT [facility] Rx#:[id number] Lactated Ringers 1,000 ML @ 999 1000 / 1000 mls/hr IVC .Q1H1M [facility] Rx#: [id number] Ofirmev 1,000 mg/100 ml 1,000 100 / 100 200 / 200 mg In 100 ml @ 400 mls/hr IVPB Q6HR [facility] Rx#:[id number] Calcium Gluconate 1,000 MG In 0 110 / 110 .9 % Sodium Chloride 100 ML @ 220 mls/hr IVPB Q6HR [facility] Rx#: [id number] Merrem 1,000 MG In Water for inj. (sterile) 10 ML @ 120 mls/ hr IVPB Q12H [facility] Rx#:[id number] Mycamine 100 MG In 0.9 % Sodium 100 / 100 Chloride (Mini-Bag +) 100 ML @ 100 mls/hr IVPB DAILY [facility] Rx#: [id number] Zosyn 3.375 GM In 0.9 % Sodium 100 / 100 100 / 100 Chloride (Mini-Bag +) 100 ML @ 25 mls/hr IVPB Q8HR [facility] Rx#: [id number] Blood Product 0 / 0 650 / 650 Rbcs Leuko Poor As-1 Unit 0 / 0 350 / 350 [id number] Rbcs Leuko Poor As-3 Ph Unit 300 / 300 [id number] Output: Catheter 325 / 325 275 / 275 Wound Drainage Right Lower Abdomen Chest Tube Drainage Left Lateral Chest Other: Weight 62.7 kg Blood Glucose* 208 134 Patient Weight 06/03/18 23:59 Weight 62.7 kg - Labs 06/03/18 04:35 06/03/18 04:35 Diabetes panel 06/03/18 Range/Units 04:35 Sodium 135 L (136-145) mEq/L Potassium 4.1 (3.5-5.1) mEq/L Chloride 110 H (98-107) mEq/L Carbon Dioxide 17 L (23-29) mEq/L BUN 33 H (8-23) mg/dL Creatinine 1.25 H (0.60-1.20) mg/dL Glucose 137 H (70-105) mg/dL Calcium 6.4 L (8.6-10.3) mg/dL Calcium panel 06/03/18 Range/Units 04:35 Calcium 6.4 L (8.6-10.3) mg/dL Phosphorus 3.2 (2.7-4.5) mg/dL Pituitary panel 06/03/18 Range/Units 04:35 Sodium 135 L (136-145) mEq/L Potassium 4.1 (3.5-5.1) mEq/L Chloride 110 H (98-107) mEq/L Carbon Dioxide 17 L (23-29) mEq/L BUN 33 H (8-23) mg/dL Creatinine 1.25 H (0.60-1.20) mg/dL Glucose 137 H (70-105) mg/dL Calcium 6.4 L (8.6-10.3) mg/dL Adrenal panel 06/03/18 Range/Units 04:35 Sodium 135 L (136-145) mEq/L Potassium 4.1 (3.5-5.1) mEq/L Chloride 110 H (98-107) mEq/L Carbon Dioxide 17 L (23-29) mEq/L BUN 33 H (8-23) mg/dL Creatinine 1.25 H (0.60-1.20) mg/dL Glucose 137 H (70-105) mg/dL Calcium 6.4 L (8.6-10.3) mg/dL Consult Discharge Plan - Plan Referrals: Hong Garnett MD [Primary Care Provider] -
[2018-06-03 09:54] LABS: ABG Base Excess -7 mEq/L (-2 to 3); ABG HCO3 19 mEq/L (21-27); ABG Oxygen Saturation 95 % (95-98); ABG PCO2 39 mmHg (35-45); ABG PO2 85 mmHg (85-104); ABG TCO2 21 mEq/L (20-26); Blood Gas PEEP 5 cm H2O; Blood Gas Respiration Rate 16; Blood Gas VT 450 cc
--- NOTE | 2018-06-03 13:38 | Pulmonology Progress Note ---
<Manjeet Yorkannie M - Last Filed: 06/03/18 15:13> Date of Encounter: 06/03/18 Objective PUL Vital signs: Last Vital Signs Temp 98.0 F 06/03/18 12:00 Pulse 70 06/03/18 13:00 Resp 16 06/03/18 13:21 BP 104/54 06/03/18 13:21 Pulse Ox 98 06/03/18 13:21 Ventilator Settings Ventilator Settings: Ventilator Settings, Last 8 Hours Ventilator Tidal Volume 450 Setting Ventilator Tidal Volume 450 Setting Ventilator Tidal Volume 450 Setting Ventilator Tidal Volume 450 Setting Ventilator Tidal Volume 450 Setting Ventilator Tidal Volume 450 Setting Ventilator Tidal Volume 450 Setting Ventilator Tidal Volume 450 Setting Ventilator Tidal Volume 450 Setting Ventilator Tidal Volume 450 Setting Ventilator Respiratory Rate 16 Setting Ventilator Respiratory Rate 16 Setting Ventilator Respiratory Rate 16 Setting Ventilator Respiratory Rate 16 Setting Ventilator Respiratory Rate 16 Setting Ventilator Respiratory Rate 16 Setting Ventilator Respiratory Rate 16 Setting Ventilator Respiratory Rate 16 Setting Ventilator Respiratory Rate 16 Setting Ventilator Respiratory Rate 16 Setting Actual Respiratory Rate 17 Actual Respiratory Rate 16 Actual Respiratory Rate 17 Actual Respiratory Rate 16 Actual Respiratory Rate 17 Actual Respiratory Rate 17 Actual Respiratory Rate 17 Actual Respiratory Rate 16 Actual Respiratory Rate 16 Positive End Expiratory 3 Pressure Positive End Expiratory 3 Pressure Positive End Expiratory 3 Pressure Positive End Expiratory 3 Pressure Positive End Expiratory 3 Pressure Positive End Expiratory 3 Pressure Positive End Expiratory 3 Pressure Positive End Expiratory 3 Pressure Positive End Expiratory 3 Pressure Positive End Expiratory 3 Pressure Peak Inspiratory Airway 27 Pressure Peak Inspiratory Airway 23 Pressure Peak Inspiratory Airway 29 Pressure Peak Inspiratory Airway 25 Pressure Peak Inspiratory Airway 25 Pressure Peak Inspiratory Airway 23 Pressure Peak Inspiratory Airway 21 Pressure Peak Inspiratory Airway 19 Pressure Peak Inspiratory Airway 21 Pressure Results - Laboratory Findings CBC and BMP: 06/03/18 04:35 06/03/18 04:35 ABG ABG pH 7.30 pH Units (7.32-7.45) L 06/03/18 09:49 ABG pCO2 39 mmHg (35-45) 06/03/18 09:49 ABG pO2 85 mmHg (85-104) 06/03/18 09:49 ABG O2 Saturation 95 % (95-98) 06/03/18 09:49 PT/INR, D-dimer PT 11.2 Seconds (9.4-12.1) 06/01/18 12:51 Abnormal lab findings: Abnormal lab results WBC 22.1 K/mcL (4.3-11.1) H 06/03/18 04:35 RBC 3.40 M/mcL (3.82-4.97) L 06/03/18 04:35 Hgb 10.4 g/dL (11.5-15.4) L D 06/03/18 04:35 Hct 31.6 % (35.3-44.9) L 06/03/18 04:35 RDW 19.7 % (11.5-14.5) H 06/03/18 04:35 Band Neutrophils % 22.0 % (0-4) H 06/03/18 04:35 Metamyelocytes % 2.0 % (0) H 06/03/18 04:35 Neutrophils # 18.1 K/mcL (1.6-8.9) H 06/03/18 04:35 Nucleated RBCs/100 WBC 0.2 /100 WBC (0) H 06/03/18 04:35 Reactive Lymphocytes Present (Not Present) A 06/03/18 04:35 Toxic Granulation Present (Not Present) A 06/03/18 04:35 APTT 24.0 Seconds (26.0-36.0) L 06/01/18 12:51 ABG pH 7.30 pH Units (7.32-7.45) L 06/03/18 09:49 ABG HCO3 19 mEq/L (21-27) L 06/03/18 09:49 ABG Base Excess -7 mEq/L (-2 to 3) L 06/03/18 09:49 Mixed VBG pH 7.17 pH Units (7.34-7.36) L 06/02/18 01:02 Mixed VBG pCO2 53 mmHg (44-46) H 06/02/18 01:02 Mixed VBG pO2 181 mmHg (35-45) H 06/02/18 01:02 Mixed VBG Oxyhemoglobin 93.3 % (60-80) H 06/02/18 01:02 Carboxyhemoglobin 5.2 % (0-5) H 06/01/18 12:51 Sodium 135 mEq/L (136-145) L 06/03/18 04:35 Chloride 110 mEq/L (98-107) H 06/03/18 04:35 Carbon Dioxide 17 mEq/L (23-29) L 06/03/18 04:35 BUN 33 mg/dL (8-23) H 06/03/18 04:35 Creatinine 1.25 mg/dL (0.60-1.20) H 06/03/18 04:35 Est GFR ( Amer) 49 (> 60) L 06/03/18 04:35 Est GFR (Non-Af Amer) 41 (> 60) L 06/03/18 04:35 Glucose 137 mg/dL (70-105) H 06/03/18 04:35 POC Glucose 211 mg/dL (70-99) H 06/02/18 23:37 Lactic Acid 2.7 mmol/L (0.5-2.2) H 06/03/18 09:30 Calcium 6.4 mg/dL (8.6-10.3) L 06/03/18 04:35 Venous Ioniz Calcium 0.98 mmol/L (1.15-1.35) L 06/03/18 05:36 Total Bilirubin 1.4 mg/dL (0.3-1.0) H 06/01/18 21:15 Direct Bilirubin 0.3 mg/dL (0.0-0.2) H 06/01/18 12:51 Indirect Bilirubin 1.6 mg/dL (0.0-1.2) H 06/01/18 12:51 Ammonia 78 mcmol/L (16-53) H 06/01/18 12:51 Serum Total Protein 5.0 g/dL (6.4-8.9) L 06/01/18 21:15 Albumin 3.1 g/dL (3.5-5.7) L 06/01/18 21:15 Globulin 1.9 g/dL (2.4-3.5) L 06/01/18 21:15 Prealbumin 11.1 mg/dL (17.0-34.0) L 06/03/18 04:35 Beta-Hydroxybutyric Acd 0.34 mmol/L (0.02-0.27) H 06/01/18 12:51 TSH 11.408 mcIU/mL (0.340-5.600) H 06/01/18 12:51 Urine Clarity Hazy (Clear) A 06/01/18 15:13 Ur Specific [place] > 1.030 (1.010-1.025) H 06/01/18 15:13 Urine Protein 100 mg/dL (Neg-Trace) H 06/01/18 15:13 Urine Blood Moderate (Negative) H 06/01/18 15:13 Urine Microscopic RBC 30-50 per hpf (0-3) H 06/01/18 15:13 Urine Microscopic WBC 5-15 per hpf (0-3) H 06/01/18 15:13 Ur Squamous Epith Cells Many per lpf (None-Few) H 06/01/18 15:13 Amorphous Sediment Many (Few) H 06/01/18 15:13 Granular Casts Few per lpf (None Seen) H 06/01/18 15:13 Urine Mucus Moderate (Few) H 06/01/18 15:13 Salicylates < 2.5 mg/dL (15.0-30.0) L 06/01/18 12:51 Acetaminophen < 10 mcg/mL (10-20) L 06/01/18 12:51 U Benzodiazepines Scrn Positive ng/mL ([id number]) H 06/01/18 15:11 - Microbiology Findings Microbiology Findings: Microbiology, Last 48 Hours 06/02/18 20:10 Blood Culture - Preliminary Peripheral Venipuncture Culture is incubating and being continuously monitored for growth. Final report to follow. 06/02/18 20:23 Blood Culture - Preliminary Peripheral Venipuncture Culture is incubating and being continuously monitored for growth. Final report to follow. - Clinical Findings Intake & Output: Intake & Output 06/02/18 06/03/18 06/03/18 23:59 07:59 15:59 Intake Total 3278 / 3278 2636.0 / 2636.0 100 / 100 Output Total 385 / 385 301 / 301 360 / 360 Balance 2893 / 2893 2335.0 / 2335.0 -260 / -260 Weight 62.7 kg Consult Discharge Plan - Plan Referrals: Hong Garnett MD [Primary Care Provider] - - Attending Attestation I examined this patient and my medical decision-making was reviewed with the Resident Physician. I agree with the documented findings, disposition and treatment plan as described except to the extent set forth below. Patient seen and examined. Labs, radiology, chart personally reviewed. Agree with resident's history and physical, assessment, plan with following comments: CLEANER SIGNS: Patient does not follows commands on sedation for the vent synchrony, Pulmonary: Acceptable oxygenation and ventilation and changed vent setting earlier because of the combined metabolic acidosis and acute respiratory acidosis and there is no plan for spontaneous breathing trial because hemodynamically she still not stable. Cardiovascular: Patient remained in cardiogenic shock with acidosis and patient is on Levophed at this time and patient has received blood product with some response, blood pressure has improved some giving care bicarbonate drip. GI: Nutrition per dietary and GI prophylaxis per routine. Nutrition when surgery team agrees. Patient CODE STATUS discussed with the family and she remained full code at this time. Heme: DVT prophylaxis per routine ID: Continue antibiotics and plan to de-escalation. Continue empiric antibiotics. Renal; urine out put and renal funtion reviewed. Continue fluid resuscitation and this time with bicarbonate drip hopefully that will make patient more stable and follow-up ABG. Endorcine: blood glucose is monitored Lines: all lines checked and no evidence of infections Skin: skin care to prevent pressure ulcers per nursing routine care I spent 32 min of Critical Care time with this patient. It involved decision making of high complexity to assess, manipulate, and support vital organ system failure and/or to prevent further life threatening deterioration of the patient' s condition. The time involved in the performance of separately reportable procedures was not counted toward critical care time. <Tyree Mejia S - Last Filed: 06/03/18 18:14> Date of Encounter: 06/03/18 Time of Encounter: 08:30 Assessment and Plan (1) Pneumothorax Current Visit: Yes Status: Acute Patient developed a small left-sided pneumothorax on 06/02 after an attempted central catheter placement by Dr. Reyez He then placed a chest tube to suction in the left lung Initial CXR showed good placement Repeat chest xray (06/03) shows the tube is slightly retracted with a moderate size pneumothorax Dr. Mccauley was consulted and evaluated the patient The chest tube was functioning without evidence of air leakage and appeared to be patent with the thoracic cavity pressure No crepitus on exam Surgery suggested placement of a pigtail catheter in the superior region of left pleural cavity tomorrow by the critical care team, this is not an urgent procedure and can safely be performed tomorrow in the ICU Qualifiers: Pneumothorax type: postprocedural Qualified Code(s): J95.811 - Postprocedural pneumothorax (2) Septic shock Current Visit: Yes Status: Acute 2/2 pneumatosis intestinalis Patient is post-op day 2 for descending colectomy WBC no significant change 22.7 > 22.1 today Discontinued meropenem Started on fluconazole Started on zosyn Patient requiring levophed Vasopressin PRN Patient on hydrocortisone BP 139/52 this morning Surgery ordered 500 ml 0.45 NS and 1 liter D5 in 0.45% (3) Pneumatosis intestinalis of large intestine Current Visit: Yes Status: Acute Patient is post-op day 2 for exploratory laparotomy with descending colectomy and ostomy by Dr. Reyez Incisions are clean, dry, and intact Patient's Hgb dropped to 8.1 from 8.6, gave 2 units of PRBCs Hgb stable at 10.4 today Continue ofirmev for pain control Continue fentanyl for pain control and sedation Afebrile overnight NPO (4) RONY (acute kidney injury) Current Visit: Yes Status: Acute Patient creatinine elevated 1.05 > 1.25 today Will continue to monitor and rehydrate if needed (5) Metabolic acidosis with respiratory acidosis Current Visit: Yes Status: Acute Patient on vent with settings rate 16, FiO2 30%, PEEP 5, Tidal volume 450 Keep PEEP low to keep positive pressure low since patient has a chest tube ABG with pH 7.31, pCO2 41, HCO3 20, repeat pH 7.3, pCO2 39, HCO3 19 Patient given bicarb this morning Lactate 6.6 > 3.4 > 2.7 today Will continue to monitor respiratory status (6) Diabetes Current Visit: Yes Status: Acute Patient's recent glucose 137 Discontinued insulin drip Increased insulin coverage to high dose sliding scale Q4hr Continue to monitor Qualifiers: Diabetes mellitus type: type 2 Diabetes mellitus assisted insulin use: without ocean transportation intermediary use Diabetes mellitus complication status: without complication Qualified Code(s): E11.9 - Type 2 diabetes mellitus without complications (7) Electrolyte abnormality Current Visit: Yes Status: Acute Electrolyte replacement protocol ordered (8) DVT prophylaxis Current Visit: Yes Status: Acute Subcutaneous heparin Objective PUL Vital signs: Last Vital Signs Temp 98.0 F 06/03/18 12:00 Pulse 82 06/03/18 11:00 Resp 16 06/03/18 13:21 BP 104/54 06/03/18 13:21 Pulse Ox 98 06/03/18 13:21 Ventilator Settings Ventilator Settings: Ventilator Settings, Last 8 Hours Ventilator Tidal Volume 450 Setting Ventilator Tidal Volume 450 Setting Ventilator Tidal Volume 450 Setting Ventilator Tidal Volume 450 Setting Ventilator Tidal Volume 450 Setting Ventilator Tidal Volume 450 Setting Ventilator Tidal Volume 450 Setting Ventilator Tidal Volume 450 Setting Ventilator Tidal Volume 450 Setting Ventilator Tidal Volume 450 Setting Ventilator Tidal Volume 400 Setting Ventilator Respiratory Rate 16 Setting Ventilator Respiratory Rate 16 Setting Ventilator Respiratory Rate 16 Setting Ventilator Respiratory Rate 16 Setting Ventilator Respiratory Rate 16 Setting Ventilator Respiratory Rate 16 Setting Ventilator Respiratory Rate 16 Setting Ventilator Respiratory Rate 16 Setting Ventilator Respiratory Rate 16 Setting Ventilator Respiratory Rate 16 Setting Ventilator Respiratory Rate 16 Setting Actual Respiratory Rate 17 Actual Respiratory Rate 17 Actual Respiratory Rate 16 Actual Respiratory Rate 17 Actual Respiratory Rate 17 Actual Respiratory Rate 17 Actual Respiratory Rate 16 Actual Respiratory Rate 16 Actual Respiratory Rate 18 Actual Respiratory Rate 18 Positive End Expiratory 3 Pressure Positive End Expiratory 3 Pressure Positive End Expiratory 3 Pressure Positive End Expiratory 3 Pressure Positive End Expiratory 3 Pressure Positive End Expiratory 3 Pressure Positive End Expiratory 3 Pressure Positive End Expiratory 3 Pressure Positive End Expiratory 3 Pressure Positive End Expiratory 3 Pressure Positive End Expiratory 3 Pressure Peak Inspiratory Airway 27 Pressure Peak Inspiratory Airway 29 Pressure Peak Inspiratory Airway 25 Pressure Peak Inspiratory Airway 25 Pressure Peak Inspiratory Airway 23 Pressure Peak Inspiratory Airway 21 Pressure Peak Inspiratory Airway 19 Pressure Peak Inspiratory Airway 21 Pressure Peak Inspiratory Airway 21 Pressure Peak Inspiratory Airway 22 Pressure Results - Laboratory Findings CBC and BMP: 06/03/18 04:35 06/03/18 04:35 ABG ABG pH 7.30 pH Units (7.32-7.45) L 06/03/18 09:49 ABG pCO2 39 mmHg (35-45) 06/03/18 09:49 ABG pO2 85 mmHg (85-104) 06/03/18 09:49 ABG O2 Saturation 95 % (95-98) 06/03/18 09:49 PT/INR, D-dimer PT 11.2 Seconds (9.4-12.1) 06/01/18 12:51 Abnormal lab findings: Abnormal lab results WBC 22.1 K/mcL (4.3-11.1) H 06/03/18 04:35 RBC 3.40 M/mcL (3.82-4.97) L 06/03/18 04:35 Hgb 10.4 g/dL (11.5-15.4) L D 06/03/18 04:35 Hct 31.6 % (35.3-44.9) L 06/03/18 04:35 RDW 19.7 % (11.5-14.5) H 06/03/18 04:35 Band Neutrophils % 22.0 % (0-4) H 06/03/18 04:35 Metamyelocytes % 2.0 % (0) H 06/03/18 04:35 Neutrophils # 18.1 K/mcL (1.6-8.9) H 06/03/18 04:35 Nucleated RBCs/100 WBC 0.2 /100 WBC (0) H 06/03/18 04:35 Reactive Lymphocytes Present (Not Present) A 06/03/18 04:35 Toxic Granulation Present (Not Present) A 06/03/18 04:35 APTT 24.0 Seconds (26.0-36.0) L 06/01/18 12:51 ABG pH 7.30 pH Units (7.32-7.45) L 06/03/18 09:49 ABG HCO3 19 mEq/L (21-27) L 06/03/18 09:49 ABG Base Excess -7 mEq/L (-2 to 3) L 06/03/18 09:49 Mixed VBG pH 7.17 pH Units (7.34-7.36) L 06/02/18 01:02 Mixed VBG pCO2 53 mmHg (44-46) H 06/02/18 01:02 Mixed VBG pO2 181 mmHg (35-45) H 06/02/18 01:02 Mixed VBG Oxyhemoglobin 93.3 % (60-80) H 06/02/18 01:02 Carboxyhemoglobin 5.2 % (0-5) H 06/01/18 12:51 Sodium 135 mEq/L (136-145) L 06/03/18 04:35 Chloride 110 mEq/L (98-107) H 06/03/18 04:35 Carbon Dioxide 17 mEq/L (23-29) L 06/03/18 04:35 BUN 33 mg/dL (8-23) H 06/03/18 04:35 Creatinine 1.25 mg/dL (0.60-1.20) H 06/03/18 04:35 Est GFR ( Amer) 49 (> 60) L 06/03/18 04:35 Est GFR (Non-Af Amer) 41 (> 60) L 06/03/18 04:35 Glucose 137 mg/dL (70-105) H 06/03/18 04:35 POC Glucose 211 mg/dL (70-99) H 06/02/18 23:37 Lactic Acid 2.7 mmol/L (0.5-2.2) H 06/03/18 09:30 Calcium 6.4 mg/dL (8.6-10.3) L 06/03/18 04:35 Venous Ioniz Calcium 0.98 mmol/L (1.15-1.35) L 06/03/18 05:36 Total Bilirubin 1.4 mg/dL (0.3-1.0) H 06/01/18 21:15 Direct Bilirubin 0.3 mg/dL (0.0-0.2) H 06/01/18 12:51 Indirect Bilirubin 1.6 mg/dL (0.0-1.2) H 06/01/18 12:51 Ammonia 78 mcmol/L (16-53) H 06/01/18 12:51 Serum Total Protein 5.0 g/dL (6.4-8.9) L 06/01/18 21:15 Albumin 3.1 g/dL (3.5-5.7) L 06/01/18 21:15 Globulin 1.9 g/dL (2.4-3.5) L 06/01/18 21:15 Prealbumin 11.1 mg/dL (17.0-34.0) L 06/03/18 04:35 Beta-Hydroxybutyric Acd 0.34 mmol/L (0.02-0.27) H 06/01/18 12:51 TSH 11.408 mcIU/mL (0.340-5.600) H 06/01/18 12:51 Urine Clarity Hazy (Clear) A 06/01/18 15:13 Ur Specific [place] > 1.030 (1.010-1.025) H 06/01/18 15:13 Urine Protein 100 mg/dL (Neg-Trace) H 06/01/18 15:13 Urine Blood Moderate (Negative) H 06/01/18 15:13 Urine Microscopic RBC 30-50 per hpf (0-3) H 06/01/18 15:13 Urine Microscopic WBC 5-15 per hpf (0-3) H 06/01/18 15:13 Ur Squamous Epith Cells Many per lpf (None-Few) H 06/01/18 15:13 Amorphous Sediment Many (Few) H 06/01/18 15:13 Granular Casts Few per lpf (None Seen) H 06/01/18 15:13 Urine Mucus Moderate (Few) H 06/01/18 15:13 Salicylates < 2.5 mg/dL (15.0-30.0) L 06/01/18 12:51 Acetaminophen < 10 mcg/mL (10-20) L 06/01/18 12:51 U Benzodiazepines Scrn Positive ng/mL ([id number]=[id number]) H 06/01/18 15:11 - Microbiology Findings Microbiology Findings: Microbiology, Last 48 Hours 06/02/18 20:10 Blood Culture - Preliminary Peripheral Venipuncture Culture is incubating and being continuously monitored for growth. Final report to follow. 06/02/18 20:23 Blood Culture - Preliminary Peripheral Venipuncture Culture is incubating and being continuously monitored for growth. Final report to follow. - Clinical Findings Intake & Output: Intake & Output 06/02/18 06/03/18 06/03/18 23:59 07:59 15:59 Intake Total 3278 / 3278 2636.0 / 2636.0 100 / 100 Output Total 385 / 385 301 / 301 360 / 360 Balance 2893 / 2893 2335.0 / 2335.0 -260 / -260 Weight 62.7 kg
[2018-06-03] MEDS ORDERED: 0.9 % Sodium Chloride 1,000 ML IVC SCH (16:30)
[2018-06-03] MEDS ORDERED: D5% in 0.45% NACL 1,000 ML IVC ONE (17:19)
[2018-06-03] MEDS: D5% in 0.45% NACL 1,000 ML IVC SCH (18:10)
[2018-06-04] MEDS: Artificial Tears SOLN 15 ML BOTTLE BOTH EYES SCH ×7 (00:04→19:47)
[2018-06-04] MEDS: FentaNYL (PF) 1,000 MCG in 0.9 % Sodium Chloride 80 ML IVC SCH ×2 (01:37→07:32)
[2018-06-04] MEDS: D5% in 0.45% NACL 1,000 ML IVC SCH (04:10)
[2018-06-04 04:17] LABS: Basophils # 0.1 K/mcL (0.0-0.2); Basophils % 0.3 %; Hemoglobin 8.9 g/dL (11.5-15.4); Immature Granulocytes % 0.4 % (0-4); Lymphocytes % 5.4 %; Mean Corpuscular HGB Conc 34.2 g/dL (31.6-35.5); Mean Corpuscular Hemoglobin 30.8 pg (28.0-33.3); Mean Platelet Volume 10.8 fL (9.4-12.4); Monocytes % 5.6 %; Neutrophils # 16.3 K/mcL (1.6-8.9); Nucleated Red Blood Cells 0.2 /100 WBC (0); Platelet Count 130 K/mcL (140-400); Red Blood Count 2.89 M/mcL (3.82-4.97); Segmented Neutrophils % 88.3 %
[2018-06-04 04:18] LABS: VBG Ionized Calcium 0.99 mmol/L (1.15-1.35)
[2018-06-04 04:29] LABS: Magnesium 2.2 mg/dL (1.6-2.6)
[2018-06-04 04:37] LABS: Calcium 6.6 mg/dL (8.6-10.3); Potassium 3.4 mEq/L (3.5-5.1)
[2018-06-04 04:38] LABS: Dohle Bodies Present (Not Present)
[2018-06-04 04:42] LABS: Anisocytosis 2+ (Not Present); Macrocytosis Present (Not Present); Microcytosis Present (Not Present); Platelet Estimate Slight Decrease (Normal); Poikilocytosis 1+ (Not Present); Polychromasia 1+ (Not Present)
[2018-06-04 05:10] LABS: ABG Base Excess -6 mEq/L (-2 to 3); ABG HCO3 20 mEq/L (21-27); ABG Oxygen Saturation 96 % (95-98); ABG PCO2 38 mmHg (35-45); ABG PH 7.32 pH Units (7.32-7.45); ABG PO2 86 mmHg (85-104); ABG TCO2 21 mEq/L (20-26); Blood Gas Modality ASSIST CONTROL; Blood Gas PEEP 5 cm H2O; Blood Gas Respiration Rate 16; Blood Gas VT 450 cc
[2018-06-04] MEDS: Levothyroxine Sodium 100 MCG VIAL IVP SCH (05:21)
[2018-06-04] MEDS: *HR* Heparin 5,000 UNIT/ML VIAL SQ SCH ×3 (05:21→21:03)
[2018-06-04] MEDS: Acetaminophen IV 1,000 MG/100 ML INFUS..BTL IVPB SCH (05:21)
[2018-06-04] MEDS: Hydrocortisone Sodium Succ 100 MG/2 ML VIAL IVP SCH (05:21)
[2018-06-04] MEDS: Insulin LISPRO 300 UNITS/3 ML VIAL SQ SCH ×6 (05:22→23:28)
[2018-06-04] MEDS: Piperacillin/Tazobactam 3.375 GM in 0.9 % Sodium Chloride Mini Bag 100 ML IVPB SCH ×3 (07:16→23:26)
[2018-06-04] MEDS: Famotidine 20 MG/2 ML VIAL IVP SCH (07:17)
[2018-06-04] MEDS: Chlorhexidine Rinse 15 ML MOUTHWASH MM SCH ×2 (07:17→19:14)
[2018-06-04] MEDS: Fluconazole 400 MG/200 ML 400 MG/200 ML BAG IVPB SCH (07:17)
[2018-06-04] MEDS ORDERED: Potassium Phosphate 44 MEQ in 0.9 % Sodium Chloride 250 ML IVPB ONE (07:38)
[2018-06-04] MEDS ORDERED: Lidocaine -MPF 2% 5 ML VIAL ONE (07:40)
[2018-06-04] MEDS: Meropenem 1,000 MG in Water for inj. (sterile) 20 ML 10 ML IVPB SCH (08:22)
--- NOTE | 2018-06-04 10:33 | Procedure Note ---
Date of procedure: 06/04/18 Pre-op diagnosis: Secondary pneumothorax Post-op diagnosis: same Procedure: Chest tube placement After obtaining consent from POA because patient's mental status and she is on the ventilator not able to sign, time out was called and left chest area was cleaned, draped and prepped in usual fashion and then with 1% lidocaine the area between third and fourth intercostal space the 10F pigtail chest tube was place after making a small incision and chest tube was placed without immediate complications. Chest tube was connected to [facility] and immediate there was air- leak and then slowed down and CXR showed improvement. Anesthesia: local, IV sedation Surgeon: Ronni York Was there an server assistant present: No Estimated blood loss (cc): 0.5 Specimen: None Pathology: none sent Condition: stable Disposition: ICU
--- NOTE | 2018-06-04 10:41 | Pulmonology Progress Note ---
<JaylenManjeetannie M - Last Filed: 06/04/18 13:39> Date of Encounter: 06/04/18 Objective PUL Vital signs: Last Vital Signs Temp 98.1 F 06/04/18 11:20 Pulse 98 06/04/18 13:00 Resp 14 06/04/18 13:00 BP 125/65 06/04/18 13:00 Pulse Ox 100 06/04/18 13:00 Ventilator Settings Ventilator Settings: Ventilator Settings, Last 8 Hours Ventilator Tidal Volume 450 Setting Ventilator Tidal Volume 450 Setting Ventilator Tidal Volume 450 Setting Ventilator Tidal Volume 450 Setting Ventilator Respiratory Rate 16 Setting Ventilator Respiratory Rate 16 Setting Ventilator Respiratory Rate 16 Setting Ventilator Respiratory Rate 16 Setting Actual Respiratory Rate 16 Actual Respiratory Rate 16 Actual Respiratory Rate 16 Actual Respiratory Rate 16 Positive End Expiratory 5 Pressure Positive End Expiratory 5 Pressure Positive End Expiratory 5 Pressure Positive End Expiratory 5 Pressure Peak Inspiratory Airway 19 Pressure Peak Inspiratory Airway 23 Pressure Peak Inspiratory Airway 26 Pressure Peak Inspiratory Airway 25 Pressure Results - Laboratory Findings CBC and BMP: 06/04/18 04:00 06/04/18 04:00 ABG ABG pH 7.32 pH Units (7.32-7.45) 06/04/18 05:06 ABG pCO2 38 mmHg (35-45) 06/04/18 05:06 ABG pO2 86 mmHg (85-104) 06/04/18 05:06 ABG O2 Saturation 96 % (95-98) 06/04/18 05:06 PT/INR, D-dimer PT 11.2 Seconds (9.4-12.1) 06/01/18 12:51 Abnormal lab findings: Abnormal lab results WBC 18.5 K/mcL (4.3-11.1) H 06/04/18 04:00 RBC 2.89 M/mcL (3.82-4.97) L 06/04/18 04:00 Hgb 8.9 g/dL (11.5-15.4) L D 06/04/18 04:00 Hct 26.0 % (35.3-44.9) L 06/04/18 04:00 RDW 20.0 % (11.5-14.5) H 06/04/18 04:00 Plt Count 130 K/mcL (140-400) L 06/04/18 04:00 Band Neutrophils % 22.0 % (0-4) H 06/03/18 04:35 Metamyelocytes % 2.0 % (0) H 06/03/18 04:35 Neutrophils # 16.3 K/mcL (1.6-8.9) H 06/04/18 04:00 Nucleated RBCs/100 WBC 0.2 /100 WBC (0) H 06/04/18 04:00 Reactive Lymphocytes Present (Not Present) A 06/03/18 04:35 Toxic Granulation Present (Not Present) A 06/03/18 04:35 Dohle Bodies Present (Not Present) A 06/04/18 04:00 Platelet Estimate Slight Decrease (Normal) L 06/04/18 04:00 Polychromasia 1+ (Not Present) A 06/04/18 04:00 Poikilocytosis 1+ (Not Present) A 06/04/18 04:00 Anisocytosis 2+ (Not Present) A 06/04/18 04:00 Microcytosis Present (Not Present) A 06/04/18 04:00 Macrocytosis Present (Not Present) A 06/04/18 04:00 APTT 24.0 Seconds (26.0-36.0) L 06/01/18 12:51 ABG HCO3 20 mEq/L (21-27) L 06/04/18 05:06 ABG Base Excess -6 mEq/L (-2 to 3) L 06/04/18 05:06 Mixed VBG pH 7.17 pH Units (7.34-7.36) L 06/02/18 01:02 Mixed VBG pCO2 53 mmHg (44-46) H 06/02/18 01:02 Mixed VBG pO2 181 mmHg (35-45) H 06/02/18 01:02 Mixed VBG Oxyhemoglobin 93.3 % (60-80) H 06/02/18 01:02 Carboxyhemoglobin 5.2 % (0-5) H 06/01/18 12:51 Potassium 3.4 mEq/L (3.5-5.1) L 06/04/18 04:00 Carbon Dioxide 18 mEq/L (23-29) L 06/04/18 04:00 BUN 26 mg/dL (8-23) H 06/04/18 04:00 Est GFR ( Amer) 58 (> 60) L 06/04/18 04:00 Est GFR (Non-Af Amer) 48 (> 60) L 06/04/18 04:00 Glucose 155 mg/dL (70-105) H 06/04/18 04:00 POC Glucose 117 mg/dL (70-99) H 06/03/18 23:25 Lactic Acid 2.7 mmol/L (0.5-2.2) H 06/03/18 09:30 Calcium 6.6 mg/dL (8.6-10.3) L 06/04/18 04:00 Venous Ioniz Calcium 0.99 mmol/L (1.15-1.35) L 06/04/18 04:13 Phosphorus 2.0 mg/dL (2.7-4.5) L 06/04/18 03:50 Total Bilirubin 1.4 mg/dL (0.3-1.0) H 06/01/18 21:15 Direct Bilirubin 0.3 mg/dL (0.0-0.2) H 06/01/18 12:51 Indirect Bilirubin 1.6 mg/dL (0.0-1.2) H 06/01/18 12:51 Ammonia 78 mcmol/L (16-53) H 06/01/18 12:51 Serum Total Protein 5.0 g/dL (6.4-8.9) L 06/01/18 21:15 Albumin 3.1 g/dL (3.5-5.7) L 06/01/18 21:15 Globulin 1.9 g/dL (2.4-3.5) L 06/01/18 21:15 Prealbumin 11.1 mg/dL (17.0-34.0) L 06/03/18 04:35 Beta-Hydroxybutyric Acd 0.34 mmol/L (0.02-0.27) H 06/01/18 12:51 TSH 11.408 mcIU/mL (0.340-5.600) H 06/01/18 12:51 Urine Clarity Hazy (Clear) A 06/01/18 15:13 Ur Specific Clemons > 1.030 (1.010-1.025) H 06/01/18 15:13 Urine Protein 100 mg/dL (Neg-Trace) H 06/01/18 15:13 Urine Blood Moderate (Negative) H 06/01/18 15:13 Urine Microscopic RBC 30-50 per hpf (0-3) H 06/01/18 15:13 Urine Microscopic WBC 5-15 per hpf (0-3) H 06/01/18 15:13 Ur Squamous Epith Cells Many per lpf (None-Few) H 06/01/18 15:13 Amorphous Sediment Many (Few) H 06/01/18 15:13 Granular Casts Few per lpf (None Seen) H 06/01/18 15:13 Urine Mucus Moderate (Few) H 06/01/18 15:13 Salicylates < 2.5 mg/dL (15.0-30.0) L 06/01/18 12:51 Acetaminophen < 10 mcg/mL (10-20) L 06/01/18 12:51 U Benzodiazepines Scrn Positive ng/mL (Eqtbdg=731) H 06/01/18 15:11 - Microbiology Findings Microbiology Findings: Microbiology, Last 48 Hours 06/02/18 20:10 Blood Culture - Preliminary Peripheral Venipuncture Culture is incubating and being continuously monitored for growth. Final report to follow. 06/02/18 20:23 Blood Culture - Preliminary Peripheral Venipuncture Culture is incubating and being continuously monitored for growth. Final report to follow. - Clinical Findings Intake & Output: Intake & Output 06/03/18 06/04/18 06/04/18 23:59 07:59 15:59 Intake Total 1468 / 1468 1965.3 / 1965.3 2557 / 2557 Output Total 773 / 773 434 / 434 1150 / 1150 Balance 695 / 695 1531.3 / 1531.3 1407 / 1407 Consult Discharge Plan - Plan Referrals: Hong Garnett MD [Primary Care Provider] - - Attending Attestation I examined this patient and my medical decision-making was reviewed with the Resident Physician. I agree with the documented findings, disposition and treatment plan as described except to the extent set forth below. Patient seen and examined. Labs, radiology, chart personally reviewed. Agree with resident's history and physical, assessment, plan with following comments: [employer] MANAGER: Patient follows commands, Pulmonary: Acceptable oxygenation and ventilation and after placement of chest tube removing the old one patient tolerated a short spontaneous breathing trial and subsequently she was extubated successfully. Cardiovascular: stable GI: Nutrition per dietary and GI prophylaxis per routine. Hopefully so it will be able to see patient. Heme: DVT prophylaxis per routine ID: Continue antibiotics and plan to de-escalation Renal; urine out put and renal funtion reviewed. I will still recommend gentle diuresis since overall patient has fluid balance positive and hold maintenance IV fluid especially after extubation Endorcine: blood glucose is monitored Lines: all lines checked and no evidence of infections Skin: skin care to prevent pressure ulcers per nursing routine care CODE STATUS to be addressed with the daughter when she is available. <Juan Cardoso - Last Filed: 06/04/18 15:06> Date of Encounter: 06/04/18 Time of Encounter: 14:04 Assessment and Plan (1) Pneumothorax Current Visit: Yes Status: Acute Patient developed a left-sided pneumothorax 06/02/2018 after attempted central venous catheter placement. Left-sided chest tube placed to evacuate pneumothorax-chest x-ray showed good placement. Chest x-ray on 06/03/2018 showed retracted tube with moderate size pneumothorax- very little drainage from chest tube Chest tube was evaluated by Dr. Mccauley from general surgery who showed that chest tube was patent and functioning without air leakage Dr. Mccauley suggested placement of a pigtail catheter on 06/05/2018-chest tube placed by Dr. York Continue to monitor Qualifiers: Pneumothorax type: postprocedural Qualified Code(s): J95.811 - Postprocedural pneumothorax (2) Septic shock Current Visit: Yes Status: Acute Second to pneumatosis intestinalis Patient is postop day 3 for descending colectomy White blood cell count trending downward currently at 18.5 Continue fluconazole and Zosyn Levophed stopped at 6 AM Blood pressure stable at 141/91 Patient is non-tachycardic, nontachypneic (3) Pneumatosis intestinalis of large intestine Current Visit: Yes Status: Acute Patient's postop 83 for exploratory laparotomy with ascending colectomy and ostomy Incisions are clean dry and intact Closely monitor patient hemoglobin-currently at 8.9, down from 10.4 on 06/03/2018 after 2 units of packed red blood cells Continue fentanyl and Ofirmev Continue nothing by mouth (4) RONY (acute kidney injury) Current Visit: Yes Status: Acute Patient creatinine currently at 1.08-down from 1.25 on 06/03/2018. Line Continue to monitor and rehydrate as necessary (5) Metabolic acidosis with respiratory acidosis Current Visit: Yes Status: Acute Bicarbonate discontinued as patient pH reached 7.32 Lactate 2.7 06/03/2018 Continue to monitor (6) Electrolyte abnormality Current Visit: Yes Status: Acute Electrolyte protocol-replace as necessary (7) Diabetes Current Visit: Yes Status: Acute Patient on clear liquid diet Glucose currently stable at 155 Corrective high-dose insulin sliding scale every 4 hours Continue to monitor Qualifiers: Diabetes mellitus type: type 2 Diabetes mellitus ramp manager insulin use: without ramp manager use Diabetes mellitus complication status: without complication Qualified Code(s): E11.9 - Type 2 diabetes mellitus without complications (8) DVT prophylaxis Current Visit: Yes Status: Acute 5000 units subcutaneous heparin 3 times a day Subjective Principal diagnosis: Weakness Interval history: Patient is an 88 year old female with a past medical history of hypertension, diabetes mellitus, hyperlipidemia, who presented to [facility] via EMS for weakness. Patient initially met criteria for sepsis with hypotension of 74/56, tachycardia at 102, tachypnea at 20, hypothermic at 95.5, lactate of 6.6, ABG with a pH of 7.21, PCO2 of 56, HCO3 of 22. CT a bdomen/pelvis showed pneumatosis intestinalis and patient was taken for an emergent exploratory laparotomy with ascending colectomy and ostomy. Patient subsequent developed a left pneumothorax after attempted placement of left subclavian venous catheter. Chest tube had minimal output on 06/03/2018 and was inspected by Dr. Mccauley from general surgery. Dr. Mccauley recommended that a pigtail catheter be placed by ICU staff on 06/04/2018. Dr. York placed pigtail catheter and covered with sterile dressing with careful monitoring for potential for suture closure. Patient failed CPAP attempt and preparation for extubation. Upon initial examination patient was alert and agitated. Objective PUL Vital signs: Last Vital Signs Temp 98.2 F 06/04/18 07:30 Pulse 89 06/04/18 09:00 Resp 16 06/04/18 09:00 BP 98/54 06/04/18 09:00 Pulse Ox 100 06/04/18 09:00 General appearance: agitated, appears uncomfortable Eyes: nonicteric ENT: oropharynx moist Effort: other (Patient is intubated and mechanically ventilated) Auscultation: bilateral: clear Cardiovascular: regular rate and rhythm Gastrointestinal: normoactive bowel sounds, soft, non-tender, non-distended Extremities: no cyanosis, no edema Ventilator Settings Ventilator Settings: Ventilator Settings, Last 8 Hours Ventilator Tidal Volume 450 Setting Ventilator Tidal Volume 450 Setting Ventilator Tidal Volume 450 Setting Ventilator Tidal Volume 450 Setting Ventilator Tidal Volume 450 Setting Ventilator Tidal Volume 450 Setting Ventilator Tidal Volume 450 Setting Ventilator Tidal Volume 450 Setting Ventilator Tidal Volume 450 Setting Ventilator Tidal Volume 450 Setting Ventilator Respiratory Rate 16 Setting Ventilator Respiratory Rate 16 Setting Ventilator Respiratory Rate 16 Setting Ventilator Respiratory Rate 16 Setting Ventilator Respiratory Rate 16 Setting Ventilator Respiratory Rate 16 Setting Ventilator Respiratory Rate 16 Setting Ventilator Respiratory Rate 16 Setting Ventilator Respiratory Rate 16 Setting Ventilator Respiratory Rate 16 Setting Actual Respiratory Rate 16 Actual Respiratory Rate 16 Actual Respiratory Rate 16 Actual Respiratory Rate 16 Actual Respiratory Rate 16 Actual Respiratory Rate 16 Actual Respiratory Rate 16 Actual Respiratory Rate 16 Actual Respiratory Rate 16 Positive End Expiratory 5 Pressure Positive End Expiratory 5 Pressure Positive End Expiratory 5 Pressure Positive End Expiratory 5 Pressure Positive End Expiratory 5 Pressure Positive End Expiratory 5 Pressure Positive End Expiratory 5 Pressure Positive End Expiratory 5 Pressure Positive End Expiratory 5 Pressure Positive End Expiratory 5 Pressure Peak Inspiratory Airway 19 Pressure Peak Inspiratory Airway 23 Pressure Peak Inspiratory Airway 26 Pressure Peak Inspiratory Airway 25 Pressure Peak Inspiratory Airway 25 Pressure Peak Inspiratory Airway 25 Pressure Peak Inspiratory Airway 25 Pressure Peak Inspiratory Airway 25 Pressure Peak Inspiratory Airway 25 Pressure Results - Laboratory Findings CBC and BMP: 06/04/18 04:00 06/04/18 04:00 ABG ABG pH 7.32 pH Units (7.32-7.45) 06/04/18 05:06 ABG pCO2 38 mmHg (35-45) 06/04/18 05:06 ABG pO2 86 mmHg (85-104) 06/04/18 05:06 ABG O2 Saturation 96 % (95-98) 06/04/18 05:06 PT/INR, D-dimer PT 11.2 Seconds (9.4-12.1) 06/01/18 12:51 Abnormal lab findings: Abnormal lab results WBC 18.5 K/mcL (4.3-11.1) H 06/04/18 04:00 RBC 2.89 M/mcL (3.82-4.97) L 06/04/18 04:00 Hgb 8.9 g/dL (11.5-15.4) L D 06/04/18 04:00 Hct 26.0 % (35.3-44.9) L 06/04/18 04:00 RDW 20.0 % (11.5-14.5) H 06/04/18 04:00 Plt Count 130 K/mcL (140-400) L 06/04/18 04:00 Band Neutrophils % 22.0 % (0-4) H 06/03/18 04:35 Metamyelocytes % 2.0 % (0) H 06/03/18 04:35 Neutrophils # 16.3 K/mcL (1.6-8.9) H 06/04/18 04:00 Nucleated RBCs/100 WBC 0.2 /100 WBC (0) H 06/04/18 04:00 Reactive Lymphocytes Present (Not Present) A 06/03/18 04:35 Toxic Granulation Present (Not Present) A 06/03/18 04:35 Dohle Bodies Present (Not Present) A 06/04/18 04:00 Platelet Estimate Slight Decrease (Normal) L 06/04/18 04:00 Polychromasia 1+ (Not Present) A 06/04/18 04:00 Poikilocytosis 1+ (Not Present) A 06/04/18 04:00 Anisocytosis 2+ (Not Present) A 06/04/18 04:00 Microcytosis Present (Not Present) A 06/04/18 04:00 Macrocytosis Present (Not Present) A 06/04/18 04:00 APTT 24.0 Seconds (26.0-36.0) L 06/01/18 12:51 ABG HCO3 20 mEq/L (21-27) L 06/04/18 05:06 ABG Base Excess -6 mEq/L (-2 to 3) L 06/04/18 05:06 Mixed VBG pH 7.17 pH Units (7.34-7.36) L 06/02/18 01:02 Mixed VBG pCO2 53 mmHg (44-46) H 06/02/18 01:02 Mixed VBG pO2 181 mmHg (35-45) H 06/02/18 01:02 Mixed VBG Oxyhemoglobin 93.3 % (60-80) H 06/02/18 01:02 Carboxyhemoglobin 5.2 % (0-5) H 06/01/18 12:51 Potassium 3.4 mEq/L (3.5-5.1) L 06/04/18 04:00 Carbon Dioxide 18 mEq/L (23-29) L 06/04/18 04:00 BUN 26 mg/dL (8-23) H 06/04/18 04:00 Est GFR ( Amer) 58 (> 60) L 06/04/18 04:00 Est GFR (Non-Af Amer) 48 (> 60) L 06/04/18 04:00 Glucose 155 mg/dL (70-105) H 06/04/18 04:00 POC Glucose 117 mg/dL (70-99) H 06/03/18 23:25 Lactic Acid 2.7 mmol/L (0.5-2.2) H 06/03/18 09:30 Calcium 6.6 mg/dL (8.6-10.3) L 06/04/18 04:00 Venous Ioniz Calcium 0.99 mmol/L (1.15-1.35) L 06/04/18 04:13 Phosphorus 2.0 mg/dL (2.7-4.5) L 06/04/18 03:50 Total Bilirubin 1.4 mg/dL (0.3-1.0) H 06/01/18 21:15 Direct Bilirubin 0.3 mg/dL (0.0-0.2) H 06/01/18 12:51 Indirect Bilirubin 1.6 mg/dL (0.0-1.2) H 06/01/18 12:51 Ammonia 78 mcmol/L (16-53) H 06/01/18 12:51 Serum Total Protein 5.0 g/dL (6.4-8.9) L 06/01/18 21:15 Albumin 3.1 g/dL (3.5-5.7) L 06/01/18 21:15 Globulin 1.9 g/dL (2.4-3.5) L 06/01/18 21:15 Prealbumin 11.1 mg/dL (17.0-34.0) L 06/03/18 04:35 Beta-Hydroxybutyric Acd 0.34 mmol/L (0.02-0.27) H 06/01/18 12:51 TSH 11.408 mcIU/mL (0.340-5.600) H 06/01/18 12:51 Urine Clarity Hazy (Clear) A 06/01/18 15:13 Ur Specific Clemons > 1.030 (1.010-1.025) H 06/01/18 15:13 Urine Protein 100 mg/dL (Neg-Trace) H 06/01/18 15:13 Urine Blood Moderate (Negative) H 06/01/18 15:13 Urine Microscopic RBC 30-50 per hpf (0-3) H 06/01/18 15:13 Urine Microscopic WBC 5-15 per hpf (0-3) H 06/01/18 15:13 Ur Squamous Epith Cells Many per lpf (None-Few) H 06/01/18 15:13 Amorphous Sediment Many (Few) H 06/01/18 15:13 Granular Casts Few per lpf (None Seen) H 06/01/18 15:13 Urine Mucus Moderate (Few) H 06/01/18 15:13 Salicylates < 2.5 mg/dL (15.0-30.0) L 06/01/18 12:51 Acetaminophen < 10 mcg/mL (10-20) L 06/01/18 12:51 U Benzodiazepines Scrn Positive ng/mL (Ipooky=340) H 06/01/18 15:11 - Microbiology Findings Microbiology Findings: Microbiology, Last 48 Hours 06/02/18 20:10 Blood Culture - Preliminary Peripheral Venipuncture Culture is incubating and being continuously monitored for growth. Final report to follow. 06/02/18 20:23 Blood Culture - Preliminary Peripheral Venipuncture Culture is incubating and being continuously monitored for growth. Final report to follow. - Clinical Findings Intake & Output: Intake & Output 06/03/18 06/04/18 06/04/18 23:59 07:59 15:59 Intake Total 1468 / 1468 1965.3 / 1965.3 2076 Output Total 773 / 773 434 / 434 Balance 695 / 695 1531.3 / 1531.3 2076
[2018-06-04] MEDS ORDERED: Furosemide 40 MG/4 ML VIAL IVP ONE (10:49)
--- NOTE | 2018-06-04 11:00 | General Surgery Progress Note ---
Date of Encounter: 06/04/18 Time of Encounter: 09:30 - Assessment and Plan (1) Pneumatosis intestinalis of large intestine Current Visit: Yes Status: Acute POD #3 Exploratory laparotomy with descending and sigmoid colon resection, takedown splenic flexure, end colostomy and Mejias's pouch followed by attempted placement of triple-lumen catheter, placement of left sided chest tube with Dr. Reyez Pathology- Consistent with ischemic colitis. NPO while on ventilator support May complete bedside swallow when extubated May trial clear liquids if safe to swallow IV fluids- 100ml/hour IV antibiotics- Zosyn Supportive care and pain control PPI therapy daily IS every 1 hour while awake when extubated PT/OT for mobilization when extubated Repeat am labs- CBC, BMP, Mg, Phos (2) RONY (acute kidney injury) Current Visit: Yes Status: Acute Cr- 1.25>1.08 Continue IV fluids for hydration Wang catheter to SD for strict I&Os Avoid nephrotoxic medications Monitor kidney function- repeat am labs (3) Pneumothorax Current Visit: Yes Status: Acute Chest tube changed this morning per pulmonary critical care team Pneumothorax decreased in size Qualifiers: Pneumothorax type: postprocedural Qualified Code(s): J95.811 - Postp rocedural pneumothorax (4) DVT prophylaxis Current Visit: Yes Status: Acute Heparin 5,000 units SQ every 8 hours for DVT prophylaxis EPCDs to bilateral lower extremities for DVT prophylaxis Subjective Patient reports: bowel movement (via colostomy), other (Patient awake and intubated on ventilator support. Nurse reports that pressor support has been off since 0600 this morning. Chest tube replaced per pulmonary/critical care this morning. Failed CPAP trial this morning but will attempt again later today.) Objective Vital Signs - Last 8 Hours Temp Pulse Resp BP Pulse Ox 06/04/18 09:00 89 16 98/54 100 06/04/18 08:00 85 16 114/86 100 06/04/18 07:30 98.2 F 06/04/18 07:00 74 16 138/68 94 06/04/18 06:00 98 16 92/44 95 06/04/18 05:14 16 114/23 96 06/04/18 05:00 84 16 114/23 96 06/04/18 04:00 98.3 F 62 16 112/57 98 06/04/18 03:45 60 06/04/18 03:30 16 104/50 98 06/04/18 03:00 61 16 105/51 97 Intake and Output 06/03/18 06/04/18 06/04/18 23:59 07:59 15:59 Intake Total 1468 / 1468 1965.3 / 1964.3 2076 Output Total 773 / 773 434 / 434 Balance 695 / 695 1531.3 / 1531.3 2076 Intake: IV Fluids 1468 / 1468 1964.3 / 1964.3 2076 Vasostrict 40 UNIT In Dextrose 0 / 0 5% 100 ML @ 0.04 UNIT/MIN 6.12 mls/hr IV .[id number] TU Rx#: [id number] 0.45% Sodium Chloride 1000 Ml 500 / 500 1000 Ml 500 ML @ 999 mls/hr IVC .Q31M TU Rx#:[id number] D5% And 0.45% Nacl 1000 Ml Bag 1000 / 1000 635 / 635 1,000 ML @ 100 mls/hr IVC .Q10H TU Rx#:[id number] DOBUTamine Premix 250 MG/250 ML 0 / 0 250 mg In 250 ml @ 2.5 MCG/KG/ MIN 9.662 mls/hr IVC .Q24H TU Rx#:[id number] FentaNYL (PF) 1,000 MCG In 0.9 100 / 100 200.0 / 200.0 42 / 42 % Sodium Chloride 80 ML @ 50 MCG/HR 5 mls/hr IVC CONT TU Rx #:[id number] Levophed 4 MG In Dextrose 5% 254 / 254 141.3 / 141.3 0 / 0 250 ML @ 5 MCG/MIN 19.05 mls/hr IVC CONT TU Rx#:[id number] Ofirmev 1,000 mg/100 ml 1,000 100 / 100 200 / 200 mg In 100 ml @ 400 mls/hr IVPB Q6HR TU Rx#:[id number] Calcium Gluconate 1,000 MG In 0 110 / 110 220 / 220 .9 % Sodium Chloride 100 ML @ 220 mls/hr IVPB Q6HR PRN Rx#: [id number] Diflucan Premix 400 MG/200 ML 200 / 200 200 / 200 400 mg In 200 ml @ 200 mls/hr IVPB DAILY TU Rx#:[id number] Magnesium Sulfate 2 GM In 0.9 % 104 / 104 104 / 104 Sodium Chloride 100 ML @ 52 mls/hr IVPB Q6H PRN Rx#: [id number] Zosyn 3.375 GM In 0.9 % Sodium 100 / 100 100 / 100 100 / 100 Chloride (Mini-Bag +) 100 ML @ 25 mls/hr IVPB Q8HR [facility] Rx#: [id number] Oral 0 / 0 Output: Stool 0 / 0 40 / 40 Catheter 750 / 750 350 / 350 Wound Drainage 0 / 0 10 / 10 Right Lower Abdomen 0 / 0 10 / 10 Chest Tube Drainage / 34 Left Lateral Chest 34 Other: Blood Glucose* 155 137 - General physical appearance other (Patient resting comfortably on ventilator support) - Eyes PERRL, normal ocular movement - ENT dry mucosa, atraumatic, normocephalic - Neck Neck exam: trachea midline - Respiratory other (Ventilator support- FiO2 of 100% (temporary due to replacement of chest tube); Chest tube noted to left anterior chest (to 20cm suction)) - Cardiovascular Cardiovascular exam: Present: RRR - Abdomen Abdomen: Present: bowel sounds present, soft, tender (grimace with palpation), wound (Ostomy is pink and moist with small amount of stool noted in the bag; TATE drain to bulb suction with serousang. drainage noted.) - Incision Incision: Present: clean and dry, intact - Genitourinary other (wang catheter to SD with pantoja yellow urine noted (450ml noted since midnight)) - Neurologic CN 2-12 grossly intact - Psychiatric other (Unable to assess at this time) - Labs 06/04/18 04:00 06/04/18 04:00 Diabetes panel 06/04/18 Range/Units 04:00 Sodium 136 (136-145) mEq/L Potassium 3.4 L (3.5-5.1) mEq/L Chloride 107 (98-107) mEq/L Carbon Dioxide 18 L (23-29) mEq/L BUN 26 H (8-23) mg/dL Creatinine 1.08 (0.60-1.20) mg/dL Glucose 155 H (70-105) mg/dL Calcium 6.6 L (8.6-10.3) mg/dL Calcium panel 06/04/18 06/04/18 Range/Units 03:50 04:00 Calcium 6.6 L (8.6-10.3) mg/dL Phosphorus 2.0 L (2.7-4.5) mg/dL Pituitary panel 06/04/18 Range/Units 04:00 Sodium 136 (136-145) mEq/L Potassium 3.4 L (3.5-5.1) mEq/L Chloride 107 (98-107) mEq/L Carbon Dioxide 18 L (23-29) mEq/L BUN 26 H (8-23) mg/dL Creatinine 1.08 (0.60-1.20) mg/dL Glucose 155 H (70-105) mg/dL Calcium 6.6 L (8.6-10.3) mg/dL Adrenal panel 06/04/18 Range/Units 04:00 Sodium 136 (136-145) mEq/L Potassium 3.4 L (3.5-5.1) mEq/L Chloride 107 (98-107) mEq/L Carbon Dioxide 18 L (23-29) mEq/L BUN 26 H (8-23) mg/dL Creatinine 1.08 (0.60-1.20) mg/dL Glucose 155 H (70-105) mg/dL Calcium 6.6 L (8.6-10.3) mg/dL Consult Discharge Plan - Plan Referrals: Hong Garnett MD [Primary Care Provider] - - Attending Attestation For this encounter, I have reviewed the DIRECTOR DECISION SUPPORT or PA documentation, treatment plan, and medical decision making; and I have had face to face time with this patient.
[2018-06-04] MEDS: Vasopressin 40 UNIT in D5% in Water 100 ML IV SCH (12:27)
[2018-06-04] MEDS ORDERED: Dexmedetomidine HCl 400 MCG/100 ML MLS IVC ONE (15:49)
[2018-06-04 16:03] LABS: Magnesium 2.4 mg/dL (1.6-2.6); Potassium 3.3 mEq/L (3.5-5.1)
[2018-06-04] MEDS: Dexmedetomidine HCl 400 MCG/100 ML MLS IVC SCH (16:07)
[2018-06-04] MEDS ORDERED: Haloperidol Lactate 5 MG/ML VIAL IVP PRN (17:33)
[2018-06-04] MEDS ORDERED: Haloperidol Lactate 5 MG/ML VIAL ONE (17:45)
[2018-06-05] MEDS ORDERED: Fluconazole 200 MG/100 ML IVPB SCH (09:00)
[2018-06-05] MEDS ORDERED: *HR* LORazepam 2 MG/ML VIAL ONE (10:16)
[2018-06-05 10:50] LABS: Basophils % 0.2 %; Eosinophils % 0.2 %; Hematocrit 26.1 % (35.3-44.9); Hemoglobin 8.9 g/dL (11.5-15.4); Immature Granulocytes % 0.8 % (0-4); Lymphocytes # 1.2 K/mcL (0.6-4.6); Lymphocytes % 8.9 %; Mean Corpuscular HGB Conc 34.1 g/dL (31.6-35.5); Mean Corpuscular Hemoglobin 30.8 pg (28.0-33.3); Mean Corpuscular Volume 90.3 fL (83.0-100.0); Mean Platelet Volume 10.6 fL (9.4-12.4); Monocytes # 0.7 K/mcL (0.0-1.3); Monocytes % 5.3 %; Neutrophils # 11.3 K/mcL (1.6-8.9); Nucleated Red Blood Cells 0.3 /100 WBC (0); Platelet Count 103 K/mcL (140-400); Red Blood Count 2.89 M/mcL (3.82-4.97); Red Cell Distribution Width 19.6 % (11.5-14.5); Segmented Neutrophils % 84.6 %
[2018-06-05] MEDS: *HR* Heparin 5,000 UNIT/ML VIAL SQ SCH ×4 (11:50→20:48)
[2018-06-05] MEDS: Insulin LISPRO 300 UNITS/3 ML VIAL SQ SCH ×5 (11:50→23:58)
[2018-06-05] MEDS: Famotidine 20 MG/2 ML VIAL IVP SCH (11:51)
[2018-06-05] MEDS: Artificial Tears SOLN 15 ML BOTTLE BOTH EYES SCH ×5 (11:51→23:57)
[2018-06-05] MEDS: Levothyroxine Sodium 100 MCG VIAL IVP SCH (11:51)
--- NOTE | 2018-06-05 11:51 | Pulmonology Progress Note ---
<RobertoTyree S - Last Filed: 06/05/18 11:47> Date of Encounter: 06/05/18 Time of Encounter: 08:00 Assessment and Plan (1) Pneumothorax Current Visit: Yes Status: Acute Patient developed a left-sided pneumothorax 06/02/2018 after attempted central venous catheter placement. Initially had chest tube, repeat CXR showed slight retraction of chest tube and increasing PTX with subcutaneous emphysema Chest tube remove, and pigtail catheter placed 06/04/18 in ICU Pigtail catheter placed on suction, repeat CXR showed decreasing PTX (06/05/18 AM), will monitor with repeat CXRs Patient saturating well on room air Qualifiers: Pneumothorax type: postprocedural Qualified Code(s): J95.811 - Postprocedural pneumothorax (2) Septic shock Current Visit: Yes Status: Acute Secondary to pneumatosis intestinalis Patient is postop day 4 for descending colectomy White blood cell count trending downward currently at 18.5 > 13.3 today Continue fluconazole (day 4) and Zosyn (day 4) Discontinued Levophed (06/04) Blood pressure stable at 104/56 HR 76 (3) Pneumatosis intestinalis of large intestine Current Visit: Yes Status: Acute Patient's postop day 4 for exploratory laparotomy with descending colectomy and ostomy WBC down trending 13.3 today Incisions are clean dry and intact Closely monitor patient hemoglobin-currently at 8.9, down from 10.4 on 1 after 2 units of packed red blood cells Continue fentanyl and Ofirmev Patient on CLD, but she is refusing to eat Will start TPN with goal of 75 ml/hr, per dietary and surgery (4) Delirium Current Visit: Yes Status: Acute Patient's daughter states she has some dementia, but son states she is very delusional at times Patient is very agitated and confused this morning Given 1 mg haldol this AM Ordered 0.5 mg ativan IV every 8 hours for agitation Patient being weaned down from precedex Patient takes celexa and xanax at home (5) RONY (acute kidney injury) Current Visit: Yes Status: Acute Creatinine improved, RONY seems to be resolved Will continue to monitor and rehydrate if needed (6) Metabolic acidosis with respiratory acidosis Current Visit: Yes Status: Acute Patient extubated yesterday and saturating well on room air today Patient given bicarb (06/03) - pH 7.32 on 06/04 Lactate 6.6 > 3.4 > 2.7 (06/03) Will continue to monitor respiratory status (7) Diabetes Current Visit: Yes Status: Acute Patient's recent glucose 100 Patient was on CLD, but she refuses to eat Will start TPN, goal of 75 ml/hr Continue high dose sliding scale Q4hr Continue to monitor Qualifiers: Diabetes mellitus type: type 2 Diabetes mellitus jail insulin use: without manager material use Diabetes mellitus complication status: without complicat ion Qualified Code(s): E11.9 - Type 2 diabetes mellitus without complications (8) Electrolyte abnormality Current Visit: Yes Status: Acute Electrolyte replacement protocol ordered Given Kphos 44 mmol rider 06/05 (9) DVT prophylaxis Current Visit: Yes Status: Acute Subcutaneous heparin Subjective Principal diagnosis: Weakness Interval history: Patient seen and examined this AM. She has been extubated and weaned off levophed. She is saturating well on room air. She is very agitated and delerious this AM. Unable to answer questions coherently. Objective PUL Vital signs: Last Vital Signs Temp 98.9 F 06/05/18 00:01 Pulse 93 06/05/18 01:56 Resp 15 06/05/18 01:56 BP 98/56 06/05/18 01:56 Pulse Ox 100 06/05/18 01:56 General appearance: agitated Neck: other (right IJ CVC) Effort: normal Auscultation: left: diminished breath sounds, right: clear Cardiovascular: regular rate and rhythm, other (left chest pigtail catheter ) Gastrointestinal: soft, tender (appropriately tender), other (has TATE drain, incision clean, dry, and intact) Integumentary: normal Extremities: no edema, pink and warm, pulses normal anxious, other (confused) Results - Laboratory Findings CBC and BMP: 06/04/18 04:00 06/04/18 15:42 ABG ABG pH 7.32 pH Units (7.32-7.45) 06/04/18 05:06 ABG pCO2 38 mmHg (35-45) 06/04/18 05:06 ABG pO2 86 mmHg (85-104) 06/04/18 05:06 ABG O2 Saturation 96 % (95-98) 06/04/18 05:06 PT/INR, D-dimer PT 11.2 Seconds (9.4-12.1) 06/01/18 12:51 Abnormal lab findings: Abnormal lab results WBC 18.5 K/mcL (4.3-11.1) H 06/04/18 04:00 RBC 2.89 M/mcL (3.82-4.97) L 06/04/18 04:00 Hgb 8.9 g/dL (11.5-15.4) L D 06/04/18 04:00 Hct 26.0 % (35.3-44.9) L 06/04/18 04:00 RDW 20.0 % (11.5-14.5) H 06/04/18 04:00 Plt Count 130 K/mcL (140-400) L 06/04/18 04:00 Band Neutrophils % 22.0 % (0-4) H 06/03/18 04:35 Metamyelocytes % 2.0 % (0) H 06/03/18 04:35 Neutrophils # 16.3 K/mcL (1.6-8.9) H 06/04/18 04:00 Nucleated RBCs/100 WBC 0.2 /100 WBC (0) H 06/04/18 04:00 Reactive Lymphocytes Present (Not Present) A 06/03/18 04:35 Toxic Granulation Present (Not Present) A 06/03/18 04:35 Dohle Bodies Present (Not Present) A 06/04/18 04:00 Platelet Estimate Slight Decrease (Normal) L 06/04/18 04:00 Polychromasia 1+ (Not Present) A 06/04/18 04:00 Poikilocytosis 1+ (Not Present) A 06/04/18 04:00 Anisocytosis 2+ (Not Present) A 06/04/18 04:00 Microcytosis Present (Not Present) A 06/04/18 04:00 Macrocytosis Present (Not Present) A 06/04/18 04:00 APTT 24.0 Seconds (26.0-36.0) L 06/01/18 12:51 ABG HCO3 20 mEq/L (21-27) L 06/04/18 05:06 ABG Base Excess -6 mEq/L (-2 to 3) L 06/04/18 05:06 Mixed VBG pH 7.17 pH Units (7.34-7.36) L 06/02/18 01:02 Mixed VBG pCO2 53 mmHg (44-46) H 06/02/18 01:02 Mixed VBG pO2 181 mmHg (35-45) H 06/02/18 01:02 Mixed VBG Oxyhemoglobin 93.3 % (60-80) H 06/02/18 01:02 Carboxyhemoglobin 5.2 % (0-5) H 06/01/18 12:51 Potassium 3.3 mEq/L (3.5-5.1) L 06/04/18 15:42 Carbon Dioxide 18 mEq/L (23-29) L 06/04/18 04:00 BUN 26 mg/dL (8-23) H 06/04/18 04:00 Est GFR ( Amer) 58 (> 60) L 06/04/18 04:00 Est GFR (Non-Af Amer) 48 (> 60) L 06/04/18 04:00 Glucose 155 mg/dL (70-105) H 06/04/18 04:00 Lactic Acid 2.7 mmol/L (0.5-2.2) H 06/03/18 09:30 Calcium 6.6 mg/dL (8.6-10.3) L 06/04/18 04:00 Venous Ioniz Calcium 0.90 mmol/L (1.15-1.35) L 06/04/18 15:53 Total Bilirubin 1.4 mg/dL (0.3-1.0) H 06/01/18 21:15 Direct Bilirubin 0.3 mg/dL (0.0-0.2) H 06/01/18 12:51 Indirect Bilirubin 1.6 mg/dL (0.0-1.2) H 06/01/18 12:51 Ammonia 78 mcmol/L (16-53) H 06/01/18 12:51 Serum Total Protein 5.0 g/dL (6.4-8.9) L 06/01/18 21:15 Albumin 3.1 g/dL (3.5-5.7) L 06/01/18 21:15 Globulin 1.9 g/dL (2.4-3.5) L 06/01/18 21:15 Prealbumin 11.1 mg/dL (17.0-34.0) L 06/03/18 04:35 Beta-Hydroxybutyric Acd 0.34 mmol/L (0.02-0.27) H 06/01/18 12:51 TSH 11.408 mcIU/mL (0.340-5.600) H 06/01/18 12:51 Urine Clarity Hazy (Clear) A 06/01/18 15:13 Ur Specific Michie > 1.030 (1.010-1.025) H 06/01/18 15:13 Urine Protein 100 mg/dL (Neg-Trace) H 06/01/18 15:13 Urine Blood Moderate (Negative) H 06/01/18 15:13 Urine Microscopic RBC 30-50 per hpf (0-3) H 06/01/18 15:13 Urine Microscopic WBC 5-15 per hpf (0-3) H 06/01/18 15:13 Ur Squamous Epith Cells Many per lpf (None-Few) H 06/01/18 15:13 Amorphous Sediment Many (Few) H 06/01/18 15:13 Granular Casts Few per lpf (None Seen) H 06/01/18 15:13 Urine Mucus Moderate (Few) H 06/01/18 15:13 Salicylates < 2.5 mg/dL (15.0-30.0) L 06/01/18 12:51 Acetaminophen < 10 mcg/mL (10-20) L 06/01/18 12:51 U Benzodiazepines Scrn Positive ng/mL (Pnzdki=039) H 06/01/18 15:11 - Clinical Findings Intake & Output: Intake & Output 06/04/18 06/05/18 06/05/18 23:59 07:59 15:59 Intake Total 433 / 433 Output Total 2195 / 2195 Balance -1762 / -1762 Weight 70 kg Consult Discharge Plan - Plan Referrals: Hong Garnett MD [Primary Care Provider] - <Ronni York - Last Filed: 06/05/18 21:25> Objective PUL Vital signs: Last Vital Signs Temp 98.9 F 06/05/18 00:01 Pulse 75 06/05/18 16:00 Resp 18 06/05/18 16:00 BP 99/47 06/05/18 16:00 Pulse Ox 100 06/05/18 16:00 Results - Laboratory Findings CBC and BMP: 06/05/18 03:00 06/05/18 03:00 ABG ABG pH 7.32 pH Units (7.32-7.45) 06/04/18 05:06 ABG pCO2 38 mmHg (35-45) 06/04/18 05:06 ABG pO2 86 mmHg (85-104) 06/04/18 05:06 ABG O2 Saturation 96 % (95-98) 06/04/18 05:06 PT/INR, D-dimer PT 11.2 Seconds (9.4-12.1) 06/01/18 12:51 Abnormal lab findings: Abnormal lab results WBC 13.3 K/mcL (4.3-11.1) H 06/05/18 03:00 RBC 2.89 M/mcL (3.82-4.97) L 06/05/18 03:00 Hgb 8.9 g/dL (11.5-15.4) L 06/05/18 03:00 Hct 26.1 % (35.3-44.9) L 06/05/18 03:00 RDW 19.6 % (11.5-14.5) H 06/05/18 03:00 Plt Count 103 K/mcL (140-400) L 06/05/18 03:00 Band Neutrophils % 22.0 % (0-4) H 06/03/18 04:35 Metamyelocytes % 2.0 % (0) H 06/03/18 04:35 Neutrophils # 11.3 K/mcL (1.6-8.9) H 06/05/18 03:00 Nucleated RBCs/100 WBC 0.3 /100 WBC (0) H 06/05/18 03:00 Reactive Lymphocytes Present (Not Present) A 06/03/18 04:35 Toxic Granulation Present (Not Present) A 06/03/18 04:35 Dohle Bodies Present (Not Present) A 06/04/18 04:00 Platelet Estimate Slight Decrease (Normal) L 06/05/18 03:00 Polychromasia 1+ (Not Present) A 06/04/18 04:00 Poikilocytosis 1+ (Not Present) A 06/04/18 04:00 Anisocytosis 2+ (Not Present) A 06/04/18 04:00 Microcytosis Present (Not Present) A 06/04/18 04:00 Macrocytosis Present (Not Present) A 06/04/18 04:00 APTT 24.0 Seconds (26.0-36.0) L 06/01/18 12:51 ABG HCO3 20 mEq/L (21-27) L 06/04/18 05:06 ABG Base Excess -6 mEq/L (-2 to 3) L 06/04/18 05:06 Mixed VBG pH 7.17 pH Units (7.34-7.36) L 06/02/18 01:02 Mixed VBG pCO2 53 mmHg (44-46) H 06/02/18 01:02 Mixed VBG pO2 181 mmHg (35-45) H 06/02/18 01:02 Mixed VBG Oxyhemoglobin 93.3 % (60-80) H 06/02/18 01:02 Carboxyhemoglobin 5.2 % (0-5) H 06/01/18 12:51 Potassium 3.3 mEq/L (3.5-5.1) L 06/05/18 03:00 Chloride 108 mEq/L (98-107) H 06/05/18 03:00 Carbon Dioxide 22 mEq/L (23-29) L 06/05/18 03:00 BUN 25 mg/dL (8-23) H 06/05/18 03:00 BUN/Creatinine Ratio 29 (6-26) H 06/05/18 03:00 Lactic Acid 2.7 mmol/L (0.5-2.2) H 06/03/18 09:30 Calcium 6.5 mg/dL (8.6-10.3) L 06/05/18 03:00 Venous Ioniz Calcium 0.90 mmol/L (1.15-1.35) L 06/04/18 15:53 Phosphorus 1.8 mg/dL (2.7-4.5) L 06/05/18 03:00 Total Bilirubin 1.4 mg/dL (0.3-1.0) H 06/01/18 21:15 Direct Bilirubin 0.3 mg/dL (0.0-0.2) H 06/01/18 12:51 Indirect Bilirubin 1.6 mg/dL (0.0-1.2) H 06/01/18 12:51 Ammonia 78 mcmol/L (16-53) H 06/01/18 12:51 Serum Total Protein 5.0 g/dL (6.4-8.9) L 06/01/18 21:15 Albumin 3.1 g/dL (3.5-5.7) L 06/01/18 21:15 Globulin 1.9 g/dL (2.4-3.5) L 06/01/18 21:15 Prealbumin 11.1 mg/dL (17.0-34.0) L 06/03/18 04:35 Beta-Hydroxybutyric Acd 0.34 mmol/L (0.02-0.27) H 06/01/18 12:51 TSH 11.408 mcIU/mL (0.340-5.600) H 06/01/18 12:51 Urine Clarity Hazy (Clear) A 06/01/18 15:13 Ur Specific Michie > 1.030 (1.010-1.025) H 06/01/18 15:13 Urine Protein 100 mg/dL (Neg-Trace) H 06/01/18 15:13 Urine Blood Moderate (Negative) H 06/01/18 15:13 Urine Microscopic RBC 30-50 per hpf (0-3) H 06/01/18 15:13 Urine Microscopic WBC 5-15 per hpf (0-3) H 06/01/18 15:13 Ur Squamous Epith Cells Many per lpf (None-Few) H 06/01/18 15:13 Amorphous Sediment Many (Few) H 06/01/18 15:13 Granular Casts Few per lpf (None Seen) H 06/01/18 15:13 Urine Mucus Moderate (Few) H 06/01/18 15:13 Salicylates < 2.5 mg/dL (15.0-30.0) L 06/01/18 12:51 Acetaminophen < 10 mcg/mL (10-20) L 06/01/18 12:51 U Benzodiazepines Scrn Positive ng/mL (Sxkbus=960) H 06/01/18 15:11 - Clinical Findings Intake & Output: Intake & Output 06/05/18 06/05/18 06/05/18 07:59 15:59 23:59 Intake Total 300 / 300 Balance 300 / 300 - Attending Attestation I examined this patient and my medical decision-making was reviewed with the Resident Physician. I agree with the documented findings, disposition and treatment plan as described except to the extent set forth below. Patient seen and examined. Labs, radiology, chart personally reviewed. Agree with resident's history and physical, assessment, plan with following comments: UNCRATER: Patient doesn't follows commands, Patient has significant agitation and delirium to the point she could be dangerous to herself. Patient has been on sedatives at home and because she is refusing to take anything by mouth, will have low dose sedation scheduled and monitored for her breathing. Patient was placed on water seal, but didn't tolerate it and had to resume suction. Pulmonary: Acceptable oxygenation and ventilation, Unfortunately patient is not participating with incentive spirometry and she is at risk of pneumonia and atelectasis. Cardiovascular: She is overall stable. GI: Nutrition per dietary and GI prophylaxis per routine. Patient is refusing any oral diet and suspect she will need TPN and will defer to surgeon. Heme: DVT prophylaxis per routine ID: Continue antibiotics and plan to de-escalation Renal; urine out put and renal funtion reviewed. Endorcine: blood glucose is monitored Lines: all lines checked and no evidence of infections Skin: skin care to prevent pressure ulcers per nursing routine care If surgery agrees can be transferred out of ICU that might help her delirium
[2018-06-05] MEDS: Piperacillin/Tazobactam 3.375 GM in 0.9 % Sodium Chloride Mini Bag 100 ML IVPB SCH ×3 (11:52→23:01)
[2018-06-05] MEDS: Vasopressin 40 UNIT in D5% in Water 100 ML IV SCH (11:52)
[2018-06-05] MEDS: Chlorhexidine Rinse 15 ML MOUTHWASH MM SCH (11:53)
[2018-06-05] MEDS ORDERED: D10% in Water 500 ML IVC PRN ×2 (11:57→13:19)
[2018-06-05] MEDS ORDERED: *HR* LORazepam 2 MG/ML VIAL IVP SCH (12:00)
[2018-06-05] MEDS ORDERED: Potassium Phosphate 44 MEQ in 0.9 % Sodium Chloride 250 ML IVPB ONE (12:00)
[2018-06-05 12:22] LABS: BUN/Creatinine Ratio 29 (6-26); Blood Urea Nitrogen 25 mg/dL (8-23); Calcium 6.5 mg/dL (8.6-10.3); Carbon Dioxide 22 mEq/L (23-29); Chloride 108 mEq/L (98-107); Glucose 90 mg/dL (70-105); Magnesium 2.1 mg/dL (1.6-2.6); Osmolality,Calculated 288 (280-300); Phosphorous 1.8 mg/dL (2.7-4.5); Potassium 3.3 mEq/L (3.5-5.1); Sodium 137 mEq/L (136-145); eGFR For Non-African Americans > 60 (> 60)
[2018-06-05] MEDS ORDERED: Famotidine 20 MG/2 ML VIAL IVP ONE (12:25)
[2018-06-05] MEDS ORDERED: 0.9 % Sodium Chloride (Mini-Bag +) 100 ML IVBAG IVC ONE (12:25)
[2018-06-05] MEDS ORDERED: *HR* LORazepam 2 MG/ML VIAL IVP ONE ×2 (12:25→21:12)
[2018-06-05] MEDS ORDERED: Levothyroxine Sodium 100 MCG VIAL IV ONE (12:25)
[2018-06-05] MEDS ORDERED: Piperacillin/Tazobactam 3.375 GM VIAL IVPB ONE (12:25)
[2018-06-05] MEDS ORDERED: POTASSIUM CHLORIDE 20 MEQ/100 ML IVPB ONE (12:25)
[2018-06-05] MEDS ORDERED: DEXMEDETOMIDINE 400 MCG/100 ML IVC ONE (12:25)
[2018-06-05] MEDS ORDERED: Haloperidol Lactate 5 MG/ML VIAL IVP ONE (12:25)
[2018-06-05] MEDS: Dexmedetomidine HCl 400 MCG/100 ML MLS IVC SCH ×2 (13:05→14:35)
[2018-06-05 13:16] LABS: Platelet Estimate Slight Decrease (Normal)
[2018-06-05] MEDS ORDERED: Artificial Tears SOLN 15 ML BOTTLE BOTH EYES PRN (13:19)
[2018-06-05] MEDS ORDERED: Dextrose Gel 15 GM/37.5 ML TUBE PO PRN ×2 (13:19)
[2018-06-05] MEDS ORDERED: *HR* Dextrose 50 % in Water (Syg) 50 ML SYRINGE IVP PRN (13:19)
[2018-06-05] MEDS ORDERED: Insulin Regular, Human 100 UNIT/ML IV PRN (13:19)
[2018-06-05] MEDS ORDERED: FentaNYL (PF) 1,000 MCG in 0.9 % Sodium Chloride 80 ML IVC SCH (13:19)
[2018-06-05] MEDS ORDERED: Naloxone 0.4 MG/ML INJ IVP PRN (13:19)
--- NOTE | 2018-06-05 13:51 | General Surgery Progress Note ---
Date of Encounter: 06/05/18 Time of Encounter: 09:45 - Assessment and Plan (1) Pneumatosis intestinalis of large intestine Current Visit: Yes Status: Acute Date of procedure: 06/01/18 Pre-op diagnosis: Hypotension, acidosis, pneumatosis coli Post-op diagnosis: same Procedure: Exposure laparotomy with descending and sigmoid colon resection, takedown splenic flexure, end colostomy and Mejias's pouch followed by attempted placement of triple-lumen catheter, placement of left sided chest tube Anesthesia: GETA Surgeon: Axel Reyez Was there an accounts receivable assistant present: Yes Acid Mixer: Carol Shipman Estimated blood loss (cc): 100 ml POD #4, ABOVE. Stoma is pink and moist. Out put noted. Abdominal exam is otherwise benign. Noted patient with acute delirium and confusion, per bedside RN she has attempted to scratch and bite caregivers Soft wrist restraints are in place. PRecidex was required. but patient is now transitioned to lorazepam and haldol she is s/p transfusion 2U PRBCs 06/02 for acute on chronic anemia in the postoperative setting; no evidence of acute bleeding currently. Hgb stable. Will defer future critical care as there is no evidence of acute surgical bleed. Please note IM will be primary for this patient and surgery is consulted. CT was placed on water seal 06/04, but patient developed crepitus. CXR showed slight retraction of CT and increased PTX. CT was removed and pigtail cath placed and currently to sx. 2 CXRs today noted stable PTX then follwed by Small left apical pneumothorax, mildly worsened from chest x-ray earlier, today. No evidence for tension. Worsened subcutaneous emphysema to the left chest and neck. Worsened left basilar opacity which may relate to worsening atelectasis or infiltrate.. Plan: supportive care and discomfort management; pt is ok for po from a surgical standpoint, however given her current mental status, adequate po would be unlikely we will start TPN until adequate po intake continue G.I. and DVT prophylaxis per primary team PRN pain control (tylenol) and add sl oxycodone for breakthrough pain until taking po, then change to Percocet continue fentanyl GTT for sedation and pain control per primary team serial abdominal exams repeat a.m. labs; transfusions per critical care Serial abd exams Continue CT to suction noted currently on RA OK to transfer to per critical care (2) Pneumothorax Current Visit: Yes Status: Acute see a/p above Continue suction titrate O2 to keep sats above 92% repeat CXR in am Qualifiers: Pneumothorax type: postprocedural Qualified Code(s): J95.811 - Postprocedural pneumothorax (3) Electrolyte abnormality Current Visit: Yes Status: Acute Electrolyte protocol per primary team (4) Diabetes Current Visit: Yes Status: Acute Management per primary team Qualifiers: Diabetes mellitus type: type 2 Diabetes mellitus termite exterminator helper insulin use: without termite exterminator helper use Diabetes mellitus complication status: without comp lication Qualified Code(s): E11.9 - Type 2 diabetes mellitus without comp lications (5) Anemia Current Visit: Yes Status: Acute s/p transfusions for acute on chronic anemia. No evidence of acute bleeding. Will continue to closely monitor. see a/p above Qualifiers: Anemia type: unspecified type Qualified Code(s): D64.9 - Anemia, unspecified (6) RONY (acute kidney injury) Current Visit: Yes Status: Acute creatinine 1.25; noted fluid resuscitation. Management per primary team/critical care (7) Delirium Current Visit: Yes Status: Acute Subjective Narrative: Does not answer ROS questions. Noted restraints. Per bedside RN, patient has been aggressive and paranoid, multiple attempts to harm those around her providing care. Objective Vital Signs - Last 8 Hours Pulse Resp BP Pulse Ox 06/05/18 13:00 112 22 139/65 100 06/05/18 12:00 76 16 90/64 100 Intake and Output 06/04/18 06/05/18 06/05/18 23:59 07:59 15:59 Intake Total 433 / 433 200 / 200 Output Total 2195 / 2195 Balance -1762 / -1762 200 / 200 Intake: IV Fluids 433 / 433 200 / 200 PRECEDEX Premix 400 mcg In 100 100 / 100 ml @ 0.2 MCG/KG/HR 3.135 mls/hr IVC .Q24H TU Rx#:[id number] Calcium Gluconate 1,000 MG In 0 110 / 110 .9 % Sodium Chloride 100 ML @ 220 mls/hr IVPB Q6HR PRN Rx#: [id number] Zosyn 3.375 GM In 0.9 % Sodium 100 / 100 100 / 100 Chloride (Mini-Bag +) 100 ML @ 25 mls/hr IVPB Q8HR TU Rx#: [id number] Potassium Chloride 20 mEq/100 200 / 200 mL 40 meq In 200 ml @ 100 mls/ hr IVPB Q1H PRN Rx#:[id number] Oral 0 / 0 Output: Stool 420 / 420 Catheter 1750 / 1750 Wound Drainage 10 Right Lower Abdomen 10 Chest Tube Drainage Left Anterior Chest Other: Weight 70 kg Blood Glucose* 100 - General physical appearance other (restrained. sedated on precidex) - Eyes other (not assessed) - ENT normal nares, poor group home, dentures - Neck Neck exam: trachea midline - Respiratory other (decreased resp effort; left chest crepitus noted, CT in place) - Cardiovascular Cardiovascular exam: Present: RRR - Abdomen Abdomen: Present: bowel sounds present, soft, non tender, wound (stoma is pink and moist. output noted; small amount drainage noted in TATE) - Incision Incision: Present: clean and dry - Neurologic confused - Musculoskeletal other (restrained) - Psychiatric other (disoriented, sedated, restrained) - Labs 06/05/18 03:00 06/05/18 03:00 Diabetes panel 06/04/18 06/05/18 Range/Units 15:42 03:00 Sodium 137 (136-145) mEq/L Potassium 3.3 L 3.3 L (3.5-5.1) mEq/L Chloride 108 H (98-107) mEq/L Carbon Dioxide 22 L (23-29) mEq/L BUN 25 H (8-23) mg/dL Creatinine 0.86 (0.60-1.20) mg/dL Glucose 90 (70-105) mg/dL Calcium 6.5 L (8.6-10.3) mg/dL Calcium panel 06/04/18 06/05/18 Range/Units 15:42 03:00 Calcium 6.5 L (8.6-10.3) mg/dL Phosphorus 3.0 1.8 L (2.7-4.5) mg/dL Pituitary panel 06/04/18 06/05/18 Range/Units 15:42 03:00 Sodium 137 (136-145) mEq/L Potassium 3.3 L 3.3 L (3.5-5.1) mEq/L Chloride 108 H (98-107) mEq/L Carbon Dioxide 22 L (23-29) mEq/L BUN 25 H (8-23) mg/dL Creatinine 0.86 (0.60-1.20) mg/dL Glucose 90 (70-105) mg/dL Calcium 6.5 L (8.6-10.3) mg/dL Adrenal panel 06/04/18 06/05/18 Range/Units 15:42 03:00 Sodium 137 (136-145) mEq/L Potassium 3.3 L 3.3 L (3.5-5.1) mEq/L Chloride 108 H (98-107) mEq/L Carbon Dioxide 22 L (23-29) mEq/L BUN 25 H (8-23) mg/dL Creatinine 0.86 (0.60-1.20) mg/dL Glucose 90 (70-105) mg/dL Calcium 6.5 L (8.6-10.3) mg/dL Consult Discharge Plan - Plan Referrals: Hong Garnett MD [Primary Care Provider] -
[2018-06-05] MEDS ORDERED: Acetaminophen 325 MG TABLET PO PRN (14:02)
[2018-06-05] MEDS: 0.9 % Sodium Chloride 1,000 ML IVC SCH (14:48)
[2018-06-05] MEDS: Pantoprazole 40 MG VIAL IVP SCH (14:48)
[2018-06-05] MEDS ORDERED: Clinimix E 5%-15% SOLUTION 2,000 ML with MVI, adult with vitamin K 10 ML IVC SCH (17:00)
[2018-06-05] MEDS ORDERED: Clinimix E 5%-15% SOLUTION 2,000 ML with MVI, adult with vitamin K 10 ML, Calcium Glu... IVC SCH (17:00)
[2018-06-05] MEDS: *HR* LORazepam 2 MG/ML VIAL IVP SCH ×2 (18:34→21:12)
[2018-06-06] MEDS: Dexmedetomidine HCl 400 MCG/100 ML MLS IVC SCH ×2 (01:44→14:16)
[2018-06-06] MEDS: Haloperidol Lactate 5 MG/ML VIAL IVP PRN ×7 (01:44→22:45)
[2018-06-06] MEDS: 0.9 % Sodium Chloride 1,000 ML IVC SCH (03:39)
[2018-06-06] MEDS: *HR* LORazepam 2 MG/ML VIAL IVP SCH ×3 (03:39→20:32)
[2018-06-06] MEDS: Insulin LISPRO 300 UNITS/3 ML VIAL SQ SCH ×6 (03:40→23:34)
[2018-06-06] MEDS: Artificial Tears SOLN 15 ML BOTTLE BOTH EYES SCH (03:40)
[2018-06-06 03:59] LABS: VBG Ionized Calcium 1.06 mmol/L (1.15-1.35)
[2018-06-06 04:00] LABS: Hematocrit 24.6 % (35.3-44.9); Hemoglobin 8.4 g/dL (11.5-15.4); Mean Corpuscular HGB Conc 34.1 g/dL (31.6-35.5); Mean Corpuscular Hemoglobin 31.2 pg (28.0-33.3); Mean Corpuscular Volume 91.4 fL (83.0-100.0); Mean Platelet Volume 10.6 fL (9.4-12.4); Nucleated Red Blood Cells 0.3 /100 WBC (0); Platelet Count 114 K/mcL (140-400); Red Blood Count 2.69 M/mcL (3.82-4.97); Red Cell Distribution Width 19.5 % (11.5-14.5)
[2018-06-06 04:17] LABS: Alanine Aminotransferase 20 Units/L (7-52); Albumin/Globulin Ratio 1.1 (1.1-2.2); Alkaline Phosphatase 65 Units/L (34-104); Aspartate Amino Transferase 26 Units/L (13-39); BUN/Creatinine Ratio 42 (6-26); Bilirubin,Total 1.1 mg/dL (0.3-1.0); Blood Urea Nitrogen 25 mg/dL (8-23); Calcium 6.8 mg/dL (8.6-10.3); Carbon Dioxide 22 mEq/L (23-29); Chloride 112 mEq/L (98-107); Globulin 1.9 g/dL (2.4-3.5); Glucose 148 mg/dL (70-105); Magnesium 1.9 mg/dL (1.6-2.6); Osmolality,Calculated 299 (280-300); Phosphorous 1.5 mg/dL (2.7-4.5); Potassium 3.5 mEq/L (3.5-5.1); Sodium 141 mEq/L (136-145); Total Protein 3.9 g/dL (6.4-8.9); Triglycerides 143 mg/dL (< 150); eGFR For Non-African Americans > 60 (> 60)
[2018-06-06] MEDS: Potassium Chloride 40 MEQ/200 ML BAG IVPB PRN (04:32)
[2018-06-06] MEDS: *HR* Heparin 5,000 UNIT/ML VIAL SQ SCH ×3 (05:27→20:35)
[2018-06-06] MEDS: Levothyroxine Sodium 100 MCG VIAL IVP SCH (05:28)
[2018-06-06 05:55] LABS: Eosinophils # 0.3 K/mcL (0.0-0.6); Lymphocytes # 1.5 K/mcL (0.6-4.6); Monocytes # 0.8 K/mcL (0.0-1.3); Neutrophils # 10.2 K/mcL (1.6-8.9)
[2018-06-06 05:58] LABS: Anisocytosis 2+ (Not Present); Dohle Bodies Present (Not Present); Macrocytosis Present (Not Present); Microcytosis Present (Not Present); Platelet Estimate Decreased (Normal); Polychromasia 1+ (Not Present)
[2018-06-06] MEDS ORDERED: Potassium Phosphate 44 MEQ in 0.9 % Sodium Chloride 250 ML IVPB ONE (07:35)
[2018-06-06] MEDS ORDERED: Famotidine 20 MG/2 ML VIAL IVP SCH (08:00)
--- NOTE | 2018-06-06 08:05 | Pulmonology Progress Note ---
<Ronni York M - Last Filed: 06/06/18 09:19> Objective PUL Vital signs: Last Vital Signs Temp 98.2 F 06/06/18 08:00 Pulse 61 06/06/18 08:00 Resp 23 06/06/18 08:00 BP 95/41 06/06/18 08:00 Pulse Ox 100 06/06/18 08:00 Results - Laboratory Findings CBC and BMP: 06/06/18 03:45 06/06/18 03:45 ABG ABG pH 7.32 pH Units (7.32-7.45) 06/04/18 05:06 ABG pCO2 38 mmHg (35-45) 06/04/18 05:06 ABG pO2 86 mmHg (85-104) 06/04/18 05:06 ABG O2 Saturation 96 % (95-98) 06/04/18 05:06 PT/INR, D-dimer PT 11.2 Seconds (9.4-12.1) 06/01/18 12:51 Abnormal lab findings: Abnormal lab results WBC 12.8 K/mcL (4.3-11.1) H 06/06/18 03:45 RBC 2.69 M/mcL (3.82-4.97) L 06/06/18 03:45 Hgb 8.4 g/dL (11.5-15.4) L 06/06/18 03:45 Hct 24.6 % (35.3-44.9) L 06/06/18 03:45 RDW 19.5 % (11.5-14.5) H 06/06/18 03:45 Plt Count 114 K/mcL (140-400) L 06/06/18 03:45 Metamyelocytes % 2.0 % (0) H 06/03/18 04:35 Neutrophils # 10.2 K/mcL (1.6-8.9) H 06/06/18 03:45 Nucleated RBCs/100 WBC 0.3 /100 WBC (0) H 06/06/18 03:45 Reactive Lymphocytes Present (Not Present) A 06/03/18 04:35 Toxic Granulation Present (Not Present) A 06/03/18 04:35 Dohle Bodies Present (Not Present) A 06/06/18 03:45 Platelet Estimate Decreased (Normal) L 06/06/18 03:45 Polychromasia 1+ (Not Present) A 06/06/18 03:45 Poikilocytosis 1+ (Not Present) A 06/04/18 04:00 Anisocytosis 2+ (Not Present) A 06/06/18 03:45 Microcytosis Present (Not Present) A 06/06/18 03:45 Macrocytosis Present (Not Present) A 06/06/18 03:45 APTT 24.0 Seconds (26.0-36.0) L 06/01/18 12:51 ABG HCO3 20 mEq/L (21-27) L 06/04/18 05:06 ABG Base Excess -6 mEq/L (-2 to 3) L 06/04/18 05:06 Mixed VBG pH 7.17 pH Units (7.34-7.36) L 06/02/18 01:02 Mixed VBG pCO2 53 mmHg (44-46) H 06/02/18 01:02 Mixed VBG pO2 181 mmHg (35-45) H 06/02/18 01:02 Mixed VBG Oxyhemoglobin 93.3 % (60-80) H 06/02/18 01:02 Carboxyhemoglobin 5.2 % (0-5) H 06/01/18 12:51 Chloride 112 mEq/L (98-107) H 06/06/18 03:45 Carbon Dioxide 22 mEq/L (23-29) L 06/06/18 03:45 BUN 25 mg/dL (8-23) H 06/06/18 03:45 Creatinine 0.59 mg/dL (0.60-1.20) L 06/06/18 03:45 BUN/Creatinine Ratio 42 (6-26) H 06/06/18 03:45 Glucose 148 mg/dL (70-105) H 06/06/18 03:45 POC Glucose 187 mg/dL (70-99) H 06/05/18 23:56 Lactic Acid 2.7 mmol/L (0.5-2.2) H 06/03/18 09:30 Calcium 6.8 mg/dL (8.6-10.3) L 06/06/18 03:45 Venous Ioniz Calcium 1.06 mmol/L (1.15-1.35) L 06/06/18 03:57 Phosphorus 1.5 mg/dL (2.7-4.5) L 06/06/18 03:45 Total Bilirubin 1.1 mg/dL (0.3-1.0) H 06/06/18 03:45 Direct Bilirubin 0.3 mg/dL (0.0-0.2) H 06/01/18 12:51 Indirect Bilirubin 1.6 mg/dL (0.0-1.2) H 06/01/18 12:51 Ammonia 78 mcmol/L (16-53) H 06/01/18 12:51 Serum Total Protein 3.9 g/dL (6.4-8.9) L 06/06/18 03:45 Albumin 2.0 g/dL (3.5-5.7) L 06/06/18 03:45 Globulin 1.9 g/dL (2.4-3.5) L 06/06/18 03:45 Prealbumin 11.1 mg/dL (17.0-34.0) L 06/03/18 04:35 Beta-Hydroxybutyric Acd 0.34 mmol/L (0.02-0.27) H 06/01/18 12:51 TSH 11.408 mcIU/mL (0.340-5.600) H 06/01/18 12:51 Urine Clarity Hazy (Clear) A 06/01/18 15:13 Ur Specific [place] > 1.030 (1.010-1.025) H 06/01/18 15:13 Urine Protein 100 mg/dL (Neg-Trace) H 06/01/18 15:13 Urine Blood Moderate (Negative) H 06/01/18 15:13 Urine Microscopic RBC 30-50 per hpf (0-3) H 06/01/18 15:13 Urine Microscopic WBC 5-15 per hpf (0-3) H 06/01/18 15:13 Ur Squamous Epith Cells Many per lpf (None-Few) H 06/01/18 15:13 Amorphous Sediment Many (Few) H 06/01/18 15:13 Granular Casts Few per lpf (None Seen) H 06/01/18 15:13 Urine Mucus Moderate (Few) H 06/01/18 15:13 Salicylates < 2.5 mg/dL (15.0-30.0) L 06/01/18 12:51 Acetaminophen < 10 mcg/mL (10-20) L 06/01/18 12:51 U Benzodiazepines Scrn Positive ng/mL (Clkbdm=574) H 06/01/18 15:11 - Clinical Findings Intake & Output: Intake & Output 06/05/18 06/06/18 06/06/18 23:59 07:59 15:59 Intake Total 360 / 360 1864 / 1864 240 / 240 Output Total 463 / 463 255 / 255 100 / 100 Balance -103 / -103 1609 / 1609 140 / 140 Weight 73.18 kg Consult Discharge Plan - Plan Referrals: Hong Garnett MD [Primary Care Provider] - - Attending Attestation I examined this patient and my medical decision-making was reviewed with the Resident Physician. I agree with the documented findings, disposition and treatment plan as described except to the extent set forth below. Patient seen and examined. Labs, radiology, chart personally reviewed. Agree with resident's history and physical, assessment, plan with following comments: SPORTS COMMENTATOR: Patient does not follows commands, sedation is helping, however this is a major problem and may consider images to make sure there is no underlying intracranial pathology. Pulmonary: Acceptable oxygenation and ventilation. We will change to waterseal and repeat x-ray hopefully no pneumothorax to remove the chest tube. Cardiovascular: stable GI: Nutrition per dietary and GI prophylaxis per routine. Patient is on TPN Heme: DVT prophylaxis per routine ID: Continue antibiotics and plan to de-escalation Renal; urine out put and renal funtion reviewed Endorcine: blood glucose is monitored Lines: all lines checked and no evidence of infections Skin: skin care to prevent pressure ulcers per nursing routine care <Tyree Mejia - Last Filed: 06/06/18 11:47> Date of Encounter: 06/06/18 Time of Encounter: 08:00 Assessment and Plan (1) Pneumothorax Current Visit: Yes Status: Acute Patient developed a left-sided pneumothorax 06/02/2018 after attempted central venous catheter placement. Initially had chest tube, repeat CXR showed slight retraction of chest tube and increasing PTX with subcutaneous emphysema Chest tube removed, and pigtail catheter placed 06/04/18 in ICU Pigtail catheter placed on suction, repeat CXR showed decreasing PTX (06/05/18 AM), will monitor with repeat CXRs Put pigtail on water seal this morning (06/06), if repeat CXR shows no worsening of PTX and subcutaneous emphysema, will remove pigtail catheter Patient saturating well on room air Qualifiers: Pneumothorax type: postprocedural Qualified Code(s): J95.811 - Postprocedural pneumothorax (2) Septic shock Current Visit: Yes Status: Acute Secondary to pneumatosis intestinalis Patient is postop day 5 for descending colectomy White blood cell count trending downward currently at 13.3 > 12.8 today Continue fluconazole (day 5) and Zosyn (day 5) Discontinued Levophed (06/04) Blood pressure stable at 113/39 HR 68 (3) Pneumatosis intestinalis of large intestine Current Visit: Yes Status: Acute Patient's postop day 5 for exploratory laparotomy with descending colectomy and ostomy WBC down trending 13.3 > 12.8 today Incisions are clean dry and intact Closely monitor patient hemoglobin-currently at 8.4, down from 10.4 on 8 after 2 units of packed red blood cells Continue Ofirmev for pain Removed TATE drain Patient on CLD, but she is refusing to eat Continue TPN with goal of 75 ml/hr, per dietary and surgery (4) Delirium Current Visit: Yes Status: Acute Patient's daughter states she has some dementia, but son states she is very delusional at times Patient is very agitated and confused this morning Continue 1 mg haldol every 2 hours as needed for agitation Continue 0.5 mg ativan IV every 8 hours for agitation Patient being weaned down from precedex Patient takes celexa and xanax at home (5) RONY (acute kidney injury) Current Visit: Yes Status: Resolved Creatinine improved - 0.59 Will continue to monitor and rehydrate if needed (6) Metabolic acidosis with respiratory acidosis Current Visit: Yes Status: Acute Patient extubated (06/04) and saturating well on room air Patient given bicarb (06/03) - pH 7.32 on 06/04 Lactate 6.6 > 3.4 > 2.7 (06/03) Will continue to monitor respiratory status (7) Diabetes Current Visit: Yes Status: Acute Patient's recent glucose 148 Patient was on CLD, but she refuses to eat On TPN, goal of 75 ml/hr Continue high dose sliding scale Q4hr Continue to monitor Qualifiers: Diabetes mellitus type: type 2 Diabetes mellitus long term care pharmacist insulin use: without [facility] use Diabetes mellitus complication status: without comp lication Qualified Code(s): E11.9 - Type 2 diabetes mellitus without comp lications (8) Electrolyte abnormality Current Visit: Yes Status: Acute Electrolyte replacement protocol ordered Replaced K, Ca, Mg overnight Given 44 meq potassium phosphate this morning (9) DVT prophylaxis Current Visit: Yes Status: Acute Subcutaneous heparin SCDs Subjective Principal diagnosis: Weakness Interval history: Patient has transfer orders out of ICU, but since no beds are available on 2[facility], we will see her this morning. Patient is post-op day 5 for descending colectomy due to pneumatosis intestinalis. She is sedated and sleeping this AM. Patient is on scheduled ativan every 8 hours and required an additional dose overnight. She also received 2 doses of haldol for agitation and confusion. She is saturating well on room air. Objective PUL Vital signs: Last Vital Signs Temp 98.1 F 06/06/18 03:32 Pulse 68 06/06/18 06:00 Resp 14 06/06/18 06:00 BP 111/39 06/06/18 06:00 Pulse Ox 100 06/06/18 06:00 General appearance: asleep, other (sedated) Effort: normal Auscultation: bilateral: diminished breath sounds, wheezes Cardiovascular: regular rate and rhythm Gastrointestinal: soft, other (incision side clean, dry, intact, ostomy is moist and intact) Integumentary: other (subcutaneous crepitus palpated over lateral left chest) Extremities: no edema, pink and warm, pulses normal Musculoskeletal: no deformities unable to assess due to mental status Results - Laboratory Findings CBC and BMP: 06/06/18 03:45 06/06/18 03:45 ABG ABG pH 7.32 pH Units (7.32-7.45) 06/04/18 05:06 ABG pCO2 38 mmHg (35-45) 06/04/18 05:06 ABG pO2 86 mmHg (85-104) 06/04/18 05:06 ABG O2 Saturation 96 % (95-98) 06/04/18 05:06 PT/INR, D-dimer PT 11.2 Seconds (9.4-12.1) 06/01/18 12:51 Abnormal lab findings: Abnormal lab results WBC 12.8 K/mcL (4.3-11.1) H 06/06/18 03:45 RBC 2.69 M/mcL (3.82-4.97) L 06/06/18 03:45 Hgb 8.4 g/dL (11.5-15.4) L 06/06/18 03:45 Hct 24.6 % (35.3-44.9) L 06/06/18 03:45 RDW 19.5 % (11.5-14.5) H 06/06/18 03:45 Plt Count 114 K/mcL (140-400) L 06/06/18 03:45 Metamyelocytes % 2.0 % (0) H 06/03/18 04:35 Neutrophils # 10.2 K/mcL (1.6-8.9) H 06/06/18 03:45 Nucleated RBCs/100 WBC 0.3 /100 WBC (0) H 06/06/18 03:45 Reactive Lymphocytes Present (Not Present) A 06/03/18 04:35 Toxic Granulation Present (Not Present) A 06/03/18 04:35 Dohle Bodies Present (Not Present) A 06/06/18 03:45 Platelet Estimate Decreased (Normal) L 06/06/18 03:45 Polychromasia 1+ (Not Present) A 06/06/18 03:45 Poikilocytosis 1+ (Not Present) A 06/04/18 04:00 Anisocytosis 2+ (Not Present) A 06/06/18 03:45 Microcytosis Present (Not Present) A 06/06/18 03:45 Macrocytosis Present (Not Present) A 06/06/18 03:45 APTT 24.0 Seconds (26.0-36.0) L 06/01/18 12:51 ABG HCO3 20 mEq/L (21-27) L 06/04/18 05:06 ABG Base Excess -6 mEq/L (-2 to 3) L 06/04/18 05:06 Mixed VBG pH 7.17 pH Units (7.34-7.36) L 06/02/18 01:02 Mixed VBG pCO2 53 mmHg (44-46) H 06/02/18 01:02 Mixed VBG pO2 181 mmHg (35-45) H 06/02/18 01:02 Mixed VBG Oxyhemoglobin 93.3 % (60-80) H 06/02/18 01:02 Carboxyhemoglobin 5.2 % (0-5) H 06/01/18 12:51 Chloride 112 mEq/L (98-107) H 06/06/18 03:45 Carbon Dioxide 22 mEq/L (23-29) L 06/06/18 03:45 BUN 25 mg/dL (8-23) H 06/06/18 03:45 Creatinine 0.59 mg/dL (0.60-1.20) L 06/06/18 03:45 BUN/Creatinine Ratio 42 (6-26) H 06/06/18 03:45 Glucose 148 mg/dL (70-105) H 06/06/18 03:45 POC Glucose 187 mg/dL (70-99) H 06/05/18 23:56 Lactic Acid 2.7 mmol/L (0.5-2.2) H 06/03/18 09:30 Calcium 6.8 mg/dL (8.6-10.3) L 06/06/18 03:45 Venous Ioniz Calcium 1.06 mmol/L (1.15-1.35) L 06/06/18 03:57 Phosphorus 1.5 mg/dL (2.7-4.5) L 06/06/18 03:45 Total Bilirubin 1.1 mg/dL (0.3-1.0) H 06/06/18 03:45 Direct Bilirubin 0.3 mg/dL (0.0-0.2) H 06/01/18 12:51 Indirect Bilirubin 1.6 mg/dL (0.0-1.2) H 06/01/18 12:51 Ammonia 78 mcmol/L (16-53) H 06/01/18 12:51 Serum Total Protein 3.9 g/dL (6.4-8.9) L 06/06/18 03:45 Albumin 2.0 g/dL (3.5-5.7) L 06/06/18 03:45 Globulin 1.9 g/dL (2.4-3.5) L 06/06/18 03:45 Prealbumin 11.1 mg/dL (17.0-34.0) L 06/03/18 04:35 Beta-Hydroxybutyric Acd 0.34 mmol/L (0.02-0.27) H 06/01/18 12:51 TSH 11.408 mcIU/mL (0.340-5.600) H 06/01/18 12:51 Urine Clarity Hazy (Clear) A 06/01/18 15:13 Ur Specific [place] > 1.030 (1.010-1.025) H 06/01/18 15:13 Urine Protein 100 mg/dL (Neg-Trace) H 06/01/18 15:13 Urine Blood Moderate (Negative) H 06/01/18 15:13 Urine Microscopic RBC 30-50 per hpf (0-3) H 06/01/18 15:13 Urine Microscopic WBC 5-15 per hpf (0-3) H 06/01/18 15:13 Ur Squamous Epith Cells Many per lpf (None-Few) H 06/01/18 15:13 Amorphous Sediment Many (Few) H 06/01/18 15:13 Granular Casts Few per lpf (None Seen) H 06/01/18 15:13 Urine Mucus Moderate (Few) H 06/01/18 15:13 Salicylates < 2.5 mg/dL (15.0-30.0) L 06/01/18 12:51 Acetaminophen < 10 mcg/mL (10-20) L 06/01/18 12:51 U Benzodiazepines Scrn Positive ng/mL (Ndeakg=825) H 06/01/18 15:11 - Clinical Findings Intake & Output: Intake & Output 06/05/18 06/06/18 06/06/18 23:59 07:59 15:59 Intake Total 360 / 360 1760 / 1760 240 / 240 Output Total 463 / 463 255 / 255 Balance -103 / -103 1505 / 1505 240 / 240 Weight 73.18 kg
[2018-06-06] MEDS: Piperacillin/Tazobactam 3.375 GM in 0.9 % Sodium Chloride Mini Bag 100 ML IVPB SCH ×3 (08:16→23:00)
[2018-06-06] MEDS: Fluconazole 200 MG/100 ML 200 MG/100 ML BAG IVPB SCH (08:16)
[2018-06-06] MEDS: Pantoprazole 40 MG VIAL IVP SCH (08:16)
--- NOTE | 2018-06-06 08:27 | General Surgery Progress Note ---
<Nicole Stokes - Last Filed: 06/06/18 08:25> Date of Encounter: 06/06/18 Time of Encounter: 07:45 - Assessment and Plan (1) Pneumatosis intestinalis of large intestine Current Visit: Yes Status: Acute Date of procedure: 06/01/18 Pre-op diagnosis: Hypotension, acidosis, pneumatosis coli Post-op diagnosis: same Procedure: Exposure laparotomy with descending and sigmoid colon resection, takedown splenic flexure, end colostomy and Mejias's pouch followed by attempted placement of triple-lumen catheter, placement of left sided chest tube Anesthesia: GETDaria Surgeon: Axel Reyez Was there an lpn medical assistant present: Yes Appeals Analyst: Carol Shipman Estimated blood loss (cc): 100 ml POD #5, ABOVE. Final pathology noted ischemic colitis Abdominal exam is as expected. Noted patient with acute delirium and confusion, per bedside RN she has attempted to scratch and bite caregivers Soft wrist restraints are in place. PRecidex was required, pt transitioned to lorazepam and haldol 06/05, but this am required sedation. she is s/p transfusion 2U PRBCs 06/02 for acute on chronic anemia in the postoperative setting; no evidence of acute bleeding currently. Hgb stable. Will defer future critical care as there is no evidence of acute surgical bleed. CT was placed on water seal 06/04, but patient developed crepitus. CXR showed slight retraction of CT and increased PTX. CT was removed and pigtail cath pl aced and currently to sx. CT placed back to water seal 06/06 per critical care. Plan: supportive care and discomfort management; Continue TPN until adequate po intake; total IVF (MIV and TPN titrate to TPN goal) continue G.I. and DVT prophylaxis per primary team PRN pain control (tylenol) and add sl oxycodone for breakthrough pain until taking po, then change to Percocet serial abdominal exams d/c TATE drain repeat a.m. labs; transfusions per critical care Serial abd exams Please note IM is primary, as of 06/05/2018, for this patient and surgery is consulted. 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 No evidence of acute bleeding. Will continue to closely monitor. hgb currently 8.4, stable see a/p above Qualifiers: Anemia type: unspecified type Qualified Code(s): D64.9 - Anemia, unspecified (7) RONY (acute kidney injury) Current Visit: Yes Status: Resolved creatinine 0.59; (8) Severe protein-calorie malnutrition Current Visit: Yes Status: Acute Continue TPN until adequate PO intake Subjective Narrative: Sedated. Does not answer review of systems questions. Reviewed with bedside RN he states at approximately 630 this a.m., patient became violent attempting to scratch and hit care providers. She did require sedation with precidex. RN reports output per ostomy. She is having significant drainage per old CT site. Objective Vital Signs - Last 8 Hours Temp Pulse Resp BP Pulse Ox 06/06/18 08:00 98.2 F 61 23 95/41 100 06/06/18 06:00 68 14 111/39 100 06/06/18 05:00 64 16 95/43 100 06/06/18 04:00 71 20 95/40 100 06/06/18 03:32 98.1 F 06/06/18 02:58 64 14 102/43 100 06/06/18 02:00 79 20 104/39 100 06/06/18 00:59 70 14 93/41 100 Intake and Output 06/05/18 06/06/18 06/06/18 23:59 07:59 15:59 Intake Total 360 / 360 1864 / 1864 240 / 240 Output Total 463 / 463 255 / 255 100 / 100 Balance -103 / -103 1609 / 1609 140 / 140 Intake: IV Fluids 360 / 360 1864 / 1864 240 / 240 0.9 % Sodium Chloride 1,000 ML 1000 / 1000 240 / 240 @ 75 mls/hr IVC .[id number] [facility] Rx #:[id number] PRECEDEX Premix 400 mcg In 100 100 / 100 ml @ 0.2 MCG/KG/HR 3.135 mls/hr IVC .Q24H [facility] Rx#:[id number] Calcium Gluconate 1,000 MG In 0 110 / 110 .9 % Sodium Chloride 100 ML @ 220 mls/hr IVPB Q6HR PRN Rx#: [id number] Intralipid 20% 250 ML @ 21 mls/ 250 / 250 hr IVPB DAILY@1700 [facility] Rx#: [id number] Magnesium Sulfate 2 GM In 0.9 % 104 / 104 Sodium Chloride 100 ML @ 52 mls/hr IVPB Q6H PRN Rx#: [id number] Zosyn 3.375 GM In 0.9 % Sodium 100 / 100 100 / 100 Chloride (Mini-Bag +) 100 ML @ 25 mls/hr IVPB Q8HR [facility] Rx#: [id number] Potassium Chloride 20 mEq/100 200 / 200 mL 40 meq In 200 ml @ 100 mls/ hr IVPB Q1H PRN Rx#:[id number] Potassium Phosphate 44 MEQ In 0 260 / 260 .9 % Sodium Chloride 250 ML @ 41.6 mls/hr IVPB ONCE ONE Rx#: [id number] Output: Stool 75 / 75 0 / 0 0 / 0 Catheter 375 / 375 250 / 250 100 / 100 Wound Drainage 10 / 10 0 / 0 0 / 0 Right Lower Abdomen 10 / 10 0 / 0 0 / 0 Chest Tube Drainage 3 / 3 5 / 5 0 / 0 Left Anterior Chest 3 / 3 5 / 5 0 / 0 Other: Weight 73.18 kg Blood Glucose* 172 142 204 Patient Weight 06/06/18 23:59 Weight 73.18 kg - General physical appearance other (sedated; restraints noted) - Eyes other (Not assessed) - ENT normal nares, poor skilled nursing, Other (dry mucosa) - Neck Neck exam: trachea midline - Respiratory other (decreased resp effort. Course crackles left; crepitus noted; left chest tube site noted draining moderate amount of serous fluid. Left chest pigtail site dry and intact.) - Cardiovascular Cardiovascular exam: Present: RRR, murmurs - Abdomen Abdomen: Present: bowel sounds present, soft, non tender, wound (stoma pink and moist; output noted ) Additional Comments: Left lower quadrant hematoma noted. - Incision Incision: Present: clean and dry, intact - Genitourinary other (Hurley catheter noted) - Integumentary other (multiple areas of ecchymosis noted) - Neurologic other (Not assessed. Sedated) - Musculoskeletal other (Not assessed. Sedated) - Psychiatric other (Not assessed. Sedated) - Labs 06/06/18 03:45 06/06/18 03:45 Diabetes panel 06/05/18 06/06/18 Range/Units 03:00 03:45 Sodium 137 141 (136-145) mEq/L Potassium 3.3 L 3.5 (3.5-5.1) mEq/L Chloride 108 H 112 H (98-107) mEq/L Carbon Dioxide 22 L 22 L (23-29) mEq/L BUN 25 H 25 H (8-23) mg/dL Creatinine 0.86 0.59 L (0.60-1.20) mg/dL Glucose 90 148 H (70-105) mg/dL Calcium 6.5 L 6.8 L (8.6-10.3) mg/dL AST 26 (13-39) Units/L ALT 20 (7-52) Units/L Alkaline Phosphatase 65 (34-104) Units/L Albumin 2.0 L (3.5-5.7) g/dL Triglycerides 143 (< 150) mg/dL Calcium panel 06/05/18 06/06/18 Range/Units 03:00 03:45 Calcium 6.5 L 6.8 L (8.6-10.3) mg/dL Phosphorus 1.8 L 1.5 L (2.7-4.5) mg/dL Albumin 2.0 L (3.5-5.7) g/dL Pituitary panel 06/05/18 06/06/18 Range/Units 03:00 03:45 Sodium 137 141 (136-145) mEq/L Potassium 3.3 L 3.5 (3.5-5.1) mEq/L Chloride 108 H 112 H (98-107) mEq/L Carbon Dioxide 22 L 22 L (23-29) mEq/L BUN 25 H 25 H (8-23) mg/dL Creatinine 0.86 0.59 L (0.60-1.20) mg/dL Glucose 90 148 H (70-105) mg/dL Calcium 6.5 L 6.8 L (8.6-10.3) mg/dL Adrenal panel 06/05/18 06/06/18 Range/Units 03:00 03:45 Sodium 137 141 (136-145) mEq/L Potassium 3.3 L 3.5 (3.5-5.1) mEq/L Chloride 108 H 112 H (98-107) mEq/L Carbon Dioxide 22 L 22 L (23-29) mEq/L BUN 25 H 25 H (8-23) mg/dL Creatinine 0.86 0.59 L (0.60-1.20) mg/dL Glucose 90 148 H (70-105) mg/dL Calcium 6.5 L 6.8 L (8.6-10.3) mg/dL Total Bilirubin 1.1 H (0.3-1.0) mg/dL AST 26 (13-39) Units/L ALT 20 (7-52) Units/L Alkaline Phosphatase 65 (34-104) Units/L Albumin 2.0 L (3.5-5.7) g/dL Consult Discharge Plan - Plan Referrals: Hong Garnett MD [Primary Care Provider] - <Axel Reyez E - Last Filed: 06/06/18 08:59> - Assessment and Plan (1) Pneumatosis coli Current Visit: Yes Status: Acute Objective Vital Signs - Last 8 Hours Temp Pulse Resp BP Pulse Ox 06/06/18 08:00 98.2 F 61 23 95/41 100 06/06/18 07:00 66 06/06/18 06:00 68 14 111/39 100 06/06/18 05:00 64 16 95/43 100 06/06/18 04:00 71 20 95/40 100 06/06/18 03:32 98.1 F 06/06/18 02:58 64 14 102/43 100 06/06/18 02:00 79 20 104/39 100 06/06/18 00:59 70 14 93/41 100 Intake and Output 06/05/18 06/06/18 06/06/18 23:59 07:59 15:59 Intake Total 360 / 360 1864 / 1864 240 / 240 Output Total 463 / 463 255 / 255 100 / 100 Balance -103 / -103 1609 / 1609 140 / 140 Intake: IV Fluids 360 / 360 1864 / 1864 240 / 240 0.9 % Sodium Chloride 1,000 ML 1000 / 1000 240 / 240 @ 75 mls/hr IVC .[id number] [facility] Rx #:[id number] PRECEDEX Premix 400 mcg In 100 100 / 100 ml @ 0.2 MCG/KG/HR 3.135 mls/hr IVC .Q24H [facility] Rx#:[id number] Calcium Gluconate 1,000 MG In 0 110 / 110 .9 % Sodium Chloride 100 ML @ 220 mls/hr IVPB Q6HR PRN Rx#: [id number] Intralipid 20% 250 ML @ 21 mls/ 250 / 250 hr IVPB DAILY@1700 [facility] Rx#: [id number] Magnesium Sulfate 2 GM In 0.9 % 104 / 104 Sodium Chloride 100 ML @ 52 mls/hr IVPB Q6H PRN Rx#: [id number] Zosyn 3.375 GM In 0.9 % Sodium 100 / 100 100 / 100 Chloride (Mini-Bag +) 100 ML @ 25 mls/hr IVPB Q8HR [facility] Rx#: [id number] Potassium Chloride 20 mEq/100 200 / 200 mL 40 meq In 200 ml @ 100 mls/ hr IVPB Q1H PRN Rx#:[id number] Potassium Phosphate 44 MEQ In 0 260 / 260 .9 % Sodium Chloride 250 ML @ 41.6 mls/hr IVPB ONCE ONE Rx#: [id number] Output: Stool 75 / 75 0 / 0 0 / 0 Catheter 375 / 375 250 / 250 100 / 100 Wound Drainage 0 / 0 0 / 0 Right Lower Abdomen 0 / 0 0 / 0 Chest Tube Drainage 3 5 / 5 0 / 0 Left Anterior Chest 3 / 3 5 / 5 0 / 0 Other: Weight 73.18 kg Blood Glucose* 172 142 204 Patient Weight 06/06/18 23:59 Weight 73.18 kg - Labs 06/06/18 03:45 06/06/18 03:45 Diabetes panel 06/05/18 06/06/18 Range/Units 03:00 03:45 Sodium 137 141 (136-145) mEq/L Potassium 3.3 L 3.5 (3.5-5.1) mEq/L Chloride 108 H 112 H (98-107) mEq/L Carbon Dioxide 22 L 22 L (23-29) mEq/L BUN 25 H 25 H (8-23) mg/dL Creatinine 0.86 0.59 L (0.60-1.20) mg/dL Glucose 90 148 H (70-105) mg/dL Calcium 6.5 L 6.8 L (8.6-10.3) mg/dL AST 26 (13-39) Units/L ALT 20 (7-52) Units/L Alkaline Phosphatase 65 (34-104) Units/L Albumin 2.0 L (3.5-5.7) g/dL Triglycerides 143 (< 150) mg/dL Calcium panel 06/05/18 06/06/18 Range/Units 03:00 03:45 Calcium 6.5 L 6.8 L (8.6-10.3) mg/dL Phosphorus 1.8 L 1.5 L (2.7-4.5) mg/dL Albumin 2.0 L (3.5-5.7) g/dL Pituitary panel 06/05/18 06/06/18 Range/Units 03:00 03:45 Sodium 137 141 (136-145) mEq/L Potassium 3.3 L 3.5 (3.5-5.1) mEq/L Chloride 108 H 112 H (98-107) mEq/L Carbon Dioxide 22 L 22 L (23-29) mEq/L BUN 25 H 25 H (8-23) mg/dL Creatinine 0.86 0.59 L (0.60-1.20) mg/dL Glucose 90 148 H (70-105) mg/dL Calcium 6.5 L 6.8 L (8.6-10.3) mg/dL Adrenal panel 06/05/18 06/06/18 Range/Units 03:00 03:45 Sodium 137 141 (136-145) mEq/L Potassium 3.3 L 3.5 (3.5-5.1) mEq/L Chloride 108 H 112 H (98-107) mEq/L Carbon Dioxide 22 L 22 L (23-29) mEq/L BUN 25 H 25 H (8-23) mg/dL Creatinine 0.86 0.59 L (0.60-1.20) mg/dL Glucose 90 148 H (70-105) mg/dL Calcium 6.5 L 6.8 L (8.6-10.3) mg/dL Total Bilirubin 1.1 H (0.3-1.0) mg/dL AST 26 (13-39) Units/L ALT 20 (7-52) Units/L Alkaline Phosphatase 65 (34-104) Units/L Albumin 2.0 L (3.5-5.7) g/dL - Attending Attestation I have personally performed a face to face evaluation on this patient. I have reviewed and agree with the care plan. History and Exam by me shows:
--- NOTE | 2018-06-06 08:51 | Internal Med Progress Note ---
Hospitalist Progress Note - Encounter Date of Encounter: 06/06/18 Time of Encounter: 08:30 - Subjective Interval History: 88 YO F Seen and examined in the INtensive care unit She has had a prolonged and complicated hosp course Currently being managed for s/p septic shock, now off pressors, pneumointenstinalis s/p colectomy, delirium, iatrogenic pneumothorax, RONY, ac resp failure s/p extubation She was heavily medicated, still on precedex during my evaluation, unable to particpate in the eval - Exam Vitals: Temp Pulse Resp BP Pulse Ox 98.2 F 61 23 95/41 100 06/06/18 08:00 06/06/18 08:00 06/06/18 08:00 06/06/18 08:00 06/06/18 08:00 Exam: General: Sedated, groans to verbal stimuli HEENT: Head atraumatic, normocephalic, PERRL, absent ear discharge or trauma Neck: nontender to palpation, absent lymphadenopathy, right IJ CVC Chest: L chest tube, connected to suction Cardiovascualr: Regular rate and rhythm with no murmur, absent gallops or rubs, absent pedal edema, radial pulses 2 out of 4 Lungs: Decreased breath sounds in the left lobe anteriorly. Left chest tube Abdomen: Soft. Midline and shows an intact, left ostomy intact, TATE drain with serosanguineous bloody fluid Skin: warm and dry, absent rash, absent open wounds and nodules MSK: absent clubbing, cyanosis, joints without swelling Neuro: Sedated - Assessment and Plan (1) RONY (acute kidney injury) Current Visit: Yes Status: Resolved Assessment and Plan: Resolved Creatinine improved - 0.54, continue to monitor (2) Anemia Current Visit: Yes Status: Chronic Assessment and Plan: stable s/p 2 units RBCS Continue to monitor (3) Delirium Current Visit: Yes Status: Acute Assessment and Plan: Continue 1 mg haldol every 2 hours as needed for agitation Continue 0.5 mg ativan IV every 8 hours for agitation-patient takes xanax at home Continue to wean from precedex Patient takes celexa and xanax at home Consider palliative eval (4) Diabetes Current Visit: Yes Status: Chronic Assessment and Plan: Continue clear diet, as toleraled On TPN, goal of 75 ml/hr Continue high dose sliding scale Q4hr Continue to monitor (5) DVT prophylaxis Current Visit: Yes Status: Acute Assessment and Plan: Subcutaneous heparin SCDs (6) Electrolyte abnormality Current Visit: Yes Status: Resolved Assessment and Plan: resolved with replacements (7) Metabolic acidosis with respiratory acidosis Current Visit: Yes Status: Resolved Assessment and Plan: Patient extubated (06/04) and saturating well on room air Patient given bicarb (06/03) - pH 7.32 on 06/04 Lactate 6.6 > 3.4 > 2.7 (06/03) Will continue to monitor respiratory statu (8) Pneumatosis intestinalis of large intestine Current Visit: Yes Status: Acute Assessment and Plan: Patient's postop day 5 for exploratory laparotomy with descending colectomy and ostomy WBC down trending 13.3 > 12.8 today Incisions are clean dry and intact Closely monitor patient hemoglobin-currently at 8.4, down from 10.4 on 06/03/2018 after 2 units of packed red blood cells Continue Ofirmev for pain Surgery following Patient on CLD, but she is refusing to eat Continue TPN with goal of 75 ml/hr, per dietary and surgery (9) Pneumothorax Current Visit: Yes Status: Acute Assessment and Plan: iatrogenic Patient developed a left-sided pneumothorax 06/02/2018 after attempted central venous catheter placement. Initially had chest tube, repeat CXR showed slight retraction of chest tube and increasing PTX with subcutaneous emphysema Chest tube removed, and pigtail catheter placed 06/04/18 in ICU Pigtail catheter placed on suction, repeat CXR showed decreasing PTX (06/05/18 AM), will monitor with repeat CXRs Put pigtail on water seal by ICU (06/06), if repeat CXR shows no worsening of PTX and subcutaneous emphysema, pulm will remove chest tube Patient saturating well on room air (10) Septic shock Current Visit: Yes Status: Resolved Assessment and Plan: Shock resolved, off pressors Secondary to pneumatosis intestinalis Patient is postop day 5 for descending colectomy White blood cell count trending downward currently at 13.3 > 12.8 today Continue fluconazole (day 5) and Zosyn (day 5) Discontinued Levophed (06/04) Hemodynamically stable - Time Spent with Patient Total time spent is greater than 50% in coordination of care (as documented) at patient's floor/unit and/or counseling patient: Plan of Care Discussed with: nurse Internal Medicine: Result - Labs CBC & Chem 7: 06/06/18 03:45 06/06/18 16:17 Labs: Short CBC 06/05/18 06/06/18 Range/Units 03:00 03:45 WBC 13.3 H 12.8 H (4.3-11.1) K/mcL Hgb 8.9 L 8.4 L (11.5-15.4) g/dL Hct 26.1 L 24.6 L (35.3-44.9) % Plt Count 103 L 114 L (140-400) K/mcL Neutrophils # 11.3 H 10.2 H (1.6-8.9) K/mcL BMP 06/05/18 06/06/18 03:00 03:45 Sodium 137 141 Potassium 3.3 L 3.5 Chloride 108 H 112 H Carbon Dioxide 22 L 22 L BUN 25 H 25 H Creatinine 0.86 0.59 L Glucose 90 148 H Calcium 6.5 L 6.8 L Liver Function 06/06/18 Range/Units 03:45 Total Bilirubin 1.1 H (0.3-1.0) mg/dL AST 26 (13-39) Units/L ALT 20 (7-52) Units/L Alkaline Phosphatase 65 (34-104) Units/L Albumin 2.0 L (3.5-5.7) g/dL - ABG Interpretation ABG results: ABG ABG pH 7.32 pH Units (7.32-7.45) 06/04/18 05:06 ABG pCO2 38 mmHg (35-45) 06/04/18 05:06 ABG pO2 86 mmHg (85-104) 06/04/18 05:06 ABG O2 Saturation 96 % (95-98) 06/04/18 05:06 PT/INR, D-dimer PT 11.2 Seconds (9.4-12.1) 06/01/18 12:51 - Impressions Impressions Chest X-Ray 06/05/18 00:00 IMPRESSION: 1. Persistent tiny left apical pneumothorax. 2. Increasing left basilar atelectasis or pneumonia. D/ / 06/05/2018 12:42:02 Geovani Barfield MD / [facility] Interpreting Provider: Geovani Barfield MD Chest X-Ray 06/05/18 00:00 IMPRESSION: Small left apical pneumothorax, mildly worsened from chest x-ray earlier today. No evidence for tension. Worsened subcutaneous emphysema to the left chest and neck. Worsened left basilar opacity which may relate to worsening atelectasis or infiltrate. D/ / 06/05/2018 13:50:28 Alfonso Cintron MD / [facility] Interpreting Provider: Alfonso Cintron MD Chest X-Ray 06/06/18 06:00 IMPRESSION: 1. Support devices appear unchanged in position. 2. Extensive soft tissue emphysema along the left hemithorax. 3. Slight decrease in size in the left pneumothorax. 4. Bibasilar opacification, left greater than right. D/ / Brennon Yoder MD / Brennon Yoder MD Interpreting Provider: Brennon Yoder MD Consult Discharge Plan - Plan Referrals: Hong Garnett MD [Primary Care Provider] - (2) Anemia Qualifiers: Anemia type: unspecified type Qualified Code(s): D64.9 - Anemia, unspecified (4) Diabetes Qualifiers: Diabetes mellitus type: type 2 Diabetes mellitus fdc insulin use: without fdc use Diabetes mellitus complication status: without complication Qualified Code(s): E11.9 - Type 2 diabetes mellitus without complications (9) Pneumothorax Qualifiers: Pneumothorax type: postprocedural Qualified Code(s): J95.811 - Postprocedural pneumothorax
[2018-06-06] MEDS: OXYCODONE Oral CONC 10 MG/0.5 ML ORAL.SYG SL PRN ×3 (08:58→21:21)
[2018-06-06] MEDS ORDERED: *HR* LORazepam 2 MG/ML VIAL IVP ONE (09:48)
[2018-06-06 16:59] LABS: BUN/Creatinine Ratio 44 (6-26); Blood Urea Nitrogen 24 mg/dL (8-23); Calcium 7.5 mg/dL (8.6-10.3); Carbon Dioxide 22 mEq/L (23-29); Chloride 112 mEq/L (98-107); Glucose 192 mg/dL (70-105); Osmolality,Calculated 301 (280-300); Phosphorous 2.1 mg/dL (2.7-4.5); Potassium 4.7 mEq/L (3.5-5.1); Sodium 141 mEq/L (136-145); eGFR For Non-African Americans > 60 (> 60)
[2018-06-06] MEDS ORDERED: Clinimix E 5%-15% SOLUTION 2,000 ML with MVI, adult with vitamin K 10 ML, Calcium Glu... IVC SCH (17:00)
[2018-06-06] MEDS: Potassium Phosphate 44 MEQ in 0.9 % Sodium Chloride 250 ML IVPB PRN (17:51)
[2018-06-07] MEDS: Dexmedetomidine HCl 400 MCG/100 ML MLS IVC SCH ×2 (03:14→20:24)
[2018-06-07] MEDS: *HR* LORazepam 2 MG/ML VIAL IVP SCH ×3 (03:15→20:39)
[2018-06-07] MEDS: Insulin LISPRO 300 UNITS/3 ML VIAL SQ SCH ×6 (03:46→23:42)
[2018-06-07 04:29] LABS: Hematocrit 22.3 % (35.3-44.9); Hemoglobin 7.6 g/dL (11.5-15.4); Mean Corpuscular HGB Conc 34.1 g/dL (31.6-35.5); Mean Corpuscular Hemoglobin 30.5 pg (28.0-33.3); Mean Corpuscular Volume 89.6 fL (83.0-100.0); Mean Platelet Volume 10.8 fL (9.4-12.4); Nucleated Red Blood Cells 0.9 /100 WBC (0); Platelet Count 116 K/mcL (140-400); Red Blood Count 2.49 M/mcL (3.82-4.97); Red Cell Distribution Width 19.4 % (11.5-14.5)
[2018-06-07 04:45] LABS: Alanine Aminotransferase 22 Units/L (7-52); Alkaline Phosphatase 79 Units/L (34-104); Aspartate Amino Transferase 33 Units/L (13-39); BUN/Creatinine Ratio 41 (6-26); Blood Urea Nitrogen 22 mg/dL (8-23); Calcium 7.4 mg/dL (8.6-10.3); Carbon Dioxide 21 mEq/L (23-29); Chloride 113 mEq/L (98-107); Glucose 188 mg/dL (70-105); Osmolality,Calculated 300 (280-300); Potassium 4.6 mEq/L (3.5-5.1); Sodium 141 mEq/L (136-145); eGFR For Non-African Americans > 60 (> 60)
[2018-06-07 05:03] LABS: Anisocytosis 1+ (Not Present); Lymphocytes # 1.7 K/mcL (0.6-4.6); Monocytes # 1.7 K/mcL (0.0-1.3); Neutrophils # 13.4 K/mcL (1.6-8.9); Platelet Estimate Decreased (Normal)
[2018-06-07 05:04] LABS: Poikilocytosis 1+ (Not Present); Target Cells 1+ (Not Present)
[2018-06-07] MEDS: Levothyroxine Sodium 100 MCG VIAL IVP SCH (05:29)
[2018-06-07] MEDS: *HR* Heparin 5,000 UNIT/ML VIAL SQ SCH ×3 (05:29→20:39)
[2018-06-07] MEDS: Fluconazole 200 MG/100 ML 200 MG/100 ML BAG IVPB SCH (08:27)
[2018-06-07] MEDS: Piperacillin/Tazobactam 3.375 GM in 0.9 % Sodium Chloride Mini Bag 100 ML IVPB SCH ×3 (08:27→23:04)
[2018-06-07] MEDS: Pantoprazole 40 MG VIAL IVP SCH (08:28)
[2018-06-07 08:34] LABS: Magnesium 1.8 mg/dL (1.6-2.6)
[2018-06-07] MEDS: OXYCODONE Oral CONC 10 MG/0.5 ML ORAL.SYG SL PRN ×3 (08:51→22:42)
[2018-06-07 08:56] LABS: VBG Ionized Calcium 1.22 mmol/L (1.15-1.35)
--- NOTE | 2018-06-07 10:03 | Internal Med Progress Note ---
Hospitalist Progress Note - Encounter Date of Encounter: 06/07/18 Time of Encounter: 08:50 - Subjective Interval History: 88 YO F Seen and examined in the INtensive care unit She has had a prolonged and complicated hosp course Currently being managed for s/p septic shock, now off pressors, pneumointenstinalis s/p colectomy, delirium, iatrogenic pneumothorax, RONY, ac resp failure s/p extubation She was heavily medicated, still on precedex during my evaluation, unable to particpate in the eval Noted not to be moving LUE at all, and contracted, remains deliriuos STAT Head CT showed no acute abnormality, CXR done this a.m showed Left pigtial in place, Small Left apical pneumothorax, dependent LLL opacification, small effusion Pulmonology and surgery are following Palliative care team has been consulted for goals of care - Exam Vitals: Temp Pulse Resp BP Pulse Ox 99.5 F 83 18 99/55 100 06/07/18 07:20 06/07/18 07:20 06/07/18 07:20 06/07/18 07:20 06/07/18 07:20 Exam: General: Sedated, groans to verbal stimuli HEENT: Head atraumatic, normocephalic, PERRL, absent ear discharge or trauma Neck: nontender to palpation, absent lymphadenopathy, right IJ CVC Chest: L chest tube, connected to suction Cardiovascualr: Regular rate and rhythm with no murmur, absent gallops or rubs, absent pedal edema, radial pulses 2 out of 4 Lungs: Decreased breath sounds in the left lobe anteriorly. Left chest tube Abdomen: Soft. Midline and shows an intact, left ostomy intact, midline incision with surrounding sanguinous discharge Skin: warm and dry, absent rash, absent open wounds and nodules MSK: absent clubbing, cyanosis, joints without swelling,Left ahand swelling ++, bilateral piting pedal edema Neuro: Sedated, not moving LUE, contracted, on restraints - Assessment and Plan (1) RONY (acute kidney injury) Current Visit: Yes Status: Resolved Assessment and Plan: Resolved Creatinine improved - 0.54, continue to monitor (2) Anemia Current Visit: Yes Status: Chronic Assessment and Plan: stable s/p 2 units RBCS Hb has been stable at 8.9 However, this a.m, Hb at 7.7 with worsening leukocytosis and low blood pressure No evident source of bleeding at this time Will give 2 more units RBCS Lasix inbetween transfusions (3) Delirium Current Visit: Yes Status: Acute Assessment and Plan: Continue 1 mg haldol every 2 hours as needed for agitation Continue 0.5 mg ativan IV every 8 hours for agitation-patient takes xanax at home Continue to wean from precedex Patient takes celexa and xanax at home Palliative care has been consulted, will await recommendations Will also speak with family about goals of care (4) Diabetes Current Visit: Yes Status: Chronic Assessment and Plan: Continue clear diet, as toleraled On TPN, goal of 75 ml/hr Continue high dose sliding scale Q4hr FS Q4, currently controlled Continue to monitor (5) DVT prophylaxis Current Visit: Yes Status: Acute Assessment and Plan: Subcutaneous heparin SCDs (6) Electrolyte abnormality Current Visit: Yes Status: Resolved Assessment and Plan: resolved with replacements (7) Metabolic acidosis with respiratory acidosis Current Visit: Yes Status: Resolved Assessment and Plan: Patient extubated (06/04) and saturating well on room air Patient given bicarb (06/03) - pH 7.32 on 06/04 Lactate 6.6 > 3.4 > 2.7 (06/03) Will continue to monitor respiratory status (8) Pneumatosis intestinalis of large intestine Current Visit: Yes Status: Acute Assessment and Plan: Patient's postop day 6 for exploratory laparotomy with descending colectomy and ostomy Incisions with some discharge this a.m Hb drop this a.m from 8.9 to 7.7 Will transfuse 2 more units today 06/07 Continue Ofirmev for pain Surgery following Patient on CLD, but she is refusing to eat Continue TPN with goal of 75 ml/hr, per dietary and surgery (9) Pneumothorax Current Visit: Yes Status: Resolved Assessment and Plan: iatrogenic Patient developed a left-sided pneumothorax 06/02/2018 after attempted central venous catheter placement. Initially had chest tube, repeat CXR showed slight retraction of chest tube and increasing PTX with subcutaneous emphysema Chest tube removed, and pigtail catheter placed 06/04/18 in ICU Pigtail catheter placed on suction, repeat CXR showed decreasing PTX (06/05/18 AM), will monitor with repeat CXRs Patient still with subcut emphysema, CXR this a.m 10/20 noted Pulmonology is following (10) Septic shock Current Visit: Yes Status: Resolved Assessment and Plan: Shock resolved, off pressors Secondary to pneumatosis intestinalis Patient is postop day 6 for descending colectomy White blood cell count trending downward initially, now elavated with acute drop in Hb Continue fluconazole (day 6) and Zosyn (day 6) Discontinued Levophed (06/04) Hemodynamically stable - Time Spent with Patient Total time spent is greater than 50% in coordination of care (as documented) at patient's floor/unit and/or counseling patient: Plan of Care Discussed with: nurse Internal Medicine: Result - Labs CBC & Chem 7: 06/07/18 04:00 06/07/18 04:00 Labs: Short CBC 06/07/18 Range/Units 04:00 WBC 16.8 H (4.3-11.1) K/mcL Hgb 7.6 L (11.5-15.4) g/dL Hct 22.3 L (35.3-44.9) % Plt Count 116 L (140-400) K/mcL Neutrophils # 13.4 H (1.6-8.9) K/mcL BMP 06/06/18 06/07/18 16: 04:00 Sodium 141 141 Potassium 4.7 D 4.6 Chloride 112 H 113 H Carbon Dioxide 22 L 21 L BUN 24 H 22 Creatinine 0.54 L 0.54 L Glucose 192 H 188 H Calcium 7.5 L 7.4 L Liver Function 06/07/18 Range/Units 04:00 Total Bilirubin 1.0 (0.3-1.0) mg/dL AST 33 (13-39) Units/L ALT 22 (7-52) Units/L Alkaline Phosphatase 79 (34-104) Units/L Albumin 2.0 L (3.5-5.7) g/dL - ABG Interpretation ABG results: ABG ABG pH 7.32 pH Units (7.32-7.45) 06/04/18 05:06 ABG pCO2 38 mmHg (35-45) 06/04/18 05:06 ABG pO2 86 mmHg (85-104) 06/04/18 05:06 ABG O2 Saturation 96 % (95-98) 06/04/18 05:06 PT/INR, D-dimer PT 11.2 Seconds (9.4-12.1) 06/01/18 12:51 - Impressions Impressions Chest X-Ray 06/06/18 10:15 IMPRESSION: Stable left chest wall subcutaneous emphysema. Left thoracostomy tube without evidence of significant pneumothorax. D/ /06/2018 11:18:03 Kevyn Lloyd MD / earnold Interpreting Provider: Kevyn Lloyd MD Consult Discharge Plan - Plan Referrals: Hong Garnett MD [Primary Care Provider] - (2) Anemia Qualifiers: Anemia type: unspecified type Qualified Code(s): D64.9 - Anemia, unspecified (4) Diabetes Qualifiers: Diabetes mellitus type: type 2 Diabetes mellitus fci insulin use: without buttermilk drier operator use Diabetes mellitus complication status: without complication Qualified Code(s): E11.9 - Type 2 diabetes mellitus without complications (9) Pneumothorax Qualifiers: Pneumothorax type: postprocedural Qualified Code(s): J95.811 - Postprocedural pneumothorax
[2018-06-07] MEDS ORDERED: 0.9 % Sodium Chloride 1,000 ML ONE (10:52)
--- NOTE | 2018-06-07 10:52 | Pulmonology Progress Note ---
Date of Encounter: 06/07/18 Time of Encounter: 08:00 Assessment and Plan (1) Pneumothorax Current Visit: Yes Status: Resolved Patient has multiple comorbidities and agitation has been a problem which is being managed by medication with some success. As far as her pneumothorax follow-up chest x-ray has improved, however she has significant subcutaneous emphysema and chest tube remained on suction. We will consult cardiothoracic for further assistance and opinion regarding chest tube management. I suspect we should be able to remove it, however I will check with cardiothoracic first since she had a larger chest tube in the same side and patient is at risk of atelectasis since she is not participating with incentive spirometry and obviously complications such as pneumonia is always risk for such a patient. Qualifiers: Pneumothorax type: postprocedural Qualified Code(s): J95.811 - Postp rocedural pneumothorax Subjective Principal diagnosis: Weakness Interval history: Patient appears to be uncomfortable and not communicating. Objective PUL Vital signs: Last Vital Signs Temp 99.5 F 06/07/18 07:20 Pulse 83 06/07/18 07:20 Resp 18 06/07/18 07:20 BP 99/55 06/07/18 07:20 Pulse Ox 100 06/07/18 07:20 General appearance: appears uncomfortable Eyes: nonicteric ENT: oropharynx dry Neck: supple Effort: mildly labored Auscultation: left: other (Chest tube in the bedside), bilateral: diminished breath sounds (Subcutaneous emphysema mainly in the left side) Cardiovascular: regular rate and rhythm Gastrointestinal: normoactive bowel sounds, other (Colostomy) unable to assess due to mental status anxious Results - Laboratory Findings CBC and BMP: 06/07/18 04:00 06/07/18 04:00 ABG ABG pH 7.32 pH Units (7.32-7.45) 06/04/18 05:06 ABG pCO2 38 mmHg (35-45) 06/04/18 05:06 ABG pO2 86 mmHg (85-104) 06/04/18 05:06 ABG O2 Saturation 96 % (95-98) 06/04/18 05:06 PT/INR, D-dimer PT 11.2 Seconds (9.4-12.1) 06/01/18 12:51 Abnormal lab findings: Abnormal lab results WBC 16.8 K/mcL (4.3-11.1) H 06/07/18 04:00 RBC 2.49 M/mcL (3.82-4.97) L 06/07/18 04:00 Hgb 7.6 g/dL (11.5-15.4) L 06/07/18 04:00 Hct 22.3 % (35.3-44.9) L 06/07/18 04:00 RDW 19.4 % (11.5-14.5) H 06/07/18 04:00 Plt Count 116 K/mcL (140-400) L 06/07/18 04:00 Metamyelocytes % 2.0 % (0) H 06/03/18 04:35 Neutrophils # 13.4 K/mcL (1.6-8.9) H 06/07/18 04:00 Monocytes # 1.7 K/mcL (0.0-1.3) H 06/07/18 04:00 Nucleated RBCs/100 WBC 0.9 /100 WBC (0) H 06/07/18 04:00 Reactive Lymphocytes Present (Not Present) A 06/03/18 04:35 Toxic Granulation Present (Not Present) A 06/03/18 04:35 Dohle Bodies Present (Not Present) A 06/06/18 03:45 Platelet Estimate Decreased (Normal) L 06/07/18 04:00 Polychromasia 1+ (Not Present) A 06/06/18 03:45 Poikilocytosis 1+ (Not Present) A 06/07/18 04:00 Anisocytosis 1+ (Not Present) A 06/07/18 04:00 Microcytosis Present (Not Present) A 06/06/18 03:45 Macrocytosis Present (Not Present) A 06/06/18 03:45 Target Cells 1+ (Not Present) A 06/07/18 04:00 APTT 24.0 Seconds (26.0-36.0) L 06/01/18 12:51 ABG HCO3 20 mEq/L (21-27) L 06/04/18 05:06 ABG Base Excess -6 mEq/L (-2 to 3) L 06/04/18 05:06 Mixed VBG pH 7.17 pH Units (7.34-7.36) L 06/02/18 01:02 Mixed VBG pCO2 53 mmHg (44-46) H 06/02/18 01:02 Mixed VBG pO2 181 mmHg (35-45) H 06/02/18 01:02 Mixed VBG Oxyhemoglobin 93.3 % (60-80) H 06/02/18 01:02 Carboxyhemoglobin 5.2 % (0-5) H 06/01/18 12:51 Chloride 113 mEq/L (98-107) H 06/07/18 04:00 Carbon Dioxide 21 mEq/L (23-29) L 06/07/18 04:00 Creatinine 0.54 mg/dL (0.60-1.20) L 06/07/18 04:00 BUN/Creatinine Ratio 41 (6-26) H 06/07/18 04:00 Glucose 188 mg/dL (70-105) H 06/07/18 04:00 POC Glucose 195 mg/dL (70-99) H 06/06/18 16:15 Lactic Acid 2.7 mmol/L (0.5-2.2) H 06/03/18 09:30 Calcium 7.4 mg/dL (8.6-10.3) L 06/07/18 04:00 Direct Bilirubin 0.3 mg/dL (0.0-0.2) H 06/01/18 12:51 Indirect Bilirubin 1.6 mg/dL (0.0-1.2) H 06/01/18 12:51 Ammonia 78 mcmol/L (16-53) H 06/01/18 12:51 Serum Total Protein 4.0 g/dL (6.4-8.9) L 06/07/18 04:00 Albumin 2.0 g/dL (3.5-5.7) L 06/07/18 04:00 Globulin 2.0 g/dL (2.4-3.5) L 06/07/18 04:00 Albumin/Globulin Ratio 1.0 (1.1-2.2) L 06/07/18 04:00 Prealbumin 11.1 mg/dL (17.0-34.0) L 06/03/18 04:35 Beta-Hydroxybutyric Acd 0.34 mmol/L (0.02-0.27) H 06/01/18 12:51 TSH 11.408 mcIU/mL (0.340-5.600) H 06/01/18 12:51 Urine Clarity Hazy (Clear) A 06/01/18 15:13 Ur Specific [place] > 1.030 (1.010-1.025) H 06/01/18 15:13 Urine Protein 100 mg/dL (Neg-Trace) H 06/01/18 15:13 Urine Blood Moderate (Negative) H 06/01/18 15:13 Urine Microscopic RBC 30-50 per hpf (0-3) H 06/01/18 15:13 Urine Microscopic WBC 5-15 per hpf (0-3) H 06/01/18 15:13 Ur Squamous Epith Cells Many per lpf (None-Few) H 06/01/18 15:13 Amorphous Sediment Many (Few) H 06/01/18 15:13 Granular Casts Few per lpf (None Seen) H 06/01/18 15:13 Urine Mucus Moderate (Few) H 06/01/18 15:13 Salicylates < 2.5 mg/dL (15.0-30.0) L 06/01/18 12:51 Acetaminophen < 10 mcg/mL (10-20) L 06/01/18 12:51 U Benzodiazepines Scrn Positive ng/mL (Rhlsbx=849) H 06/01/18 15:11 - Microbiology Findings Microbiology Findings: Microbiology, Last 48 Hours 06/01/18 15:04 Blood Culture - Final Peripheral Venipuncture No growth. Final report. 06/01/18 12:54 Blood Culture - Final Peripheral Venipuncture No growth. Final report. - Diagnostic Findings Chest x-ray: image reviewed - Clinical Findings Intake & Output: Intake & Output 06/06/18 06/07/18 06/07/18 23:59 07:59 15:59 Intake Total 585 / 585 685 / 685 Output Total 650 / 650 150 / 150 Balance -65 / -65 535 / 535 Weight 65.2 kg Consult Discharge Plan - Plan Referrals: Hong Garnett MD [Primary Care Provider] -
--- NOTE | 2018-06-07 11:08 | General Surgery Progress Note ---
<Kike Cal - Last Filed: 06/07/18 11:03> Date of Encounter: 06/07/18 Time of Encounter: 10:00 - Assessment and Plan (1) Pneumatosis intestinalis of large intestine Current Visit: Yes Status: Acute Date of procedure: 06/01/18 Pre-op diagnosis: Hypotension, acidosis, pneumatosis coli Post-op diagnosis: same Procedure: Exposure laparotomy with descending and sigmoid colon resection, takedown splenic flexure, end colostomy and Mcgraw's pouch followed by attempted placement of triple-lumen catheter, placement of left sided chest tube Anesthesia: GETDaria Surgeon: Axel Reyez Was there an photo studio assistant present: Yes Hotel Room Attendant: Carol Shipman Estimated blood loss (cc): 100 ml POD #6, ABOVE. Final pathology noted ischemic colitis Abdominal exam remains as expected. TATE drain d/c'd 06/06. Continues with acute delirium and confusion, Remains on precidex and lorazepam. Palliative care consult noted she is s/p transfusion 2U PRBCs 06/02 for acute on chronic anemia in the postoperative setting; no evidence of acute bleeding currently. Hgb stable. Will defer future critical care as there is no evidence of acute surgical bleed. Noted plans for transfusion 2 u PRBCs today d/t hgb 7.6 CT was placed on water seal 06/04, but patient developed crepitus. CXR showed slight retraction of CT and increased PTX. CT was removed and pigtail cath placed and currently to sx. CT placed back to water seal 06/06 per critical care and now returned to sx per pulmonary. Noted consult to CT surgery Noted leukocytosis. unclear etiology at this point Plan: supportive care and discomfort management; Continue TPN until adequate po intake; total IVF (MIV and TPN titrate to TPN goal) continue G.I. and DVT prophylaxis per primary team PRN pain control (tylenol) and add sl oxycodone for breakthrough pain until taking po, then change to Percocet serial abdominal exams repeat a.m. labs; transfusions per critical care Serial abd exams UA ordered Please note IM is primary, as of 06/05/2018, for this patient and surgery is consulted. surgery will follow along (2) Pneumothorax Current Visit: Yes Status: Resolved see a/p above Management per CC/pulm Qualifiers: Pneumothorax type: postprocedural Qualified Code(s): J95.811 - Postprocedural pneumothorax (3) Delirium Current Visit: Yes Status: Acute see above (4) Electrolyte abnormality Current Visit: Yes Status: Resolved Electrolyte protocol per primary team (5) Diabetes Current Visit: Yes Status: Chronic Management per primary team Qualifiers: Diabetes mellitus type: type 2 Diabetes mellitus fci insulin use: without fci use Diabetes mellitus complication status: without complication Qualified Code(s): E11.9 - Type 2 diabetes mellitus without complications (6) Anemia Current Visit: Yes Status: Chronic s/p transfusions for acute on chronic anemia. No evidence of acute bleeding 2/2 surgical process. see a/p above Qualifiers: Anemia type: unspecified type Qualified Code(s): D64.9 - Anemia, unspecified (7) Severe protein-calorie malnutrition Current Visit: Yes Status: Acute Continue TPN until adequate PO intake Subjective Narrative: Remains confused and restrained. Does not answer review of systems questions. Objective Vital Signs - Last 8 Hours Temp Pulse Resp BP Pulse Ox 06/07/18 07:20 99.5 F 83 18 99/55 100 06/07/18 07:14 99.5 F 97 18 96/55 98 06/07/18 05:57 87 16 134/94 100 06/07/18 05:00 85 14 87/51 100 06/07/18 03:39 98.9 F 81 15 91/60 99 Intake and Output 06/06/18 06/07/18 06/07/18 23:59 07:59 15:59 Intake Total 585 / 585 685 / 685 Output Total 650 / 650 150 / 150 Balance -65 / -65 535 / 535 Intake: IV Fluids 585 / 585 685 / 685 PRECEDEX Premix 400 mcg In 100 25 / 25 75 / 75 ml @ 0.2 MCG/KG/HR 3.135 mls/hr IVC .Q24H [facility] Rx#:[id number] Intralipid 20% 250 ML @ 21 mls/ 250 / 250 hr IVPB DAILY@1700 [facility] Rx#: [id number] Zosyn 3.375 GM In 0.9 % Sodium 100 / 100 100 / 100 Chloride (Mini-Bag +) 100 ML @ 25 mls/hr IVPB Q8HR [facility] Rx#: [id number] Potassium Phosphate 44 MEQ In 0 260 / 260 .9 % Sodium Chloride 250 ML @ 40 mls/hr IVPB Q10H PRN Rx#: [id number] Output: Catheter 650 / 650 150 / 150 Chest Tube Drainage 0 / 0 0 / 0 Left Anterior Chest 0 / 0 0 / 0 Other: Weight 65.2 kg Blood Glucose* 210 166 Patient Weight 06/07/18 23:59 Weight 65.2 kg - General physical appearance moderate distress (moaning and confused) - Eyes other (Not assessed) - ENT normal nares, normal mucosa ([place] and dry), poor half-way - Neck Neck exam: trachea midline - Respiratory other (Decreased respiratory effort, course breath sounds left, crepitus noted, left chest tube pigtail dry and intact. Leak noted.) - Cardiovascular Cardiovascular exam: Present: tachycardia, irregular rhythm - Abdomen Abdomen: Present: bowel sounds present, soft, non tender, wound (Ostomy functioning as expected.) Hernia: none - Incision Incision: Present: clean and dry, intact - Integumentary other (Multiple skin tears and areas of ecchymosis diffusely.) - Musculoskeletal other (Confused, restrained, sedated) - Psychiatric other (Confused, restrained, sedated) - Labs 06/07/18 04:00 06/07/18 04:00 Diabetes panel 06/06/18 06/07/18 Range/Units 16:17 04:00 Sodium 141 141 (136-145) mEq/L Potassium 4.7 D 4.6 (3.5-5.1) mEq/L Chloride 112 H 113 H (98-107) mEq/L Carbon Dioxide 22 L 21 L (23-29) mEq/L BUN 24 H 22 (8-23) mg/dL Creatinine 0.54 L 0.54 L (0.60-1.20) mg/dL Glucose 192 H 188 H (70-105) mg/dL Calcium 7.5 L 7.4 L (8.6-10.3) mg/dL AST 33 (13-39) Units/L ALT 22 (7-52) Units/L Alkaline Phosphatase 79 (34-104) Units/L Albumin 2.0 L (3.5-5.7) g/dL Calcium panel 06/06/18 06/07/18 Range/Units 16:17 04:00 Calcium 7.5 L 7.4 L (8.6-10.3) mg/dL Phosphorus 2.1 L 3.0 (2.7-4.5) mg/dL Albumin 2.0 L (3.5-5.7) g/dL Pituitary panel 06/06/18 06/07/18 Range/Units 16:17 04:00 Sodium 141 141 (136-145) mEq/L Potassium 4.7 D 4.6 (3.5-5.1) mEq/L Chloride 112 H 113 H (98-107) mEq/L Carbon Dioxide 22 L 21 L (23-29) mEq/L BUN 24 H 22 (8-23) mg/dL Creatinine 0.54 L 0.54 L (0.60-1.20) mg/dL Glucose 192 H 188 H (70-105) mg/dL Calcium 7.5 L 7.4 L (8.6-10.3) mg/dL Adrenal panel 06/06/18 06/07/18 Range/Units 16:17 04:00 Sodium 141 141 (136-145) mEq/L Potassium 4.7 D 4.6 (3.5-5.1) mEq/L Chloride 112 H 113 H (98-107) mEq/L Carbon Dioxide 22 L 21 L (23-29) mEq/L BUN 24 H 22 (8-23) mg/dL Creatinine 0.54 L 0.54 L (0.60-1.20) mg/dL Glucose 192 H 188 H (70-105) mg/dL Calcium 7.5 L 7.4 L (8.6-10.3) mg/dL Total Bilirubin 1.0 (0.3-1.0) mg/dL AST 33 (13-39) Units/L ALT 22 (7-52) Units/L Alkaline Phosphatase 79 (34-104) Units/L Albumin 2.0 L (3.5-5.7) g/dL Consult Discharge Plan - Plan Referrals: Hong Garnett MD [Primary Care Provider] - <Hesham Anderson - Last Filed: 06/07/18 17:58> Objective Vital Signs - Last 8 Hours Temp Pulse Resp BP Pulse Ox 06/07/18 16:03 95 06/07/18 15:47 101.2 F H 120 18 142/65 100 06/07/18 15:35 100 F H 114 20 133/86 06/07/18 13:15 99.3 F 112 18 153/79 100 06/07/18 12:40 99.3 F 87 18 121/57 98 06/07/18 12:25 99.4 F 94 20 138/59 100 06/07/18 11:30 99.7 F H 81 16 101/45 96 06/07/18 11:00 99.7 F H 79 16 101/45 99 Intake and Output 06/07/18 06/07/18 06/07/18 07:59 15:59 23:59 Intake Total 685 / 685 200 / 200 270 / 270 Output Total 150 / 150 528 / 528 450 / 450 Balance 535 / 535 -328 / -328 -180 / -180 Intake: IV Fluids 685 / 685 200 / 200 PRECEDEX Premix 400 mcg In 100 75 / 75 ml @ 0.2 MCG/KG/HR 3.135 mls/hr IVC .Q24H [facility] Rx#:[id number] Intralipid 20% 250 ML @ 21 mls/ 250 / 250 hr IVPB DAILY@1700 [facility] Rx#: [id number] Diflucan Premix 200 MG/100 ML 100 / 100 200 mg In 100 ml @ 100 mls/hr IVPB DAILY [facility] Rx#:[id number] Zosyn 3.375 GM In 0.9 % Sodium 100 / 100 100 / 100 Chloride (Mini-Bag +) 100 ML @ 25 mls/hr IVPB Q8HR [facility] Rx#: [id number] Potassium Phosphate 44 MEQ In 0 260 / 260 .9 % Sodium Chloride 250 ML @ 40 mls/hr IVPB Q10H PRN Rx#: [id number] Oral 0 / 0 0 / 0 Blood Product 0 / 0 270 / 270 Rbcs Leuko Poor As-1 Unit 0 / 0 270 / 270 [id number] Output: Stool 75 / 75 Catheter 150 / 150 450 / 450 450 / 450 Chest Tube Drainage 0 / 0 3 / 3 0 / 0 Left Anterior Chest 0 / 0 3 / 3 0 / 0 Other: Stool Consistency liquid Stool Color Brown Green Weight 65.2 kg Blood Glucose* 166 130 Patient Weight 06/07/18 23:59 Weight 65.2 kg - Labs 06/07/18 04:00 06/07/18 04:00 Diabetes panel 06/07/18 Range/Units 04:00 Sodium 141 (136-145) mEq/L Potassium 4.6 (3.5-5.1) mEq/L Chloride 113 H (98-107) mEq/L Carbon Dioxide 21 L (23-29) mEq/L BUN 22 (8-23) mg/dL Creatinine 0.54 L (0.60-1.20) mg/dL Glucose 188 H (70-105) mg/dL Calcium 7.4 L (8.6-10.3) mg/dL AST 33 (13-39) Units/L ALT 22 (7-52) Units/L Alkaline Phosphatase 79 (34-104) Units/L Albumin 2.0 L (3.5-5.7) g/dL Calcium panel 06/07/18 Range/Units 04:00 Calcium 7.4 L (8.6-10.3) mg/dL Phosphorus 3.0 (2.7-4.5) mg/dL Albumin 2.0 L (3.5-5.7) g/dL Pituitary panel 06/07/18 Range/Units 04:00 Sodium 141 (136-145) mEq/L Potassium 4.6 (3.5-5.1) mEq/L Chloride 113 H (98-107) mEq/L Carbon Dioxide 21 L (23-29) mEq/L BUN 22 (8-23) mg/dL Creatinine 0.54 L (0.60-1.20) mg/dL Glucose 188 H (70-105) mg/dL Calcium 7.4 L (8.6-10.3) mg/dL Adrenal panel 06/07/18 Range/Units 04:00 Sodium 141 (136-145) mEq/L Potassium 4.6 (3.5-5.1) mEq/L Chloride 113 H (98-107) mEq/L Carbon Dioxide 21 L (23-29) mEq/L BUN 22 (8-23) mg/dL Creatinine 0.54 L (0.60-1.20) mg/dL Glucose 188 H (70-105) mg/dL Calcium 7.4 L (8.6-10.3) mg/dL Total Bilirubin 1.0 (0.3-1.0) mg/dL AST 33 (13-39) Units/L ALT 22 (7-52) Units/L Alkaline Phosphatase 79 (34-104) Units/L Albumin 2.0 L (3.5-5.7) g/dL - Attending Attestation patient seen and examined. i have reviewed all labs, imaging, and notes. I have discussed the case with the ADJUNCT HISTORY INSTRUCTOR in detail and agree with the above assessm ent and plan and wish to add the following... s/p mcgraw's with delirium; ostomy is pink ,viable, and functioning; cares per primary team for delirium, diet, and activity; if not able to start diet due to question of ability to swallow, then consider dobhoff vs TPN will cont to follow
[2018-06-07 11:45] LABS: Bilirubin,Urine Negative (Negative); Blood,Urine Large (Negative); Clarity,Urine Cloudy (Clear); Color,Urine Yellow (Yellow); Glucose,Urine (UA) Normal (Normal); Ketones,Urine Negative (Negative); Leukocyte Esterase,Urine Trace (Negative); Nitrite,Urine Negative (Negative); PH,Urine 5.5 pH Units (5.0-8.0); Protein,Urine 30 mg/dL (Neg-Trace); Specific Gravity,Urine 1.024 (1.010-1.025); Urobilinogen,Urine Normal (Normal)
[2018-06-07 11:48] LABS: Bacteria,Urine None Seen per hpf (None-Few); Squamous Epithelial Cell,Urine Many per lpf (None-Few); WBC,Urine 15-30 per hpf (0-3)
[2018-06-07 12:01] LABS: RBC,Urine 50-100 per hpf (0-3); Yeast,Urine Moderate per hpf (None Seen)
[2018-06-07] MEDS ORDERED: 0.9 % Sodium Chloride 250 ML ONE (12:22)
--- NOTE | 2018-06-07 13:04 | Cardiothoracic Consult Note ---
Date of Encounter: 06/07/18 Time of Encounter: 13:01 Assessment and Plan (1) Pneumothorax Current Visit: Yes Status: Resolved The assessment and plan as outlined above was discussed with the patient and/or family members who expressed understanding and agreement. All questions were answered. I would leave the chest tube to suction for now. A palliative care consult is being initiated. Qualifiers: Pneumothorax type: postprocedural Qualified Code(s): J95.811 - Postprocedural pneumothorax - History of Present Illness History of present illness: Ms. Robison is a 88 year old female The patient is an 88-year-old female who presented with abdominal pain. On 06/02/2018, she was taken the operating room for resection of the descending colon and sigmoid colon. She had a central line placed and a left chest tube placed during that procedure. On June 04, a second pigtail chest tube was placed. I was asked to see the patient for chest tube management. Past Med Surg Social Fam HX - Past Medical History Medical history: diabetes, hyperlipidemia, hypertension, osteoporosis, other Psychiatric history: anxiety, depression - Past Surgical History Surgical History: hip replacement, other Additional surgical history: knee surgery, multiple ortho fractures - Social History Smoking Status: Never smoker Smokeless Tobacco Status: No Alcohol use: none Drug use: none - Family History Mother Living Status: Hx Family Cardiac Disorders: Yes (NH) Medications and Allergies ALPRAZolam [Xanax 0.5 MG Tablet] 0.5 mg PO HS 08/20/17 [History] Alendronate Sodium 70 mg PO QWEEK 08/20/17 [History] Aspirin [Lo-Dose Aspirin EC] 81 mg PO DAILY 08/20/17 [History] Cholecalciferol (Vitamin D3) [Vitamin D3] 2,000 unit PO DAILY 08/20/17 [History] Citalopram Hydrobromide [Citalopram HBr] 10 mg PO HS 08/20/17 [History] Docusate [Colace] 100 mg PO BID 08/20/17 [History] Fluticasone/Salmeterol [Advair 100-50 Diskus] 1 puff IH BID 08/20/17 [History] Levothyroxine Sodium 25 mcg PO DAILY 08/20/17 [History] Lisinopril [Zestril] 10 mg PO DAILY 08/20/17 [History] Metformin HCl [Metformin HCl ER] 500 mg PO QPM 08/20/17 [History] Simvastatin [Zocor] 40 mg PO DAILY 08/20/17 [History] Verapamil ER (24 HR) [Calan SR] 240 mg PO DAILY 08/20/17 [History] Cyanocobalamin (Vitamin B-12) [B-12] 1,000 mcg PO DAILY #30 tablet.er 01/08/18 [Rx] Allergy/AdvReac Type Severity Reaction Status Date / Time cephalexin [From Keflex] AdvReac See Verified 09/16/17 10:53 Comments morphine AdvReac Itching Verified 09/16/17 10:53 All Systems Review: The remainder of the systems were reviewed and are negative Physical Examination Vital Signs, Last 4 Hours Temp Pulse Resp BP Pulse Ox 06/07/18 12:40 99.3 F 83 18 121/57 98 06/07/18 12:25 99.4 F 94 20 138/59 100 06/07/18 11:30 99.7 F H 81 16 101/45 96 Lungs are clear to percussion and auscultation. She has extensive crepitus over her left chest wall. The chest tube has minimal drainage, but does have an air leak. Chest x-ray done this morning reveals a 4 mm apical pneumothorax. She a lso has extensive subcutaneous emphysema, mainly on the left. Results 06/07/18 04:00 06/07/18 04:00 Lab Results, Last 24 hours 06/06/18 06/07/18 06/07/18 16:17 04:00 04:00 WBC 16.8 H Hgb 7.6 L Hct 22.3 L Plt Count 116 L Sodium 141 141 Potassium 4.7 D 4.6 Chloride 112 H 113 H Carbon Dioxide 22 L 21 L BUN 24 H 22 Creatinine 0.54 L 0.54 L Glucose 192 H 188 H Calcium 7.5 L 7.4 L Magnesium 1.8 Total Bilirubin 1.0 AST 33 ALT 22 Alkaline Phosphatase 79 Consult Discharge Plan - Plan Referrals: Hong Garnett MD [Primary Care Provider] -
[2018-06-07] MEDS ORDERED: Furosemide 40 MG/4 ML VIAL IVP ONE (15:24)
[2018-06-07] MEDS ORDERED: Furosemide 40 MG/4 ML VIAL ONE (15:30)
[2018-06-07] MEDS ORDERED: Ipratropium/Albuterol Neb 3 ML IH PRN (15:35)
[2018-06-07] MEDS ORDERED: Clinimix E 5%-15% SOLUTION 2,000 ML with MVI, adult with vitamin K 10 ML, Calcium Glu... IVC SCH (17:00)
[2018-06-07] MEDS ORDERED: Acetaminophen IV 500 MG/50 ML INFUS..BTL IVPB ONE (17:30)
[2018-06-07] MEDS: Haloperidol Lactate 5 MG/ML VIAL IVP PRN (23:08)
[2018-06-08 03:19] LABS: Hematocrit 29.1 % (35.3-44.9); Mean Corpuscular Hemoglobin 30.1 pg (28.0-33.3); Mean Corpuscular Volume 88.4 fL (83.0-100.0); Mean Platelet Volume 11.2 fL (9.4-12.4); Nucleated Red Blood Cells 0.9 /100 WBC (0); Platelet Count 117 K/mcL (140-400); Red Blood Count 3.29 M/mcL (3.82-4.97)
[2018-06-08] MEDS: *HR* LORazepam 2 MG/ML VIAL IVP SCH ×3 (03:41→20:15)
[2018-06-08 03:43] LABS: Magnesium 1.6 mg/dL (1.6-2.6); Phosphorous 2.3 mg/dL (2.7-4.5)
[2018-06-08] MEDS: Insulin LISPRO 300 UNITS/3 ML VIAL SQ SCH ×5 (03:49→20:53)
[2018-06-08 04:10] LABS: Hemoglobin 9.9 g/dL (11.5-15.4)
[2018-06-08] MEDS: Potassium Phosphate 44 MEQ in 0.9 % Sodium Chloride 250 ML IVPB PRN (04:23)
[2018-06-08 04:53] LABS: Lymphocytes # 1.3 K/mcL (0.6-4.6); Monocytes # 0.8 K/mcL (0.0-1.3)
[2018-06-08 04:54] LABS: Platelet Estimate Slight Decrease (Normal); Reactive Lymphocytes Present (Not Present)
[2018-06-08 04:55] LABS: Anisocytosis 1+ (Not Present); Polychromasia 1+ (Not Present)
[2018-06-08 04:59] LABS: BUN/Creatinine Ratio 35 (6-26); Blood Urea Nitrogen 19 mg/dL (8-23); Calcium 7.8 mg/dL (8.6-10.3); Carbon Dioxide 25 mEq/L (23-29); Chloride 109 mEq/L (98-107); Glucose 172 mg/dL (70-105); Osmolality,Calculated 298 (280-300); Potassium 3.7 mEq/L (3.5-5.1); Sodium 141 mEq/L (136-145); eGFR For Non-African Americans > 60 (> 60)
[2018-06-08 05:02] LABS: VBG Ionized Calcium 1.14 mmol/L (1.15-1.35)
[2018-06-08] MEDS: Levothyroxine Sodium 100 MCG VIAL IVP SCH (05:16)
[2018-06-08] MEDS: *HR* Heparin 5,000 UNIT/ML VIAL SQ SCH ×3 (05:16→20:15)
[2018-06-08] MEDS: Potassium Chloride 40 MEQ/200 ML BAG IVPB PRN (05:17)
[2018-06-08] MEDS: Fluconazole 200 MG/100 ML 200 MG/100 ML BAG IVPB SCH (07:42)
[2018-06-08] MEDS: Pantoprazole 40 MG VIAL IVP SCH (07:43)
[2018-06-08] MEDS: Piperacillin/Tazobactam 3.375 GM in 0.9 % Sodium Chloride Mini Bag 100 ML IVPB SCH ×2 (07:43→15:21)
--- NOTE | 2018-06-08 09:28 | Cardiothoracic Progress Note ---
Date of Encounter: 06/08/18 Time of Encounter: 09:26 - Assessment and plan (1) Pneumothorax Current Visit: Yes Status: Resolved We will continue chest tube suction for now. Qualifiers: Pneumothorax type: postprocedural Qualified Code(s): J95.811 - Postprocedural pneumothorax - Subjective Interval history: The patient is unable to answer questions. Vital Signs, Last 4 Hours Temp Pulse Resp BP Pulse Ox 06/08/18 08:05 87 110/50 94 06/08/18 07:22 95 103/52 98 06/08/18 07:20 100.4 F H 99 18 103/52 97 Oxgyen Flow Rate Oxygen Flow Rate (LPM) 0 Clinical Data, last 8 Hours Output, Chest Tube Drainage 0 Amount [Left Anterior Chest] Output, Chest Tube Drainage 0 Amount [Left Anterior Chest] Weight 06/06/18 06/07/18 06/08/18 23:59 23:59 23:59 Weight 73.18 kg 66 kg Lungs are clear to percussion and auscultation. The chest tube has minimal drainage, but does have a small air leak. Her subcutaneous emphysema and crepitus are improving. Chest x-ray reveals a tiny, left apical pneumothorax. - Labs 06/08/18 03:00 06/08/18 03:00 Lab Results, Last 24 hours 06/08/18 06/08/18 03:00 03:00 WBC 21.1 H Hgb 9.9 L D Hct 29.1 L Plt Count 117 L Sodium 141 Potassium 3.7 Chloride 109 H Carbon Dioxide 25 BUN 19 Creatinine 0.54 L Glucose 172 H Calcium 7.8 L Magnesium 1.6 Consult Discharge Plan - Plan Referrals: Hong Garnett MD [Primary Care Provider] -
--- NOTE | 2018-06-08 09:40 | Internal Med Progress Note ---
Hospitalist Progress Note - Encounter Date of Encounter: 06/08/18 Time of Encounter: 09:38 - Subjective Interval History: 88 YO F Seen and examined in the INtensive care unit She has had a prolonged and complicated hosp course Currently being managed for s/p septic shock, now off pressors, pneumointenstinalis s/p colectomy, delirium, iatrogenic pneumothorax, RONY, ac resp failure s/p extubation She was heavily medicated, still on precedex during my evaluation, unable to particpate in the eval On 06/07: I spoke with family extensively about patient's current diagnosis and guarded prognosis. Palliative evaluation is still pending She remains full code She has been noted to be febrile since 06/06, which is persistent. Leukocytosis is also worsened now 21,000, status post 2 units of blood transfusion hemoglobin stable at 9 Analysis done 06/07 unremarkable for infection Chest x-ray done this morning 06/08 shows no infiltrates We will send blood cultures from peripheral and central venous catheters this morning We will add vancomycin to current antibiotic regimen for broader coverage - Exam Vitals: Temp Pulse Resp BP Pulse Ox 100.4 F H 88 18 110/50 94 06/08/18 07:20 06/08/18 08:05 06/08/18 07:20 06/08/18 08:05 06/08/18 08:05 Exam: General: Sedated, groans to verbal stimuli HEENT: Head atraumatic, normocephalic, PERRL, absent ear discharge or trauma Neck: nontender to palpation, absent lymphadenopathy, right IJ CVC Chest: L chest tube, connected to suction Cardiovascualr: Regular rate and rhythm with no murmur, absent gallops or rubs, absent pedal edema, radial pulses 2 out of 4 Lungs: Decreased breath sounds in the left lobe anteriorly. Left chest tube Abdomen: Soft. Midline and shows an intact, left ostomy intact, midline incision with surrounding sanguinous discharge Skin: warm and dry, absent rash, absent open wounds and nodules MSK: absent clubbing, cyanosis, joints without swelling,Left ahand swelling ++, bilateral piting pedal edema Neuro: Sedated, not moving LUE, contracted, on restraints - Assessment and Plan (1) Fever Current Visit: Yes Status: Acute Assessment and Plan: Patient with new fevers started 10 /19/18 MAXIMUM TEMPERATURE 101.2 during blood transfusion yesterday Remains febrile Urine analysis is unremarkable, chest x-ray from this morning unremarkable Send blood cultures from peripheral vein and central venous catheter Send wound culture from abdomen incision We will broaden antibiotic coverage and add vancomycin at this time Continue fluconazole (day 7) and Zosyn (day 7) Follow cultures (2) RONY (acute kidney injury) Current Visit: Yes Status: Resolved Assessment and Plan: Resolved Creatinine improved - 0.54, continue to monitor (3) Anemia Current Visit: Yes Status: Chronic Assessment and Plan: stable s/p 4 units RBCS ON 06/07, Hb at 7.7 with worsening leukocytosis and low blood pressure No evident source of bleeding at this time HB this a.m 9.9 Continue to monitor (4) Delirium Current Visit: Yes Status: Acute Assessment and Plan: Continue 1 mg haldol every 2 hours as needed for agitation Continue 0.5 mg ativan IV every 8 hours for agitation-patient takes xanax at home Wean off Precedex with goal to completely discontinue today Continue other parenteral antipsychotics (5) Diabetes Current Visit: Yes Status: Chronic Assessment and Plan: Continue clear diet, as toleraled On TPN, goal of 75 ml/hr Continue high dose sliding scale Q4hr FS Q4, currently controlled Continue to monitor (6) DVT prophylaxis Current Visit: Yes Status: Acute Assessment and Plan: Subcutaneous heparin SCDs (7) Electrolyte abnormality Current Visit: Yes Status: Resolved Assessment and Plan: resolved with replacements (8) Metabolic acidosis with respiratory acidosis Current Visit: Yes Status: Resolved Assessment and Plan: Patient extubated (06/04) and saturating well on room air Patient given bicarb (06/03) - pH 7.32 on 06/04 Lactate 6.6 > 3.4 > 2.7 (06/03) Will continue to monitor respiratory status (9) Pneumatosis intestinalis of large intestine Current Visit: Yes Status: Acute Assessment and Plan: Patient's postop day 7 for exploratory laparotomy with descending colectomy and ostomy Incisions with some discharge this a.m Obtain wound culture Continue Ofirmev for pain Surgery following Patient on CLD, but she is refusing to eat Continue TPN with goal of 75 ml/hr, per dietary and surgery (10) Pneumothorax Current Visit: Yes Status: Resolved Assessment and Plan: iatrogenic Patient developed a left-sided pneumothorax 06/02/2018 after attempted central venous catheter placement. Initially had chest tube, repeat CXR showed slight retraction of chest tube and increasing PTX with subcutaneous emphysema Chest tube removed, and pigtail catheter placed 06/04/18 in ICU Pigtail catheter placed on suction, repeat CXR showed decreasing PTX (06/05/18 AM), will monitor with repeat CXRs Patient still with subcut emphysema, CXR this a.m 06/08 noted Pulmonology is following Thoracic surgery is following (11) Septic shock Current Visit: Yes Status: Resolved Assessment and Plan: Shock resolved, off pressors Secondary to pneumatosis intestinalis Patient is postop day 6 for descending colectomy White blood cell count trending downward initially, now elavated Continue fluconazole (day 7) and Zosyn (day 7) Discontinued Levophed (06/04) Hemodynamically stable - Time Spent with Patient Total time spent is greater than 50% in coordination of care (as documented) at patient's floor/unit and/or counseling patient: Plan of Care Discussed with: family Internal Medicine: Result - Labs CBC & Chem 7: 06/08/18 03:00 06/08/18 03:00 Labs: Short CBC 06/08/18 Range/Units 03:00 WBC 21.1 H (4.3-11.1) K/mcL Hgb 9.9 L D (11.5-15.4) g/dL Hct 29.1 L (35.3-44.9) % Plt Count 117 L (140-400) K/mcL Neutrophils # 19.0 H (1.6-8.9) K/mcL BMP 06/08/18 03:00 Sodium 141 Potassium 3.7 Chloride 109 H Carbon Dioxide 25 BUN 19 Creatinine 0.54 L Glucose 172 H Calcium 7.8 L Urine 06/07/18 Range/Units 11:35 Urine Color Yellow (Yellow) Urine Clarity Cloudy A (Clear) Urine pH 5.5 (5.0-8.0) pH Units Ur Specific [place] 1.024 (1.010-1.025) Urine Protein 30 H (Neg-Trace) mg/dL Urine Glucose (UA) Normal (Normal) mg/dL - ABG Interpretation ABG results: ABG ABG pH 7.32 pH Units (7.32-7.45) 06/04/18 05:06 ABG pCO2 38 mmHg (35-45) 06/04/18 05:06 ABG pO2 86 mmHg (85-104) 06/04/18 05:06 ABG O2 Saturation 96 % (95-98) 06/04/18 05:06 PT/INR, D-dimer PT 11.2 Seconds (9.4-12.1) 06/01/18 12:51 - Impressions Impressions Chest X-Ray 06/07/18 09:00 IMPRESSION: 4 mm left apical pneumothorax. Persistent left basilar opacification and small effusion. D/ / Osbaldo Soriano MD / Osbaldo Soriano MD Interpreting Provider: Osbaldo Soriano MD Head CT 06/07/18 09:28 IMPRESSION: No acute intracranial abnormality. D/ / Carolyn Rangel MD / Carolyn Rangel MD Interpreting Provider: Carolyn Rangel MD Chest X-Ray 06/08/18 00:01 IMPRESSION: Stable left chest tube with proximal port likely outside of the pleural cavity. Extensive left chest wall subcutaneous emphysema again demonstrated. Persistent small left apical pneumothorax. Overall stable exam. 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
--- NOTE | 2018-06-08 11:41 | General Surgery Progress Note ---
Date of Encounter: 06/08/18 Time of Encounter: 11:36 - Assessment and Plan (1) Pneumatosis intestinalis of large intestine Current Visit: Yes Status: Acute 88F s/p ex lap, mcgraw's procedure; now HDS, having bowel function; discussed with family concerning feeds until patient about to eat; patient wanting to wait before more intervention (ie: PEG); cares per primary team will cont to follow Subjective Patient reports: no new complaints, other Objective Vital Signs - Last 8 Hours Temp Pulse Resp BP Pulse Ox 06/08/18 08:05 87 110/50 94 06/08/18 07:22 95 103/52 98 06/08/18 07:20 100.4 F H 99 18 103/52 97 06/08/18 03:44 101.0 F H 108 16 111/57 100 Intake and Output 06/07/18 06/08/18 06/08/18 23:59 07:59 15:59 Intake Total 974 / 974 654 / 654 87.6 / 87.6 Output Total 2585 / 2585 550 / 550 300 / 300 Balance -1611 / -1611 104 / 104 -212.4 / -212.4 Intake: IV Fluids 354 / 354 654 / 654 87.6 / 87.6 PRECEDEX Premix 400 mcg In 100 100 / 100 87.6 / 87.6 ml @ 0.2 MCG/KG/HR 3.135 mls/hr IVC .Q24H [facility] Rx#:[id number] Ofirmev 1,000 mg/100 ml 500 mg 50 / 50 In 50 ml @ 200 mls/hr IVPB ONCE ONE Rx#:[id number] Intralipid 20% 250 ML @ 21 mls/ 250 / 250 hr IVPB DAILY@1700 [facility] Rx#: [id number] Magnesium Sulfate 2 GM In 0.9 % 104 / 104 104 / 104 Sodium Chloride 100 ML @ 52 mls/hr IVPB Q6H PRN Rx#: [id number] Zosyn 3.375 GM In 0.9 % Sodium 100 / 100 100 / 100 Chloride (Mini-Bag +) 100 ML @ 25 mls/hr IVPB Q8HR [facility] Rx#: [id number] Potassium Chloride 20 mEq/100 200 / 200 mL 40 meq In 200 ml @ 100 mls/ hr IVPB Q1H PRN Rx#:[id number] Oral 0 / 0 0 / 0 Blood Product 620 / 620 Rbcs Leuko Poor As-1 Unit 270 / 270 [id number] Rbcs Leuko Poor As-1 Unit 350 / 350 [id number] Output: Urine 235 / 235 Catheter 2350 / 2350 550 / 550 300 / 300 Chest Tube Drainage 0 / 0 0 / 0 0 / 0 Left Anterior Chest 0 / 0 0 / 0 0 / 0 Other: Meal Breakfast Percent of Meal Consumed 0% Stool Size Moderate Stool Consistency loose soft Weight 66 kg Blood Glucose* 190 150 - General physical appearance no distress - Respiratory normal expansion, normal respiratory effort - Cardiovascular Cardiovascular exam: Present: RRR - Abdomen Abdomen: Present: soft, tender (appropriately tender) Additional Comments: ostomy - pink, viable, functioning - Incision Incision: Present: intact, serosanguinous - Labs 06/08/18 03:00 06/08/18 03:00 Diabetes panel 06/08/18 Range/Units 03:00 Sodium 141 (136-145) mEq/L Potassium 3.7 (3.5-5.1) mEq/L Chloride 109 H (98-107) mEq/L Carbon Dioxide 25 (23-29) mEq/L BUN 19 (8-23) mg/dL Creatinine 0.54 L (0.60-1.20) mg/dL Glucose 172 H (70-105) mg/dL Calcium 7.8 L (8.6-10.3) mg/dL Calcium panel 06/08/18 Range/Units 03:00 Calcium 7.8 L (8.6-10.3) mg/dL Phosphorus 2.3 L (2.7-4.5) mg/dL Pituitary panel 06/08/18 Range/Units 03:00 Sodium 141 (136-145) mEq/L Potassium 3.7 (3.5-5.1) mEq/L Chloride 109 H (98-107) mEq/L Carbon Dioxide 25 (23-29) mEq/L BUN 19 (8-23) mg/dL Creatinine 0.54 L (0.60-1.20) mg/dL Glucose 172 H (70-105) mg/dL Calcium 7.8 L (8.6-10.3) mg/dL Adrenal panel 06/08/18 Range/Units 03:00 Sodium 141 (136-145) mEq/L Potassium 3.7 (3.5-5.1) mEq/L Chloride 109 H (98-107) mEq/L Carbon Dioxide 25 (23-29) mEq/L BUN 19 (8-23) mg/dL Creatinine 0.54 L (0.60-1.20) mg/dL Glucose 172 H (70-105) mg/dL Calcium 7.8 L (8.6-10.3) mg/dL Consult Discharge Plan - Plan Referrals: Hong Garnett MD [Primary Care Provider] -
[2018-06-08] MEDS: Dexmedetomidine HCl 400 MCG/100 ML MLS IVC SCH (13:05)
[2018-06-08] MEDS: OXYCODONE Oral CONC 10 MG/0.5 ML ORAL.SYG SL PRN ×2 (14:55→18:31)
[2018-06-08 15:00] LABS: Potassium 4.3 mEq/L (3.5-5.1)
[2018-06-08] MEDS ORDERED: Clinimix E 5%-15% SOLUTION 2,000 ML with MVI, adult with vitamin K 10 ML, Calcium Glu... IVC SCH (17:00)
[2018-06-08] MEDS: Haloperidol Lactate 5 MG/ML VIAL IVP PRN (17:49)
[2018-06-08 18:37] LABS: Magnesium 1.8 mg/dL (1.6-2.6)
[2018-06-08] MEDS ORDERED: Acetaminophen IV 1,000 MG/100 ML INFUS..BTL IVPB ONE (18:42)
[2018-06-09] MEDS: OXYCODONE Oral CONC 10 MG/0.5 ML ORAL.SYG SL PRN ×4 (00:09→23:30)
[2018-06-09] MEDS: Insulin LISPRO 300 UNITS/3 ML VIAL SQ SCH ×7 (00:11→23:39)
[2018-06-09] MEDS: Piperacillin/Tazobactam 3.375 GM in 0.9 % Sodium Chloride Mini Bag 100 ML IVPB SCH ×4 (00:13→23:31)
[2018-06-09 03:48] LABS: VBG Ionized Calcium 1.15 mmol/L (1.15-1.35)
[2018-06-09 04:06] LABS: Magnesium 1.9 mg/dL (1.6-2.6); Phosphorous 4.2 mg/dL (2.7-4.5)
[2018-06-09] MEDS: *HR* LORazepam 2 MG/ML VIAL IVP SCH ×3 (04:38→20:28)
[2018-06-09] MEDS: *HR* Heparin 5,000 UNIT/ML VIAL SQ SCH ×3 (06:09→20:28)
[2018-06-09] MEDS: Levothyroxine Sodium 100 MCG VIAL IVP SCH (06:09)
[2018-06-09 06:25] LABS: BUN/Creatinine Ratio 30 (6-26); Blood Urea Nitrogen 17 mg/dL (8-23); Calcium 7.7 mg/dL (8.6-10.3); Carbon Dioxide 23 mEq/L (23-29); Chloride 109 mEq/L (98-107); Glucose 152 mg/dL (70-105); Osmolality,Calculated 289 (280-300); Potassium 4.8 mEq/L (3.5-5.1); Sodium 137 mEq/L (136-145); eGFR For Non-African Americans > 60 (> 60)
[2018-06-09] MEDS: Pantoprazole 40 MG VIAL IVP SCH (08:27)
[2018-06-09] MEDS: Fluconazole 200 MG/100 ML 200 MG/100 ML BAG IVPB SCH (08:28)
[2018-06-09] MEDS ORDERED: Acetaminophen IV 500 MG/50 ML INFUS..BTL IVPB ONE ×2 (08:36→19:47)
[2018-06-09] MEDS ORDERED: 0.9 % Sodium Chloride 1,000 ML ONE (08:44)
--- NOTE | 2018-06-09 09:14 | Cardiothoracic Progress Note ---
Date of Encounter: 06/09/18 Time of Encounter: 09:11 - Assessment and plan (1) Pneumothorax Current Visit: Yes Status: Resolved We will check a stat portable chest x-ray. If this looks good, I will take the chest tube out. Qualifiers: Pneumothorax type: postprocedural Qualified Code(s): J95.811 - Postprocedural pneumothorax - Subjective Interval history: The patient is nonverbal. Vital Signs, Last 4 Hours Temp Pulse Resp BP Pulse Ox 06/09/18 08:00 108 20 117/50 06/09/18 07:22 101.0 F H 108 20 111/54 95 06/09/18 07:00 102 20 111/54 96 06/09/18 06:00 104 103/50 Oxgyen Flow Rate Oxygen Flow Rate (LPM) 96 Clinical Data, last 8 Hours Output, Chest Tube Drainage 0 Amount [Left Anterior Chest] Output, Chest Tube Drainage 0 Amount [Left Anterior Chest] Output, Urine Amount 250 Weight 06/07/18 06/08/18 06/09/18 23:59 23:59 23:59 Weight 66 kg 64.9 kg Lungs are clear to percussion and auscultation. The chest tube was taken off suction. Off suction, there is no air leak. - Labs 06/08/18 03:00 06/09/18 03:35 Lab Results, Last 24 hours 06/08/18 06/09/18 06/09/18 11:30 03:35 03:35 Sodium 137 Potassium 4.3 4.8 Chloride 109 H Carbon Dioxide 23 BUN 17 Creatinine 0.56 L Glucose 152 H Calcium 7.7 L Magnesium 1.8 1.9 Consult Discharge Plan - Plan Referrals: Hong Garnett MD [Primary Care Provider] -
--- NOTE | 2018-06-09 09:33 | General Surgery Progress Note ---
Date of Encounter: 06/09/18 Time of Encounter: 08:45 - Assessment and Plan (1) Pneumatosis intestinalis of large intestine Current Visit: Yes Status: Acute POD #8 Exploratory laparotomy with descending and sigmoid colon resection, takedown splenic flexure, end colostomy and Mejias's pouch followed by attempted placement of triple-lumen catheter, placement of left sided chest tube with Dr. Reyez Pathology- Consistent with ischemic colitis. NPO due to continued confusion Recommend peg tube placement in order to start enteral nutrition- Dr. Reyez to discuss with daughter (POA) today Continue TPN for nutritional support IV antibiotics- Zosyn Add Diflucan Supportive care and pain control PPI therapy daily IS every 1 hour while awake when extubated PT/OT for mobilization Repeat am labs- CBC, BMP, Mg, Phos (2) Pneumothorax Current Visit: Yes Status: Resolved CT surgery consulted per pulmonary/critical care team Chest tube placed to water seal this morning Repeat CXR later today Qualifiers: Pneumothorax type: postprocedural Qualified Code(s): J95.811 - Postprocedural pneumothorax (3) Delirium Current Visit: Yes Status: Acute Management per medical team (4) Severe protein-calorie malnutrition Current Visit: Yes Status: Acute Continue TPN Surgery recommends placement of peg tube for initiation of enteral feeds- Dr. Reyez to discuss with the patient's POA today. (5) DVT prophylaxis Current Visit: Yes Status: Acute Heparin 5,000 units SQ every 8 hours for DVT prophylaxis EPCDs to bilateral lower extremities for DVT prophylaxis Subjective Patient reports: fever (Tmax 101.7, Tcurrent 101), other (Patient remains confused. She is not restrained at this time. Precedex has been decreased this morning. ) Objective Vital Signs - Last 8 Hours Temp Pulse Resp BP Pulse Ox 06/09/18 09:12 100 22 146/59 06/09/18 08:00 108 20 117/50 06/09/18 07:22 101.0 F H 108 20 111/54 95 06/09/18 07:00 102 20 111/54 96 06/09/18 06:00 104 103/50 06/09/18 05:00 105 87/38 06/09/18 04:00 129 152/96 06/09/18 03:41 99.2 F 96 19 104/58 100 06/09/18 03:00 108 104/58 06/09/18 02:00 114 109/52 Intake and Output 06/08/18 06/09/18 06/09/18 23:59 07:59 15:59 Intake Total 101.5 / 101.5 204 / 204 504 / 504 Output Total 550 / 550 750 / 750 0 / 0 Balance -448.5 / -448.5 -546 / -546 504 / 504 Intake: IV Fluids 101.5 / 101.5 204 / 204 504 / 504 PRECEDEX Premix 400 mcg In 100 1.5 / 1.5 ml @ 0.2 MCG/KG/HR 3.135 mls/hr IVC .Q24H [facility] Rx#:[id number] Ofirmev 1,000 mg/100 ml 500 mg 50 / 50 In 50 ml @ 200 mls/hr IVPB Q6HR [facility] Rx#:[id number] Intralipid 20% 250 ML @ 21 mls/ 250 / 250 hr IVPB DAILY@1700 [facility] Rx#: [id number] Diflucan Premix 200 MG/100 ML 100 / 100 200 mg In 100 ml @ 100 mls/hr IVPB DAILY [facility] Rx#:[id number] Magnesium Sulfate 2 GM In 0.9 % 104 / 104 104 / 104 Sodium Chloride 100 ML @ 52 mls/hr IVPB Q6H [facility] Rx#: [id number] Zosyn 3.375 GM In 0.9 % Sodium 100 / 100 100 / 100 Chloride (Mini-Bag +) 100 ML @ 25 mls/hr IVPB Q8HR [facility] Rx#: [id number] Oral 0 / 0 Output: Urine 250 / 250 Stool 50 / 50 Catheter 500 / 500 500 / 500 Chest Tube Drainage 0 / 0 0 / 0 0 / 0 Left Anterior Chest 0 / 0 0 / 0 0 / 0 Other: Meal NPO Percent of Meal Consumed 0% Stool Consistency liquid Stool Color Brown Weight 64.9 kg Blood Glucose* 134 126 Patient Weight 06/09/18 23:59 Weight 64.9 kg - General physical appearance well developed, no distress, chronically ill, other (patient confused at this time, unable to verbalize her name, where she is, time or situation) - Eyes PERRL - ENT dry mucosa, atraumatic, normocephalic - Neck Neck exam: trachea midline - Respiratory normal respiratory effort, clear to auscultation, other (Diminished bibasilar bases. Left chest tube to water seal per CT surgery) - Cardiovascular Cardiovascular exam: Present: tachycardia - Abdomen Abdomen: Present: bowel sounds present, soft, tender (irritable with palpation of abdomen), wound (Ostomy is pink and moist with soft, brown stool noted) - Incision Incision: Present: clean and dry, intact - Genitourinary other (Hurley catheter to SD) - Neurologic CN 2-12 grossly intact - Musculoskeletal other (physical deconditioning noted) - Psychiatric other (confused to person, place, time and situation) - Labs 06/08/18 03:00 06/09/18 03:35 Diabetes panel 06/08/18 06/09/18 Range/Units 11:30 03:35 Sodium 137 (136-145) mEq/L Potassium 4.3 4.8 (3.5-5.1) mEq/L Chloride 109 H (98-107) mEq/L Carbon Dioxide 23 (23-29) mEq/L BUN 17 (8-23) mg/dL Creatinine 0.56 L (0.60-1.20) mg/dL Glucose 152 H (70-105) mg/dL Calcium 7.7 L (8.6-10.3) mg/dL Calcium panel 06/08/18 06/08/18 06/09/18 Range/Units 11:30 15:00 03:35 Calcium (8.6-10.3) mg/dL Phosphorus Cancelled 2.8 4.2 06/09/18 Range/Units 03:35 Calcium 7.7 L (8.6-10.3) mg/dL Phosphorus Pituitary panel 06/08/18 06/09/18 Range/Units 11:30 03:35 Sodium 137 (136-145) mEq/L Potassium 4.3 4.8 (3.5-5.1) mEq/L Chloride 109 H (98-107) mEq/L Carbon Dioxide 23 (23-29) mEq/L BUN 17 (8-23) mg/dL Creatinine 0.56 L (0.60-1.20) mg/dL Glucose 152 H (70-105) mg/dL Calcium 7.7 L (8.6-10.3) mg/dL Adrenal panel 06/08/18 06/09/18 Range/Units 11:30 03:35 Sodium 137 (136-145) mEq/L Potassium 4.3 4.8 (3.5-5.1) mEq/L Chloride 109 H (98-107) mEq/L Carbon Dioxide 23 (23-29) mEq/L BUN 17 (8-23) mg/dL Creatinine 0.56 L (0.60-1.20) mg/dL Glucose 152 H (70-105) mg/dL Calcium 7.7 L (8.6-10.3) mg/dL Consult Discharge Plan - Plan Referrals: Hong Garnett MD [Primary Care Provider] - - Attending Attestation For this encounter, I have reviewed the CURED [employer] P[employer]ING SUPERVISOR or PA documentation, treatment plan, and medical decision making; and I have had face to face time with this patient.
[2018-06-09] MEDS ORDERED: Fluconazole 200 MG/100 ML 200 MG/100 ML BAG IVPB STA (09:45)
--- NOTE | 2018-06-09 09:51 | Internal Med Progress Note ---
Hospitalist Progress Note - Encounter Date of Encounter: 06/09/18 Time of Encounter: 09:38 - Subjective Interval History: 88 YO F Seen and examined in the INtensive care unit She has had a prolonged and complicated hosp course Currently being managed for s/p septic shock, now off pressors, pneumointenstinalis s/p colectomy, delirium, iatrogenic pneumothorax, RONY, ac resp failure s/p extubation She was heavily medicated, still on precedex during my evaluation, unable to particpate in the eval On 06/07: I spoke with family extensively about patient's current diagnosis and guarded prognosis. Palliative evaluation is still pending She remains full code She has been noted to be febrile since 06/06, which is persistent Leukocytosis is also worsened now 21,000, status post 2 units of blood transfusion hemoglobin stable at 9 urine Analysis done 06/07 unremarkable for infection Repeat blood cultures from peripheral IV and CVC are pending Since 06/08, we began titrating precedex, she is now on 0.1 from 0.7 on transfer She is much more awake this mrn, answering questions but refusing to open her eyes or swallow She follows commands non-consistently Thoracic surgery and gen surgery following CXR this a.m, shows new LLL opacity - Exam Vitals: Temp Pulse Resp BP Pulse Ox 101.0 F H 100 22 146/59 95 06/09/18 07:22 06/09/18 09:12 06/09/18 09:12 06/09/18 09:12 06/09/18 07:22 Exam: General: Sedated, groans to verbal stimuli HEENT: Head atraumatic, normocephalic, PERRL, absent ear discharge or trauma Neck: nontender to palpation, absent lymphadenopathy, right IJ CVC Chest: L chest tube, connected to suction, subcutaneous emphysema from the Left chest wall up to the neck Cardiovascular: Regular rate and rhythm with no murmur, absent gallops or rubs, absent pedal edema, radial pulses 2 out of 4 Lungs: Decreased breath sounds in the left lobe anteriorly. Left chest tube Abdomen: Soft. Midline and shows an intact, left ostomy intact, draining fecal matter, midline incision with dried discharge Skin: diffuse subcut bruising from heparin shots on the abdominal wall MSK: absent clubbing, cyanosis, joints without swelling,Left ahand swelling ++, bilateral piting pedal edema Neuro: Awake groaning, does not open eyes, but answers questions - Assessment and Plan (1) Fever Current Visit: Yes Status: Acute Assessment and Plan: Patient with new fevers started MAXIMUM TEMPERATURE 101.2 during blood transfusion 06/07 Remains febrile Urine analysis is unremarkable Send blood cultures from peripheral vein and central venous catheter 06/08, pending, no growth Send wound culture from abdomen incision, pending Continue Vancomycin-Day 2 Continue fluconazole (day 7) Continue Zosyn (day 7) Add levaquin (day 1)for double psuedomonas coverage due to prior intubation with new LLL opacities Follow cultures (2) RONY (acute kidney injury) Current Visit: Yes Status: Resolved Assessment and Plan: Resolved Creatinine improved - 0.54, continue to monitor (3) Anemia Current Visit: Yes Status: Chronic Assessment and Plan: stable s/p 4 units RBCS ON 06/07, Hb at 7.7 with worsening leukocytosis and low blood pressure No evident source of bleeding at this time HB 06/08 9.9, labs for today pending Continue to monitor (4) Delirium Current Visit: Yes Status: Acute Assessment and Plan: Continue 1 mg haldol every 2 hours as needed for agitation Continue 0.5 mg ativan IV every 8 hours for agitation-patient takes xanax at home Wean off Precedex with goal to completely discontinue today Continue other parenteral antipsychotics (5) Diabetes Current Visit: Yes Status: Chronic Assessment and Plan: Continue clear diet, as toleraled On TPN, goal of 75 ml/hr Continue high dose sliding scale Q4hr FS Q4, currently controlled Continue to monitor (6) DVT prophylaxis Current Visit: Yes Status: Acute Assessment and Plan: Subcutaneous heparin SCDs (7) Electrolyte abnormality Current Visit: Yes Status: Resolved Assessment and Plan: resolved with replacements (8) Metabolic acidosis with respiratory acidosis Current Visit: Yes Status: Resolved Assessment and Plan: Patient extubated (06/04) and saturating well on room air Patient given bicarb (06/03) - pH 7.32 on 06/04 Lactate 6.6 > 3.4 > 2.7 (06/03) Will continue to monitor respiratory status (9) Pneumatosis intestinalis of large intestine Current Visit: Yes Status: Acute Assessment and Plan: Patient's postop day 8 for exploratory laparotomy with descending colectomy and ostomy Incisions with some discharge this a.m Wound culture ordered, pending Incisions look clean and dry [facility] following Patient on CLD, but she is refusing to eat Continue TPN with goal of 75 ml/hr, per dietary and surgery (10) Pneumothorax Current Visit: Yes Status: Acute Assessment and Plan: iatrogenic Patient developed a left-sided pneumothorax 06/02/2018 after attempted central venous catheter placement. Initially had chest tube, repeat CXR showed slight retraction of chest tube and increasing PTX with subcutaneous emphysema Chest tube removed, and pigtail catheter placed 06/04/18 in ICU Pigtail catheter placed on suction, repeat CXR showed decreasing PTX (06/05/18 AM), will monitor with repeat CXRs Patient still with subcut emphysema, CXR this a.m 06/08 noted Pulmonology is following Thoracic surgery is following (11) Septic shock Current Visit: Yes Status: Acute Assessment and Plan: Shock resolved, off pressors Secondary to pneumatosis intestinalis Patient is postop day 6 for descending colectomy White blood cell count trending downward initially, now elavated Continue fluconazole (day 7) and Zosyn (day 7) Discontinued Levophed (06/04) Hemodynamically stable - Time Spent with Patient Total time spent is greater than 50% in coordination of care (as documented) at patient's floor/unit and/or counseling patient: Plan of Care Discussed with: nurse Internal Medicine: Result - Labs CBC & Chem 7: 06/08/18 03:00 06/09/18 03:35 Labs: BMP 06/08/18 06/09/18 11:30 03:35 Sodium 137 Potassium 4.3 4.8 Chloride 109 H Carbon Dioxide 23 BUN 17 Creatinine 0.56 L Glucose 152 H Calcium 7.7 L - ABG Interpretation ABG results: ABG ABG pH 7.32 pH Units (7.32-7.45) 06/04/18 05:06 ABG pCO2 38 mmHg (35-45) 06/04/18 05:06 ABG pO2 86 mmHg (85-104) 06/04/18 05:06 ABG O2 Saturation 96 % (95-98) 06/04/18 05:06 PT/INR, D-dimer PT 11.2 Seconds (9.4-12.1) 06/01/18 12:51 - Impressions Impressions Chest X-Ray 06/08/18 00:01 IMPRESSION: Stable left chest tube with proximal port likely outside of the pleural cavity. Extensive left chest wall subcutaneous emphysema again demonstrated. Persistent small left apical pneumothorax. Overall stable exam. D/ / 06/08/2018 11:40:24 Rui Kuo MD / salvatore Interpreting Provider: Rui Kuo MD Chest X-Ray 06/09/18 08:37 IMPRESSION: Left-sided chest tube redemonstrated. This appears to have been repositioned as compared to prior exam with all side ports now projecting over the left lung, likely within the pleural space. Extensive subcutaneous emphysema to the chest, left worse than right, similar to prior exam. Suspect a persistent trace left apical pneumothorax. Stable left basilar opacity which may relate to atelectasis or infiltrate. D/ / 06/09/2018 09:34:29 Alfonso Cintron MD / anusha Interpreting Provider: Alfonso Cintron MD Consult Discharge Plan - Plan Referrals: Hong Garnett MD [Primary Care Provider] - (1) Fever Qualifiers: Fever type: unspecified Qualified Code(s): R50.9 - Fever, unspecified (3) Anemia Qualifiers: Anemia type: unspecified type Qualified Code(s): D64.9 - Anemia, unspecified (5) Diabetes Qualifiers: Diabetes mellitus type: type 2 Diabetes mellitus detention insulin use: without longwall foreman use Diabetes mellitus complication status: without complication Qualified Code(s): E11.9 - Type 2 diabetes mellitus without complications (10) Pneumothorax Qualifiers: Pneumothorax type: postprocedural Qualified Code(s): J95.811 - Postprocedural pneumothorax
[2018-06-09] MEDS ORDERED: Levofloxacin 750 MG/150 ML 750 MG/150 ML BAG IVPB ONE (09:53)
[2018-06-09 11:10] LABS: Basophils # 0.1 K/mcL (0.0-0.2); Basophils % 0.4 %; Eosinophils # 0.5 K/mcL (0.0-0.6); Hematocrit 27.9 % (35.3-44.9); Hemoglobin 9.3 g/dL (11.5-15.4); Immature Granulocytes % 5.3 % (0-4); Lymphocytes # 1.7 K/mcL (0.6-4.6); Lymphocytes % 7.3 %; Mean Corpuscular HGB Conc 33.3 g/dL (31.6-35.5); Mean Corpuscular Hemoglobin 30.2 pg (28.0-33.3); Mean Corpuscular Volume 90.6 fL (83.0-100.0); Mean Platelet Volume 11.2 fL (9.4-12.4); Monocytes # 2.2 K/mcL (0.0-1.3); Monocytes % 9.7 %; Neutrophils # 17.2 K/mcL (1.6-8.9); Nucleated Red Blood Cells 0.2 /100 WBC (0); Platelet Count 114 K/mcL (140-400); Red Blood Count 3.08 M/mcL (3.82-4.97); Red Cell Distribution Width 19.1 % (11.5-14.5); Segmented Neutrophils % 75.3 %
[2018-06-09 11:33] LABS: Platelet Estimate Normal (Normal)
[2018-06-09] MEDS: Dexmedetomidine HCl 400 MCG/100 ML MLS IVC SCH (11:50)
--- NOTE | 2018-06-09 15:34 | Palliative - Consult Note ---
Date of Encounter: 06/09/18 Time of Encounter: 15:25 - Assessment and Plan (1) Delirium Current Visit: Yes Status: Acute Assessment and plan: She has been maintained on Precedex - this has recently been discontinued. Has PRN Haloperidol. On Lorazepam 0.5 scheduled as well. If fails off precedex, consider Seroquel if able to take po or SL Olazepine. (2) Abdominal pain Current Visit: Yes Status: Acute Assessment and plan: Has Oxycodone 5-10 mg available for pain. Has utilized 5mg x1, and 10 mg x3 past 24 hours. Qualifiers: Abdominal location: unspecified location Qualified Code(s): R10.9 - Unspecified abdominal pain (3) Goals of care, counseling/discussion Current Visit: Yes Status: Acute Assessment and plan: Met with pt daughter, Naz [place] b[place]. States that her brother Armando is alternate. documents present on unit. Naz is very emotional during my visit, stating that she does not want to be in the position of making decisions for the patient. We discussed current clinical status, current mental status and goals of care. Naz states that pt was very alert and oriented prior to surgery, and made the decision herself to proceed, knowing the risks. Naz is hopeful that there will be improvement in mental status, but understands this may not happen. Discussed code status, including DNR-Arrest, and DNR-Comfort care. Naz would need to discuss with her brother, but does not want to make any change in her status at this time. She states she desires PEG placement to give her some more time for recovery, and would desire her to go to [facility] for rehab. We will continue to follow clinical status and provide support to family. Dr. Reyez to discuss PEG placement with daughter later today. (4) Pneumatosis intestinalis of large intestine Current Visit: Yes Status: Acute Assessment and plan: Post op day 8 for exploratory lap/colon resection/colostomy. Surgery continues to follow. (5) Severe protein-calorie malnutrition Current Visit: Yes Status: Acute Assessment and plan: Continues on TPN. Dr. Reyez to discuss PEG tube placement. Palliative-CN HPI - Data of Consult Consult date: 06/09/18 Requesting Physician: Andrés Archuleta MD Primary Care Provider: Hong Garnett MD - Consult Narrative History of present illness: Ms. Robison is a 88 year old female who presented to hospital after c/o abd pain and nausea at home, found down in bathroom by daughter. After evaluation, it was determined pt was suffering with pneumatosis intestinalis and surgery was performed for exploratory lap, colon resection and ostomy. Patient also had chest tube s/p pneumothorax from central line placement. She is now post op day 8. She was extubated successfully, however, Her surgical course has been complicated by delirium and she became agitated and violent in the ICU requiring sedation. Related to her mental status, she has not been taking po nutrition,and has not participated in therapy the last several days. Discussions have began for possible PEG tube placement. Upon my visit, pt is resting quietly, and daughter HUMBERTO Childs is at the bedside. Patient is moaning out frequently, and can tell me that she is having abdominal pain. Can answer yes/no questions. Palliative care was consulted for goals of care discussion. CC: Andrés Archuleta MD - Time Spent with Patient Time: Total time spent is greater than 50% in coordination of care (as documented) at patient's floor/unit and/or counseling patient: Greater than 35 minutes (60 min spent in care coordination and counseling) Past Med Surg Social Fam HX - Past Medical History Medical history: diabetes, hyperlipidemia, hypertension, osteoporosis, other Psychiatric history: anxiety, depression - Past Surgical History Surgical History: hip replacement, other Additional surgical history: knee surgery, multiple ortho fractures - Social History Smoking Status: Never smoker Smokeless Tobacco Status: No Alcohol use: none Drug use: none - Family History Mother Living Status: Hx Family Cardiac Disorders: Yes (OR) Medications and Allergies ALPRAZolam [Xanax 0.5 MG Tablet] 0.5 mg PO HS 08/20/17 [History] Alendronate Sodium 70 mg PO QWEEK 08/20/17 [History] Aspirin [Lo-Dose Aspirin EC] 81 mg PO DAILY 08/20/17 [History] Cholecalciferol (Vitamin D3) [Vitamin D3] 2,000 unit PO DAILY 08/20/17 [History] Citalopram Hydrobromide [Citalopram HBr] 10 mg PO HS 08/20/17 [History] Docusate [Colace] 100 mg PO BID 08/20/17 [History] Fluticasone/Salmeterol [Advair 100-50 Diskus] 1 puff IH BID 08/20/17 [History] Levothyroxine Sodium 25 mcg PO DAILY 08/20/17 [History] Lisinopril [Zestril] 10 mg PO DAILY 08/20/17 [History] Metformin HCl [Metformin HCl ER] 500 mg PO QPM 08/20/17 [History] Simvastatin [Zocor] 40 mg PO DAILY 08/20/17 [History] Verapamil ER (24 HR) [Calan SR] 240 mg PO DAILY 08/20/17 [History] Cyanocobalamin (Vitamin B-12) [B-12] 1,000 mcg PO DAILY #30 tablet.er 01/08/18 [Rx] Allergy/AdvReac Type Severity Reaction Status Date / Time cephalexin [From Keflex] AdvReac See Verified 09/16/17 10:53 Comments morphine AdvReac Itching Verified 09/16/17 10:53 ROS unobtainable: due to mental status Palliative Care-Exam - Constitutional Vitals: Temp Pulse Resp BP Pulse Ox 99.7 F H 107 18 132/62 96 06/09/18 12:07 06/09/18 12:07 06/09/18 12:07 06/09/18 12:07 06/09/18 12:07 General appearance: Present: mild distress - Head Head Exam: Present: normal inspection, normocephalic - Respiratory Respiratory exam: Present: decreased breath sounds Additional comments: Shallow inspiratory effort - Cardiovascular Cardiovascular exam: Present: +S1, +S2 - GI/Abdominal Exam additional comments: Midline incision with intact sue, ostomy with liquid stool. Dressing to RLQ old drain site with serosanguinous drainage - Catheter Type: Urethral (Hurley) Additional comments: Clear yellow urine - Extremities Exam Additional comments: Generalized edema to all extremities - Neurological Exam Neurological exam: Present: alert Additional comments: Can answer few "yes/no" questions, recognized daughter and can tell me her name. She did follow occasional simple commands, however, does become anxious and starts moaning/yelling out "No". - Skin Skin exam: Present: dry, pallor, warm Internal Medicine - CN: Reslt - Labs CBC & Chem 7: 06/09/18 10:40 06/09/18 03:35 Labs: Short CBC 06/09/18 Range/Units 10:40 WBC 22.9 H (4.3-11.1) K/mcL Hgb 9.3 L (11.5-15.4) g/dL Hct 27.9 L (35.3-44.9) % Plt Count 114 L (140-400) K/mcL Neutrophils # 17.2 H (1.6-8.9) K/mcL BMP 06/08/18 06/09/18 11:30 03:35 Sodium 137 Potassium 4.3 4.8 Chloride 109 H Carbon Dioxide 23 BUN 17 Creatinine 0.56 L Glucose 152 H Calcium 7.7 L - ABG Interpretation ABG results: ABG ABG pH 7.32 pH Units (7.32-7.45) 06/04/18 05:06 ABG pCO2 38 mmHg (35-45) 06/04/18 05:06 ABG pO2 86 mmHg (85-104) 06/04/18 05:06 ABG O2 Saturation 96 % (95-98) 06/04/18 05:06 PT/INR, D-dimer PT 11.2 Seconds (9.4-12.1) 06/01/18 12:51 - Impressions Impressions Chest X-Ray 06/08/18 00:01 IMPRESSION: Stable left chest tube with proximal port likely outside of the pleural cavity. Extensive left chest wall subcutaneous emphysema again demonstrated. Persistent small left apical pneumothorax. Overall stable exam. D/ / 06/08/2018 11:40:24 Rui Kuo MD / salvatore Interpreting Provider: Rui Kuo MD Chest X-Ray 06/09/18 08:37 IMPRESSION: Left-sided chest tube redemonstrated. This appears to have been repositioned as compared to prior exam with all side ports now projecting over the left lung, likely within the pleural space. Extensive subcutaneous emphysema to the chest, left worse than right, similar to prior exam. Suspect a persistent trace left apical pneumothorax. Stable left basilar opacity which may relate to atelectasis or infiltrate. D/ / 06/09/2018 09:34:29 Alfonso Cintron MD / anusha Interpreting Provider: Alfonso Cintron MD Consult Discharge Plan - Plan Referrals: Hong Garnett MD [Primary Care Provider] - Palliative Quality Palliative Quality: Screen for Code Status: Yes, Screen for Goals of Care: Yes, Screen for Pain: Yes, If Pain Regimen Started, Initiate Bowel Regimen: NA, Screen for Nausea/Vomitting: Yes Code Status: 06/01/18 15:02 CODE [Resuscitation Status: Active] [RES] Stat Comment: Resuscitation Status: Full Code
[2018-06-09] MEDS ORDERED: Clinimix E 5%-15% SOLUTION 2,000 ML with MVI, adult with vitamin K 10 ML, Calcium Glu... IVC SCH (17:00)
[2018-06-09] MEDS: Haloperidol Lactate 5 MG/ML VIAL IVP PRN (23:42)
[2018-06-10 03:48] LABS: Hematocrit 27.8 % (35.3-44.9); Hemoglobin 9.1 g/dL (11.5-15.4); Mean Corpuscular HGB Conc 32.7 g/dL (31.6-35.5); Mean Corpuscular Volume 91.7 fL (83.0-100.0); Nucleated Red Blood Cells 0.1 /100 WBC (0); Platelet Count 142 K/mcL (140-400); Red Blood Count 3.03 M/mcL (3.82-4.97); Red Cell Distribution Width 18.6 % (11.5-14.5)
[2018-06-10 03:49] LABS: VBG Ionized Calcium 1.12 mmol/L (1.15-1.35)
[2018-06-10 04:06] LABS: BUN/Creatinine Ratio 30 (6-26); Blood Urea Nitrogen 17 mg/dL (8-23); Calcium 7.4 mg/dL (8.6-10.3); Carbon Dioxide 23 mEq/L (23-29); Chloride 105 mEq/L (98-107); Glucose 148 mg/dL (70-105); Osmolality,Calculated 280 (280-300); Phosphorous 2.8 mg/dL (2.7-4.5); Potassium 4.4 mEq/L (3.5-5.1); Sodium 133 mEq/L (136-145); eGFR For Non-African Americans > 60 (> 60)
[2018-06-10 04:16] LABS: Anisocytosis 1+ (Not Present); Lymphocytes # 0.9 K/mcL (0.6-4.6); Monocytes # 1.4 K/mcL (0.0-1.3); Neutrophils # 21.2 K/mcL (1.6-8.9); Platelet Estimate Normal (Normal); Toxic Granulation Present (Not Present)
[2018-06-10] MEDS: *HR* LORazepam 2 MG/ML VIAL IVP SCH ×3 (04:50→21:04)
[2018-06-10] MEDS: Insulin LISPRO 300 UNITS/3 ML VIAL SQ SCH ×5 (04:50→21:07)
[2018-06-10] MEDS: *HR* Heparin 5,000 UNIT/ML VIAL SQ SCH ×3 (06:14→21:07)
[2018-06-10] MEDS: Potassium Phosphate 44 MEQ in 0.9 % Sodium Chloride 250 ML IVPB PRN (06:14)
[2018-06-10] MEDS: Levothyroxine Sodium 100 MCG VIAL IVP SCH (06:14)
[2018-06-10] MEDS: OXYCODONE Oral CONC 10 MG/0.5 ML ORAL.SYG SL PRN ×2 (08:13→14:36)
[2018-06-10] MEDS: Piperacillin/Tazobactam 3.375 GM in 0.9 % Sodium Chloride Mini Bag 100 ML IVPB SCH ×2 (08:14→16:51)
[2018-06-10] MEDS: Pantoprazole 40 MG VIAL IVP SCH (08:15)
[2018-06-10] MEDS ORDERED: Acetaminophen IV 1,000 MG/100 ML INFUS..BTL IVPB ONE (08:49)
[2018-06-10] MEDS ORDERED: Levofloxacin 750 MG/150 ML 750 MG/150 ML BAG IVPB SCH (09:00)
[2018-06-10] MEDS ORDERED: Fluconazole 100 MG/50 ML 100 MG/50 ML BAG IVPB SCH (09:00)
--- NOTE | 2018-06-10 09:25 | Cardiothoracic Progress Note ---
Date of Encounter: 06/10/18 Time of Encounter: 09:23 - Assessment and plan (1) Pneumothorax Current Visit: Yes Status: Acute Chest x-ray reveals a tiny, stable apical pneumothorax. No further treatment is needed. It will take several weeks for her subcutaneous emphysema and crepitus to resolve. I will sign off. Please call if needed. Qualifiers: Pneumothorax type: postprocedural Qualified Code(s): J95.811 - Postprocedural pneumothorax - Subjective Interval history: The patient has no complaints. Vital Signs, Last 4 Hours Temp Pulse Resp BP Pulse Ox 06/10/18 07:54 102.0 F H 119 18 113/58 92 Oxgyen Flow Rate Oxygen Flow Rate (LPM) 0 Weight 06/08/18 06/09/18 06/10/18 23:59 23:59 23:59 Weight 64.9 kg 63.7 kg Lungs are clear to percussion and auscultation. She has subcutaneous crepitus over her left chest wall. - Labs 06/10/18 03:20 06/10/18 03:20 Lab Results, Last 24 hours 06/09/18 06/09/18 06/10/18 10:40 10:40 03:20 WBC 22.9 H 23.6 H Hgb 9.3 L 9.1 L Hct 27.9 L 27.8 L Plt Count 114 L 142 Sodium Potassium Chloride Carbon Dioxide BUN Creatinine Glucose Calcium Magnesium 2.2 06/10/18 06/10/18 03:20 03:20 WBC Hgb Hct Plt Count Sodium 133 L Potassium 4.4 Chloride 105 Carbon Dioxide 23 BUN 17 Creatinine 0.57 L Glucose 148 H Calcium 7.4 L Magnesium 1.7 Consult Discharge Plan - Plan Referrals: Hong Garnett MD [Primary Care Provider] -
[2018-06-10] MEDS: Haloperidol Lactate 5 MG/ML VIAL IVP PRN ×3 (10:45→16:43)
--- NOTE | 2018-06-10 11:25 | Palliative Progress Note ---
Date of Encounter: 06/10/18 Time of Encounter: 10:00 - Assessment and plan (1) Delirium Current Visit: Yes Status: Acute Assessment and plan: Remains on low dose Precedex. When ok with hospitalist, could try and transition to SL Olanzepine, as she is not taking much po. Continues with PRN IV Haloperidol. Recieved x2 last 24hours. (2) Abdominal pain Current Visit: Yes Status: Acute Assessment and plan: Continue with Sl Oxycodone - has utilized x4 last 24 hours. Qualifiers: Abdominal location: unspecified location Qualified Code(s): R10.9 - Unspecified abdominal pain (3) Goals of care, counseling/discussion Current Visit: Yes Status: Acute Assessment and plan: Daughter not present at my first visit. Will attempt to see again when she comes in. (4) Pneumatosis intestinalis of large intestine Current Visit: Yes Status: Acute (5) Severe protein-calorie malnutrition Current Visit: Yes Status: Acute - Time Spent With Patient Total time spent is greater than 50% in coordination of care (as documented) at patient's floor/unit and/or counseling patient: - Subjective Interval history: Still with fevers, max 102 (axillary), increasing leukocytosis. Still with some agitation and on low dose Precedex. Daughter not at bedside. Will revisit later today and follow up with daughter or son. - Constitutional Vitals: Abnormal lab results WBC 23.6 K/mcL (4.3-11.1) H 06/10/18 03:20 RBC 3.03 M/mcL (3.82-4.97) L 06/10/18 03:20 Hgb 9.1 g/dL (11.5-15.4) L 06/10/18 03:20 Hct 27.8 % (35.3-44.9) L 06/10/18 03:20 RDW 18.6 % (11.5-14.5) H 06/10/18 03:20 MPV 13.0 fL (9.4-12.4) H 06/10/18 03:20 Immature Gran % 5.3 % (0-4) H 06/09/18 10:40 Metamyelocytes % 2.0 % (0) H 06/03/18 04:35 Neutrophils # 21.2 K/mcL (1.6-8.9) H 06/10/18 03:20 Monocytes # 1.4 K/mcL (0.0-1.3) H 06/10/18 03:20 Nucleated RBCs/100 WBC 0.1 /100 WBC (0) H 06/10/18 03:20 Reactive Lymphocytes Present (Not Present) A 06/08/18 03:00 Toxic Granulation Present (Not Present) A 06/10/18 03:20 Dohle Bodies Present (Not Present) A 06/06/18 03:45 Polychromasia 1+ (Not Present) A 06/08/18 03:00 Poikilocytosis 1+ (Not Present) A 06/07/18 04:00 Anisocytosis 1+ (Not Present) A 06/10/18 03:20 Microcytosis Present (Not Present) A 06/06/18 03:45 Macrocytosis Present (Not Present) A 06/06/18 03:45 Target Cells 1+ (Not Present) A 06/07/18 04:00 APTT 24.0 Seconds (26.0-36.0) L 06/01/18 12:51 ABG HCO3 20 mEq/L (21-27) L 06/04/18 05:06 ABG Base Excess -6 mEq/L (-2 to 3) L 06/04/18 05:06 Mixed VBG pH 7.17 pH Units (7.34-7.36) L 06/02/18 01:02 Mixed VBG pCO2 53 mmHg (44-46) H 06/02/18 01:02 Mixed VBG pO2 181 mmHg (35-45) H 06/02/18 01:02 Mixed VBG Oxyhemoglobin 93.3 % (60-80) H 06/02/18 01:02 Carboxyhemoglobin 5.2 % (0-5) H 06/01/18 12:51 Sodium 133 mEq/L (136-145) L 06/10/18 03:20 Creatinine 0.57 mg/dL (0.60-1.20) L 06/10/18 03:20 BUN/Creatinine Ratio 30 (6-26) H 06/10/18 03:20 Glucose 148 mg/dL (70-105) H 06/10/18 03:20 POC Glucose 157 mg/dL (70-99) H 06/10/18 04:09 Lactic Acid 2.7 mmol/L (0.5-2.2) H 06/03/18 09:30 Calcium 7.4 mg/dL (8.6-10.3) L 06/10/18 03:20 Venous Ioniz Calcium 1.12 mmol/L (1.15-1.35) L 06/10/18 03:45 Direct Bilirubin 0.3 mg/dL (0.0-0.2) H 06/01/18 12:51 Indirect Bilirubin 1.6 mg/dL (0.0-1.2) H 06/01/18 12:51 Ammonia 78 mcmol/L (16-53) H 06/01/18 12:51 Serum Total Protein 4.0 g/dL (6.4-8.9) L 06/07/18 04:00 Albumin 2.0 g/dL (3.5-5.7) L 06/07/18 04:00 Globulin 2.0 g/dL (2.4-3.5) L 06/07/18 04:00 Albumin/Globulin Ratio 1.0 (1.1-2.2) L 06/07/18 04:00 Prealbumin 11.1 mg/dL (17.0-34.0) L 06/03/18 04:35 Beta-Hydroxybutyric Acd 0.34 mmol/L (0.02-0.27) H 06/01/18 12:51 TSH 11.408 mcIU/mL (0.340-5.600) H 06/01/18 12:51 Urine Clarity Cloudy (Clear) A 06/07/18 11:35 Urine Protein 30 mg/dL (Neg-Trace) H 06/07/18 11:35 Urine Blood Large (Negative) H 06/07/18 11:35 Ur Leukocyte Esterase Trace (Negative) H 06/07/18 11:35 Urine Microscopic RBC 50-100 per hpf (0-3) H 06/07/18 11:35 Urine Microscopic WBC 15-30 per hpf (0-3) H 06/07/18 11:35 Ur Squamous Epith Cells Many per lpf (None-Few) H 06/07/18 11:35 Amorphous Sediment Many (Few) H 06/01/18 15:13 Granular Casts Few per lpf (None Seen) H 06/01/18 15:13 Urine Mucus Moderate (Few) H 06/01/18 15:13 Urine Yeast Moderate per hpf (None Seen) H 06/07/18 11:35 Ur Culture Indicated? NO. (NO) A 06/07/18 11:35 Salicylates < 2.5 mg/dL (15.0-30.0) L 06/01/18 12:51 Acetaminophen < 10 mcg/mL (10-20) L 06/01/18 12:51 U Benzodiazepines Scrn Positive ng/mL ([id number]) H 06/01/18 15:11 General appearance: Present: mild distress - Respiratory Additional comments: Breath sounds diminished, but shallow inspiratory effort - Cardiovascular Cardiovascular exam: Present: +S1, +S2, tachycardia - GI/Abdominal Additional comments: Ostomy with liquid stool. [place] intact, incision without erythema. - Extremities Exam Additional comments: Edema to left hand/arm. Slight edema to bilateral lower extremities - Neurological Exam Additional comments: Alert and oriented to name only. Does not follow commands. Becomes anxious and agitated with much stimulation. Answers "yes/no" questions - Skin Skin exam: Present: dry, pallor, warm Palliative Quality Palliative Quality: Screen for Code Status: Yes, Screen for Goals of Care: Yes, Screen for Pain: Yes, If Pain Regimen Started, Initiate Bowel Regimen: NA, Screen for Nausea/Vomitting: Yes Code Status: 06/01/18 15:02 CODE [Resuscitation Status: Active] [RES] Stat Comment: Resuscitation Status: Full Code - Labs CBC & Chem 7: 06/10/18 03:20 06/10/18 03:20 Labs: Laboratory Results - last 24 hr 06/09/18 06/09/18 06/09/18 08:24 10:40 10:40 WBC 22.9 H RBC 3.08 L Hgb 9.3 L Hct 27.9 L MCV 90.6 MCH 30.2 MCHC 33.3 RDW 19.1 H Plt Count 114 L MPV 11.2 Immature Gran % 5.3 H Seg Neutrophils % 75.3 Band Neutrophils % Lymphocytes % 7.3 Monocytes % 9.7 Eosinophils % 2.0 Basophils % 0.4 Neutrophils # 17.2 H Lymphocytes # 1.7 Monocytes # 2.2 H Eosinophils # 0.5 Basophils # 0.1 Nucleated RBCs/100 WBC 0.2 H Toxic Granulation Platelet Estimate Normal Anisocytosis Sodium Potassium Chloride Carbon Dioxide BUN Creatinine Est GFR ( Amer) Est GFR (Non-Af Amer) BUN/Creatinine Ratio Glucose POC Glucose 158 H Calculated Osmolality Calcium Venous Ioniz Calcium Phosphorus Magnesium 2.2 06/09/18 06/09/18 06/09/18 12:10 16:51 20:07 WBC RBC Hgb Hct MCV MCH MCHC RDW Plt Count MPV Immature Gran % Seg Neutrophils % Band Neutrophils % Lymphocytes % Monocytes % Eosinophils % Basophils % Neutrophils # Lymphocytes # Monocytes # Eosinophils # Basophils # Nucleated RBCs/100 WBC Toxic Granulation Platelet Estimate Anisocytosis Sodium Potassium Chloride Carbon Dioxide BUN Creatinine Est GFR ( Amer) Est GFR (Non-Af Amer) BUN/Creatinine Ratio Glucose POC Glucose 179 H 126 H 169 H Calculated Osmolality Calcium Venous Ioniz Calcium Phosphorus Magnesium 06/09/18 06/10/18 06/10/18 23:38 03:20 03:20 WBC 23.6 H RBC 3.03 L Hgb 9.1 L Hct 27.8 L MCV 91.7 MCH 30.0 MCHC 32.7 RDW 18.6 H Plt Count 142 MPV 13.0 H Immature Gran % Seg Neutrophils % 88.0 Band Neutrophils % 2.0 Lymphocytes % 4.0 Monocytes % 6.0 Eosinophils % Basophils % Neutrophils # 21.2 H Lymphocytes # 0.9 Monocytes # 1.4 H Eosinophils # Basophils # Nucleated RBCs/100 WBC 0.1 H Toxic Granulation Present A Platelet Estimate Normal Anisocytosis 1+ A Sodium 133 L Potassium 4.4 Chloride 105 Carbon Dioxide 23 BUN 17 Creatinine 0.57 L Est GFR ( Amer) > 60 Est GFR (Non-Af Amer) > 60 BUN/Creatinine Ratio 30 H Glucose 148 H POC Glucose 147 H Calculated Osmolality 280 Calcium 7.4 L Venous Ioniz Calcium Phosphorus 2.8 Magnesium 06/10/18 06/10/18 06/10/18 03:20 03:45 04:09 WBC RBC Hgb Hct MCV MCH MCHC RDW Plt Count MPV Immature Gran % Seg Neutrophils % Band Neutrophils % Lymphocytes % Monocytes % Eosinophils % Basophils % Neutrophils # Lymphocytes # Monocytes # Eosinophils # Basophils # Nucleated RBCs/100 WBC Toxic Granulation Platelet Estimate Anisocytosis Sodium Potassium Chloride Carbon Dioxide BUN Creatinine Est GFR ( Amer) Est GFR (Non-Af Amer) BUN/Creatinine Ratio Glucose POC Glucose 157 H Calculated Osmolality Calcium Venous Ioniz Calcium 1.12 L Phosphorus Magnesium 1.7 - Impressions Impressions Chest X-Ray 06/09/18 08:37 IMPRESSION: Left-sided chest tube redemonstrated. This appears to have been repositioned as compared to prior exam with all side ports now projecting over the left lung, likely within the pleural space. Extensive subcutaneous emphysema to the chest, left worse than right, similar to prior exam. Suspect a persistent trace left apical pneumothorax. Stable left basilar opacity which may relate to atelectasis or infiltrate. D/ / 06/09/2018 09:34:29 Alfonso Cintron MD / anusha Interpreting Provider: Alfonso Cintron MD Chest X-Ray 06/10/18 00:01 IMPRESSION: Removal of left chest tube. Extensive chest wall subcutaneous emphysema tracking into the neck. Stable trace left apical pneumothorax. D/ / Rui Kuo MD / Rui Kuo MD Interpreting Provider: Riu Kuo MD - ABG Interpretation ABG results: ABG ABG pH 7.32 pH Units (7.32-7.45) 06/04/18 05:06 ABG pCO2 38 mmHg (35-45) 06/04/18 05:06 ABG pO2 86 mmHg (85-104) 06/04/18 05:06 ABG O2 Saturation 96 % (95-98) 06/04/18 05:06 PT/INR, D-dimer PT 11.2 Seconds (9.4-12.1) 06/01/18 12:51 Consult Discharge Plan - Plan Referrals: Hong Garnett MD [Primary Care Provider] - (patient is going to [facility] no PCP appointment needed)
--- NOTE | 2018-06-10 13:28 | Internal Med Progress Note ---
Hospitalist Progress Note - Encounter Date of Encounter: 06/10/18 Time of Encounter: 09:45 - Subjective Interval History: Patient moaning in discomfort. Complains of generalized body pain and unable to focus her complaint to one part of her body. Oriented to herself but otherwise difficult to obtain any meaningful history. Discussed at length with pt's POA at bedside who stated that she does not seem to have much improvement since last Saturday. Continues to spike temp and require low dose of Precedex drip. - Exam Vitals: Temp Pulse Resp BP Pulse Ox 100.4 F H 98 18 102/41 92 06/10/18 11:00 06/10/18 12:00 06/10/18 12:00 06/10/18 12:00 06/10/18 07:54 Exam: General: Sedated, groans to verbal stimuli Neck: right IJ CVC site appears clean. No erythema. Chest: subcutaneous emphysema from the Left chest wall up to the neck Cardiovascular: regular rate and rhythm with no murmur Lungs: Decreased breath sounds in the left lobe anteriorly. Abdomen: Soft but inconsistent tenderness along RLQ and LLQ. Midline incision appears well-healed. left ostomy intact, draining fecal matter Neuro: Awake groaning, does not open eyes, but answers questions intermittently - Assessment and Plan (1) Fever Current Visit: Yes Status: Acute Assessment and Plan: Patient with new fever started , in conjunction to upward trending WBC continues to be delirious as well, requiring intermittent precedex patient has been on 5-6 days of zosyn, levaquin, and fluconazole Urine analysis unremarkable on 06/07 blood cultures 06/08 pending, no growth to date wound culture from abdomen incision -ve ?unresolved infection will consult ID, may require repeat CT scan to evaluate for possible abscess (2) Septic shock Current Visit: Yes Status: Acute Assessment and Plan: Shock resolved, remained off pressors since 06/04 but continues to be febrile with increasing WBC as above abx as above, ID consult (3) Delirium Current Visit: Yes Status: Acute Assessment and Plan: Continue 1 mg haldol every 2 hours as needed for agitation Continue 0.5 mg ativan IV every 8 hours for agitation-patient takes xanax at home Wean off Precedex if possible appreciate palliative input, will consider a trial of SL olanzepine if she requires precedex for a prolonged number of hrs/day (4) Pneumatosis intestinalis of large intestine Current Visit: Yes Status: Acute Assessment and Plan: POD8 for exploratory laparotomy with descending/sigmoid colectomy, end colostomy, and Mejias's pouch abx as above Surgery following Continue TPN with goal of 75 ml/hr, per dietary and surgery (5) Pneumothorax Current Visit: Yes Status: Resolved Assessment and Plan: iatrogenic, complicated by subcutaneous emphysema requiring chest tube that was removed yesterday Monitor (6) Diabetes Current Visit: Yes Status: Chronic Assessment and Plan: Continue clear diet, as tolerated On TPN, goal of 75 ml/hr Continue high dose sliding scale Q4hr FS Q4, currently controlled Continue to monitor (7) RONY (acute kidney injury) Current Visit: Yes Status: Resolved Assessment and Plan: Resolved, Cr stable around 0.55 (8) Anemia Current Visit: Yes Status: Chronic Assessment and Plan: stable s/p 4 units RBCS, Hb 9.1 today No evident source of bleeding at this time Continue to monitor (9) DVT prophylaxis Current Visit: Yes Status: Acute Assessment and Plan: Subcutaneous heparin - Time Spent with Patient Total time spent is greater than 50% in coordination of care (as documented) at patient's floor/unit and/or counseling patient: Greater than 35 minutes Plan of Care Discussed with: family Internal Medicine: Result - Labs CBC & Chem 7: 06/10/18 03:20 06/10/18 03:20 Labs: Short CBC 06/10/18 Range/Units 03:20 WBC 23.6 H (4.3-11.1) K/mcL Hgb 9.1 L (11.5-15.4) g/dL Hct 27.8 L (35.3-44.9) % Plt Count 142 (140-400) K/mcL Neutrophils # 21.2 H (1.6-8.9) K/mcL BMP 06/10/18 03:20 Sodium 133 L Potassium 4.4 Chloride 105 Carbon Dioxide 23 BUN 17 Creatinine 0.57 L Glucose 148 H Calcium 7.4 L - ABG Interpretation ABG results: ABG ABG pH 7.32 pH Units (7.32-7.45) 06/04/18 05:06 ABG pCO2 38 mmHg (35-45) 06/04/18 05:06 ABG pO2 86 mmHg (85-104) 06/04/18 05:06 ABG O2 Saturation 96 % (95-98) 06/04/18 05:06 PT/INR, D-dimer PT 11.2 Seconds (9.4-12.1) 06/01/18 12:51 - Impressions Impressions Chest X-Ray 06/10/18 00:01 IMPRESSION: Removal of left chest tube. Extensive chest wall subcutaneous emphysema tracking into the neck. Stable trace left apical pneumothorax. D/ / Rui Kuo MD / Rui Kuo MD Interpreting Provider: Rui Kuo MD Consult Discharge Plan - Plan Referrals: Hong Garnett MD [Primary Care Provider] - (patient is going to [facility] no PCP appointment needed) (1) Fever Qualifiers: Fever type: unspecified Qualified Code(s): R50.9 - Fever, unspecified (5) Pneumothorax Qualifiers: Pneumothorax type: postprocedural Qualified Code(s): J95.811 - Postprocedural pneumothorax (6) Diabetes Qualifiers: Diabetes mellitus type: type 2 Diabetes mellitus terminal block assembler insulin use: without terminal block assembler use Diabetes mellitus complication status: without complication Qualified Code(s): E11.9 - Type 2 diabetes mellitus without complications (8) Anemia Qualifiers: Anemia type: unspecified type Qualified Code(s): D64.9 - Anemia, unspecified
--- NOTE | 2018-06-10 13:50 | Infectious Disease Consult ---
Date of Encounter: 06/10/18 Time of Encounter: 13:43 Assessment and Plan (1) Sepsis Status: Acute Assessment and plan: Patient has multiple SIRS criteria including fever, tachycardia, leukocytosis. Likely secondary to an intra-abdominal versus pulmonary source At this point I am not sure what is going on, patient is having aspiration with feeding. Denies any sinus pressure, sore throat or toothache or ear ache. Concern for aspiration pneumonia/pneumonitis Concern for an Abdominal process post surgery for pneumatosis coli. I will get baseline labs including CBC, BMP, blood cultures, inflammatory markers including ESR CRP and if imaging is abnormal I will check respiratory infectious panel and strep pneumo and Legionella antigen Patient is already on Zosyn and levofloxacin and Diflucan 100 mg daily. I do not think we need double gram-negative coverage so I will DC the levofloxacin, continue the Zosyn for gram-negative and anaerobic and add van comycin for possible MRSA or Enterococcus faecalis that is ampicillin resistant. Diflucan 100 mg I think is a low dose so I would have liked to increase it but it will have drug drug interaction with the Celexa and the Haldol and oxycodone. DC Diflucan altogether and start the patient on micafungin Duration of treatment depends on the clinical picture but at least 2 weeks I have low index of suspicion for CLABSI Monitor labs and for drug toxicity Goal vancomycin trough 10-15 Qualifiers: Sepsis type: sepsis due to unspecified organism Qualified Code(s): A41.9 - Sepsis, unspecified organism (2) Encephalopathy Status: Acute Assessment and plan: Likely secondary to metabolic encephalopathy. No meningeal signs. (3) Pneumatosis coli Status: Acute Assessment and plan: Secondary to ischemic colitis Status post exploratory laparotomy with descending and sigmoid colon resection, takedown splenic flexure, and colostomy and Mejias's pouch followed by attempted placement of triple lumen catheter, placement of left sided chest tube on 06/02/[address] Gallego. (4) Aspiration into airway Status: Acute Assessment and plan: Plan for PEG tube placement tomorrow Qualifiers: Encounter type: initial encounter Qualified Code(s): T17.908A - Unspecified foreign body in respiratory tract, part unspecified causing other injury, initial encounter (5) Delirium Status: Acute Assessment and plan: Likely secondary to metabolic encephalopathy (6) Pneumothorax Status: Resolved Assessment and plan: Appreciate Dr. Dowell's recommendation Qualifiers: Pneumothorax type: postprocedural Qualified Code(s): J95.811 - Postprocedural pneumothorax (7) Low back pain Status: Acute Assessment and plan: Chronic. If no other source of infection identified, we will consider doing a CT of the thoracic and lumbar spine to rule out discitis/osteomyelitis or even an abscess Qualifiers: Chronicity: chronic Back pain laterality: unspecified Sciatica presence: unspecified whether sciatica present Qualified Code(s): M54.5 - Low back pain; G89.29 - Other chronic pain; G89.29 - Other chronic pain (8) Drug allergy, antibiotic Status: Acute Assessment and plan: Keflex - reaction unknown. Infectious Disease HPI - Data of Consult Patient: new to practice Consult date: 06/10/18 Requesting Physician: Boris Iyer MD Primary Care Provider: Hong Garnett MD - Consult Narrative Reason for consult: persistent fever History of present illness: Ms. Robison is a 88 year old female Patient is an 88-year-old woman who presented to [facility] on 06/01/2018 for abdominal pain. We are consulted on 06/10/2018 for persistent fever and rising leukocytosis, recent colectomy for pneumatosis coli Patient is an 88-year-old woman with past medical history mentioned below including diabetes mellitus type 2, hyperlipidemia, hypertension, osteoporosis apparently presented to [facility] on 06/01/2018 with acute onset abdominal pain for about 1 day prior to admission. Apparently patient has been having difficulty with bowel movements for about 2 weeks prior to admission. She was constipated and had not had a bowel movement for 4 days prior to admission. On admission, patient was septic with hypothermia and hyperthermia with a MAXIMUM TEMPERATURE of 101.6, tachypnea and tachycardia. 31.1 with 86% neutrophils. Patient also had lactic acidosis at 6.6. A urinalysis was contaminated and there was no indication for culture. And were no growth. CT abdomen and pelvis revealed mural thickening and pneumatosis seen within distal descending colon and proximal sigmoid colon. Bowel ischemia should be considered in the appropriate clinical setting. During hospital stay, patient was taken to surgery on 06/02/[address] Gallego where she underwent exposure laparotomy with descending and sigmoid colon resection, takedown splenic flexure, and colostomy and Hartmans pouch followed by attempted placement of triple-lumen catheter, placement of left-sided chest tube. Patient continues to be febrile with MAXIMUM TEMPERATURE of 102.2, WBC naomie was called 0.8 on 06/06/2018 and has been creeping up gently and todays 23.6 with 88% neutrophils., And a wound culture obtained on 06/08/2018 and are no growth to date. A urinalysis was also obtained which appears to have been contaminated but had some pyuria. Currently patient sitting up in bed. Eyes closed but answers some questions. Alert and oriented 3 although he does not she does not remember who the president is and her age she made a mistake with. Daughter is at bedside. Review of system is significant for back pain. Shortness of breath and cough. And significant abdominal pain on palpation especially in the right lower quadrant. Physical exam was remarkable for oral thrush and poor dental hygiene. She had some rhonchi at the bases of the lungs. Abdomen surgical wound appears intact. Ileostomy intact. Tenderness but no rebound. And significant lower extremity edema. Fully intact and urine does not appear cloudy or murky. CC: Boris Iyer MD Past Med Surg Social Fam HX - Past Medical History Medical history: diabetes, hyperlipidemia, hypertension, osteoporosis, other Psychiatric history: anxiety, depression - Past Surgical History Surgical History: hip replacement, other Additional surgical history: knee surgery, multiple ortho fractures - Social History Smoking Status: Never smoker Smokeless Tobacco Status: No Alcohol use: none Drug use: none - Family History Mother Living Status: Hx Family Cardiac Disorders: Yes (OR) Infectious Disease-CN:Meds RX: ALPRAZolam [Xanax 0.5 MG Tablet] 0.5 mg PO HS 08/20/17 [History] RX: Alendronate Sodium 70 mg PO QWEEK 08/20/17 [History] RX: Aspirin [Lo-Dose Aspirin EC] 81 mg PO DAILY 08/20/17 [History] RX: Cholecalciferol (Vitamin D3) [Vitamin D3] 2,000 unit PO DAILY 08/20/17 [History] RX: Citalopram Hydrobromide [Citalopram HBr] 10 mg PO HS 08/20/17 [History] RX: Docusate [Colace] 100 mg PO BID 08/20/17 [History] RX: Fluticasone/Salmeterol [Advair 100-50 Diskus] 1 puff IH BID 08/20/17 [History] RX: Levothyroxine Sodium 25 mcg PO DAILY 08/20/17 [History] RX: Lisinopril [Zestril] 10 mg PO DAILY 08/20/17 [History] RX: Metformin HCl [Metformin HCl ER] 500 mg PO QPM 08/20/17 [History] RX: Simvastatin [Zocor] 40 mg PO DAILY 08/20/17 [History] RX: Verapamil ER (24 HR) [Calan SR] 240 mg PO DAILY 08/20/17 [History] RX: Cyanocobalamin (Vitamin B-12) [B-12] 1,000 mcg PO DAILY #30 tablet.er 01/08/18 [Rx] Allergy/AdvReac Type Severity Reaction Status Date / Time cephalexin [From Keflex] AdvReac See Verified 09/16/17 10:53 Comments morphine AdvReac Itching Verified 09/16/17 10:53 Review of systems: 10 point review of systems done, negative other for what mentioned in the history of present illness Exam - Constitutional Vitals: Temp Pulse Resp BP Pulse Ox 100.4 F H 98 18 102/41 92 06/10/18 11:00 06/10/18 12:00 06/10/18 12:00 06/10/18 12:00 06/10/18 07:54 General appearance: febrile, cooperative, disheveled, mild distress - Head Head exam: Present: atraumatic, normocephalic - Eye Eye exam: Present: EOMI, PERRL, sclera anicteric - ENT Additional comments: Mucous membranes dry. Positive oral thrush. Poor dentition. - Neck Neck exam: Present: full ROM. Absent: meningismus Additional comments: IgA central line right back intact with no surrounding erythema or signs of infection. - Respiratory Additional comments: Chest expanding symmetrically. Air sounds audible both lung chatterjee. Some wheezing and rhonchi at the bases. Chest with previous central line in the left upper chest intact there is some bruising but no signs of cellulitis. - Cardiovascular Cardiovascular exam: Present: RRR, +S1, +S2 - GI/Abdominal GI/Abdominal exam: Present: hypoactive bowel sounds, soft, tenderness Additional comments: Specially right lower and upper quadrant. Surgical wound intact with no e rythema or drainage. Ileostomy left abdomen lower quadrant appears intact. - Extremities Exam Extremities exam: Present: full ROM, normal inspection, pedal edema - Back Exam Back exam: Absent: CVA tenderness (L), CVA tenderness (R) - Neurological Exam Neurological exam: Present: alert, oriented X3 - Psychiatric Psychiatric exam: Present: agitated, anxious - Skin Skin exam: Present: normal color. Absent: rash Infectious Disease CN: Results - Labs CBC & Chem 7: 06/10/18 03:20 06/10/18 03:20 Cultures: Cultures 06/08/18 15:20 Wound Culture - Final Abdomen No growth. 06/08/18 09:18 Blood Culture - Preliminary Peripheral Venipuncture Culture is incubating and being continuously monitored for growth. Final report to follow. 06/08/18 09:18 Blood Culture - Preliminary Peripheral Venipuncture Culture is incubating and being continuously monitored for growth. Final report to follow. 06/02/18 20:10 Blood Culture - Final Peripheral Venipuncture No growth. Final report. 06/02/18 20:23 Blood Culture - Final Peripheral Venipuncture No growth. Final report. 06/01/18 15:04 Blood Culture - Final Peripheral Venipuncture No growth. Final report. 06/01/18 12:54 Blood Culture - Final Peripheral Venipuncture No growth. Final report. Serology: Serology 06/07/18 06/01/18 Range/Units 11:35 15:13 Urine Color Yellow Yellow (Yellow) Urine Clarity Cloudy A Hazy A (Clear) Urine pH 5.5 6.0 (5.0-8.0) pH Units Ur Specific [place] 1.024 > 1.030 H (1.010-1.025) Urine Protein 30 H 100 H (Neg-Trace) mg/dL Urine Glucose (UA) Normal Normal (Normal) mg/dL Urine Ketones Negative Negative (Negative) mg/dL Urine Blood Large H Moderate H (Negative) Urine Nitrite Negative Negative (Negative) Urine Bilirubin Negative Negative (Negative) Urine Urobilinogen Normal Normal (Normal) mg/dL Ur Leukocyte Esterase Trace H Negative (Negative) Urine Microscopic RBC 50-100 H 30-50 H (0-3) per hpf Urine Microscopic WBC 15-30 H 5-15 H (0-3) per hpf Ur Squamous Epith Cells Many H Many H (None-Few) per lpf Ur Transition Epith Cell Few (None-Few) per hpf Ur Renal Epithelial Cell Few (None-Few) per hpf Amorphous Sediment Many H (Few) Urine Bacteria None Seen None Seen (None-Few) per hpf Hyaline Casts Few (None-Few) per lpf Granular Casts Few H (None Seen) per lpf Urine Mucus Moderate H (Few) Urine Yeast Moderate H (None Seen) per hpf Ur Culture Indicated? NO. A NO (NO) Consult Discharge Plan - Plan Referrals: Hong Garnett MD [Primary Care Provider] - (patient is going to [facility] no PCP appointment needed)
--- NOTE | 2018-06-10 13:55 | General Surgery Progress Note ---
Date of Encounter: 06/10/18 Time of Encounter: 12:30 - Assessment and Plan (1) Pneumatosis intestinalis of large intestine Current Visit: Yes Status: Acute POD #9 Exploratory laparotomy with descending and sigmoid colon resection, takedown splenic flexure, end colostomy and Mejias's pouch followed by attempted placement of triple-lumen catheter, placement of left sided chest tube with Dr. Reyez Pathology- Consistent with ischemic colitis. NPO due to continued confusion, risk of aspiration Recommend peg tube placement in order to start enteral nutrition- Dr. Reyez to place in the next 24 hours Continue TPN for nutritional support IV antibiotics- Zosyn Continue Diflucan Supportive care and pain control PPI therapy daily IS every 1 hour while awake when extubated PT/OT for mobilization Repeat am labs- CBC (2) Pneumothorax Current Visit: Yes Status: Acute CT surgery consulted per pulmonary/critical care team Chest tube removed per Dr. Dowell 06/09/18 CT surgery signed off Qualifiers: Qualified Code(s): J95.811 - Postprocedural pneumothorax (3) Delirium Current Visit: Yes Status: Acute Management per medical team Improved today Off of precedex at this time (4) Severe protein-calorie malnutrition Current Visit: Yes Status: Acute Continue TPN Surgery recommends placement of peg tube for initiation of enteral feeds- Dr. Reyez to place feeding tube in the next 24 hours. (5) DVT prophylaxis Current Visit: Yes Status: Acute Heparin 5,000 units SQ every 8 hours for DVT prophylaxis EPCDs to bilateral lower extremities for DVT prophylaxis Subjective Patient reports: flatus, bowel movement (via colostomy), fever (Tmax 102; Tcurrent 100.4), other (Patient is lethargic with continued confusion today but pleasant and follows simple commands. Patient is verbalizing more appropriately today.) Objective Vital Signs - Last 8 Hours Temp Pulse Resp BP Pulse Ox 06/10/18 12:00 98 18 102/41 06/10/18 11:00 100.4 F H 112/50 06/10/18 10:00 91 106/46 06/10/18 08:00 123 20 153/66 06/10/18 07:54 102.0 F H 119 18 113/58 92 Intake and Output 06/09/18 06/10/18 06/10/18 23:59 07:59 15:59 Intake Total 400 / 400 100 / 100 564 / 564 Output Total 2150 / 2150 450 / 450 1550 / 1550 Balance -1750 / -1750 -350 / -350 -986 / -986 Intake: IV Fluids 400 / 400 100 / 100 564 / 564 PRECEDEX Premix 400 mcg In 100 60 / 60 ml @ 0.2 MCG/KG/HR 3.135 mls/hr IVC .Q24H [facility] Rx#:[id number] Ofirmev 1,000 mg/100 ml 500 mg 50 / 50 In 50 ml @ 200 mls/hr IVPB ONCE ONE Rx#:[id number] Intralipid 20% 250 ML @ 21 mls/ 250 / 250 hr IVPB DAILY@1700 [facility] Rx#: [id number] Diflucan 100 MG/50 ML 100 mg In 50 / 50 50 ml @ 50 mls/hr IVPB DAILY [facility] Rx#:[id number] Levaquin Premix 750mg/150 mL 150 / 150 750 mg In 150 ml @ 100 mls/hr IVPB ONCE ONE Rx#:[id number] Magnesium Sulfate 2 GM In 0.9 % 104 / 104 Sodium Chloride 100 ML @ 52 mls/hr IVPB Q6H PRN Rx#: [id number] Zosyn 3.375 GM In 0.9 % Sodium 200 / 200 100 / 100 100 / 100 Chloride (Mini-Bag +) 100 ML @ 25 mls/hr IVPB Q8HR [facility] Rx#: [id number] Output: Catheter 0 / 2150 450 / 450 1550 / 1550 Other: Meal NPO NPO Percent of Meal Consumed 0% 0% Weight 63.7 kg Blood Glucose* 147 153 156 Patient Weight 06/10/18 23:59 Weight 63.7 kg - General physical appearance no distress, other (Patient is resting in bed comfortably and is pleasantly confused.) - Eyes PERRL, normal ocular movement - ENT dry mucosa, atraumatic, normocephalic - Neck Neck exam: trachea midline - Respiratory normal respiratory effort, clear to auscultation, other (diminished bibasilar bases) - Cardiovascular Cardiovascular exam: Present: RRR - Abdomen Abdomen: Present: bowel sounds present, soft, wound (Colostomy is pink and moist with soft brown stool and flatus noted.) - Incision Incision: Present: clean and dry, intact - Neurologic CN 2-12 grossly intact - Musculoskeletal other (physical deconditioning noted) - Psychiatric oriented to person - Labs 06/10/18 03:20 06/10/18 03:20 Diabetes panel 06/10/18 Range/Units 03:20 Sodium 133 L (136-145) mEq/L Potassium 4.4 (3.5-5.1) mEq/L Chloride 105 (98-107) mEq/L Carbon Dioxide 23 (23-29) mEq/L BUN 17 (8-23) mg/dL Creatinine 0.57 L (0.60-1.20) mg/dL Glucose 148 H (70-105) mg/dL Calcium 7.4 L (8.6-10.3) mg/dL Calcium panel 06/10/18 06/10/18 Range/Units 03:20 12:35 Calcium 7.4 L (8.6-10.3) mg/dL Phosphorus 2.8 3.9 (2.7-4.5) mg/dL Pituitary panel 06/10/18 Range/Units 03:20 Sodium 133 L (136-145) mEq/L Potassium 4.4 (3.5-5.1) mEq/L Chloride 105 (98-107) mEq/L Carbon Dioxide 23 (23-29) mEq/L BUN 17 (8-23) mg/dL Creatinine 0.57 L (0.60-1.20) mg/dL Glucose 148 H (70-105) mg/dL Calcium 7.4 L (8.6-10.3) mg/dL Adrenal panel 06/10/18 Range/Units 03:20 Sodium 133 L (136-145) mEq/L Potassium 4.4 (3.5-5.1) mEq/L Chloride 105 (98-107) mEq/L Carbon Dioxide 23 (23-29) mEq/L BUN 17 (8-23) mg/dL Creatinine 0.57 L (0.60-1.20) mg/dL Glucose 148 H (70-105) mg/dL Calcium 7.4 L (8.6-10.3) mg/dL Consult Discharge Plan - Plan Referrals: Hong Garnett MD [Primary Care Provider] - (patient is going to [facility] no PCP appointment needed) - Attending Attestation For this encounter, I have reviewed the [employer] or PA documentation, treatment plan, and medical decision making; and I have had face to face time with this patient.
[2018-06-10] MEDS ORDERED: Isovue-370 500 ML INFUS..BTL IV ONE (16:34)
[2018-06-10] MEDS ORDERED: Clinimix E 5%-15% SOLUTION 2,000 ML with MVI, adult with vitamin K 10 ML, Calcium Glu... IVC SCH (17:00)
[2018-06-10] MEDS: Micafungin 100 MG in 0.9 % Sodium Chloride Mini Bag 100 ML IVPB SCH (17:22)
[2018-06-10] MEDS: Nystatin SUSP 5 ML UD.LIQ PO SCH ×2 (17:23→21:07)
[2018-06-11] MEDS: Piperacillin/Tazobactam 3.375 GM in 0.9 % Sodium Chloride Mini Bag 100 ML IVPB SCH ×3 (01:30→18:50)
[2018-06-11] MEDS: Insulin LISPRO 300 UNITS/3 ML VIAL SQ SCH ×6 (01:30→20:06)
[2018-06-11] MEDS: *HR* LORazepam 2 MG/ML VIAL IVP SCH ×3 (03:55→20:01)
[2018-06-11] MEDS: OXYCODONE Oral CONC 10 MG/0.5 ML ORAL.SYG SL PRN ×3 (04:07→20:00)
[2018-06-11] MEDS: *HR* Heparin 5,000 UNIT/ML VIAL SQ SCH ×3 (04:07→21:39)
[2018-06-11] MEDS: Dexmedetomidine HCl 400 MCG/100 ML MLS IVC SCH (04:36)
[2018-06-11 04:50] LABS: Basophils # 0.1 K/mcL (0.0-0.2); Basophils % 0.5 %; Eosinophils # 0.4 K/mcL (0.0-0.6); Eosinophils % 1.8 %; Hematocrit 28.4 % (35.3-44.9); Hemoglobin 9.1 g/dL (11.5-15.4); Immature Granulocytes % 4.1 % (0-4); Lymphocytes # 1.5 K/mcL (0.6-4.6); Lymphocytes % 7.6 %; Mean Corpuscular Hemoglobin 29.9 pg (28.0-33.3); Mean Corpuscular Volume 93.4 fL (83.0-100.0); Mean Platelet Volume 11.8 fL (9.4-12.4); Monocytes # 2.4 K/mcL (0.0-1.3); Monocytes % 12.1 %; Neutrophils # 14.4 K/mcL (1.6-8.9); Nucleated Red Blood Cells 0.1 /100 WBC (0); Platelet Count 148 K/mcL (140-400); Red Blood Count 3.04 M/mcL (3.82-4.97); Red Cell Distribution Width 18.2 % (11.5-14.5); Segmented Neutrophils % 73.9 %
[2018-06-11 05:11] LABS: BUN/Creatinine Ratio 29 (6-26); Blood Urea Nitrogen 16 mg/dL (8-23); Calcium 7.5 mg/dL (8.6-10.3); Carbon Dioxide 23 mEq/L (23-29); Chloride 106 mEq/L (98-107); Glucose 176 mg/dL (70-105); Magnesium 1.8 mg/dL (1.6-2.6); Osmolality,Calculated 283 (280-300); Phosphorous 2.2 mg/dL (2.7-4.5); Potassium 4.3 mEq/L (3.5-5.1); Sodium 134 mEq/L (136-145); eGFR For Non-African Americans > 60 (> 60)
[2018-06-11] MEDS: Levothyroxine Sodium 100 MCG VIAL IVP SCH (06:57)
[2018-06-11] MEDS: Potassium Phosphate 44 MEQ in 0.9 % Sodium Chloride 250 ML IVPB PRN (06:57)
[2018-06-11] MEDS: Pantoprazole 40 MG VIAL IVP SCH (08:11)
[2018-06-11] MEDS: Micafungin 100 MG in 0.9 % Sodium Chloride Mini Bag 100 ML IVPB SCH (08:11)
[2018-06-11] MEDS: Nystatin SUSP 5 ML UD.LIQ PO SCH ×4 (08:11→20:07)
[2018-06-11] MEDS ORDERED: Levofloxacin 750 MG/150 ML 750 MG/150 ML BAG IVPB SCH (09:00)
--- NOTE | 2018-06-11 09:39 | Infectious Disease Progress No ---
Date of Encounter: 06/11/18 Time of Encounter: 09:38 - Assessment and Plan (1) Sepsis Current Visit: Yes Status: Acute - Patient has multiple SIRS criteria including fever, tachycardia, leukocytosis, tachypnea. - Likely secondary to an intra-abdominal versus pulmonary source - Patient has been observed to aspirate during feeding, scheduled for PEG tube placement this morning with general surgery - Patient is also POD 9 for exploratory laparotomy with resection of sigmoid and descending colon. - Concern for an Abdominal process post surgery for pneumatosis coli. Remains septic today with fever overnight and Tmax of 101.2, tachycardia, tachypnea, WBC of 19.5 ESR 55, CRP 99 06/10 CT scan on admission 06/01 showing colon wall thickening suggestive of ischemia, s/p resection Multiple CXR since admission for pneumothorax, which has resolved s/p chest tube removal 06/09. No evidence of consolidation Patient has been previously treated with Zosyn day 10, vancomycin (day 2) added yesterday for possible MRSA or Enterococcus faecalis that is ampicillin resistant. Levaquin (2 days total) discontinued yesterday Diflucan (5 day course) changed to micafungin (day 2) due to drug interactions. Plan Continue abx as above, Duration of treatment depends on the clinical picture but at least [address] of the chest and abdomen to evaluate for abscess formation and aspiration I have low index of suspicion for CLABSI Monitor labs and for drug toxicity Goal vancomycin trough 10-15 Qualifiers: Sepsis type: sepsis due to unspecified organism Qualified Code(s): A41.9 - Sepsis, unspecified organism (2) Aspiration into airway Current Visit: Yes Status: Acute plan for PEG today with general surgery Qualifiers: Encounter type: initial encounter Qualified Code(s): T17.908A - Unspecified foreign body in respiratory tract, part unspecified causing other injury, initial encounter (3) Delirium Current Visit: Yes Status: Acute secondary to metabolic encephalopathy, likely infectious. (4) Drug allergy, antibiotic Current Visit: Yes Status: Acute keflex, unknown allergy (5) Encephalopathy Current Visit: Yes Status: Acute likely metabolic secondary to infection. no meningeal signs. (6) Pneumatosis coli Current Visit: Yes Status: Acute Secondary to ischemic colitis Status post exploratory laparotomy with descending and sigmoid colon resection, takedown splenic flexure, and colostomy and Mejias's pouch followed by attempted placement of triple lumen catheter, placement of left sided chest tube on 06/02/[address] Gallego. General surgery following. (7) Pneumothorax Current Visit: Yes Status: Resolved Appreciate Dr. Dowell's recommendation resolved, chest tube pulled 06/10 Qualifiers: Pneumothorax type: postprocedural Qualified Code(s): J95.811 - Postprocedural pneumothorax - Subjective Interval history: Patient seen and examined up and since morning. Patient does awaken respond to tactile stimuli however she is not able to provide a reliable history and no family is present at bedside. She is able to communicate that she is not having any pain right now but does have concerns about "her nerves". Infect Dis PN-Objective Data - Labs CBC & Chem 7: 06/12/18 04:00 06/12/18 00:39 Labs: Laboratory Results - last 24 hr 06/10/18 06/10/18 06/10/18 07:59 09:55 11:51 WBC RBC Hgb Hct MCV MCH MCHC RDW Plt Count MPV Immature Gran % Seg Neutrophils % Lymphocytes % Monocytes % Eosinophils % Basophils % Neutrophils # Lymphocytes # Monocytes # Eosinophils # Basophils # Nucleated RBCs/100 WBC ESR Sodium Potassium Chloride Carbon Dioxide BUN Creatinine Est GFR ( Amer) Est GFR (Non-Af Amer) BUN/Creatinine Ratio Glucose POC Glucose 153 H 156 H Calculated Osmolality Calcium Phosphorus Magnesium 1.9 C-Reactive Protein 06/10/18 06/10/18 06/10/18 12:35 15:46 16:35 WBC RBC Hgb Hct MCV MCH MCHC RDW Plt Count MPV Immature Gran % Seg Neutrophils % Lymphocytes % Monocytes % Eosinophils % Basophils % Neutrophils # Lymphocytes # Monocytes # Eosinophils # Basophils # Nucleated RBCs/100 WBC ESR Sodium Potassium Chloride Carbon Dioxide BUN Creatinine Est GFR ( Amer) Est GFR (Non-Af Amer) BUN/Creatinine Ratio Glucose POC Glucose 157 H Calculated Osmolality Calcium Phosphorus 3.9 Magnesium 2.3 C-Reactive Protein 06/10/18 06/10/18 06/10/18 16:57 16:57 21:01 WBC RBC Hgb Hct MCV MCH MCHC RDW Plt Count MPV Immature Gran % Seg Neutrophils % Lymphocytes % Monocytes % Eosinophils % Basophils % Neutrophils # Lymphocytes # Monocytes # Eosinophils # Basophils # Nucleated RBCs/100 WBC ESR 55 H Sodium Potassium Chloride Carbon Dioxide BUN Creatinine Est GFR ( Amer) Est GFR (Non-Af Amer) BUN/Creatinine Ratio Glucose POC Glucose 198 H Calculated Osmolality Calcium Phosphorus Magnesium C-Reactive Protein 99 H 06/10/18 06/11/18 06/11/18 23:47 04:00 04:00 WBC 19.5 H RBC 3.04 L Hgb 9.1 L Hct 28.4 L MCV 93.4 MCH 29.9 MCHC 32.0 RDW 18.2 H Plt Count 148 MPV 11.8 Immature Gran % 4.1 H Seg Neutrophils % 73.9 Lymphocytes % 7.6 Monocytes % 12.1 Eosinophils % 1.8 Basophils % 0.5 Neutrophils # 14.4 H Lymphocytes # 1.5 Monocytes # 2.4 H Eosinophils # 0.4 Basophils # 0.1 Nucleated RBCs/100 WBC 0.1 H ESR Sodium 134 L Potassium 4.3 Chloride 106 Carbon Dioxide 23 BUN 16 Creatinine 0.55 L Est GFR ( Amer) > 60 Est GFR (Non-Af Amer) > 60 BUN/Creatinine Ratio 29 H Glucose 176 H POC Glucose 143 H Calculated Osmolality 283 Calcium 7.5 L Phosphorus 2.2 L Magnesium 1.8 C-Reactive Protein Cultures: Cultures 06/10/18 16:57 Blood Culture - Preliminary Peripheral Venipuncture Culture is incubating and being continuously monitored for growth. Final report to follow. 06/10/18 16:57 Blood Culture - Preliminary Peripheral Venipuncture Culture is incubating and being continuously monitored for growth. Final report to follow. 06/08/18 15:20 Wound Culture - Final Abdomen No growth. 06/08/18 09:18 Blood Culture - Preliminary Peripheral Venipuncture Culture is incubating and being continuously monitored for growth. Final report to follow. 06/08/18 09:18 Blood Culture - Preliminary Peripheral Venipuncture Culture is incubating and being continuously monitored for growth. Final report to follow. 06/02/18 20:10 Blood Culture - Final Peripheral Venipuncture No growth. Final report. 06/02/18 20:23 Blood Culture - Final Peripheral Venipuncture No growth. Final report. 06/01/18 15:04 Blood Culture - Final Peripheral Venipuncture No growth. Final report. 06/01/18 12:54 Blood Culture - Final Peripheral Venipuncture No growth. Final report. Serology 06/07/18 06/01/18 Range/Units 11:35 15:13 Urine Color Yellow Yellow (Yellow) Urine Clarity Cloudy A Hazy A (Clear) Urine pH 5.5 6.0 (5.0-8.0) pH Units Ur Specific [place] 1.024 > 1.030 H (1.010-1.025) Urine Protein 30 H 100 H (Neg-Trace) mg/dL Urine Glucose (UA) Normal Normal (Normal) mg/dL Urine Ketones Negative Negative (Negative) mg/dL Urine Blood Large H Moderate H (Negative) Urine Nitrite Negative Negative (Negative) Urine Bilirubin Negative Negative (Negative) Urine Urobilinogen Normal Normal (Normal) mg/dL Ur Leukocyte Esterase Trace H Negative (Negative) Urine Microscopic RBC 50-100 H 30-50 H (0-3) per hpf Urine Microscopic WBC 15-30 H 5-15 H (0-3) per hpf Ur Squamous Epith Cells Many H Many H (None-Few) per lpf Ur Transition Epith Cell Few (None-Few) per hpf Ur Renal Epithelial Cell Few (None-Few) per hpf Amorphous Sediment Many H (Few) Urine Bacteria None Seen None Seen (None-Few) per hpf Hyaline Casts Few (None-Few) per lpf Granular Casts Few H (None Seen) per lpf Urine Mucus Moderate H (Few) Urine Yeast Moderate H (None Seen) per hpf Ur Culture Indicated? NO. A NO (NO) Exam - Constitutional Vitals: Temp Pulse Resp BP Pulse Ox 100.3 F H 106 24 129/71 98 06/11/18 07:50 06/11/18 07:50 06/11/18 07:50 06/11/18 07:50 06/11/18 07:50 Exam: Gen.: Vitals noted. No acute distress. Unable to assess fully due to mental status. HEENT: PERRL/EOMI, oropharynx clear, Normocephalic, atraumatic, very dry mucous membranes, dry crusting around lips Cardiac: RRR, no murmur, +S1/S2 Pulmonary: CTA bilaterally, no wheezes, rales or rhonchi, equal chest expansion Abdomen: soft, grimaces to palpation of LLQ, LUQ, epigastric, suprapubic regions. hypoactive BS, no guarding, no rebound. Colostomy bag in place without output. Surgical incision clean and dry without purulence, erythema, warmth. Extremities: no BLE edema, no cyanosis or clubbing Neuro: A&Ox0, does not participate in interview questions fully. moves all extremities Psych: unable to assess due to mental status Consult Discharge Plan - Plan Referrals: Hong Garnett MD [Primary Care Provider] - (patient is going to [facility] no PCP appointment needed) - Attending Attestation I examined this patient and my medical decision-making was reviewed with the Resident Physician. I agree with the documented findings, disposition and treatment plan as described except to the extent set forth below.
--- NOTE | 2018-06-11 10:08 | General Surgery Progress Note ---
Date of Encounter: 06/11/18 Time of Encounter: 09:30 - Assessment and Plan (1) Pneumatosis intestinalis of large intestine Current Visit: Yes Status: Acute POD #10 Exploratory laparotomy with descending and sigmoid colon resection, takedown splenic flexure, end colostomy and Mejias's pouch followed by attempted placement of triple-lumen catheter, placement of left sided chest tube with Dr. Reyez Pathology- Consistent with ischemic colitis. NPO due to continued confusion, risk of aspiration Recommend peg tube placement in order to start enteral nutrition- Dr. Reyez to place peg tube today and start feeds Continue TPN for nutritional support while awaiting peg tube IV antibiotics- Zosyn, Vancomycin, Micafungin (per ID recommendations) Supportive care and pain control PPI therapy daily IS every 1 hour while awake when extubated PT/OT for mobilization Repeat am labs- CBC (2) Pneumothorax Current Visit: Yes Status: Resolved CT surgery consulted per pulmonary/critical care team Chest tube removed per Dr. Dowell 06/09/18 CT surgery signed off Qualifiers: Pneumothorax type: postprocedural Qualified Code(s): J95.811 - Postprocedural pneumothorax (3) Delirium Current Visit: Yes Status: Acute Management per medical team Improved today Off of precedex at this time (4) Severe protein-calorie malnutrition Current Visit: Yes Status: Acute Continue TPN while awaiting peg tube and start of enteral feedings Surgery recommends placement of peg tube for initiation of enteral feeds- Dr. Reyez to place feeding tube today and start feeds (5) DVT prophylaxis Current Visit: Yes Status: Acute Heparin 5,000 units SQ every 8 hours for DVT prophylaxis EPCDs to bilateral lower extremities for DVT prophylaxis Subjective Patient reports: flatus, bowel movement (via colostomy and rectum), fever (Tmax 101.2; Tcurrent 100.3), other (Patient pleasantly confused today. Complaint of laying in stool and dry mouth. ) Objective Vital Signs - Last 8 Hours Temp Pulse Resp BP Pulse Ox 06/11/18 07:50 100.3 F H 106 24 129/71 98 06/11/18 03:33 100.4 F H 102 26 138/62 94 Intake and Output 06/10/18 06/11/18 06/11/18 23:59 07:59 15:59 Intake Total 814 / 814 140 / 140 Output Total 600 / 600 625 / 625 250 / 250 Balance 214 / 214 -485 / -485 -250 / -250 Intake: IV Fluids 814 / 814 140 / 140 PRECEDEX Premix 400 mcg In 100 0 / 0 40 / 40 ml @ 0.2 MCG/KG/HR 3.135 mls/hr IVC .Q24H [facility] Rx#:[id number] Magnesium Sulfate 2 GM In 0.9 % 104 / 104 Sodium Chloride 100 ML @ 52 mls/hr IVPB Q6H PRN Rx#: [id number] Mycamine 100 MG In 0.9 % Sodium 100 / 100 Chloride (Mini-Bag +) 100 ML @ 100 mls/hr IVPB DAILY [facility] Rx#: [id number] Zosyn 3.375 GM In 0.9 % Sodium 100 / 100 100 / 100 Chloride (Mini-Bag +) 100 ML @ 25 mls/hr IVPB Q8HR [facility] Rx#: [id number] Potassium Phosphate 44 MEQ In 0 260 / 260 .9 % Sodium Chloride 250 ML @ 40 mls/hr IVPB Q10H PRN Rx#: [id number] Vancocin 1,250 MG In 0.9 % 250 / 250 Sodium Chloride 250 ML @ 166.67 mls/hr IVPB Q24H [facility] Rx#: [id number] Output: Stool 100 / 100 Catheter 500 / 500 625 / 625 250 / 250 Other: Meal NPO Percent of Meal Consumed 0% Stool Color Brown Weight 62.4 kg Blood Glucose* 143 170 Patient Weight 06/11/18 23:59 Weight 62.4 kg - General physical appearance no distress, other (Patient lying in bed and pleasantly confused) - Eyes PERRL, normal ocular movement - ENT dry mucosa, atraumatic, normocephalic - Neck Neck exam: trachea midline - Respiratory normal respiratory effort, clear to auscultation, other (diminished bibasilar bases) - Cardiovascular Cardiovascular exam: Present: tachycardia - Abdomen Abdomen: Present: bowel sounds present, soft, wound (colostomy is pink and moist with positive flatus noted) - Incision Incision: Present: clean and dry, intact - Genitourinary other (wang catheter to SD with clear, yellow urine noted) - Neurologic CN 2-12 grossly intact - Psychiatric oriented to person - Labs 06/11/18 04:00 06/11/18 04:00 Diabetes panel 06/11/18 Range/Units 04:00 Sodium 134 L (136-145) mEq/L Potassium 4.3 (3.5-5.1) mEq/L Chloride 106 (98-107) mEq/L Carbon Dioxide 23 (23-29) mEq/L BUN 16 (8-23) mg/dL Creatinine 0.55 L (0.60-1.20) mg/dL Glucose 176 H (70-105) mg/dL Calcium 7.5 L (8.6-10.3) mg/dL Calcium panel 06/10/18 06/11/18 Range/Units 12:35 04:00 Calcium 7.5 L (8.6-10.3) mg/dL Phosphorus 3.9 2.2 L (2.7-4.5) mg/dL Pituitary panel 06/11/18 Range/Units 04:00 Sodium 134 L (136-145) mEq/L Potassium 4.3 (3.5-5.1) mEq/L Chloride 106 (98-107) mEq/L Carbon Dioxide 23 (23-29) mEq/L BUN 16 (8-23) mg/dL Creatinine 0.55 L (0.60-1.20) mg/dL Glucose 176 H (70-105) mg/dL Calcium 7.5 L (8.6-10.3) mg/dL Adrenal panel 06/11/18 Range/Units 04:00 Sodium 134 L (136-145) mEq/L Potassium 4.3 (3.5-5.1) mEq/L Chloride 106 (98-107) mEq/L Carbon Dioxide 23 (23-29) mEq/L BUN 16 (8-23) mg/dL Creatinine 0.55 L (0.60-1.20) mg/dL Glucose 176 H (70-105) mg/dL Calcium 7.5 L (8.6-10.3) mg/dL Consult Discharge Plan - Plan Referrals: Hong Garnett MD [Primary Care Provider] - (patient is going to [facility] no PCP appointment needed) - Attending Attestation For this encounter, I have reviewed the [employer]AMP[employer] PERSON or PA documentation, treatment plan, and medical decision making; and I have had face to face time with this patient.
--- NOTE | 2018-06-11 13:24 | Internal Med Progress Note ---
Hospitalist Progress Note - Encounter Date of Encounter: 06/11/18 Time of Encounter: 11:30 - Subjective Interval History: Patient appeared comfortable initially. When woken up, she started complaining of generalized bodyache without focal complaints. Continues to have fever with Tmax 101.2 at 9pm. Had been off precedex gtt for about 6-7 hrs in the afternoon but was restarted overnight - Exam Vitals: Temp Pulse Resp BP Pulse Ox 101.0 F H 99 21 131/60 100 06/11/18 11:38 06/11/18 11:38 06/11/18 11:38 06/11/18 11:38 06/11/18 11:38 Exam: General: Sedated, groans to verbal stimuli Neck: right IJ CVC site appears clean. No erythema. Chest: subcutaneous emphysema from the Left chest wall up to the neck Cardiovascular: regular rate and rhythm with no murmur Lungs: Decreased breath sounds in the left lobe anteriorly. Abdomen: Soft but inconsistent tenderness along RLQ and LLQ. Midline incision appears well-healed. left ostomy intact, draining fecal matter Neuro: Awake groaning, does not open eyes, but answers questions intermittently - Assessment and Plan (1) Septic shock Current Visit: Yes Status: Acute Assessment and Plan: Shock resolved, remained off pressors since 06/04 but continues to be febrile with increasing WBC when evaluated yesterday continues to be delirious as well, requiring intermittent precedex patient has been on 5-6 days of zosyn, levaquin, and fluconazole Urine analysis unremarkable on 06/07 blood cultures 06/08 pending, repeat one sent yesterday wound culture from abdomen incision -ve discussed with radiology regarding CT T/A/P findings: likely to represent post- op changes, no abscess, no obvious pneumonia identified ID input appreciated, switched to zosyn, vanc, and micafungin, slight improvement in WBC as well as mental status as she did not continuously require precedex gtt PRN tylenol (2) Delirium Current Visit: Yes Status: Acute Assessment and Plan: Continue 1 mg haldol every 2 hours as needed for agitation Continue 0.5 mg ativan IV every 8 hours for agitation-patient takes xanax at home requires intermittent precedex gtt but for less number of hours, if she requires less than 12 hours/day, will consider a trial of SL olanzepine (3) Pneumatosis intestinalis of large intestine Current Visit: Yes Status: Acute Assessment and Plan: POD9 for exploratory laparotomy with descending/sigmoid colectomy, end col ostomy, and Mejias's pouch antimicrobials as above, appreciate ID input CT findings discussed with radiology. High attenuation material pooling along the gravity dependent portion of the rectum is likely to represent post-op findings rather than active bleeding. There is no report of bloody output from anus and Hb remains stable Surgery following Continue TPN with goal of 75 ml/hr, per dietary and surgery (4) Pneumothorax Current Visit: Yes Status: Resolved Assessment and Plan: iatrogenic, complicated by subcutaneous emphysema requiring chest tube that was removed on 06/09 Monitor (5) Diabetes Current Visit: Yes Status: Chronic Assessment and Plan: Continue clear diet, as tolerated On TPN, goal of 75 ml/hr Continue high dose sliding scale Q4hr FS Q4, currently controlled Continue to monitor (6) RONY (acute kidney injury) Current Visit: Yes Status: Resolved Assessment and Plan: Resolved, Cr stable around 0.55 (7) Anemia Current Visit: Yes Status: Chronic Assessment and Plan: stable s/p 4 units RBCS, Hb 9.1 today No evident source of bleeding at this time. CT findings discussed with radiology as above Continue to monitor (8) DVT prophylaxis Current Visit: Yes Status: Acute Assessment and Plan: Subcutaneous heparin - Time Spent with Patient Total time spent is greater than 50% in coordination of care (as documented) at patient's floor/unit and/or counseling patient: Greater than 35 minutes Plan of Care Discussed with: franchise consultant (Discussed with radiology and nursing staff in great detail) Internal Medicine: Result - Labs CBC & Chem 7: 06/11/18 04:00 06/11/18 04:00 Labs: Short CBC 06/11/18 Range/Units 04:00 WBC 19.5 H (4.3-11.1) K/mcL Hgb 9.1 L (11.5-15.4) g/dL Hct 28.4 L (35.3-44.9) % Plt Count 148 (140-400) K/mcL Neutrophils # 14.4 H (1.6-8.9) K/mcL BMP 06/11/18 04:00 Sodium 134 L Potassium 4.3 Chloride 106 Carbon Dioxide 23 BUN 16 Creatinine 0.55 L Glucose 176 H Calcium 7.5 L - ABG Interpretation ABG results: ABG ABG pH 7.32 pH Units (7.32-7.45) 06/04/18 05:06 ABG pCO2 38 mmHg (35-45) 06/04/18 05:06 ABG pO2 86 mmHg (85-104) 06/04/18 05:06 ABG O2 Saturation 96 % (95-98) 06/04/18 05:06 PT/INR, D-dimer PT 11.2 Seconds (9.4-12.1) 06/01/18 12:51 - Impressions Impressions Abdomen/Pelvis CT 06/11/18 16:34 IMPRESSION: 1. Extensive subcutaneous edema along the chest wall, left supraclavicular region and superior mediastinum with an associated tiny left anterior pneumothorax. 2. Moderate bilateral pleural effusions, right side greater than left, with associated areas of atelectasis in the lung bases. 3. Postsurgical changes are noted from a diverting left lower quadrant colostomy with inflammatory changes noted in the pelvis. No discrete fluid collection or abscess. 4. There is a large amount of stool and fluid noted in the sigmoid colon and rectum with adjacent inflammatory changes and thickened bowel wall. Residual infection in this region cannot be excluded. Additionally, there is high attenuation material pooling along the gravity dependent portion of the rectum (series 2, image 171, 178), concerning for an area of active bleeding. 5. Anasarca. 6. Atherosclerotic disease. D/ / 06/11/2018 12:13:32 Andrei Crum MD / [facility] Interpreting Provider: Andrei Crum MD Chest CT 06/11/18 16:34 IMPRESSION: 1. Extensive subcutaneous edema along the chest wall, left supraclavicular region and superior mediastinum with an associated tiny left anterior pneumothorax. 2. Moderate bilateral pleural effusions, right side greater than left, with associated areas of atelectasis in the lung bases. 3. Postsurgical changes are noted from a diverting left lower quadrant colostomy with inflammatory changes noted in the pelvis. No discrete fluid collection or abscess. 4. There is a large amount of stool and fluid noted in the sigmoid colon and rectum with adjacent inflammatory changes and thickened bowel wall. Residual infection in this region cannot be excluded. Additionally, there is high attenuation material pooling along the gravity dependent portion of the rectum (series 2, image 171, 178), concerning for an area of active bleeding. 5. Anasarca. 6. Atherosclerotic disease. D/ / 06/11/2018 12:13:32 Andrei Crum MD / [facility] Interpreting Provider: Andrei Crum MD Consult Discharge Plan - Plan Referrals: Hong Garnett MD [Primary Care Provider] - ([facility] appointment needed) (4) Pneumothorax Qualifiers: Pneumothorax type: postprocedural Qualified Code(s): J95.811 - Postprocedural pneumothorax (5) Diabetes Qualifiers: Diabetes mellitus type: type 2 Diabetes mellitus senior care insulin use: without senior care use Diabetes mellitus complication status: without complication Qualified Code(s): E11.9 - Type 2 diabetes mellitus without complications (7) Anemia Qualifiers: Anemia type: unspecified type Qualified Code(s): D64.9 - Anemia, unspecified
--- NOTE | 2018-06-11 13:44 | Palliative Progress Note ---
Date of Encounter: 06/11/18 Time of Encounter: 13:45 - Assessment and plan (1) Delirium Current Visit: Yes Status: Acute Assessment and plan: Continues intermittent Precedex infusion. Still having testing today, so likely will require through this. (2) Abdominal pain Current Visit: Yes Status: Acute Assessment and plan: Continues with SL Oxycodone for discomfort. Utilized x 3 last 24 hours, so does appear to be using a little less. Qualifiers: Abdominal location: unspecified location Qualified Code(s): R10.9 - Unspecified abdominal pain (3) Goals of care, counseling/discussion Current Visit: Yes Status: Acute Assessment and plan: Daughter at bedside (POA), states that she has discussed with her brother, Armando, alternate POA, and they would like to change code status to DNRCC-Arrest. She does still desire short term intubation for respiratory distress, and desires to maintain all other aggressive care, but in the event of cardiac arrest, does not want compressions/ACLS. Code status changed to DNRCCA and state form completed - daughter signed and provided her with copies. She still is very hopeful and states that she has bianca that God will see her through and make her stronger. Provided emotional support. Will continue to follow clinical course. (4) Pneumatosis intestinalis of large intestine Current Visit: Yes Status: Acute (5) Severe protein-calorie malnutrition Current Visit: Yes Status: Acute - Time Spent With Patient Total time spent is greater than 50% in coordination of care (as documented) at patient's floor/unit and/or counseling patient: - Subjective Interval history: Still with fevers, max 101.2 since yesterday, WBC down some. ID/surgery notes reviewed. CT abd/pelvis/chest ordered and completed this am. For PEG today. Sti ll with some agitation and on low dose Precedex. Daughter at bedside. - Constitutional Vitals: Abnormal lab results WBC 19.5 K/mcL (4.3-11.1) H 06/11/18 04:00 RBC 3.04 M/mcL (3.82-4.97) L 06/11/18 04:00 Hgb 9.1 g/dL (11.5-15.4) L 06/11/18 04:00 Hct 28.4 % (35.3-44.9) L 06/11/18 04:00 RDW 18.2 % (11.5-14.5) H 06/11/18 04:00 Immature Gran % 4.1 % (0-4) H 06/11/18 04:00 Metamyelocytes % 2.0 % (0) H 06/03/18 04:35 Neutrophils # 14.4 K/mcL (1.6-8.9) H 06/11/18 04:00 Monocytes # 2.4 K/mcL (0.0-1.3) H 06/11/18 04:00 Nucleated RBCs/100 WBC 0.1 /100 WBC (0) H 06/11/18 04:00 Reactive Lymphocytes Present (Not Present) A 06/08/18 03:00 Toxic Granulation Present (Not Present) A 06/10/18 03:20 Dohle Bodies Present (Not Present) A 06/06/18 03:45 Polychromasia 1+ (Not Present) A 06/08/18 03:00 Poikilocytosis 1+ (Not Present) A 06/07/18 04:00 Anisocytosis 1+ (Not Present) A 06/10/18 03:20 Microcytosis Present (Not Present) A 06/06/18 03:45 Macrocytosis Present (Not Present) A 06/06/18 03:45 Target Cells 1+ (Not Present) A 06/07/18 04:00 ESR 55 mm/hr (0-15) H 06/10/18 16:57 APTT 24.0 Seconds (26.0-36.0) L 06/01/18 12:51 ABG HCO3 20 mEq/L (21-27) L 06/04/18 05:06 ABG Base Excess -6 mEq/L (-2 to 3) L 06/04/18 05:06 Mixed VBG pH 7.17 pH Units (7.34-7.36) L 06/02/18 01:02 Mixed VBG pCO2 53 mmHg (44-46) H 06/02/18 01:02 Mixed VBG pO2 181 mmHg (35-45) H 06/02/18 01:02 Mixed VBG Oxyhemoglobin 93.3 % (60-80) H 06/02/18 01:02 Carboxyhemoglobin 5.2 % (0-5) H 06/01/18 12:51 Sodium 134 mEq/L (136-145) L 06/11/18 04:00 Creatinine 0.55 mg/dL (0.60-1.20) L 06/11/18 04:00 BUN/Creatinine Ratio 29 (6-26) H 06/11/18 04:00 Glucose 176 mg/dL (70-105) H 06/11/18 04:00 POC Glucose 143 mg/dL (70-99) H 06/10/18 23:47 Lactic Acid 2.7 mmol/L (0.5-2.2) H 06/03/18 09:30 Calcium 7.5 mg/dL (8.6-10.3) L 06/11/18 04:00 Venous Ioniz Calcium 1.12 mmol/L (1.15-1.35) L 06/10/18 03:45 Phosphorus 2.2 mg/dL (2.7-4.5) L 06/11/18 04:00 Direct Bilirubin 0.3 mg/dL (0.0-0.2) H 06/01/18 12:51 Indirect Bilirubin 1.6 mg/dL (0.0-1.2) H 06/01/18 12:51 Ammonia 78 mcmol/L (16-53) H 06/01/18 12:51 C-Reactive Protein 99 mg/L (Less than 10) H 06/10/18 16:57 Serum Total Protein 4.0 g/dL (6.4-8.9) L 06/07/18 04:00 Albumin 2.0 g/dL (3.5-5.7) L 06/07/18 04:00 Globulin 2.0 g/dL (2.4-3.5) L 06/07/18 04:00 Albumin/Globulin Ratio 1.0 (1.1-2.2) L 06/07/18 04:00 Prealbumin 11.1 mg/dL (17.0-34.0) L 06/03/18 04:35 Beta-Hydroxybutyric Acd 0.34 mmol/L (0.02-0.27) H 06/01/18 12:51 TSH 11.408 mcIU/mL (0.340-5.600) H 06/01/18 12:51 Urine Clarity Cloudy (Clear) A 06/07/18 11:35 Urine Protein 30 mg/dL (Neg-Trace) H 06/07/18 11:35 Urine Blood Large (Negative) H 06/07/18 11:35 Ur Leukocyte Esterase Trace (Negative) H 06/07/18 11:35 Urine Microscopic RBC 50-100 per hpf (0-3) H 06/07/18 11:35 Urine Microscopic WBC 15-30 per hpf (0-3) H 06/07/18 11:35 Ur Squamous Epith Cells Many per lpf (None-Few) H 06/07/18 11:35 Amorphous Sediment Many (Few) H 06/01/18 15:13 Granular Casts Few per lpf (None Seen) H 06/01/18 15:13 Urine Mucus Moderate (Few) H 06/01/18 15:13 Urine Yeast Moderate per hpf (None Seen) H 06/07/18 11:35 Ur Culture Indicated? NO. (NO) A 06/07/18 11:35 Salicylates < 2.5 mg/dL (15.0-30.0) L 06/01/18 12:51 Acetaminophen < 10 mcg/mL (10-20) L 06/01/18 12:51 U Benzodiazepines Scrn Positive ng/mL (Rwexzq=[id number]) H 06/01/18 15:11 General appearance: Present: mild distress - Respiratory Respiratory exam: Present: decreased breath sounds - Cardiovascular Cardiovascular exam: Present: +S1, +S2, tachycardia - GI/Abdominal GI/Abdominal exam: Present: soft Additional comments: Liquid stool per ostomy - Extremities Exam Additional comments: Edema to upper extremities has decreased - Neurological Exam Neurological exam: Present: alert Additional comments: Oriented to name only. Recognizes and speaks with daughter. Can follow few simple commands. Becomes agitated easily - Skin Skin exam: Present: dry, pallor Palliative Quality Palliative Quality: Screen for Code Status: Yes, Screen for Goals of Care: Yes, Screen for Pain: Yes, If Pain Regimen Started, Initiate Bowel Regimen: NA, Screen for Nausea/Vomitting: Yes Code Status: 06/01/18 15:02 CODE [Resuscitation Status: Active] [RES] Stat Comment: Resuscitation Status: Full Code 06/11/18 12:26 DNR [Resuscitation Status: Active] [RES] Routine Comment: Resuscitation Status: DNR-Comfort Care-Arrest - Labs CBC & Chem 7: 06/11/18 04:00 06/11/18 04:00 Labs: Laboratory Results - last 24 hr 06/10/18 06/10/18 06/10/18 07:59 11:51 15:46 WBC RBC Hgb Hct MCV MCH MCHC RDW Plt Count MPV Immature Gran % Seg Neutrophils % Lymphocytes % Monocytes % Eosinophils % Basophils % Neutrophils # Lymphocytes # Monocytes # Eosinophils # Basophils # Nucleated RBCs/100 WBC ESR Sodium Potassium Chloride Carbon Dioxide BUN Creatinine Est GFR ( Amer) Est GFR (Non-Af Amer) BUN/Creatinine Ratio Glucose POC Glucose 153 H 156 H Calculated Osmolality Calcium Phosphorus Magnesium 2.3 C-Reactive Protein 06/10/18 06/10/18 06/10/18 16:35 16:57 16:57 WBC RBC Hgb Hct MCV MCH MCHC RDW Plt Count MPV Immature Gran % Seg Neutrophils % Lymphocytes % Monocytes % Eosinophils % Basophils % Neutrophils # Lymphocytes # Monocytes # Eosinophils # Basophils # Nucleated RBCs/100 WBC ESR 55 H Sodium Potassium Chloride Carbon Dioxide BUN Creatinine Est GFR ( Amer) Est GFR (Non-Af Amer) BUN/Creatinine Ratio Glucose POC Glucose 157 H Calculated Osmolality Calcium Phosphorus Magnesium C-Reactive Protein 99 H 06/10/18 06/10/18 06/11/18 21:01 23:47 04:00 WBC RBC Hgb Hct MCV MCH MCHC RDW Plt Count MPV Immature Gran % Seg Neutrophils % Lymphocytes % Monocytes % Eosinophils % Basophils % Neutrophils # Lymphocytes # Monocytes # Eosinophils # Basophils # Nucleated RBCs/100 WBC ESR Sodium 134 L Potassium 4.3 Chloride 106 Carbon Dioxide 23 BUN 16 Creatinine 0.55 L Est GFR ( Amer) > 60 Est GFR (Non-Af Amer) > 60 BUN/Creatinine Ratio 29 H Glucose 176 H POC Glucose 198 H 143 H Calculated Osmolality 283 Calcium 7.5 L Phosphorus 2.2 L Magnesium 1.8 C-Reactive Protein 06/11/18 04:00 WBC 19.5 H RBC 3.04 L Hgb 9.1 L Hct 28.4 L MCV 93.4 MCH 29.9 MCHC 32.0 RDW 18.2 H Plt Count 148 MPV 11.8 Immature Gran % 4.1 H Seg Neutrophils % 73.9 Lymphocytes % 7.6 Monocytes % 12.1 Eosinophils % 1.8 Basophils % 0.5 Neutrophils # 14.4 H Lymphocytes # 1.5 Monocytes # 2.4 H Eosinophils # 0.4 Basophils # 0.1 Nucleated RBCs/100 WBC 0.1 H ESR Sodium Potassium Chloride Carbon Dioxide BUN Creatinine Est GFR ( Amer) Est GFR (Non-Af Amer) BUN/Creatinine Ratio Glucose POC Glucose Calculated Osmolality Calcium Phosphorus Magnesium C-Reactive Protein - Impressions Impressions Abdomen/Pelvis CT 06/11/18 16:34 IMPRESSION: 1. Extensive subcutaneous emphysema along the chest wall, left supraclavicular region and superior mediastinum with an associated tiny left anterior pneumothorax. 2. Moderate bilateral pleural effusions, right side greater than left, with associated areas of atelectasis in the lung bases. 3. Postsurgical changes are noted from a diverting left lower quadrant colostomy with inflammatory changes noted in the pelvis. No discrete fluid collection or abscess. 4. There is a large amount of stool and fluid noted in the sigmoid colon and rectum with adjacent inflammatory changes and thickened bowel wall. Underlying infection in this region cannot be excluded. Additionally, there is high attenuation material pooling along the gravity dependent portion of the rectum (series 2, image 171, 178), concerning for an area of active bleeding. 5. Anasarca. 6. Atherosclerotic disease. Results were discussed with Dr. Iyer at 11:52 a.m. on 06/11/2018. The patient currently has no signs of active rectal bleeding. D/ / 06/11/2018 12:13:32 Andrei Crum MD / [facility] Interpreting Provider: Andrei Crum MD Chest CT 06/11/18 16:34 IMPRESSION: 1. Extensive subcutaneous emphysema along the chest wall, left supraclavicular region and superior mediastinum with an associated tiny left anterior pneumothorax. 2. Moderate bilateral pleural effusions, right side greater than left, with associated areas of atelectasis in the lung bases. 3. Postsurgical changes are noted from a diverting left lower quadrant colostomy with inflammatory changes noted in the pelvis. No discrete fluid collection or abscess. 4. There is a large amount of stool and fluid noted in the sigmoid colon and rectum with adjacent inflammatory changes and thickened bowel wall. Underlying infection in this region cannot be excluded. Additionally, there is high attenuation material pooling along the gravity dependent portion of the rectum (series 2, image 171, 178), concerning for an area of active bleeding. 5. Anasarca. 6. Atherosclerotic disease. Results were discussed with Dr. Iyer at 11:52 a.m. on 06/11/2018. The patient currently has no signs of active rectal bleeding. D/ / 06/11/2018 12:13:32 Andrei Crum MD / [facility] Interpreting Provider: Andrei Crum MD - ABG Interpretation ABG results: ABG ABG pH 7.32 pH Units (7.32-7.45) 06/04/18 05:06 ABG pCO2 38 mmHg (35-45) 06/04/18 05:06 ABG pO2 86 mmHg (85-104) 06/04/18 05:06 ABG O2 Saturation 96 % (95-98) 06/04/18 05:06 PT/INR, D-dimer PT 11.2 Seconds (9.4-12.1) 06/01/18 12:51 Consult Discharge Plan - Plan Referrals: Hong Garnett MD [Primary Care Provider] - (patient is going to [facility] no PCP appointment needed)
[2018-06-11] MEDS ORDERED: *HR* Midazolam HCl 5 MG/5 ML VIAL IVP ONE ×2 (15:12→15:23)
[2018-06-11] MEDS ORDERED: *HR* FentaNYL (PF) 100 MCG/2 ML VIAL ONE (15:12)
[2018-06-11] MEDS ORDERED: *HR* FentaNYL (PF) 100 MCG/2 ML VIAL IVP ONE (15:23)
[2018-06-11] MEDS ORDERED: Tetracaine/Benzocaine/Butamben 1 SPRAY AEROSOL MM ONE (15:23)
[2018-06-11] MEDS ORDERED: Simethicone 40 MG/0.6 ML MLS IR ONE (15:23)
--- NOTE | 2018-06-11 15:23 | Pre-Sedation Evaluation ---
Pre-sedation evaluation - Pre-sedation checklist Date of procedure: 06/04/18 Recent Vitals: Last Vital Signs Temp 101.0 F H 06/11/18 11:38 Pulse 99 06/11/18 11:38 Resp 21 06/11/18 11:38 BP 131/60 06/11/18 11:38 Pulse Ox 100 06/11/18 11:38 H&P (including ROS) documented in medical record: Yes Previous reaction to sedatives/anesthetics: No Dietary Status: NPO after Midnight Airway Assessment: Patient can open mouth completely, TMJ function normal Dentition: poor dentition Possible difficult airway: No ASA Classification *see protocol: CLASS IV-Severe systemic disease/constant threat to pt's life
[2018-06-11] MEDS ORDERED: Clinimix E 5%-15% SOLUTION 2,000 ML with MVI, adult with vitamin K 10 ML, Calcium Glu... IVC SCH (17:00)
[2018-06-11] MEDS: *HR* Promethazine 25 MG/ML VIAL IVP PRN (21:36)
[2018-06-12] MEDS: Piperacillin/Tazobactam 3.375 GM in 0.9 % Sodium Chloride Mini Bag 100 ML IVPB SCH ×4 (00:59→23:48)
[2018-06-12] MEDS: Insulin LISPRO 300 UNITS/3 ML VIAL SQ SCH ×7 (01:03→23:54)
[2018-06-12 01:05] LABS: VBG Ionized Calcium 1.16 mmol/L (1.15-1.35)
[2018-06-12 01:20] LABS: BUN/Creatinine Ratio 33 (6-26); Blood Urea Nitrogen 17 mg/dL (8-23); Calcium 7.5 mg/dL (8.6-10.3); Carbon Dioxide 22 mEq/L (23-29); Chloride 107 mEq/L (98-107); Glucose 176 mg/dL (70-105); Osmolality,Calculated 274 (280-300); Potassium 4.2 mEq/L (3.5-5.1); Sodium 129 mEq/L (136-145); eGFR For Non-African Americans > 60 (> 60)
[2018-06-12 01:20] LABS: Phosphorous 2.5 mg/dL (2.7-4.5)
[2018-06-12 01:46] LABS: Magnesium 1.8 mg/dL (1.6-2.6)
[2018-06-12] MEDS ORDERED: 0.9 % Sodium Chloride 1,000 ML ONE (03:14)
[2018-06-12] MEDS: OXYCODONE Oral CONC 10 MG/0.5 ML ORAL.SYG SL PRN ×3 (03:25→23:10)
[2018-06-12] MEDS: Potassium Phosphate 44 MEQ in 0.9 % Sodium Chloride 250 ML IVPB PRN (03:27)
[2018-06-12] MEDS: *HR* Promethazine 25 MG/ML VIAL IVP PRN ×2 (03:30→17:28)
[2018-06-12] MEDS: *HR* LORazepam 2 MG/ML VIAL IVP SCH ×3 (03:31→20:48)
[2018-06-12 04:39] LABS: Basophils # 0.1 K/mcL (0.0-0.2); Basophils % 0.5 %; Eosinophils # 0.3 K/mcL (0.0-0.6); Eosinophils % 2.3 %; Hematocrit 25.3 % (35.3-44.9); Hemoglobin 8.1 g/dL (11.5-15.4); Immature Granulocytes % 4.2 % (0-4); Lymphocytes # 1.2 K/mcL (0.6-4.6); Mean Corpuscular Hemoglobin 29.8 pg (28.0-33.3); Mean Platelet Volume 12.3 fL (9.4-12.4); Monocytes # 2.1 K/mcL (0.0-1.3); Monocytes % 13.8 %; Neutrophils # 10.8 K/mcL (1.6-8.9); Nucleated Red Blood Cells 0.3 /100 WBC (0); Platelet Count 158 K/mcL (140-400); Red Blood Count 2.72 M/mcL (3.82-4.97); Red Cell Distribution Width 18.2 % (11.5-14.5); Segmented Neutrophils % 71.2 %
[2018-06-12] MEDS: *HR* Heparin 5,000 UNIT/ML VIAL SQ SCH ×3 (05:21→20:49)
[2018-06-12] MEDS: Levothyroxine Sodium 100 MCG VIAL IVP SCH (05:22)
[2018-06-12] MEDS: Pantoprazole 40 MG VIAL IVP SCH (09:12)
[2018-06-12] MEDS: Nystatin SUSP 5 ML UD.LIQ PO SCH ×4 (09:12→20:48)
[2018-06-12] MEDS: Micafungin 100 MG in 0.9 % Sodium Chloride Mini Bag 100 ML IVPB SCH (09:13)
[2018-06-12] MEDS: Dexmedetomidine HCl 400 MCG/100 ML MLS IVC SCH (09:14)
--- NOTE | 2018-06-12 10:51 | Event Note ---
Date of Encounter: 06/12/18 Time of Encounter: 09:35 Patient resting in bed - primary nurse and student attending. Leukocytosis continues to improve, fever max 100.6 last 24 hours. Tolerated PEG well. ID continues to follow. Her discomfort appears well controlled with Oxycodone 10mg. Daughter not at bedside yet during my visit. Palliative will follow at a distance.
--- NOTE | 2018-06-12 10:53 | Infectious Disease Progress No ---
Date of Encounter: 06/12/18 Time of Encounter: 10:02 - Assessment and Plan (1) Sepsis Current Visit: Yes Status: Acute - Patient has multiple SIRS criteria including fever, tachycardia, leukocytosis, tachypnea. - Likely secondary to an intra-abdominal versus pulmonary source - Patient has been observed to aspirate during feeding, status post PEG tube p lacement on 06/11 - Patient is also POD 10 for exploratory laparotomy with resection of sigmoid and descending colon. - Concern for an Abdominal process post surgery for pneumatosis coli. Remains septic today with fever of 100.4 (100.6 max), tachycardia in 100 to 110s, tachypnea, WBC of 15.1 -ESR 55, CRP 99 06/10 -CT scan on admission 06/01 showing colon wall thickening suggestive of ischemia, s/p resection -Multiple CXR since admission for pneumothorax, which has resolved s/p chest tube removal 06/09. No evidence of consolidation -Repeat CT scan on 06/11 shows extensive subcutaneous emphysema along the chest wall, tiny anterior pneumothorax, moderate bilateral pleural effusions, postsurg ical changes in the lower left quadrant with colostomy and inflammatory changes in the pelvis. No evidence of discrete fluid collection or abscess. Large amount of stool and fluid in the sigmoid colon with inflammatory changes which cannot rule out infectious etiology. Patient has been previously treated with Zosyn day 11, vancomycin (day 3) added for possible MRSA or Enterococcus faecalis that is ampicillin resistant. Levaquin (2 days total) discontinued yesterday Diflucan (5 day course) changed to micafungin (day 3) due to drug interactions. Plan Continue abx as above, current zosyn, vancomycin, micafungin. Duration of treatment depends on the clinical picture but at least 2 weeks Would appreciate further surgical recommendations regarding CT findings I have low index of suspicion for CLABSI Monitor labs and for drug toxicity Goal vancomycin trough 10-15 Qualifiers: Qualified Code(s): A41.9 - Sepsis, unspecified organism (2) Delirium Current Visit: Yes Status: Acute secondary to metabolic encephalopathy, likely infectious. Labs are improving. No obvious source, will continue to monitor. Unsure baseline. (3) Aspiration into airway Current Visit: Yes Status: Acute s/p PEG tube 06/11. No evidence of aspiration PNA on CT on 06/11 Qualifiers: Qualified Code(s): T17.908A - Unspecified foreign body in respiratory tract, part unspecified causing other injury, initial encounter (4) Encephalopathy Current Visit: Yes Status: Acute likely metabolic secondary to infection. no meningeal signs. (5) Pneumatosis coli Current Visit: Yes Status: Acute Secondary to ischemic colitis Status post exploratory laparotomy with descending and sigmoid colon resection, takedown splenic flexure, and colostomy and Mejias's pouch followed by a ttempted placement of triple lumen catheter, placement of left sided chest tube on 06/02/[address] Gallego. General surgery following. (6) Pneumothorax Current Visit: Yes Status: Resolved Appreciate Dr. Dowell's recommendation resolved, chest tube pulled 06/10 CT yesterday remarks a tiny anterior pneumothorax without symptoms. Qualifiers: Qualified Code(s): J95.811 - Postprocedural pneumothorax (7) Drug allergy, antibiotic Current Visit: Yes Status: Acute keflex, unknown allergy - Subjective Interval history: Patient seen and examined up and since morning. Patient is slightly more awake this morning and does respond to tactile stimuli. She does respond with good morning but otherwise is unable to express any complaints. She does moan in response to tactile or excessive verbal stimuli Infect Dis PN-Objective Data - Labs CBC & Chem 7: 06/13/18 04:19 06/12/18 00:39 Labs: Laboratory Results - last 24 hr 06/11/18 06/11/18 06/11/18 03:30 08:00 11:41 WBC RBC Hgb Hct MCV MCH MCHC RDW Plt Count MPV Immature Gran % Seg Neutrophils % Lymphocytes % Monocytes % Eosinophils % Basophils % Neutrophils # Lymphocytes # Monocytes # Eosinophils # Basophils # Nucleated RBCs/100 WBC Sodium Potassium Chloride Carbon Dioxide BUN Creatinine Est GFR ( Amer) Est GFR (Non-Af Amer) BUN/Creatinine Ratio Glucose POC Glucose 173 H 170 H 150 H Calculated Osmolality Calcium Venous Ioniz Calcium Phosphorus Magnesium 06/11/18 06/11/18 06/12/18 19:45 23:49 00:39 WBC RBC Hgb Hct MCV MCH MCHC RDW Plt Count MPV Immature Gran % Seg Neutrophils % Lymphocytes % Monocytes % Eosinophils % Basophils % Neutrophils # Lymphocytes # Monocytes # Eosinophils # Basophils # Nucleated RBCs/100 WBC Sodium 129 L Potassium 4.2 Chloride 107 Carbon Dioxide 22 L BUN 17 Creatinine 0.51 L Est GFR ( Amer) > 60 Est GFR (Non-Af Amer) > 60 BUN/Creatinine Ratio 33 H Glucose 176 H POC Glucose 153 H 174 H Calculated Osmolality 274 L Calcium 7.5 L Venous Ioniz Calcium Phosphorus Magnesium 06/12/18 06/12/18 06/12/18 00:40 01:00 03:49 WBC RBC Hgb Hct MCV MCH MCHC RDW Plt Count MPV Immature Gran % Seg Neutrophils % Lymphocytes % Monocytes % Eosinophils % Basophils % Neutrophils # Lymphocytes # Monocytes # Eosinophils # Basophils # Nucleated RBCs/100 WBC Sodium Potassium Chloride Carbon Dioxide BUN Creatinine Est GFR ( Amer) Est GFR (Non-Af Amer) BUN/Creatinine Ratio Glucose POC Glucose 123 H Calculated Osmolality Calcium Venous Ioniz Calcium 1.16 Phosphorus 2.5 L Magnesium 1.8 06/12/18 04:00 WBC 15.1 H RBC 2.72 L Hgb 8.1 L Hct 25.3 L MCV 93.0 MCH 29.8 MCHC 32.0 RDW 18.2 H Plt Count 158 MPV 12.3 Immature Gran % 4.2 H Seg Neutrophils % 71.2 Lymphocytes % 8.0 Monocytes % 13.8 Eosinophils % 2.3 Basophils % 0.5 Neutrophils # 10.8 H Lymphocytes # 1.2 Monocytes # 2.1 H Eosinophils # 0.3 Basophils # 0.1 Nucleated RBCs/100 WBC 0.3 H Sodium Potassium Chloride Carbon Dioxide BUN Creatinine Est GFR ( Amer) Est GFR (Non-Af Amer) BUN/Creatinine Ratio Glucose POC Glucose Calculated Osmolality Calcium Venous Ioniz Calcium Phosphorus Magnesium Cultures: Cultures 06/10/18 16:57 Blood Culture - Preliminary Peripheral Venipuncture Culture is incubating and being continuously monitor ed for growth. Final report to follow. 06/10/18 16:57 Blood Culture - Preliminary Peripheral Venipuncture Culture is incubating and being continuously monitored for growth. Final report to follow. 06/08/18 15:20 Wound Culture - Final Abdomen No growth. 06/08/18 09:18 Blood Culture - Preliminary Peripheral Venipuncture Culture is incubating and being continuously monitored for growth. Final report to follow. 06/08/18 09:18 Blood Culture - Preliminary Peripheral Venipuncture Culture is incubating and being continuously monitored for growth. Final report to follow. 06/02/18 20:10 Blood Culture - Final Peripheral Venipuncture No growth. Final report. 06/02/18 20:23 Blood Culture - Final Peripheral Venipuncture No growth. Final report. 06/01/18 15:04 Blood Culture - Final Peripheral Venipuncture No growth. Final report. 06/01/18 12:54 Blood Culture - Final Peripheral Venipuncture No growth. Final report. Serology 06/07/18 06/01/18 Range/Units 11:35 15:13 Urine Color Yellow Yellow (Yellow) Urine Clarity Cloudy A Hazy A (Clear) Urine pH 5.5 6.0 (5.0-8.0) pH Units Ur Specific [place] 1.024 > 1.030 H (1.010-1.025) Urine Protein 30 H 100 H (Neg-Trace) mg/dL Urine Glucose (UA) Normal Normal (Normal) mg/dL Urine Ketones Negative Negative (Negative) mg/dL Urine Blood Large H Moderate H (Negative) Urine Nitrite Negative Negative (Negative) Urine Bilirubin Negative Negative (Negative) Urine Urobilinogen Normal Normal (Normal) mg/dL Ur Leukocyte Esterase Trace H Negative (Negative) Urine Microscopic RBC 50-100 H 30-50 H (0-3) per hpf Urine Microscopic WBC 15-30 H 5-15 H (0-3) per hpf Ur Squamous Epith Cells Many H Many H (None-Few) per lpf Ur Transition Epith Cell Few (None-Few) per hpf Ur Renal Epithelial Cell Few (None-Few) per hpf Amorphous Sediment Many H (Few) Urine Bacteria None Seen None Seen (None-Few) per hpf Hyaline Casts Few (None-Few) per lpf Granular Casts Few H (None Seen) per lpf Urine Mucus Moderate H (Few) Urine Yeast Moderate H (None Seen) per hpf Ur Culture Indicated? NO. A NO (NO) - Impressions Impressions Abdomen/Pelvis CT 06/11/18 16:34 IMPRESSION: 1. Extensive subcutaneous emphysema along the chest wall, left supraclavicular region and superior mediastinum with an associated tiny left anterior pneumothorax. 2. Moderate bilateral pleural effusions, right side greater than left, with associated areas of atelectasis in the lung bases. 3. Postsurgical changes are noted from a diverting left lower quadrant colostomy with inflammatory changes noted in the pelvis. No discrete fluid collection or abscess. 4. There is a large amount of stool and fluid noted in the sigmoid colon and rectum with adjacent inflammatory changes and thickened bowel wall. Underlying infection in this region cannot be excluded. Additionally, there is high attenuation material pooling along the gravity dependent portion of the rectum (series 2, image 171, 178), concerning for an area of active bleeding. 5. Anasarca. 6. Atherosclerotic disease. Results were discussed with Dr. Iyer at 11:52 a.m. on 06/11/2018. The patient currently has no signs of active rectal bleeding. D/ / 06/11/2018 12:13:32 Andrei Crum MD / [facility] Interpreting Provider: Andrei Crum MD Chest CT 06/11/18 16:34 IMPRESSION: 1. Extensive subcutaneous emphysema along the chest wall, left supraclavicular region and superior mediastinum with an associated tiny left anterior pneumothorax. 2. Moderate bilateral pleural effusions, right side greater than left, with associated areas of atelectasis in the lung bases. 3. Postsurgical changes are noted from a diverting left lower quadrant colostomy with inflammatory changes noted in the pelvis. No discrete fluid collection or abscess. 4. There is a large amount of stool and fluid noted in the sigmoid colon and rectum with adjacent inflammatory changes and thickened bowel wall. Underlying infection in this region cannot be excluded. Additionally, there is high attenuation material pooling along the gravity dependent portion of the rectum (series 2, image 171, 178), concerning for an area of active bleeding. 5. Anasarca. 6. Atherosclerotic disease. Results were discussed with Dr. Iyer at 11:52 a.m. on 06/11/2018. The patient currently has no signs of active rectal bleeding. D/ / 06/11/2018 12:13:32 Andrei Crum MD / [facility] Interpreting Provider: Andrei Crum MD Exam - Constitutional Vitals: Temp Pulse Resp BP Pulse Ox 100.1 F H 96 18 106/42 94 06/12/18 03:46 06/12/18 03:46 06/12/18 03:46 06/12/18 03:46 10/25/18 03:46 Exam: Gen.: Vitals noted. No acute distress. Patient does open eyes to light tactile stimuli. Unable to assess mental status orientation as she does not respond to direct questions. HEENT: PERRL/EOMI, oropharynx clear, Normocephalic, atraumatic, dry mucous membranes Cardiac: RRR, systolic murmur, +S1/S2 Pulmonary: CTA bilaterally, no wheezes, rales or rhonchi, equal chest expansion Abdomen: soft, still grimaces to palpation of abdomen most prominent in the left lower quadrant and epigastric regions. Improved from previous., BS not appreciated, no guarding, no rebound. Extremities: 1+ BLE edema, nontender calf, no cyanosis or clubbing Neuro: A&Ox0, moves all extremities, unable to assess fully secondary to mental status Psych: Unable to assess Consult Discharge Plan - Plan Referrals: Hong Garnett MD [Primary Care Provider] - (patient is going to [facility] no PCP appointment needed) - Attending Attestation I examined this patient and my medical decision-making was reviewed with the Resident Physician. I agree with the documented findings, disposition and treatment plan as described except to the extent set forth below.
--- NOTE | 2018-06-12 10:56 | Internal Med Progress Note ---
Hospitalist Progress Note - Encounter Date of Encounter: 06/12/18 Time of Encounter: 09:30 - Subjective Interval History: Patient appears to be resting comfortably. Noted fever pattern is improving overnight, Tmax 101 at 1130am and since then, it has remained in low 100s. Continues to require precedex gtt for >12hrs - Exam Vitals: Temp Pulse Resp BP Pulse Ox 100.2 F H 92 30 94/45 93 06/12/18 10:03 06/12/18 10:03 06/12/18 10:03 06/12/18 10:03 06/12/18 10:03 Exam: General: Sedated, groans to verbal stimuli Neck: right IJ CVC site appears clean. No erythema. Chest: subcutaneous emphysema on left chest wall to the neck Cardiovascular: regular rate and rhythm with no murmur Lungs: diminished breath sound but no rhonchi/wheezes Abdomen: Soft, appears to be moaning upon gentle palpation in all quadrants but not consistently. Midline incision appears well-healed. left ostomy intact, draining fecal matter. PEG site appears dry and clean Neuro: Awake groaning, does not open eyes, but answers questions intermittently - Assessment and Plan (1) Septic shock Current Visit: Yes Status: Acute Assessment and Plan: Shock resolved, remained off pressors since 06/04 but continues to be febrile with increasing WBC since 06/06 despite being on 5-6 days of zosyn, levaquin, and fluconazole CT T/A/P yesterday did not reveal any obvious abscess or pulmonary source of sepsis. Changes likely to represent post-op changes ID input appreciated, switched to zosyn, vanc, and micafungin on 06/10 with improvement in leukocytosis will attempt to wean off precedex gtt for delirium Urine analysis unremarkable on 06/07 blood cultures 06/08, 06/10 pending wound culture from abdomen incision -ve PRN tylenol (2) Delirium Current Visit: Yes Status: Acute Assessment and Plan: Continue 1 mg haldol every 2 hours as needed for agitation Continue 0.5 mg ativan IV every 8 hours for agitation-patient takes xanax at home wean off precedex if possible. Might be able to try SL olanzepine instead (3) Pneumatosis intestinalis of large intestine Current Visit: Yes Status: Acute Assessment and Plan: POD10 for exploratory laparotomy with descending/sigmoid colectomy, end colostom y, and Mejias's pouch CT findings discussed with radiology on 06/11. High attenuation material pooling along the gravity dependent portion of the rectum is likely to represent post-op findings rather than active bleeding. There is no report of bloody output from anus and Hb remains relatively stable antimicrobials as above, appreciate ID input Surgery following, PEG placed yesterday will slowly transition from TPN to tube feed, per dietary (4) Diabetes Current Visit: Yes Status: Chronic Assessment and Plan: Continue clear diet, as tolerated On TPN, goal of 75 ml/hr plan to transition to tube feeds, switch the frequency of sliding scale coverage thereafter Continue high dose sliding scale Q4hr FS Q4, currently controlled (5) Pneumothorax Current Visit: Yes Status: Resolved Assessment and Plan: iatrogenic, complicated by subcutaneous emphysema requiring chest tube that was removed on 06/09 Monitor (6) RONY (acute kidney injury) Current Visit: Yes Status: Resolved Assessment and Plan: Resolved, Cr stable around 0.5 (7) Anemia Current Visit: Yes Status: Chronic Assessment and Plan: stable s/p 4 units RBCS (last one on 06/07), Hb 8.1 today No evident source of bleeding at this time. CT findings discussed with radiology as above Continue to monitor (8) DVT prophylaxis Current Visit: Yes Status: Acute Assessment and Plan: Subcutaneous heparin - Time Spent with Patient Total time spent is greater than 50% in coordination of care (as documented) at patient's floor/unit and/or counseling patient: Plan of Care Discussed with: nurse Internal Medicine: Result - Labs CBC & Chem 7: 06/12/18 04:00 06/12/18 00:39 Labs: Short CBC 06/12/18 Range/Units 04:00 WBC 15.1 H (4.3-11.1) K/mcL Hgb 8.1 L (11.5-15.4) g/dL Hct 25.3 L (35.3-44.9) % Plt Count 158 (140-400) K/mcL Neutrophils # 10.8 H (1.6-8.9) K/mcL BMP 06/12/18 00:39 Sodium 129 L Potassium 4.2 Chloride 107 Carbon Dioxide 22 L BUN 17 Creatinine 0.51 L Glucose 176 H Calcium 7.5 L - ABG Interpretation ABG results: ABG ABG pH 7.32 pH Units (7.32-7.45) 06/04/18 05:06 ABG pCO2 38 mmHg (35-45) 06/04/18 05:06 ABG pO2 86 mmHg (85-104) 06/04/18 05:06 ABG O2 Saturation 96 % (95-98) 06/04/18 05:06 PT/INR, D-dimer PT 11.2 Seconds (9.4-12.1) 06/01/18 12:51 - Impressions Impressions Abdomen/Pelvis CT 06/11/18 16:34 IMPRESSION: 1. Extensive subcutaneous emphysema along the chest wall, left supraclavicular region and superior mediastinum with an associated tiny left anterior pneumothorax. 2. Moderate bilateral pleural effusions, right side greater than left, with associated areas of atelectasis in the lung bases. 3. Postsurgical changes are noted from a diverting left lower quadrant colostomy with inflammatory changes noted in the pelvis. No discrete fluid collection or abscess. 4. There is a large amount of stool and fluid noted in the sigmoid colon and rectum with adjacent inflammatory changes and thickened bowel wall. Underlying infection in this region cannot be excluded. Additionally, there is high attenuation material pooling along the gravity dependent portion of the rectum (series 2, image 171, 178), concerning for an area of active bleeding. 5. Anasarca. 6. Atherosclerotic disease. Results were discussed with Dr. Iyer at 11:52 a.m. on 06/11/2018. The patient currently has no signs of active rectal bleeding. D/ / 06/11/2018 12:13:32 Andrei Crum MD / [facility] Interpreting Provider: Andrei Crum MD Chest CT 06/11/18 16:34 IMPRESSION: 1. Extensive subcutaneous emphysema along the chest wall, left supraclavicular region and superior mediastinum with an associated tiny left anterior pneumothorax. 2. Moderate bilateral pleural effusions, right side greater than left, with associated areas of atelectasis in the lung bases. 3. Postsurgical changes are noted from a diverting left lower quadrant colostomy with inflammatory changes noted in the pelvis. No discrete fluid collection or abscess. 4. There is a large amount of stool and fluid noted in the sigmoid colon and rectum with adjacent inflammatory changes and thickened bowel wall. Underlying infection in this region cannot be excluded. Additionally, there is high attenuation material pooling along the gravity dependent portion of the rectum (series 2, image 171, 178), concerning for an area of active bleeding. 5. Anasarca. 6. Atherosclerotic disease. Results were discussed with Dr. Iyer at 11:52 a.m. on 06/11/2018. The patient currently has no signs of active rectal bleeding. 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
--- NOTE | 2018-06-12 13:24 | General Surgery Progress Note ---
Date of Encounter: 06/12/18 Time of Encounter: 13:20 - Assessment and Plan (1) Pneumatosis intestinalis of large intestine Current Visit: Yes Status: Acute Date of procedure: 06/01/18 Pre-op diagnosis: Hypotension, acidosis, pneumatosis coli Post-op diagnosis: same Procedure: Exposure laparotomy with descending and sigmoid colon resection, takedown splenic flexure, end colostomy and Mejias's pouch followed by attempted placement of triple-lumen catheter, placement of left sided chest tube Anesthesia: GETA Surgeon: Axel Reyez Was there an learning support assistant present: Yes Mosaic Tile Maker: Carol Shipman Estimated blood loss (cc): 100 ml POD #11, ABOVE. Final pathology noted ischemic colitis s/p PEG placement 06/11/18. Ok to use PEG. TF per dieticians. Wean TPN she is s/p transfusion 2U PRBCs 06/02 and 06/07 Output noted per colostomy. Stoma is pink and moist. Remains confused. Abdominal binder ordered to protect PEG. Noted abdominal binder not in place upon assessment. Reviewed with bedside RN who stated they were having difficulty keeping abdominal binder in place d/t patient activity in the bed. Stress the importance of having the abdominal binder in place for protection of the peg tube as this was placed less than [address] abdomen and pelvis on 06/11/2018 shows no acute abdominal process. Extensive subcutaneous air on the left side noted. Pneumothorax/chest tube management per pulmonary Noted code status changes to DNRCC-A Plan: supportive care and discomfort management; wean TPN, start TF as above continue G.I. and DVT prophylaxis per primary team place abdominal binder and keep on at all times. From surgical standpoint, the patient is progressing as expected. Surgery will follow from a distance at this time. Please call if questions or needs arise. (2) Pneumothorax Current Visit: Yes Status: Resolved see a/p above Management per CC/pulm Qualifiers: Pneumothorax type: postprocedural Qualified Code(s): J95.811 - Postp rocedural pneumothorax (3) Delirium Current Visit: Yes Status: Acute see above Abdominal binders to remain in place at all times given acute confusion. Must minimize risk of pulling Peg tube out. 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 Objective Vital Signs - Last 8 Hours Temp Pulse Resp BP Pulse Ox 06/12/18 10:03 100.2 F H 92 30 94/45 93 Intake and Output 06/11/18 06/12/18 06/12/18 23:59 07:59 15:59 Intake Total 250 / 250 645.7 / 645.7 118.3 / 118.3 Output Total 1800 / 1800 200 / 200 650 / 650 Balance -1550 / -1550 445.7 / 445.7 -531.7 / -531.7 Intake: IV Fluids 250 / 250 645.7 / 645.7 118.3 / 118.3 PRECEDEX Premix 400 mcg In 100 91.7 / 91.7 18.3 / 18.3 ml @ 0.2 MCG/KG/HR 3.135 mls/hr IVC .Q24H TU Rx#:[id number] Intralipid 20% 250 ML @ 21 mls/ 250 / 250 hr IVPB DAILY@1700 TU Rx#: [id number] Magnesium Sulfate 2 GM In 0.9 % 104 / 104 Sodium Chloride 100 ML @ 52 mls/hr IVPB Q6H PRN Rx#: [id number] Mycamine 100 MG In 0.9 % Sodium 100 / 100 Chloride (Mini-Bag +) 100 ML @ 100 mls/hr IVPB DAILY TU Rx#: [id number] Zosyn 3.375 GM In 0.9 % Sodium 200 / 200 Chloride (Mini-Bag +) 100 ML @ 25 mls/hr IVPB Q8HR TU Rx#: [id number] Vancocin 1,250 MG In 0.9 % 250 / 250 Sodium Chloride 250 ML @ 166.67 mls/hr IVPB Q24H TU Rx#: [id number] Oral 0 / 0 Output: Urine 0 / 0 Catheter 1800 / 1800 200 / 200 650 / 650 Other: Stool Size Small Large Stool Consistency liquid liquid Stool Color Bautista Colored Brown # Bowel Movements 1 # Bowel Movement Diapers 1 Weight 61.1 kg Blood Glucose* 174 123 Patient Weight 06/12/18 23:59 Weight 61.1 kg - Labs 06/12/18 04:00 06/12/18 00:39 Diabetes panel 06/12/18 Range/Units 00:39 Sodium 129 L (136-145) mEq/L Potassium 4.2 (3.5-5.1) mEq/L Chloride 107 (98-107) mEq/L Carbon Dioxide 22 L (23-29) mEq/L BUN 17 (8-23) mg/dL Creatinine 0.51 L (0.60-1.20) mg/dL Glucose 176 H (70-105) mg/dL Calcium 7.5 L (8.6-10.3) mg/dL Calcium panel 06/12/18 06/12/18 Range/Units 00:39 00:40 Calcium 7.5 L (8.6-10.3) mg/dL Phosphorus 2.5 L (2.7-4.5) mg/dL Pituitary panel 06/12/18 Range/Units 00:39 Sodium 129 L (136-145) mEq/L Potassium 4.2 (3.5-5.1) mEq/L Chloride 107 (98-107) mEq/L Carbon Dioxide 22 L (23-29) mEq/L BUN 17 (8-23) mg/dL Creatinine 0.51 L (0.60-1.20) mg/dL Glucose 176 H (70-105) mg/dL Calcium 7.5 L (8.6-10.3) mg/dL Adrenal panel 06/12/18 Range/Units 00:39 Sodium 129 L (136-145) mEq/L Potassium 4.2 (3.5-5.1) mEq/L Chloride 107 (98-107) mEq/L Carbon Dioxide 22 L (23-29) mEq/L BUN 17 (8-23) mg/dL Creatinine 0.51 L (0.60-1.20) mg/dL Glucose 176 H (70-105) mg/dL Calcium 7.5 L (8.6-10.3) mg/dL Consult Discharge Plan - Plan Referrals: Hong Garnett MD [Primary Care Provider] - ([facility] is going to [facility] no PCP appointment needed)
[2018-06-12] MEDS ORDERED: 0.9 % Sodium Chloride 1,000 ML IVC ONE (21:02)
[2018-06-12] MEDS ORDERED: Acetaminophen 325 MG TABLET PO PRN (21:03)
[2018-06-13] MEDS: Insulin LISPRO 300 UNITS/3 ML VIAL SQ SCH ×5 (04:20→17:24)
[2018-06-13] MEDS: *HR* LORazepam 2 MG/ML VIAL IVP SCH ×4 (04:23→20:34)
[2018-06-13] MEDS: Levothyroxine Sodium 100 MCG VIAL IVP SCH (04:29)
[2018-06-13 04:40] LABS: Basophils # 0.1 K/mcL (0.0-0.2); Basophils % 0.6 %; Eosinophils # 0.5 K/mcL (0.0-0.6); Eosinophils % 2.5 %; Hemoglobin 8.8 g/dL (11.5-15.4); Immature Granulocytes % 4.6 % (0-4); Lymphocytes % 9.9 %; Mean Corpuscular HGB Conc 31.4 g/dL (31.6-35.5); Mean Corpuscular Hemoglobin 29.3 pg (28.0-33.3); Mean Corpuscular Volume 93.3 fL (83.0-100.0); Monocytes # 3.2 K/mcL (0.0-1.3); Neutrophils # 13.1 K/mcL (1.6-8.9); Nucleated Red Blood Cells 0.3 /100 WBC (0); Platelet Count 219 K/mcL (140-400); Segmented Neutrophils % 66.4 %
[2018-06-13] MEDS: *HR* Heparin 5,000 UNIT/ML VIAL SQ SCH ×3 (05:41→20:34)
[2018-06-13] MEDS: Piperacillin/Tazobactam 3.375 GM in 0.9 % Sodium Chloride Mini Bag 100 ML IVPB SCH ×2 (09:08→16:44)
[2018-06-13] MEDS: Micafungin 100 MG in 0.9 % Sodium Chloride Mini Bag 100 ML IVPB SCH (09:09)
[2018-06-13] MEDS: OXYCODONE Oral CONC 10 MG/0.5 ML ORAL.SYG SL PRN ×2 (09:12→16:43)
[2018-06-13] MEDS: Nystatin SUSP 5 ML UD.LIQ PO SCH ×4 (09:22→20:34)
--- NOTE | 2018-06-13 11:33 | Internal Med Progress Note ---
Hospitalist Progress Note - Encounter Date of Encounter: 06/13/18 Time of Encounter: 09:30 - Subjective Interval History: Patient appears to be resting comfortably. Noted temp pattern overnight, s improving overnight, Tmax 102.5 at 2030. Afebrile for the last 3 readings, WBC increased to 19.7 but precedex was weaned off since 12pm yesterday. - Exam Vitals: Temp Pulse Resp BP Pulse Ox 97.5 F L 115 15 144/58 93 06/13/18 07:00 06/13/18 07:00 06/13/18 07:00 06/13/18 07:00 06/13/18 03:54 Exam: General: appears comfortable, groans to verbal stimuli Neck: right IJ CVC site appears clean. No erythema. Chest: subcutaneous emphysema on left chest wall to the neck Cardiovascular: tachycardic, regular rhythm with no murmur Lungs: diminished breath sound but no rhonchi/wheezes Abdomen: Soft, unchanged abdominal exam (moans upon gentle palpation in all quadrants but not consistently). Midline incision appears well-healed. left ostomy intact, draining fecal matter. PEG site appears dry and clean Neuro: Awake groaning, does not open eyes. Only able to tell me her name - Assessment and Plan (1) Septic shock Current Visit: Yes Status: Acute Assessment and Plan: Shock resolved, remained off pressors since 06/04 but continues to be febrile with increasing WBC since 06/06 despite being on 5-6 days of zosyn, levaquin, and fluconazole CT T/A/P 06/11 did not reveal any obvious abscess or pulmonary source of sepsis. High attenuation material along the dependent portion of the rectum kikely to represent post-op changes after discussing with the radiologist on 06/11 ID input appreciated, switched to zosyn, vanc, and micafungin on 06/10 with improvement in leukocytosis till yesterday, slightly worse today and temp 102.5 noted vernight however, precedex gtt was weaned off and thrombocytopenia also improving Urine analysis unremarkable on 06/07 blood cultures 06/08 NG. 06/10 NGTD, repeat one ordered by ID today wound culture from abdomen incision -ve PRN tylenol (2) Delirium Current Visit: Yes Status: Acute Assessment and Plan: Precedex weaned off yesterday Continue 0.5 mg ativan IV every 8 hours as patient takes xanax at home did not require any haldol since 06/10 , will d/c and try seroquel at HS PRN (3) Pneumatosis intestinalis of large intestine Current Visit: Yes Status: Acute Assessment and Plan: POD11 for exploratory laparotomy with descending/sigmoid colectomy, end colostomy, and Mejias's pouch path: ischemic colitis CT findings discussed with radiology on 06/11. High attenuation material pooling along the gravity dependent portion of the rectum is likely to represent post-op findings rather than active bleeding. There is no report of bloody output from anus and Hb remains relatively stable PEG placed on 06/11 by surgery, tolerating tube feed well antimicrobials as above, appreciate ID input (4) Diabetes Current Visit: Yes Status: Chronic Assessment and Plan: unable to take diet due to ongoing delirium PEG tube placement on 06/11, started on tube feed which she is tolerating well TPN weaned off accuchecks Q6, low dose sliding scale (5) Pneumothorax Current Visit: Yes Status: Resolved Assessment and Plan: iatrogenic, complicated by subcutaneous emphysema requiring chest tube that was removed on 06/09 Monitor (6) RONY (acute kidney injury) Current Visit: Yes Status: Resolved Assessment and Plan: Resolved, Cr stable around 0.5 (7) Anemia Current Visit: Yes Status: Chronic Assessment and Plan: stable s/p 4 units RBCS (last one on 06/07), Hb 8.1 today No evident source of bleeding at this time. CT findings discussed with radiology as above Continue to monitor (8) Hypothyroid Current Visit: No Status: Chronic Assessment and Plan: Switch IV levothyroxine to Gtube (9) DVT prophylaxis Current Visit: Yes Status: Acute Assessment and Plan: Subcutaneous heparin - Time Spent with Patient Total time spent is greater than 50% in coordination of care (as documented) at patient's floor/unit and/or counseling patient: Internal Medicine: Result - Labs CBC & Chem 7: 06/13/18 04:19 06/12/18 00:39 Labs: Short CBC 06/13/18 Range/Units 04:19 WBC 19.7 H (4.3-11.1) K/mcL Hgb 8.8 L (11.5-15.4) g/dL Hct 28.0 L (35.3-44.9) % Plt Count 219 (140-400) K/mcL Neutrophils # 13.1 H (1.6-8.9) K/mcL - ABG Interpretation ABG results: ABG ABG pH 7.32 pH Units (7.32-7.45) 06/04/18 05:06 ABG pCO2 38 mmHg (35-45) 06/04/18 05:06 ABG pO2 86 mmHg (85-104) 06/04/18 05:06 ABG O2 Saturation 96 % (95-98) 06/04/18 05:06 PT/INR, D-dimer PT 11.2 Seconds (9.4-12.1) 06/01/18 12:51 Consult Discharge Plan - Plan Referrals: Hong Garnett MD [Primary Care Provider] - (patient is going to [facility] no PCP appointment needed) (4) Diabetes Qualifiers: Diabetes mellitus type: type 2 Diabetes mellitus detention insulin use: without detention use Diabetes mellitus complication status: without complication Qualified Code(s): E11.9 - Type 2 diabetes mellitus without complications (5) Pneumothorax Qualifiers: Pneumothorax type: postprocedural Qualified Code(s): J95.811 - Postprocedural pneumothorax (7) Anemia Qualifiers: Anemia type: unspecified type Qualified Code(s): D64.9 - Anemia, unspecified (8) Hypothyroid Qualifiers: Hypothyroidism type: unspecified Qualified Code(s): E03.9 - Hypothyroidism, unspecified
[2018-06-13] MEDS: Dexmedetomidine HCl 400 MCG/100 ML MLS IVC SCH (11:55)
[2018-06-13 12:39] LABS: BUN/Creatinine Ratio 25 (6-26); Blood Urea Nitrogen 21 mg/dL (8-23); eGFR For Non-African Americans > 60 (> 60)
[2018-06-13 12:39] LABS: BUN/Creatinine Ratio 24 (6-26); Blood Urea Nitrogen 20 mg/dL (8-23); Calcium 7.6 mg/dL (8.6-10.3); Carbon Dioxide 22 mEq/L (23-29); Chloride 107 mEq/L (98-107); Glucose 203 mg/dL (70-105); Osmolality,Calculated 288 (280-300); Potassium 4.5 mEq/L (3.5-5.1); Sodium 135 mEq/L (136-145); eGFR For Non-African Americans > 60 (> 60)
--- NOTE | 2018-06-13 19:23 | Infectious Disease Progress No ---
Date of Encounter: 06/13/18 Time of Encounter: 14:25 - Assessment and Plan (1) Sepsis Current Visit: Yes Status: Acute - Patient has multiple SIRS criteria including fever, tachycardia, leukocytosis, tachypnea. - Likely secondary to an intra-abdominal versus pulmonary source - Patient has been observed to aspirate during feeding, status post PEG tube p lacement on 06/11 - Patient is also POD 11 for exploratory laparotomy with resection of sigmoid and descending colon. - Concern for an Abdominal process post surgery for pneumatosis coli. Remains septic today with fever of 102.5 , tachycardia in 100 to 120s, tachypnea, WBC of 19.7 (worsened from 15.1) -ESR 55, CRP 99 06/10 -CT scan on admission 06/01 showing colon wall thickening suggestive of i schemia, s/p resection -Multiple CXR since admission for pneumothorax, which has resolved s/p chest tube removal 06/09. No evidence of consolidation Blood Culture on 06/01 negative x2 blood culture 06/02 negative x2 Blood culture 06/08 negative x 2 Wound culture 06/08 negative x1 Blood culture 06/10 negative x2 Blood culture 06/13 repeated today for fevers, tachycardia, increasing WBC -Repeat CT scan on 06/11 shows extensive subcutaneous emphysema along the chest wall, tiny anterior pneumothorax, moderate bilateral pleural effusions, postsurgical changes in the lower left quadrant with colostomy and inflammatory changes in the pelvis. No evidence of discrete fluid collection or abscess. Large amount of stool and fluid in the sigmoid colon with inflammatory changes which cannot rule out infectious etiology. Patient has been previously treated with Zosyn day 12, vancomycin (day 3) added for possible MRSA or Enterococcus faecalis that is ampicillin resistant. Levaquin (2 days total) discontinued Diflucan (5 day course) changed to micafungin (day 4) due to drug interactions. Plan Continue abx as above, current zosyn, vancomycin, micafungin. Duration of treatment depends on the clinical picture but at least 2 weeks Patient is clinically improving despite her worsening laboratory results. We will continue current course and monitor. I have low index of suspicion for CLABSI Monitor labs and for drug toxicity Goal vancomycin trough 10-15 Qualifiers: Sepsis type: sepsis due to unspecified organism Qualified Code(s): A41.9 - Sepsis, unspecified organism (2) Delirium Current Visit: Yes Status: Acute secondary to metabolic encephalopathy, likely infectious. Labs are improving. No obvious source, will continue to monitor. Unsure baseline. (3) Aspiration into airway Current Visit: Yes Status: Acute s/p PEG tube 06/11. No evidence of aspiration PNA on CT on 06/11 Qualifiers: Encounter type: initial encounter Qualified Code(s): T17.908A - Unspecified foreign body in respiratory tract, part unspecified causing other injury, initial encounter (4) Encephalopathy Current Visit: Yes Status: Acute likely metabolic secondary to infection. no meningeal signs. (5) Pneumatosis coli Current Visit: Yes Status: Acute Secondary to ischemic colitis Status post exploratory laparotomy with descending and sigmoid colon resection, takedown splenic flexure, and colostomy and Mejias's pouch followed by attempted placement of triple lumen catheter, placement of left sided chest tube on 06/02/[address] Reyez. General surgery following. (6) Pneumothorax Current Visit: Yes Status: Resolved Appreciate Dr. Dowell's recommendation resolved, chest tube pulled 06/10 CT 06/11 remarks a tiny anterior pneumothorax without symptoms. Qualifiers: Pneumothorax type: postprocedural Qualified Code(s): J95.811 - Postprocedural pneumothorax (7) Drug allergy, antibiotic Current Visit: Yes Status: Acute keflex, unknown allergy - Subjective Interval history: Patient seen and examined up and this morning. She is more awake and alert and does answer some questions. She is able to communicate that she is having no pain at this time and does not believe she is having fevers or chills. She does appear somewhat confused and slow to answer some questions. Infect Dis PN-Objective Data - Labs CBC & Chem 7: 06/13/18 04:19 06/13/18 11:29 Labs: Laboratory Results - last 24 hr 06/12/18 06/12/18 06/12/18 11:28 17:15 17:16 WBC RBC Hgb Hct MCV MCH MCHC RDW Plt Count MPV Immature Gran % Seg Neutrophils % Lymphocytes % Monocytes % Eosinophils % Basophils % Neutrophils # Lymphocytes # Monocytes # Eosinophils # Basophils # Nucleated RBCs/100 WBC Sodium Potassium Chloride Carbon Dioxide BUN Creatinine Est GFR ( Amer) Est GFR (Non-Af Amer) BUN/Creatinine Ratio Glucose POC Glucose 185 H 157 H Calculated Osmolality Calcium Vancomycin Trough 8 10/25/18 10/25/18 10/26/18 20:30 23:52 04:19 WBC 19.7 H RBC 3.00 L Hgb 8.8 L Hct 28.0 L MCV 93.3 MCH 29.3 MCHC 31.4 L RDW 18.0 H Plt Count 219 MPV 11.0 Immature Gran % 4.6 H Seg Neutrophils % 66.4 Lymphocytes % 9.9 Monocytes % 16.0 Eosinophils % 2.5 Basophils % 0.6 Neutrophils # 13.1 H Lymphocytes # 2.0 Monocytes # 3.2 H Eosinophils # 0.5 Basophils # 0.1 Nucleated RBCs/100 WBC 0.3 H Sodium Potassium Chloride Carbon Dioxide BUN Creatinine Est GFR ( Amer) Est GFR (Non-Af Amer) BUN/Creatinine Ratio Glucose POC Glucose 109 H 145 H Calculated Osmolality Calcium Vancomycin Trough 06/13/18 06/13/18 11:12 11:29 WBC RBC Hgb Hct MCV MCH MCHC RDW Plt Count MPV Immature Gran % Seg Neutrophils % Lymphocytes % Monocytes % Eosinophils % Basophils % Neutrophils # Lymphocytes # Monocytes # Eosinophils # Basophils # Nucleated RBCs/100 WBC Sodium 135 L Potassium 4.5 Chloride 107 Carbon Dioxide 22 L BUN 21 20 Creatinine 0.85 0.83 Est GFR ( Amer) > 60 > 60 Est GFR (Non-Af Amer) > 60 > 60 BUN/Creatinine Ratio 25 24 Glucose 203 H POC Glucose Calculated Osmolality 288 Calcium 7.6 L Vancomycin Trough Cultures: Cultures 06/08/18 09:18 Blood Culture - Final Peripheral Venipuncture No growth. Final report. 06/08/18 09:18 Blood Culture - Final Peripheral Venipuncture No growth. Final report. 06/13/18 09:30 Blood Culture - Preliminary Peripheral Venipuncture Culture is incubating and being continuously monitored for growth. Final report to follow. 06/13/18 09:25 Blood Culture - Preliminary Peripheral Venipuncture Culture is incubating and being continuously monitored for growth. Final report to follow. 06/10/18 16:57 Blood Culture - Preliminary Peripheral Venipuncture Culture is incubating and being continuously monitored for growth. Final report to follow. 06/10/18 16:57 Blood Culture - Preliminary Peripheral Venipuncture Culture is incubating and being continuously monitored for growth. Final report to follow. 06/08/18 15:20 Wound Culture - Final Abdomen No growth. 06/02/18 20:10 Blood Culture - Final Peripheral Venipuncture No growth. Final report. 06/02/18 20:23 Blood Culture - Final Peripheral Venipuncture No growth. Final report. 06/01/18 15:04 Blood Culture - Final Peripheral Venipuncture No growth. Final report. 06/01/18 12:54 Blood Culture - Final Peripheral Venipuncture No growth. Final report. Serology 06/07/18 06/01/18 Range/Units 11:35 15:13 Urine Color Yellow Yellow (Yellow) Urine Clarity Cloudy A Hazy A (Clear) Urine pH 5.5 6.0 (5.0-8.0) pH Units Ur Specific [place] 1.024 > 1.030 H (1.010-1.025) Urine Protein 30 H 100 H (Neg-Trace) mg/dL Urine Glucose (UA) Normal Normal (Normal) mg/dL Urine Ketones Negative Negative (Negative) mg/dL Urine Blood Large H Moderate H (Negative) Urine Nitrite Negative Negative (Negative) Urine Bilirubin Negative Negative (Negative) Urine Urobilinogen Normal Normal (Normal) mg/dL Ur Leukocyte Esterase Trace H Negative (Negative) Urine Microscopic RBC 50-100 H 30-50 H (0-3) per hpf Urine Microscopic WBC 15-30 H 5-15 H (0-3) per hpf Ur Squamous Epith Cells Many H Many H (None-Few) per lpf Ur Transition Epith Cell Few (None-Few) per hpf Ur Renal Epithelial Cell Few (None-Few) per hpf Amorphous Sediment Many H (Few) Urine Bacteria None Seen None Seen (None-Few) per hpf Hyaline Casts Few (None-Few) per lpf Granular Casts Few H (None Seen) per lpf Urine Mucus Moderate H (Few) Urine Yeast Moderate H (None Seen) per hpf Ur Culture Indicated? NO. A NO (NO) Exam - Constitutional Vitals: Temp Pulse Resp BP Pulse Ox 99.4 F 111 22 134/66 93 06/13/18 11:33 06/13/18 11:33 06/13/18 11:33 06/13/18 11:33 06/13/18 03:54 Exam: Gen.: Vitals noted. No acute distress. More alert and oriented this morning. Does answer some questions, questionable appropriateness. HEENT: PERRL/EOMI, oropharynx clear, Normocephalic, atraumatic, dry mucous membranes, possible thrush Cardiac: RRR, systolic murmur, +S1/S2 Pulmonary: CTA bilaterally, no wheezes, rales or rhonchi, equal chest expansion Abdomen: soft, still grimaces to palpation of abdomen most prominent in the left lower quadrant and epigastric regions. Improved from previous., Hypoactive bowel sounds, no guarding, no rebound. Abdominal binder in place. Colostomy in place with dark liquid output, stoma pink and warm. Incisional scar well healing without evidence of infection. Extremities: 1+ BLE edema, nontender calf, no cyanosis or clubbing Neuro: A&Ox0, moves all extremities, unable to assess fully secondary to mental status Psych: Unable to assess Consult Discharge Plan - Plan Referrals: Hong Garnett MD [Primary Care Provider] - (patient is going to [facility] no PCP appointment needed) - Attending Attestation I examined this patient and my medical decision-making was reviewed with the Resident Physician. I agree with the documented findings, disposition and treatment plan as described except to the extent set forth below. Patient seen and examined. Clinically she looks better but she did spike a fever of 102 Fahrenheit yesterday and leukocytosis is mildly worse. Discussed with Dr. Gallego who reviewed the CT of the pelvis and saw the patient this morning. We will continue to follow closely. Continue broad-spectrum antibiotics. Discussed with the palliative care team as well.
[2018-06-14] MEDS: Piperacillin/Tazobactam 3.375 GM in 0.9 % Sodium Chloride Mini Bag 100 ML IVPB SCH ×4 (00:27→23:35)
[2018-06-14] MEDS: Insulin LISPRO 300 UNITS/3 ML VIAL SQ SCH ×5 (00:30→23:44)
[2018-06-14] MEDS: OXYCODONE Oral CONC 10 MG/0.5 ML ORAL.SYG SL PRN ×4 (02:11→23:36)
[2018-06-14] MEDS: *HR* LORazepam 2 MG/ML VIAL IVP SCH ×3 (03:27→20:25)
[2018-06-14 03:56] LABS: Basophils # 0.1 K/mcL (0.0-0.2); Basophils % 0.4 %; Eosinophils # 0.4 K/mcL (0.0-0.6); Eosinophils % 2.6 %; Hematocrit 24.7 % (35.3-44.9); Lymphocytes # 1.1 K/mcL (0.6-4.6); Lymphocytes % 6.8 %; Mean Corpuscular HGB Conc 32.4 g/dL (31.6-35.5); Mean Corpuscular Hemoglobin 30.5 pg (28.0-33.3); Mean Corpuscular Volume 94.3 fL (83.0-100.0); Mean Platelet Volume 10.7 fL (9.4-12.4); Monocytes # 2.2 K/mcL (0.0-1.3); Monocytes % 13.2 %; Neutrophils # 12.1 K/mcL (1.6-8.9); Nucleated Red Blood Cells 0.2 /100 WBC (0); Platelet Count 199 K/mcL (140-400); Red Blood Count 2.62 M/mcL (3.82-4.97); Red Cell Distribution Width 18.1 % (11.5-14.5)
[2018-06-14 04:18] LABS: BUN/Creatinine Ratio 28 (6-26); Blood Urea Nitrogen 16 mg/dL (8-23); Calcium 7.4 mg/dL (8.6-10.3); Carbon Dioxide 23 mEq/L (23-29); Chloride 105 mEq/L (98-107); Glucose 185 mg/dL (70-105); Magnesium 1.6 mg/dL (1.6-2.6); Osmolality,Calculated 282 (280-300); Potassium 4.1 mEq/L (3.5-5.1); Sodium 133 mEq/L (136-145); eGFR For Non-African Americans > 60 (> 60)
[2018-06-14] MEDS: Levothyroxine 25 MCG TABLET PO SCH (05:09)
[2018-06-14] MEDS: *HR* Heparin 5,000 UNIT/ML VIAL SQ SCH ×3 (05:09→20:25)
[2018-06-14] MEDS ORDERED: Levothyroxine 25 MCG TABLET PO SCH (06:30)
[2018-06-14] MEDS: Micafungin 100 MG in 0.9 % Sodium Chloride Mini Bag 100 ML IVPB SCH (08:12)
[2018-06-14] MEDS: Nystatin SUSP 5 ML UD.LIQ PO SCH ×4 (08:13→20:24)
--- NOTE | 2018-06-14 11:14 | Internal Med Progress Note ---
Hospitalist Progress Note - Encounter Date of Encounter: 06/14/18 Time of Encounter: 09:15 - Subjective Interval History: Patient appears to be resting comfortably. Noted temp pattern overnight, which appears overall better but still had Tmax 102.3 at 1708. WBC again decreased to 16.4 and did not require precedex anymore for >36 hrs. - Exam Vitals: Temp Pulse Resp BP Pulse Ox 99.0 F 101 18 116/54 100 06/14/18 08:20 06/14/18 08:37 06/14/18 08:20 06/14/18 08:20 06/14/18 03:33 Exam: General: appears comfortable, groans to verbal stimuli Neck: supple Chest: subcutaneous emphysema on left chest wall to the neck Cardiovascular: borderline tachycardia, regular rhythm with no murmur Lungs: diminished breath sound but no rhonchi/wheezes Abdomen: Soft, does not appear to be in as much distress on palpation as compared to the previous 2 days. Midline incision appears well-healed. left ostomy intact, draining fecal matter. PEG site appears dry and clean Neuro: Awake groaning, does not open eyes. Only able to tell me her name - Assessment and Plan (1) Septic shock Current Visit: Yes Status: Acute Assessment and Plan: Shock resolved, remained off pressors since 06/04 but continues to be febrile with increasing WBC since 06/06 despite being on 5-6 days of zosyn, levaquin, and fluconazole CT T/A/P 06/11 did not reveal any obvious abscess or pulmonary source of sepsis. High attenuation material along the dependent portion of the rectum likely to represent post-op changes after discussing with the radiologist on 06/11 ID input appreciated, switched to zosyn, vanc, and micafungin on 06/10 with fluctuating leukocytosis, WBC 16 today and one episode of temp 102.3 overnight however, she continues to remain off precedex gtt Urine analysis unremarkable on 06/07 blood cultures 06/08 NG. 06/10 NGTD, 06/13 NGTD wound culture from abdomen incision -ve PRN tylenol after the course of antimicrobials over the weekend, may have to revisit the code status and GOC discussion on Saturday (2) Delirium Current Visit: Yes Status: Acute Assessment and Plan: Precedex weaned off for >36 hours Continue 0.5 mg ativan IV every 8 hours as patient takes xanax at home continue seroquel at HS PRN (3) Pneumatosis intestinalis of large intestine Current Visit: Yes Status: Acute Assessment and Plan: POD12 for exploratory laparotomy with descending/sigmoid colectomy, end colostomy, and Mejias's pouch path: ischemic colitis CT findings from 06/11 discussed with radiology on the same day. High attenuation material pooling along the gravity dependent portion of the rectum is likely to represent post-op findings rather than active bleeding. There is no report of bloody output from anus and Hb remains relatively stable PEG placed on 06/11 by surgery, tolerating tube feed well antimicrobials as above, appreciate ID input (4) Diabetes Current Visit: Yes Status: Chronic Assessment and Plan: unable to take diet due to ongoing delirium PEG tube placement on 06/11, started on tube feed which she is tolerating well TPN weaned off accuchecks Q6, low dose sliding scale (5) Pneumothorax Current Visit: Yes Status: Resolved Assessment and Plan: iatrogenic, complicated by subcutaneous emphysema requiring chest tube that was removed on 06/09 Monitor (6) RONY (acute kidney injury) Current Visit: Yes Status: Resolved Assessment and Plan: Resolved, Cr stable around 0.5 (7) Anemia Current Visit: Yes Status: Chronic Assessment and Plan: stable s/p 4 units RBCS (last one on 06/07), Hb 8.1 today No evident source of bleeding at this time. CT findings discussed with radiology as above Continue to monitor (8) Hypothyroid Current Visit: No Status: Chronic Assessment and Plan: resume home meds (9) DVT prophylaxis Current Visit: Yes Status: Acute Assessment and Plan: Subcutaneous heparin - Time Spent with Patient Total time spent is greater than 50% in coordination of care (as documented) at patient's floor/unit and/or counseling patient: Plan of Care Discussed with: nurse Internal Medicine: Result - Labs CBC & Chem 7: 06/14/18 03:48 06/14/18 03:48 Labs: Short CBC 06/14/18 Range/Units 03:48 WBC 16.4 H (4.3-11.1) K/mcL Hgb 8.0 L (11.5-15.4) g/dL Hct 24.7 L (35.3-44.9) % Plt Count 199 (140-400) K/mcL Neutrophils # 12.1 H (1.6-8.9) K/mcL BMP 06/13/18 06/13/18 06/14/18 11:12 11:29 03:48 Sodium 135 L 133 L Potassium 4.5 4.1 Chloride 107 105 Carbon Dioxide 22 L 23 BUN 21 20 16 Creatinine 0.85 0.83 0.57 L Glucose 203 H 185 H Calcium 7.6 L 7.4 L - ABG Interpretation ABG results: ABG ABG pH 7.32 pH Units (7.32-7.45) 06/04/18 05:06 ABG pCO2 38 mmHg (35-45) 06/04/18 05:06 ABG pO2 86 mmHg (85-104) 06/04/18 05:06 ABG O2 Saturation 96 % (95-98) 06/04/18 05:06 PT/INR, D-dimer PT 11.2 Seconds (9.4-12.1) 06/01/18 12:51 Consult Discharge Plan - Plan Referrals: Hong Garnett MD [Primary Care Provider] - (patient is going to [facility] no PCP appointment needed) (4) Diabetes Qualifiers: Diabetes mellitus type: type 2 Diabetes mellitus custodial insulin use: without custodial use Diabetes mellitus complication status: without compl ication Qualified Code(s): E11.9 - Type 2 diabetes mellitus without compli cations (5) Pneumothorax Qualifiers: Pneumothorax type: postprocedural Qualified Code(s): J95.811 - Postprocedural pneumothorax (7) Anemia Qualifiers: Anemia type: unspecified type Qualified Code(s): D64.9 - Anemia, unspecified (8) Hypothyroid Qualifiers: Hypothyroidism type: unspecified Qualified Code(s): E03.9 - Hypothyroidism, unspecified
[2018-06-15] MEDS: *HR* LORazepam 2 MG/ML VIAL IVP SCH (03:07)
[2018-06-15 04:10] LABS: Basophils # 0.1 K/mcL (0.0-0.2); Basophils % 0.6 %; Eosinophils # 0.4 K/mcL (0.0-0.6); Hematocrit 26.5 % (35.3-44.9); Hemoglobin 8.5 g/dL (11.5-15.4); Immature Granulocytes % 4.5 % (0-4); Lymphocytes # 1.7 K/mcL (0.6-4.6); Lymphocytes % 11.4 %; Mean Corpuscular HGB Conc 32.1 g/dL (31.6-35.5); Mean Corpuscular Volume 93.6 fL (83.0-100.0); Mean Platelet Volume 11.2 fL (9.4-12.4); Monocytes # 1.8 K/mcL (0.0-1.3); Monocytes % 12.7 %; Neutrophils # 9.8 K/mcL (1.6-8.9); Nucleated Red Blood Cells 0.3 /100 WBC (0); Platelet Count 245 K/mcL (140-400); Red Blood Count 2.83 M/mcL (3.82-4.97); Red Cell Distribution Width 18.3 % (11.5-14.5); Segmented Neutrophils % 67.8 %
[2018-06-15 04:22] LABS: BUN/Creatinine Ratio 29 (6-26); Blood Urea Nitrogen 13 mg/dL (8-23); Calcium 7.8 mg/dL (8.6-10.3); Carbon Dioxide 22 mEq/L (23-29); Chloride 103 mEq/L (98-107); Glucose 182 mg/dL (70-105); Osmolality,Calculated 281 (280-300); Sodium 133 mEq/L (136-145); eGFR For Non-African Americans > 60 (> 60)
[2018-06-15] MEDS: *HR* Heparin 5,000 UNIT/ML VIAL SQ SCH ×3 (06:13→19:56)
[2018-06-15] MEDS: Levothyroxine 25 MCG TABLET PO SCH (06:13)
[2018-06-15] MEDS: Insulin LISPRO 300 UNITS/3 ML VIAL SQ SCH ×3 (06:18→18:07)
[2018-06-15] MEDS: Nystatin SUSP 5 ML UD.LIQ PO SCH ×4 (07:47→19:55)
[2018-06-15] MEDS: Micafungin 100 MG in 0.9 % Sodium Chloride Mini Bag 100 ML IVPB SCH (07:47)
[2018-06-15] MEDS: Piperacillin/Tazobactam 3.375 GM in 0.9 % Sodium Chloride Mini Bag 100 ML IVPB SCH ×3 (09:56→23:45)
[2018-06-15] MEDS: OXYCODONE Oral CONC 10 MG/0.5 ML ORAL.SYG SL PRN ×3 (09:57→22:20)
--- NOTE | 2018-06-15 10:07 | Internal Med Progress Note ---
Hospitalist Progress Note - Encounter Date of Encounter: 06/15/18 Time of Encounter: 08:45 - Subjective Interval History: Significant improvement in her mental status overnight noted. Confused but able to answer simple questions appropriately. Complains of mild abdominal pain but no nausea/vomiting. Afebrile for > 36 hours. - Exam Vitals: Temp Pulse Resp BP Pulse Ox 100.5 F H 101 20 115/60 93 06/15/18 08:02 06/15/18 08:02 06/15/18 08:02 06/15/18 08:02 06/15/18 08:02 Exam: General: alert, easily arousable with verbal command, confused Neck: supple Chest: subcutaneous emphysema on left chest wall to the neck Cardiovascular: normal rate, regular rhythm with no murmur Lungs: diminished breath sound but no rhonchi/wheezes Abdomen: Soft, mild tenderness around PEG tube site and along the incision. No rebound/guarding. Midline incision appears well-healed. left ostomy intact, draining fecal matter. PEG site appears dry and clean Neuro: Alert, not oriented but answers simple questions appropriately - Assessment and Plan (1) Septic shock Current Visit: Yes Status: Acute Assessment and Plan: initially in shock post-op which resolved, remained off pressors since 06/04 but continues to be febrile with increasing WBC since 06/06 despite being on 5-6 days of zosyn, levaquin, and fluconazole CT T/A/P 06/11 did not reveal any obvious abscess or pulmonary source of sepsis. High attenuation material along the dependent portion of the rectum likely to represent post-op changes after discussing with the radiologist on 06/11 ID input appreciated, switched to zosyn, vanc, and micafungin on 06/10 with overall improving WBC, WBC 14.5 today and afebrile > 36 hours delirium also resolving Urine analysis unremarkable on 06/07 blood cultures 06/08 NG. 06/10 NGTD, 06/13 NGTD wound culture from abdomen incision -ve PRN tylenol discuss with ID regarding antimicrobials duration (2) Delirium Current Visit: Yes Status: Acute Assessment and Plan: Precedex weaned off, appears to be much more alert today Continue 0.5 mg ativan IV every 8 hours as patient takes xanax at home continue seroquel at HS PRN speech eval tomorrow for possible oral feeding (3) Pneumatosis intestinalis of large intestine Current Visit: Yes Status: Acute Assessment and Plan: POD12 for exploratory laparotomy with descending/sigmoid colectomy, end colostomy, and Mejias's pouch path: ischemic colitis CT findings from 06/11 discussed with radiology on the same day. High attenuation material pooling along the gravity dependent portion of the rectum is likely to represent post-op findings rather than active bleeding. There is no report of bloody output from anus and Hb remains relatively stable PEG placed on 06/11 by surgery, tolerating tube feed well antimicrobials as above, appreciate ID input speech eval tomorrow as her mental status have improved (4) Diabetes Current Visit: Yes Status: Chronic Assessment and Plan: PEG tube placement on 06/11, started on tube feed which she is tolerating well TPN weaned off accuchecks Q6, low dose sliding scale (5) Pneumothorax Current Visit: Yes Status: Resolved Assessment and Plan: iatrogenic, complicated by subcutaneous emphysema requiring chest tube that was removed on 06/09 Monitor (6) RONY (acute kidney injury) Current Visit: Yes Status: Resolved Assessment and Plan: Resolved, Cr stable around 0.5 (7) Anemia Current Visit: Yes Status: Chronic Assessment and Plan: stable s/p 4 units RBCS (last one on 06/07), Hb 8.1 today No evident source of bleeding at this time. CT findings discussed with radiology as above Continue to monitor (8) Hypothyroid Current Visit: No Status: Chronic Assessment and Plan: resume home meds (9) DVT prophylaxis Current Visit: Yes Status: Acute Assessment and Plan: Subcutaneous heparin - Time Spent with Patient Total time spent is greater than 50% in coordination of care (as documented) at patient's floor/unit and/or counseling patient: Plan of Care Discussed with: family Internal Medicine: Result - Labs CBC & Chem 7: 06/15/18 03:24 06/15/18 03:24 Labs: Short CBC 06/15/18 Range/Units 03:24 WBC 14.5 H (4.3-11.1) K/mcL Hgb 8.5 L (11.5-15.4) g/dL Hct 26.5 L (35.3-44.9) % Plt Count 245 (140-400) K/mcL Neutrophils # 9.8 H (1.6-8.9) K/mcL BMP 06/15/18 03:24 Sodium 133 L Potassium 4.0 Chloride 103 Carbon Dioxide 22 L BUN 13 Creatinine 0.45 L Glucose 182 H Calcium 7.8 L - ABG Interpretation ABG results: ABG ABG pH 7.32 pH Units (7.32-7.45) 06/04/18 05:06 ABG pCO2 38 mmHg (35-45) 06/04/18 05:06 ABG pO2 86 mmHg (85-104) 06/04/18 05:06 ABG O2 Saturation 96 % (95-98) 06/04/18 05:06 PT/INR, D-dimer PT 11.2 Seconds (9.4-12.1) 06/01/18 12:51 Consult Discharge Plan - Plan Referrals: Hong Garnett MD [Primary Care Provider] - (patient is going to [facility] no PCP appointment needed) (4) Diabetes Qualifiers: Diabetes mellitus type: type 2 Diabetes mellitus assistant terminal manager insulin use: without assistant terminal manager use Diabetes mellitus complication status: without complication Qualified Code(s): E11.9 - Type 2 diabetes mellitus without complications (5) Pneumothorax Qualifiers: Pneumothorax type: postprocedural Qualified Code(s): J95.811 - Postprocedural pneumothorax (7) Anemia Qualifiers: Anemia type: unspecified type Qualified Code(s): D64.9 - Anemia, unspecified (8) Hypothyroid Qualifiers: Hypothyroidism type: unspecified Qualified Code(s): E03.9 - Hypothyroidism, unspecified
[2018-06-15] MEDS: ALPRAZolam 0.5 MG TABLET GTUBE SCH (19:55)
[2018-06-15] MEDS: *HR* Promethazine 25 MG/ML VIAL IVP PRN (23:52)
[2018-06-16] MEDS: Insulin LISPRO 300 UNITS/3 ML VIAL SQ SCH ×4 (00:07→16:57)
[2018-06-16 03:55] LABS: Basophils # 0.1 K/mcL (0.0-0.2); Basophils % 0.8 %; Eosinophils # 0.5 K/mcL (0.0-0.6); Eosinophils % 3.7 %; Hematocrit 25.9 % (35.3-44.9); Hemoglobin 8.3 g/dL (11.5-15.4); Lymphocytes # 1.9 K/mcL (0.6-4.6); Lymphocytes % 14.8 %; Mean Corpuscular Hemoglobin 29.9 pg (28.0-33.3); Mean Corpuscular Volume 93.2 fL (83.0-100.0); Mean Platelet Volume 11.2 fL (9.4-12.4); Monocytes # 1.6 K/mcL (0.0-1.3); Monocytes % 12.2 %; Neutrophils # 8.2 K/mcL (1.6-8.9); Nucleated Red Blood Cells 0.3 /100 WBC (0); Platelet Count 271 K/mcL (140-400); Red Blood Count 2.78 M/mcL (3.82-4.97); Red Cell Distribution Width 18.3 % (11.5-14.5); Segmented Neutrophils % 63.5 %
[2018-06-16 04:13] LABS: BUN/Creatinine Ratio 22 (6-26); Blood Urea Nitrogen 10 mg/dL (8-23); Calcium 7.6 mg/dL (8.6-10.3); Carbon Dioxide 24 mEq/L (23-29); Chloride 104 mEq/L (98-107); Glucose 162 mg/dL (70-105); Magnesium 1.6 mg/dL (1.6-2.6); Osmolality,Calculated 283 (280-300); Potassium 4.1 mEq/L (3.5-5.1); Sodium 135 mEq/L (136-145); eGFR For Non-African Americans > 60 (> 60)
[2018-06-16] MEDS: Levothyroxine 25 MCG TABLET PO SCH (05:51)
[2018-06-16] MEDS: *HR* Heparin 5,000 UNIT/ML VIAL SQ SCH ×3 (05:51→21:11)
[2018-06-16] MEDS: Piperacillin/Tazobactam 3.375 GM in 0.9 % Sodium Chloride Mini Bag 100 ML IVPB SCH ×2 (08:00→15:22)
[2018-06-16] MEDS: Nystatin SUSP 5 ML UD.LIQ PO SCH ×4 (08:00→21:11)
[2018-06-16] MEDS: Micafungin 100 MG in 0.9 % Sodium Chloride Mini Bag 100 ML IVPB SCH (08:01)
[2018-06-16] MEDS: OXYCODONE Oral CONC 10 MG/0.5 ML ORAL.SYG SL PRN (08:59)
--- NOTE | 2018-06-16 09:38 | Internal Med Progress Note ---
Hospitalist Progress Note - Encounter Date of Encounter: 06/16/18 Time of Encounter: 08:00 - Subjective Interval History: Waxing and waning mental status. Confused but able to answer simple questions appropriately. Mild abdominal discomfort. Had 2 episodes of 100.5 and 100.6 at 8am and 730pm respectively. - Exam Vitals: Temp Pulse Resp BP Pulse Ox 98.3 F 100 18 128/55 95 06/16/18 07:33 06/16/18 07:33 06/16/18 07:33 06/16/18 07:33 06/16/18 07:33 Exam: General: alert, easily arousable with verbal command, confused Neck: supple Chest: subcutaneous emphysema on left chest wall to the neck Cardiovascular: normal rate, regular rhythm with no murmur Lungs: diminished breath sound but no rhonchi/wheezes Abdomen: Soft, mild tenderness around PEG tube site and along the incision. No rebound/guarding. Midline incision appears well-healed. left ostomy intact, draining fecal matter. PEG site appears dry and clean Neuro: Alert, not oriented but answers simple questions appropriately - Assessment and Plan (1) Septic shock Current Visit: Yes Status: Acute Assessment and Plan: initially in shock post-op which resolved and remained off pressors since 06/04 -> developed fever with increasing WBC since 06/06 despite being on 5-6 days of zosyn, levaquin, and fluconazole CT T/A/P 06/11 did not reveal any obvious abscess or pulmonary source of sepsis. High attenuation material along the dependent portion of the rectum likely to represent post-op changes after discussing with the radiologist on 06/11 ID input appreciated, switched to zosyn, vanc, and micafungin on 06/10 with overall improving WBC, WBC 12.9 today delirium also resolving Urine analysis unremarkable on 06/07 blood cultures 06/08 NG. 06/10 NGTD, 06/13 NGTD wound culture from abdomen incision -ve PRN tylenol Antimicrobials duration per ID will see if she can participate in speech eval, PT/OT today Despite mild improvement in her condition, overall prognosis still remains poor. For discussion with palliative regarding GOC. (2) Delirium Current Visit: Yes Status: Acute Assessment and Plan: Precedex weaned off, appears to be much more alert today Continue 0.5 mg ativan IV every 8 hours as patient takes xanax at home continue seroquel at HS PRN speech eval tomorrow for possible oral feeding (3) Pneumatosis intestinalis of large intestine Current Visit: Yes Status: Acute Assessment and Plan: POD12 for exploratory laparotomy with descending/sigmoid colectomy, end colostomy, and Mejias's pouch path: ischemic colitis CT findings from 06/11 discussed with radiology on the same day. High attenuation material pooling along the gravity dependent portion of the rectum is likely to represent post-op findings rather than active bleeding. There is no report of bloody output from anus and Hb remains relatively stable PEG placed on 06/11 by surgery, tolerating tube feed well antimicrobials as above, appreciate ID input speech eval today (4) Diabetes Current Visit: Yes Status: Chronic Assessment and Plan: PEG tube placement on 06/11, started on tube feed which she is tolerating well TPN weaned off accuchecks Q6, low dose sliding scale (5) Pneumothorax Current Visit: Yes Status: Resolved Assessment and Plan: iatrogenic, complicated by subcutaneous emphysema requiring chest tube that was removed on 06/09 Monitor (6) RONY (acute kidney injury) Current Visit: Yes Status: Resolved Assessment and Plan: Resolved, Cr stable around 0.5 (7) Anemia Current Visit: Yes Status: Chronic Assessment and Plan: stable s/p 4 units RBCS (last one on 06/07), Hb 8.1 today No evident source of bleeding at this time. CT findings discussed with radiology as above Continue to monitor (8) Hypothyroid Current Visit: No Status: Chronic Assessment and Plan: resume home meds (9) DVT prophylaxis Current Visit: Yes Status: Acute Assessment and Plan: Subcutaneous heparin - Time Spent with Patient Total time spent is greater than 50% in coordination of care (as documented) at patient's floor/unit and/or counseling patient: Plan of Care Discussed with: nurse Internal Medicine: Result - Labs CBC & Chem 7: 06/16/18 03:28 06/16/18 03:28 Labs: Short CBC 06/16/18 Range/Units 03:28 WBC 12.9 H (4.3-11.1) K/mcL Hgb 8.3 L (11.5-15.4) g/dL Hct 25.9 L (35.3-44.9) % Plt Count 271 (140-400) K/mcL Neutrophils # 8.2 (1.6-8.9) K/mcL BMP 06/16/18 03:28 Sodium 135 L Potassium 4.1 Chloride 104 Carbon Dioxide 24 BUN 10 Creatinine 0.45 L Glucose 162 H Calcium 7.6 L - ABG Interpretation ABG results: ABG ABG pH 7.32 pH Units (7.32-7.45) 06/04/18 05:06 ABG pCO2 38 mmHg (35-45) 06/04/18 05:06 ABG pO2 86 mmHg (85-104) 06/04/18 05:06 ABG O2 Saturation 96 % (95-98) 06/04/18 05:06 PT/INR, D-dimer PT 11.2 Seconds (9.4-12.1) 06/01/18 12:51 Consult Discharge Plan - Plan Referrals: Hong Garnett MD [Primary Care Provider] - (patient is going to [facility] no PCP appointment needed) (4) Diabetes Qualifiers: Diabetes mellitus type: type 2 Diabetes mellitus assisted insulin use: without assisted use Diabetes mellitus complication status: without complication Qualified Code(s): E11.9 - Type 2 diabetes mellitus without complications (5) Pneumothorax Qualifiers: Pneumothorax type: postprocedural Qualified Code(s): J95.811 - Postprocedural pneumothorax (7) Anemia Qualifiers: Anemia type: unspecified type Qualified Code(s): D64.9 - Anemia, unspecified (8) Hypothyroid Qualifiers: Hypothyroidism type: unspecified Qualified Code(s): E03.9 - Hypothyroidism, unspecified
--- NOTE | 2018-06-16 10:19 | Event Note ---
Date of Encounter: 06/16/18 Time of Encounter: 10:15 Patient awake and alert, calm and resting quietly. Oriented to name only. C/o abd pain. Still with come residual fevers over weekend. Leukocytosis improved. Awaiting therapy evals today (speech/PT). No family currently at bedside. We have been discussing goals of care with daughter. As long as pt making some improvements, daughter will likely not change the course of care despite still poor prognosis. Code status remains DNR-Arrest. Palliative currently not managing any symptoms and will sign off. If her clinical course changes, please reconsult as needed.
--- NOTE | 2018-06-16 15:01 | Infectious Disease Progress No ---
Date of Encounter: 06/16/18 Time of Encounter: 10:00 - Assessment and Plan (1) Sepsis Current Visit: Yes Status: Acute - Patient has multiple SIRS criteria including fever, tachycardia, leukocytosis, tachypnea. - Likely secondary to an intra-abdominal versus pulmonary source - Patient has been observed to aspirate during feeding, status post PEG tube p lacement on 06/11 - Patient is also POD 114 for exploratory laparotomy with resection of sigmoid and descending colon. - Concern for an Abdominal process post surgery for pneumatosis coli. Remains septic today with fever of 100.6 , tachycardia in 100 to 110s, tachypnea, WBC of 12.9, improved from 14.5 -ESR 55, CRP 99 06/10 -CT scan on admission 06/01 showing colon wall thickening suggestive of i schemia, s/p resection -Multiple CXR since admission for pneumothorax, which has resolved s/p chest tube removal 06/09. No evidence of consolidation Blood Culture on 06/01 negative x2 blood culture 06/02 negative x2 Blood culture 06/08 negative x 2 Wound culture 06/08 negative x1 Blood culture 06/10 negative x2 Blood culture 06/13 negative 2 -Repeat CT scan on 06/11 shows extensive subcutaneous emphysema along the chest wall, tiny anterior pneumothorax, moderate bilateral pleural effusions, p ostsurgical changes in the lower left quadrant with colostomy and inflammatory changes in the pelvis. No evidence of discrete fluid collection or abscess. Large amount of stool and fluid in the sigmoid colon with inflammatory changes which cannot rule out infectious etiology. Patient has been previously treated with Zosyn day 12, vancomycin (day 7) added for possible MRSA or Enterococcus faecalis that is ampicillin resistant. Levaquin (2 days total) discontinued Diflucan (5 day course) changed to micafungin (day 7) due to drug interactions. Plan Will discontinue vancomycin and continue Zosyn, micafungin. Duration of treatment depends on the clinical picture but at least 2 weeks Patient is clinically improving and her fever curve as well as leukocytosis are both down trending. If patient continues to improve over next 2 days, consider changing to cefepime, by mouth Flagyl, by mouth Diflucan for discharge I have low index of suspicion for CLABSI Monitor labs and for drug toxicity Goal vancomycin trough 10-15 Qualifiers: Sepsis type: sepsis due to unspecified organism Qualified Code(s): A41.9 - Sepsis, unspecified organism (2) Delirium Current Visit: Yes Status: Acute secondary to metabolic encephalopathy, likely infectious. Labs are improving. No obvious source, will continue to monitor. Unsure baseline, patient is much improved from previous. (3) Aspiration into airway Current Visit: Yes Status: Acute s/p PEG tube 06/11. No evidence of aspiration PNA on CT on 06/11 Qualifiers: Encounter type: initial encounter Qualified Code(s): T17.908A - Unspecified foreign body in respiratory tract, part unspecified causing other injury, initial encounter (4) Encephalopathy Current Visit: Yes Status: Acute likely metabolic secondary to infection. no meningeal signs. (5) Pneumatosis coli Current Visit: Yes Status: Acute Secondary to ischemic colitis Status post exploratory laparotomy with descending and sigmoid colon resection, takedown splenic flexure, and colostomy and Mejias's pouch followed by attempted placement of triple lumen catheter, placement of left sided chest tube on 06/02/[address] Reyez. General surgery following from a distance Abdominal binder in place, patient is having bowel movements and is not complaining of pain (6) Pneumothorax Current Visit: Yes Status: Resolved Appreciate Dr. Dowell's recommendation resolved, chest tube pulled 06/10 CT 06/11 remarks a tiny anterior pneumothorax without symptoms. Qualifiers: Pneumothorax type: postprocedural Qualified Code(s): J95.811 - Postprocedural pneumothorax (7) Drug allergy, antibiotic Current Visit: Yes Status: Acute keflex, unknown allergy - Subjective Interval history: Patient seen and examined up and this morning. She continues to be more awake and alert. She does respond to questions appropriately, however does remain somewhat confused. She is alert and oriented 1. She believes she is at her home. She denies any symptoms of fevers, chills, nausea, vomiting. She is not currently complaining of abdominal pain and is having output through her colostomy as well as from the rectum. She is expressing frustration this morning and states she would like to go home where she states she lives by herself. Upon further questioning she believes she is home now. No family is present at bedside No acute event overnights however patient was noted to be febrile at 100.6, remains tachycardic in the low 100s Infect Dis PN-Objective Data - Labs CBC & Chem 7: 06/16/18 03:28 06/16/18 03:28 Labs: Laboratory Results - last 24 hr 06/14/18 06/15/18 06/15/18 12:07 16:30 18:06 WBC RBC Hgb Hct MCV MCH MCHC RDW Plt Count MPV Immature Gran % Seg Neutrophils % Lymphocytes % Monocytes % Eosinophils % Basophils % Neutrophils # Lymphocytes # Monocytes # Eosinophils # Basophils # Nucleated RBCs/100 WBC Sodium Potassium Chloride Carbon Dioxide BUN Creatinine Est GFR ( Amer) Est GFR (Non-Af Amer) BUN/Creatinine Ratio Glucose POC Glucose 166 H 176 H Calculated Osmolality Calcium Magnesium Vancomycin Trough 10 06/16/18 06/16/18 06/16/18 03:28 03:28 05:54 WBC 12.9 H RBC 2.78 L Hgb 8.3 L Hct 25.9 L MCV 93.2 MCH 29.9 MCHC 32.0 RDW 18.3 H Plt Count 271 MPV 11.2 Immature Gran % 5.0 H Seg Neutrophils % 63.5 Lymphocytes % 14.8 Monocytes % 12.2 Eosinophils % 3.7 Basophils % 0.8 Neutrophils # 8.2 Lymphocytes # 1.9 Monocytes # 1.6 H Eosinophils # 0.5 Basophils # 0.1 Nucleated RBCs/100 WBC 0.3 H Sodium 135 L Potassium 4.1 Chloride 104 Carbon Dioxide 24 BUN 10 Creatinine 0.45 L Est GFR ( Amer) > 60 Est GFR (Non-Af Amer) > 60 BUN/Creatinine Ratio 22 Glucose 162 H POC Glucose 180 H Calculated Osmolality 283 Calcium 7.6 L Magnesium 1.6 Vancomycin Trough Cultures: Cultures 06/10/18 16:57 Blood Culture - Final Peripheral Venipuncture No growth. Final report. 06/10/18 16:57 Blood Culture - Final Peripheral Venipuncture No growth. Final report. 06/08/18 09:18 Blood Culture - Final Peripheral Venipuncture No growth. Final report. 06/08/18 09:18 Blood Culture - Final Peripheral Venipuncture No growth. Final report. 06/13/18 09:30 Blood Culture - Preliminary Peripheral Venipuncture Culture is incubating and being continuously monitored for growth. Final report to follow. 06/13/18 09:25 Blood Culture - Preliminary Peripheral Venipuncture Culture is incubating and being continuously monitored for growth. Final report to follow. 06/08/18 15:20 Wound Culture - Final Abdomen No growth. 06/02/18 20:10 Blood Culture - Final Peripheral Venipuncture No growth. Final report. 06/02/18 20:23 Blood Culture - Final Peripheral Venipuncture No growth. Final report. 06/01/18 15:04 Blood Culture - Final Peripheral Venipuncture No growth. Final report. 06/01/18 12:54 Blood Culture - Final Peripheral Venipuncture No growth. Final report. Serology 06/07/18 06/01/18 Range/Units 11:35 15:13 Urine Color Yellow Yellow (Yellow) Urine Clarity Cloudy A Hazy A (Clear) Urine pH 5.5 6.0 (5.0-8.0) pH Units Ur Specific [place] 1.024 > 1.030 H (1.010-1.025) Urine Protein 30 H 100 H (Neg-Trace) mg/dL Urine Glucose (UA) Normal Normal (Normal) mg/dL Urine Ketones Negative Negative (Negative) mg/dL Urine Blood Large H Moderate H (Negative) Urine Nitrite Negative Negative (Negative) Urine Bilirubin Negative Negative (Negative) Urine Urobilinogen Normal Normal (Normal) mg/dL Ur Leukocyte Esterase Trace H Negative (Negative) Urine Microscopic RBC 50-100 H 30-50 H (0-3) per hpf Urine Microscopic WBC 15-30 H 5-15 H (0-3) per hpf Ur Squamous Epith Cells Many H Many H (None-Few) per lpf Ur Transition Epith Cell Few (None-Few) per hpf Ur Renal Epithelial Cell Few (None-Few) per hpf Amorphous Sediment Many H (Few) Urine Bacteria None Seen None Seen (None-Few) per hpf Hyaline Casts Few (None-Few) per lpf Granular Casts Few H (None Seen) per lpf Urine Mucus Moderate H (Few) Urine Yeast Moderate H (None Seen) per hpf Ur Culture Indicated? NO. A NO (NO) Exam - Constitutional Vitals: Temp Pulse Resp BP Pulse Ox 98.8 F 97 17 114/45 94 06/16/18 11:45 06/16/18 11:45 06/16/18 11:45 06/16/18 11:45 06/16/18 11:45 Exam: Gen.: Vitals noted. No acute distress. Alert and oriented 1 HEENT: PERRL/EOMI, oropharynx clear, Normocephalic, atraumatic, moist mucous membranes Cardiac: RRR, systolic murmur, +S1/S2 Pulmonary: CTA bilaterally, no wheezes, rales or rhonchi, equal chest expansion Abdomen: Patient refusing exam Extremities: 1+ BLE edema, nontender calf, no cyanosis or clubbing Neuro: A&Ox1, moves all extremities, patient refusing full exam Psych: Answers questions appropriately but not overall cooperative Consult Discharge Plan - Plan Referrals: Hong Garnett MD [Primary Care Provider] - (patient is going to [facility] no PCP appointment needed) - Attending Attestation I examined this patient and my medical decision-making was reviewed with the Resident Physician. I agree with the documented findings, disposition and treatment plan as described except to the extent set forth below.
[2018-06-16] MEDS ORDERED: Aminoglycoside Consult 1 EACH MC ONE (16:14)
[2018-06-16] MEDS: ALPRAZolam 0.5 MG TABLET GTUBE SCH (21:10)
[2018-06-17] MEDS: Piperacillin/Tazobactam 3.375 GM in 0.9 % Sodium Chloride Mini Bag 100 ML IVPB SCH ×3 (00:25→15:59)
[2018-06-17] MEDS: OXYCODONE Oral CONC 10 MG/0.5 ML ORAL.SYG SL PRN ×2 (00:26→16:02)
[2018-06-17] MEDS: Insulin LISPRO 300 UNITS/3 ML VIAL SQ SCH ×4 (01:30→17:52)
[2018-06-17 05:24] LABS: Hematocrit 29.4 % (35.3-44.9); Hemoglobin 9.3 g/dL (11.5-15.4); Mean Corpuscular HGB Conc 31.6 g/dL (31.6-35.5); Mean Corpuscular Hemoglobin 29.7 pg (28.0-33.3); Mean Corpuscular Volume 93.9 fL (83.0-100.0); Mean Platelet Volume 11.1 fL (9.4-12.4); Nucleated Red Blood Cells 0.4 /100 WBC (0); Platelet Count 330 K/mcL (140-400); Red Blood Count 3.13 M/mcL (3.82-4.97); Red Cell Distribution Width 18.6 % (11.5-14.5)
[2018-06-17] MEDS: Levothyroxine 25 MCG TABLET PO SCH (06:11)
[2018-06-17] MEDS: *HR* Heparin 5,000 UNIT/ML VIAL SQ SCH ×3 (06:12→21:55)
[2018-06-17 06:46] LABS: Eosinophils # 0.5 K/mcL (0.0-0.6); Lymphocytes # 2.1 K/mcL (0.6-4.6); Monocytes # 0.8 K/mcL (0.0-1.3); Neutrophils # 9.6 K/mcL (1.6-8.9); Platelet Estimate Normal (Normal)
[2018-06-17] MEDS: Micafungin 100 MG in 0.9 % Sodium Chloride Mini Bag 100 ML IVPB SCH (08:04)
[2018-06-17] MEDS: Nystatin SUSP 5 ML UD.LIQ PO SCH ×4 (08:04→21:54)
--- NOTE | 2018-06-17 08:04 | Internal Med Progress Note ---
Hospitalist Progress Note - Encounter Date of Encounter: 06/17/18 Time of Encounter: 08:04 - Subjective Interval History: Patient seen and evaluated at bedside. alert to person, not time, or place. Reports abdominal discomfort. denies shortness of breath or chest pain, denies nausea or vomiting. afebrile during the past 48 hours. - Exam Vitals: Temp Pulse Resp BP Pulse Ox 98.3 F 96 18 142/62 96 06/17/18 06:36 06/17/18 06:36 06/17/18 06:36 06/17/18 06:36 06/17/18 06:36 Exam: General: Alert, oriented to person, not time or place. Mild distress due to abdominal discomfort. Eyes: anicteric sclerae, moist conjunctivae, PERRLA HENT: Atraumatic, moist mucous membranes and no mucosal ulcerations; Neck: No thyromegaly or lymphadenopathy Lungs: CTA, with normal respiratory effort and no intercostal retractions CV: RRR, normal s1s2, no MRGs. Abdomen: Soft, non-tender, or distended, normo active bowel sounds in all 4 quadrant. Extremities: No peripheral edema or extremity lymphadenopathy Neuro: CN II-XII intact. Skin: no rash, ulcers or subcutaneous nodules Psych: Appropriate affect - Assessment and Plan (1) Sepsis Current Visit: Yes Status: Acute Assessment and Plan: unclear source of infection. leukocytosis trending down. afebrile over the past 48 hours. mildly tachycardic. Plan continue IV antibiotics as per ID recommendations On piperacillin/tazobactam and Micafungin (2) Diabetes Current Visit: Yes Status: Chronic Assessment and Plan: Blood sugar has been well controlled. continue Lispro sliding scale. (3) Pneumatosis intestinalis of large intestine Current Visit: Yes Status: Acute Assessment and Plan: POD13 for exploratory laparotomy with descending/sigmoid colectomy, end colostomy, and Mejias's pouch path: ischemic colitis PEG placed on 06/11 by surgery tolerating tube feed well Plan patient being covered empirically with IV antibiotics as per ID recommendations. (4) RONY (acute kidney injury) Current Visit: Yes Status: Resolved Assessment and Plan: RONY on presentation most likely due to sepsis. Resolved. avoid nephrotoxic medications. (5) Anemia Current Visit: Yes Status: Chronic Assessment and Plan: H&H stable. No signs of bleeding will continue to monitor (6) Delirium Current Visit: Yes Status: Resolved Assessment and Plan: Possible metabolic. Patient oriented to person. will continue to current management (7) Pneumothorax Current Visit: Yes Status: Resolved (8) Hypothyroid Current Visit: No Status: Chronic Assessment and Plan: ON levothyroxine 25mcg/daily DVT Prophylaxis: On heparin SubQ - Summary of Assessment and Plan Summary of Assessment and Plan: Patient to remain in the hospital for continue IV antibiotics and monitoring of mental status. Possible dc in a 1-2 days. - Time Spent with Patient Total time spent is greater than 50% in coordination of care (as documented) at patient's floor/unit and/or counseling patient: 25 - 35 minutes Plan of Care Discussed with: patient Internal Medicine: Result - Labs CBC & Chem 7: 06/17/18 04:05 06/16/18 03:28 Labs: Short CBC 06/17/18 Range/Units 04:05 WBC 13.3 H (4.3-11.1) K/mcL Hgb 9.3 L (11.5-15.4) g/dL Hct 29.4 L (35.3-44.9) % Plt Count 330 (140-400) K/mcL Neutrophils # 9.6 H (1.6-8.9) K/mcL - ABG Interpretation ABG results: ABG ABG pH 7.32 pH Units (7.32-7.45) 06/04/18 05:06 ABG pCO2 38 mmHg (35-45) 06/04/18 05:06 ABG pO2 86 mmHg (85-104) 06/04/18 05:06 ABG O2 Saturation 96 % (95-98) 06/04/18 05:06 PT/INR, D-dimer PT 11.2 Seconds (9.4-12.1) 06/01/18 12:51 Consult Discharge Plan - Plan Referrals: Hong Garnett MD [Primary Care Provider] - (patient is going to [facility] no PCP appointment needed) (1) Sepsis Qualifiers: Sepsis type: sepsis due to unspecified organism Qualified Code(s): A41.9 - Sepsis, unspecified organism (2) Diabetes Qualifiers: Diabetes mellitus type: type 2 Diabetes mellitus usp insulin use: without usp use Diabetes mellitus complication status: without complication Qualified Code(s): E11.9 - Type 2 diabetes mellitus without complications (5) Anemia Qualifiers: Anemia type: unspecified type Qualified Code(s): D64.9 - Anemia, unspecified (7) Pneumothorax Qualifiers: Pneumothorax type: postprocedural Qualified Code(s): J95.811 - Postprocedural pneumothorax (8) Hypothyroid Qualifiers: Hypothyroidism type: unspecified Qualified Code(s): E03.9 - Hypothyroidism, unspecified
--- NOTE | 2018-06-17 14:01 | Infectious Disease Progress No ---
Date of Encounter: 06/17/18 Time of Encounter: 13:58 - Assessment and Plan (1) Sepsis Current Visit: Yes Status: Acute - Patient has multiple SIRS criteria including fever, tachycardia, leukocytosis, tachypnea. - Likely secondary to an intra-abdominal versus pulmonary source - Patient has been observed to aspirate during feeding, status post PEG tube p lacement on 06/11 - Patient is also POD 15 for exploratory laparotomy with resection of sigmoid and descending colon. - Concern for an Abdominal process post surgery for pneumatosis coli. Remains septic today with tachycardia in 90-100s, WBC of 13.3, improved from 12.9. 6.0% bands noted. Notably Afebrile and vitals are improving. -ESR 55, CRP 99 06/10 -CT scan on admission 06/01 showing colon wall thickening suggestive of ischemia, s/p resection -Multiple CXR since admission for pneumothorax, which has resolved s/p chest tube removal 06/09. No evidence of consolidation Blood Culture on 06/01 negative x2 blood culture 06/02 negative x2 Blood culture 06/08 negative x 2 Wound culture 06/08 negative x1 Blood culture 06/10 negative x2 Blood culture 06/13 negative 2 -Repeat CT scan on 06/11 shows extensive subcutaneous emphysema along the chest wall, tiny anterior pneumothorax, moderate bilateral pleural effusions, postsurgical changes in the lower left quadrant with colostomy and inflammatory changes in the pelvis. No evidence of discrete fluid collection or abscess. Large amount of stool and fluid in the sigmoid colon with inflammatory changes which cannot rule out infectious etiology. Patient has been previously treated with Zosyn day 13, vancomycin (day 7) added for possible MRSA or Enterococcus faecalis that is ampicillin resistant. Levaquin (2 days total) discontinued Diflucan (5 day course) changed to micafungin (day 8) due to drug interactions. Plan Continue Zosyn, micafungin. Duration of treatment depends on the clinical picture but at least 2 weeks Patient continues to clinically improving and her fever curve as well as leukocytosis are both down trending. If patient continues to improve over next 24 hours, consider changing to cefepime, by mouth Flagyl, by mouth Diflucan for discharge I have low index of suspicion for CLABSI Monitor labs and for drug toxicity Goal vancomycin trough 10-15 Qualifiers: Sepsis type: sepsis due to unspecified organism Qualified Code(s): A41.9 - Sepsis, unspecified organism (2) Delirium Current Visit: Yes Status: Resolved secondary to metabolic encephalopathy, likely infectious. Labs are improving. No obvious source, will continue to monitor. Unsure baseline, patient is much improved from previous. (3) Aspiration into airway Current Visit: Yes Status: Resolved s/p PEG tube 06/11. No evidence of aspiration PNA on CT on 06/11 Qualifiers: Encounter type: initial encounter Qualified Code(s): T17.908A - Unspecified foreign body in respiratory tract, part unspecified causing other injury, initial encounter (4) Encephalopathy Current Visit: Yes Status: Resolved likely metabolic secondary to infection. no meningeal signs. (5) Pneumatosis coli Current Visit: Yes Status: Acute Secondary to ischemic colitis Status post exploratory laparotomy with descending and sigmoid colon resection, takedown splenic flexure, and colostomy and Mejias's pouch followed by attempted placement of triple lumen catheter, placement of left sided chest tube on 06/02/[address] Reyez. General surgery following from a distance Abdominal binder in place, patient is having bowel movements and has minimal pain (6) Pneumothorax Current Visit: Yes Status: Resolved Appreciate Dr. Dowell's recommendation resolved, chest tube pulled 06/10 CT 06/11 remarks a tiny anterior pneumothorax without symptoms. Qualifiers: Pneumothorax type: postprocedural Qualified Code(s): J95.811 - Postprocedural pneumothorax (7) Drug allergy, antibiotic Current Visit: Yes Status: Acute keflex, unknown allergy - Subjective Interval history: Patient seen and examined up and this morning. She continues to be more awake and alert. She is very pleasant with family at bedside. She states that overall she is doing well with complaints only of some intermittent abdominal discomfort which is exacerbated with coughing. She denies any symptoms of fevers, chills, nausea, vomiting. She is still getting used to the sensation of having bowel movements with colostomy. Otherwise asymptomatic. Infect Dis PN-Objective Data - Labs CBC & Chem 7: 06/18/18 02:52 06/18/18 02:52 Labs: Laboratory Results - last 24 hr 06/15/18 06/16/18 06/16/18 23:35 11:53 16:56 WBC RBC Hgb Hct MCV MCH MCHC RDW Plt Count MPV Seg Neutrophils % Band Neutrophils % Lymphocytes % Monocytes % Eosinophils % Myelocytes % Neutrophils # Lymphocytes # Monocytes # Eosinophils # Nucleated RBCs/100 WBC Platelet Estimate POC Glucose 192 H 224 H 180 H 06/17/18 04:05 WBC 13.3 H RBC 3.13 L Hgb 9.3 L Hct 29.4 L MCV 93.9 MCH 29.7 MCHC 31.6 RDW 18.6 H Plt Count 330 MPV 11.1 Seg Neutrophils % 66.0 Band Neutrophils % 6.0 H Lymphocytes % 16.0 Monocytes % 6.0 Eosinophils % 4.0 Myelocytes % 2.0 H Neutrophils # 9.6 H Lymphocytes # 2.1 Monocytes # 0.8 Eosinophils # 0.5 Nucleated RBCs/100 WBC 0.4 H Platelet Estimate Normal POC Glucose Cultures: Cultures 06/10/18 16:57 Blood Culture - Final Peripheral Venipuncture No growth. Final report. 06/10/18 16:57 Blood Culture - Final Peripheral Venipuncture No growth. Final report. 06/08/18 09:18 Blood Culture - Final Peripheral Venipuncture No growth. Final report. 06/08/18 09:18 Blood Culture - Final Peripheral Venipuncture No growth. Final report. 06/13/18 09:30 Blood Culture - Preliminary Peripheral Venipuncture Culture is incubating and being continuously monitored for growth. Final report to follow. 06/13/18 09:25 Blood Culture - Preliminary Peripheral Venipuncture Culture is incubating and being continuously monitored for growth. Final report to follow. 06/08/18 15:20 Wound Culture - Final Abdomen No growth. 06/02/18 20:10 Blood Culture - Final Peripheral Venipuncture No growth. Final report. 06/02/18 20:23 Blood Culture - Final Peripheral Venipuncture No growth. Final report. 06/01/18 15:04 Blood Culture - Final Peripheral Venipuncture No growth. Final report. 06/01/18 12:54 Blood Culture - Final Peripheral Venipuncture No growth. Final report. Serology 06/07/18 06/01/18 Range/Units 11:35 15:13 Urine Color Yellow Yellow (Yellow) Urine Clarity Cloudy A Hazy A (Clear) Urine pH 5.5 6.0 (5.0-8.0) pH Units Ur Specific Bryan 1.024 > 1.030 H (1.010-1.025) Urine Protein 30 H 100 H (Neg-Trace) mg/dL Urine Glucose (UA) Normal Normal (Normal) mg/dL Urine Ketones Negative Negative (Negative) mg/dL Urine Blood Large H Moderate H (Negative) Urine Nitrite Negative Negative (Negative) Urine Bilirubin Negative Negative (Negative) Urine Urobilinogen Normal Normal (Normal) mg/dL Ur Leukocyte Esterase Trace H Negative (Negative) Urine Microscopic RBC 50-100 H 30-50 H (0-3) per hpf Urine Microscopic WBC 15-30 H 5-15 H (0-3) per hpf Ur Squamous Epith Cells Many H Many H (None-Few) per lpf Ur Transition Epith Cell Few (None-Few) per hpf Ur Renal Epithelial Cell Few (None-Few) per hpf Amorphous Sediment Many H (Few) Urine Bacteria None Seen None Seen (None-Few) per hpf Hyaline Casts Few (None-Few) per lpf Granular Casts Few H (None Seen) per lpf Urine Mucus Moderate H (Few) Urine Yeast Moderate H (None Seen) per hpf Ur Culture Indicated? NO. A NO (NO) Exam - Constitutional Vitals: Temp Pulse Resp BP Pulse Ox 98.7 F 90 16 131/60 94 06/17/18 12:04 06/17/18 12:04 06/17/18 12:04 06/17/18 12:04 06/17/18 12:04 Exam: Gen.: Vitals noted. No acute distress. AAOx2. Much more pleasant today HEENT: PERRL/EOMI, oropharynx clear, Normocephalic, atraumatic, MMM Cardiac: RRR, no murmur, +S1/S2 Pulmonary: CTA bilaterally, no wheezes, rales or rhonchi, diminished breath sounds in bases. equal chest expansion Abdomen: soft, nontender, BS diminished, no guarding, no rebound. Colostomy wit h fair output of green-colored liquid stool. Extremities: 2+ BLE edema, nontender calf, no cyanosis or clubbing Neuro: A&Ox2, moves all extremities, no focal deficits Psych: Appropriate mood and behavior Consult Discharge Plan - Plan Instructions: Amoxicillin/Clavulanate Potassium (By mouth), Fluconazole (By mouth), Traumatic Pneumothorax (DC), Colostomy Care (DC), How to Use and Care for Your PEG Tube (DC), Diabetes Mellitus Type 2 in Adults (DC), Colectomy (DC), Aspiration Pneumonia (DC), Sepsis (DC), Anemia (GEN), Fall Prevention (DC), How to Use and Care for Your PEG Tube, Medical Scribe (GEN) Referrals: Hong Garnett MD [Primary Care Provider] - 06/24/18 2:00 pm () Axel Reyez DO [Partnered Physician] - 06/24/18 10:50 am Prescriptions: Amoxicillin/Clavulanate [Augmentin] 875 mg PO BIDWM 7 Days #14 tablet RX: Fluconazole [Diflucan] 200 mg PO DAILY 7 Days #7 tab - Attending Attestation I examined this patient and my medical decision-making was reviewed with the Resident Physician. I agree with the documented findings, disposition and treatment plan as described except to the extent set forth below.
[2018-06-17] MEDS: ALPRAZolam 0.5 MG TABLET GTUBE SCH (21:55)
[2018-06-18] MEDS: Piperacillin/Tazobactam 3.375 GM in 0.9 % Sodium Chloride Mini Bag 100 ML IVPB SCH ×2 (00:24→08:28)
[2018-06-18] MEDS: Insulin LISPRO 300 UNITS/3 ML VIAL SQ SCH ×3 (00:24→13:30)
[2018-06-18 03:53] LABS: Basophils # 0.1 K/mcL (0.0-0.2); Basophils % 0.8 %; Eosinophils # 0.6 K/mcL (0.0-0.6); Eosinophils % 4.9 %; Hemoglobin 8.5 g/dL (11.5-15.4); Immature Granulocytes % 2.6 % (0-4); Lymphocytes # 2.3 K/mcL (0.6-4.6); Mean Corpuscular HGB Conc 31.5 g/dL (31.6-35.5); Mean Corpuscular Hemoglobin 29.8 pg (28.0-33.3); Mean Corpuscular Volume 94.7 fL (83.0-100.0); Mean Platelet Volume 10.8 fL (9.4-12.4); Monocytes # 1.5 K/mcL (0.0-1.3); Monocytes % 13.1 %; Neutrophils # 6.8 K/mcL (1.6-8.9); Nucleated Red Blood Cells 0.5 /100 WBC (0); Platelet Count 313 K/mcL (140-400); Red Blood Count 2.85 M/mcL (3.82-4.97); Red Cell Distribution Width 18.8 % (11.5-14.5); Segmented Neutrophils % 58.6 %
[2018-06-18 03:59] LABS: BUN/Creatinine Ratio 28 (6-26); Blood Urea Nitrogen 11 mg/dL (8-23); Calcium 7.8 mg/dL (8.6-10.3); Carbon Dioxide 24 mEq/L (23-29); Chloride 106 mEq/L (98-107); Glucose 150 mg/dL (70-105); Magnesium 1.7 mg/dL (1.6-2.6); Osmolality,Calculated 286 (280-300); Phosphorous 1.5 mg/dL (2.7-4.5); Potassium 3.8 mEq/L (3.5-5.1); Sodium 137 mEq/L (136-145); eGFR For Non-African Americans > 60 (> 60)
[2018-06-18] MEDS: Levothyroxine 25 MCG TABLET PO SCH (06:26)
[2018-06-18] MEDS: *HR* Heparin 5,000 UNIT/ML VIAL SQ SCH ×2 (06:27→14:07)
[2018-06-18] MEDS: OXYCODONE Oral CONC 10 MG/0.5 ML ORAL.SYG SL PRN (06:37)
[2018-06-18 06:48] VITALS: BP 103/76
[2018-06-18] MEDS: Micafungin 100 MG in 0.9 % Sodium Chloride Mini Bag 100 ML IVPB SCH (08:27)
[2018-06-18] MEDS: Nystatin SUSP 5 ML UD.LIQ PO SCH ×2 (08:27→13:32)
--- NOTE | 2018-06-18 09:23 | Physician Discharge Referral ---
Home Health/Hosp Referral Info Transfer to: Home Health - Diagnosis (1) Sepsis Priority: Primary Status: Resolved (2) Diabetes Priority: Secondary Status: Chronic (3) Pneumatosis intestinalis of large intestine Priority: Secondary Status: Resolved (4) RONY (acute kidney injury) Priority: Secondary Status: Resolved (5) Anemia Priority: Secondary Status: Chronic (6) Delirium Priority: Secondary Status: Resolved (7) Pneumothorax Priority: Secondary Status: Resolved (8) Hypothyroid Priority: Secondary Status: Chronic - Respiratory Orders None Smoking Cessation: Smoking cessation has been advised. For more information, call the [place] Tobacco Quit Line at 9-183-TAGT-NOW. - Diet/Nutrition Diet/Nutrition Orders: Pureed - Activity Activity Orders: Chair - Services Needed Following services are medically necessary services: Nursing, Home Health Aide, Physical Therapy, Occupational Therapy - Transfer Medications Home Medications: ALPRAZolam [Xanax 0.5 MG Tablet] 0.5 mg PO HS 08/20/17 [History] Alendronate Sodium 70 mg PO QWEEK 08/20/17 [History] Aspirin [Lo-Dose Aspirin EC] 81 mg PO DAILY 08/20/17 [History] Cholecalciferol (Vitamin D3) [Vitamin D3] 2,000 unit PO DAILY 08/20/17 [History] Citalopram Hydrobromide [Citalopram HBr] 10 mg PO HS 08/20/17 [History] Docusate [Colace] 100 mg PO BID 08/20/17 [History] Fluticasone/Salmeterol [Advair 100-50 Diskus] 1 puff IH BID 08/20/17 [History] Levothyroxine Sodium 25 mcg PO DAILY 08/20/17 [History] Lisinopril [Zestril] 10 mg PO DAILY 08/20/17 [History] Metformin HCl [Metformin HCl ER] 500 mg PO QPM 08/20/17 [History] Simvastatin [Zocor] 40 mg PO DAILY 08/20/17 [History] Verapamil ER (24 HR) [Calan SR] 240 mg PO DAILY 08/20/17 [History] Cyanocobalamin (Vitamin B-12) [B-12] 1,000 mcg PO DAILY #30 tablet.er 01/08/18 [Rx] Allergies/Adverse Reactions: Allergy/AdvReac Type Severity Reaction Status Date / Time cephalexin [From Keflex] AdvReac See Verified 09/16/17 10:53 Comments morphine AdvReac Itching Verified 09/16/17 10:53 Certification: Further, I certify that my clinical findings support that this patient is homebound (i.e. absences from home require considerable and taxing effort and are for medical reasons or pentec[employer] services or infrequently or short duration when for other reasons) because: Homebound Reason: Patient requires assistance of a person or device to safely leave home Attestation: My signature below is to certify that this patient is under my care and that I, or nurse practitioner, or a physician's botany laboratory assistant working with me, has a [id number] encounter with this patient.
--- NOTE | 2018-06-18 09:25 | Discharge Summary ---
- NOTES TO OUTPATIENT PROVIDER Notes to Outpatient Provider: Follow-up with surgery within a week of hospital discharge. Orders not resulted at time of discharge: Pending orders 06/12/18 01:13 Ionized Calcium,venous blood AM 0400 Ionized Calcium,venous blood AM 0400 Ionized Calcium,venous blood Routine Ionized Calcium,venous blood Stat Ionized Calcium,venous blood Stat Magnesium Stat UA w. reflex culture [Urinalysis Reflex Cult & Micro] [URIN] Stat 06/13/18 09:30 Culture,Blood [BC] Routine Date of Encounter: 06/18/18 Time of Encounter: 09:25 - Discharge Diagnosis (1) Sepsis Priority: Primary Status: Resolved Qualifiers: Sepsis type: sepsis due to unspecified organism Qualified Code(s): A41.9 - Sepsis, unspecified organism (2) Diabetes Priority: Secondary Status: Chronic Qualifiers: Diabetes mellitus type: type 2 Diabetes mellitus cytology laboratory manager insulin use: without cytology laboratory manager use Diabetes mellitus complication status: without complication Qualified Code(s): E11.9 - Type 2 diabetes mellitus without complications (3) Pneumatosis intestinalis of large intestine Priority: Secondary Status: Resolved (4) RONY (acute kidney injury) Priority: Secondary Status: Resolved (5) Anemia Priority: Secondary Status: Chronic Qualifiers: Anemia type: unspecified type Qualified Code(s): D64.9 - Anemia, unspecified (6) Delirium Priority: Secondary Status: Resolved (7) Pneumothorax Priority: Secondary Status: Resolved Qualifiers: Pneumothorax type: postprocedural Qualified Code(s): J95.811 - Postprocedural pneumothorax (8) Hypothyroid Priority: Secondary Status: Chronic Qualifiers: Hypothyroidism type: unspecified Qualified Code(s): E03.9 - Hypothyroidism, unspecified (9) Weakness Priority: Secondary Status: Acute Assessment and Plan: Patient needs a hospital bed due to generalized weakness related to a prolong and complicated hospitalization due to Septic shock. Positioning of the body in ways not feasible with an ordinary bed. Hospital course: Ms. Robison is a 88 year old female past medical history significant for diabetes, hyperlipidemia, hypertension, osteoporosis, depression, and hypothyroidism. Patient was brought to the hospital on 06/01/18 due to abdominal pain of 2 weeks' duration and constipation of 4 days. Diagnosed with pneumatosis of the left colon: Patient underwent Exposure laparotomy with descending and sigmoid colon resection, takedown splenic flexure, end colostomy and Mejias's pouch. This hospitalization was complicated with sepsis shock due to above mentioned problem, patient requiring to be on broad spectrum antibiotics and vasopresser support. Multiple Blood cultures: showed no growth. During this hosp stay patient developed a pneumothorax, requiring a chest tube placement for a short period of time. Also due to dysphagia a PEG tube was placed. Patient sepsis resolved. Patient has been afebrile since the , hemodynamically stable, non-tachycardic, mental status has returned to baseline. Patient is hemodynamically stable to be DC home. Discussed with ID and recommended to the DC the patient on Augmentin and fluconazole for 7 more days. Patient's daughter refused the patient being placed in rehab or a fdc and prefer to go home with home services. Recommended to follow-up with surgery within a week of hospital discharge. - Time Spent with Patient Total time spent providing and/or coordinating discharge services: Greater than 30 minutes (41 minutes) - Discharge Medications Prescriptions: Amoxicillin/Clavulanate [Augmentin] 875 mg PO BIDWM 7 Days #14 tablet Fluconazole [Diflucan] 200 mg PO DAILY 7 Days #7 tab Home Medications: ALPRAZolam [Xanax 0.5 MG Tablet] 0.5 mg PO HS 08/20/17 [History] Alendronate Sodium 70 mg PO QWEEK 08/20/17 [History] Aspirin [Lo-Dose Aspirin EC] 81 mg PO DAILY 08/20/17 [History] Cholecalciferol (Vitamin D3) [Vitamin D3] 2,000 unit PO DAILY 08/20/17 [History] Citalopram Hydrobromide [Citalopram HBr] 10 mg PO HS 08/20/17 [History] Docusate [Colace] 100 mg PO BID 08/20/17 [History] Fluticasone/Salmeterol [Advair 100-50 Diskus] 1 puff IH BID 08/20/17 [History] Levothyroxine Sodium 25 mcg PO DAILY 08/20/17 [History] Lisinopril [Zestril] 10 mg PO DAILY 08/20/17 [History] Metformin HCl [Metformin HCl ER] 500 mg PO QPM 08/20/17 [History] Simvastatin [Zocor] 40 mg PO DAILY 08/20/17 [History] Cyanocobalamin (Vitamin B-12) [B-12] 1,000 mcg PO DAILY #30 tablet.er 01/08/18 [Rx] Amoxicillin/Clavulanate [Augmentin] 875 mg PO BIDWM 7 Days #14 tablet 06/18/18 [Rx] Fluconazole [Diflucan] 200 mg PO DAILY 7 Days #7 tab 06/18/18 [Rx] Allergies/Adverse Reactions: Allergy/AdvReac Type Severity Reaction Status Date / Time cephalexin [From Keflex] AdvReac See Verified 09/16/17 10:53 Comments morphine AdvReac Itching Verified 09/16/17 10:53 Date of admission: 06/01/18 16:45 Primary care physician: Hong Garnett MD Consults: 06/01/18 15:01 Consult to Surgery [CONS] Stat Consulting Provider: Surgery [facility] Reason for Consult: ischemic bowel Time Notified: 15:02 Call Completed: Yes 06/01/18 21:01 Consult to Nutrition [CONS] Routine Comment: Consulting Provider: NUTRITION Reason for Dietary Consult: Tube Feed Start & Manage 06/04/18 11:16 Consult to Occupational Therapy [CONS] Routine Comment: Evaluate, develop and implement POC Reason for Consult: assessment and development of plan for mobilization Does patient have active BEDREST order?: No Is patient medically & hemodynamically stable?: Yes Patient assessed for mobility or mobilized this visit?: No Consult to Physical Therapy [CONS] Routine Comment: Evaluate, develop and implement POC Reason for Consult: assessment and development of plan for mobilization Does patient have active BEDREST order?: No Is patient medically & hemodynamically stable?: Yes Patient assessed for mobility or mobilized this visit?: No 06/07/18 10:03 Consult to Palliative Care [CONS] Routine Comment: Consulting Provider: Palliative Care Sahnthi Reason for Consult: goals of care Call Completed: No 06/07/18 10:56 Consult to Cardiothoracic Surgery [CONS] Routine Consulting Provider: Cardiothoracic Surgery Shanthi Reason for Consult: postprocedure pneumothorax. Time Notified: 10:55 Call Completed: Yes 06/10/18 11:58 Consult to Infectious Diseases [CONS] Routine Consulting Provider: Infectious Disease Shanthi Reason for Consult: persistent fever and rising leukocytosis, recent colectomy for pneumatosis coli Call Completed: Yes 06/11/18 10:14 consult to high wire artist [Consult to Nutrition] [CONS] Routine Comment: peg tube placement today- may initiate feeds 06/11 Consulting Provider: NUTRITION Reason for Dietary Consult: Tube Feed Start & Manage 06/15/18 22:14 Consult to Surgery [CONS] Routine Consulting Provider: Surgery [facility] Reason for Consult: Wounds to patient's stoma from patient Call Completed: No - Constitutional Vitals: Temp Pulse Resp BP Pulse Ox 97.8 F 82 18 103/76 94 06/18/18 06:46 06/18/18 06:46 06/18/18 06:46 06/18/18 06:46 06/18/18 06:46 Exam: General: Alert, oriented to person, not time or place. No acute distress. Eyes: anicteric sclerae, moist conjunctivae, PERRLA HENT: Atraumatic, moist mucous membranes and no mucosal ulcerations; Neck: No thyromegaly or lymphadenopathy Lungs: CTA, with normal respiratory effort and no intercostal retractions CV: RRR, normal s1s2, no MRGs. Abdomen: Soft, non-tender, or distended, normo active bowel sounds in all 4 quadrant. Colostomy bag. And PEG tube. Extremities: No peripheral edema or extremity lymphadenopathy Neuro: CN II-XII intact. Skin: no rash, ulcers or subcutaneous nodules Psych: Appropriate affect - Patient Status Disposition: Home Health Service Condition: Good Functional capacity at discharge: uses cane/walker Overall status at discharge: patient is progressing back to baseline - Discharge Instructions Instructions: Amoxicillin/Clavulanate Potassium (By mouth), Fluconazole (By mouth), Traumatic Pneumothorax (DC), Colostomy Care (DC), How to Use and Care for Your PEG Tube (DC), Diabetes Mellitus Type 2 in Adults (DC), Colectomy (DC), Aspiration Pneumonia (DC), Sepsis (DC), Anemia (GEN), Fall Prevention (DC), How to Use and Care for Your PEG Tube, Oil [employer] Principal (GEN) Follow Up With: Hong Garnett MD [Primary Care Provider] - 06/24/18 2:00 pm () Axel Reyez DO [Partnered Physician] - 06/24/18 10:50 am - Diet and Activity Activity: as per physical therapy Diet: other (PEG tube feeding. )
--- NOTE | 2018-06-18 10:21 | Infectious Disease Progress No ---
Date of Encounter: 06/18/18 Time of Encounter: 10:19 - Assessment and Plan (1) Sepsis Status: Acute - Patient has multiple SIRS criteria including fever, tachycardia, leukocytosis, tachypnea. - Likely secondary to an intra-abdominal versus pulmonary source - Patient has been observed to aspirate during feeding, status post PEG tube placement on 06/11 - Patient is also POD 16 for exploratory laparotomy with resection of sigmoid and descending colon. - Concern for an Abdominal process post surgery for pneumatosis coli. resolved sepsis today with tachycardia in 90, WBC of 11.5 from 13.3 . Notably Afebrile since 06/16 -ESR 55, CRP 99 06/10 -CT scan on admission 06/01 showing colon wall thickening suggestive of ischemia, s/p resection -Multiple CXR since admission for pneumothorax, which has resolved s/p chest tube removal 06/09. No evidence of consolidation Blood Culture on 06/01 negative x2 blood culture 06/02 negative x2 Blood culture 06/08 negative x 2 Wound culture 06/08 negative x1 Blood culture 06/10 negative x2 Blood culture 06/13 negative 2 -Repeat CT scan on 06/11 shows extensive subcutaneous emphysema along the chest wall, tiny anterior pneumothorax, moderate bilateral pleural effusions, postsurgical changes in the lower left quadrant with colostomy and inflammatory changes in the pelvis. No evidence of discrete fluid collection or abscess. Large amount of stool and fluid in the sigmoid colon with inflammatory changes which cannot rule out infectious etiology. Patient has been previously treated with Zosyn day 13, vancomycin (day 7) added for possible MRSA or Enterococcus faecalis that is ampicillin resistant. Levaquin (2 days total) discontinued Diflucan (5 day course) changed to micafungin (day 8) due to drug interactions. Plan Will discuss regimen with family, possible discharge home on Augmentin and diflucan if family is agreeable. Duration of treatment through 06/29/18 Patient continues to clinically improving and her fever curve as well as leukocytosis are both down trending. I have low index of suspicion for CLABSI Monitor labs and for drug toxicity Goal vancomycin trough - Qualifiers: Sepsis type: sepsis due to unspecified organism Qualified Code(s): A41.9 - Sepsis, unspecified organism (2) Delirium Status: Resolved secondary to metabolic encephalopathy, likely infectious. Labs are improving. No obvious source, will continue to monitor. Unsure baseline, patient is much improved from previous. (3) Aspiration into airway Status: Resolved s/p PEG tube 06/11. No evidence of aspiration PNA on CT on 06/11 Patient recently reevaluated by speech therapy, passed Qualifiers: Encounter type: initial encounter Qualified Code(s): T17.908A - Unspecified foreign body in respiratory tract, part unspecified causing other injury, initial encounter (4) Encephalopathy Status: Resolved likely metabolic secondary to infection. no meningeal signs. 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 Reyez. General surgery following from a distance Abdominal binder in place, patient is having bowel movements and has minimal pain (6) Pneumothorax Status: Resolved Appreciate Dr. Dowell's recommendation resolved, chest tube pulled 06/10 CT 06/11 remarks a tiny anterior pneumothorax without symptoms. Qualifiers: Pneumothorax type: postprocedural Qualified Code(s): J95.811 - Postprocedural pneumothorax (7) Drug allergy, antibiotic Status: Acute keflex, unknown allergy - Subjective Interval history: Patient seen and examined up and this morning. She continues to be more awake and alert. She states that overall she is doing well with complaints only of some intermittent abdominal discomfort which is exacerbated with coughing. She denies any symptoms of fevers, chills, nausea, vomiting. She is still getting used to the sensation of having bowel movements with colostomy. Otherwise asymptomatic. Infect Dis PN-Objective Data - Labs CBC & Chem 7: 06/18/18 02:52 06/18/18 02:52 Labs: Laboratory Results - last 24 hr 06/17/18 06/17/18 06/17/18 00:37 05:47 12:06 WBC RBC Hgb Hct MCV MCH MCHC RDW Plt Count MPV Immature Gran % Seg Neutrophils % Lymphocytes % Monocytes % Eosinophils % Basophils % Neutrophils # Lymphocytes # Monocytes # Eosinophils # Basophils # Nucleated RBCs/100 WBC Sodium Potassium Chloride Carbon Dioxide BUN Creatinine Est GFR ( Amer) Est GFR (Non-Af Amer) BUN/Creatinine Ratio Glucose POC Glucose 223 H 192 H 257 H Calculated Osmolality Calcium Phosphorus Magnesium 06/17/18 06/18/18 06/18/18 17:46 02:52 02:52 WBC 11.5 H RBC 2.85 L Hgb 8.5 L Hct 27.0 L MCV 94.7 MCH 29.8 MCHC 31.5 L RDW 18.8 H Plt Count 313 MPV 10.8 Immature Gran % 2.6 Seg Neutrophils % 58.6 Lymphocytes % 20.0 Monocytes % 13.1 Eosinophils % 4.9 Basophils % 0.8 Neutrophils # 6.8 Lymphocytes # 2.3 Monocytes # 1.5 H Eosinophils # 0.6 Basophils # 0.1 Nucleated RBCs/100 WBC 0.5 H Sodium 137 Potassium 3.8 Chloride 106 Carbon Dioxide 24 BUN 11 Creatinine 0.39 L Est GFR ( Amer) > 60 Est GFR (Non-Af Amer) > 60 BUN/Creatinine Ratio 28 H Glucose 150 H POC Glucose 256 H Calculated Osmolality 286 Calcium 7.8 L Phosphorus 1.5 L Magnesium 1.7 06/18/18 05:26 WBC RBC Hgb Hct MCV MCH MCHC RDW Plt Count MPV Immature Gran % Seg Neutrophils % Lymphocytes % Monocytes % Eosinophils % Basophils % Neutrophils # Lymphocytes # Monocytes # Eosinophils # Basophils # Nucleated RBCs/100 WBC Sodium Potassium Chloride Carbon Dioxide BUN Creatinine Est GFR ( Amer) Est GFR (Non-Af Amer) BUN/Creatinine Ratio Glucose POC Glucose 192 H Calculated Osmolality Calcium Phosphorus Magnesium Cultures: Cultures 06/10/18 16:57 Blood Culture - Final Peripheral Venipuncture No growth. Final report. 06/10/18 16:57 Blood Culture - Final Peripheral Venipuncture No growth. Final report. 06/08/18 09:18 Blood Culture - Final Peripheral Venipuncture No growth. Final report. 06/08/18 09:18 Blood Culture - Final Peripheral Venipuncture No growth. Final report. 06/13/18 09:30 Blood Culture - Preliminary Peripheral Venipuncture Culture is incubating and being continuously monitored for growth. Final report to follow. 06/13/18 09:25 Blood Culture - Preliminary Peripheral Venipuncture Culture is incubating and being continuously monitor ed for growth. Final report to follow. 06/08/18 15:20 Wound Culture - Final Abdomen No growth. 06/02/18 20:10 Blood Culture - Final Peripheral Venipuncture No growth. Final report. 06/02/18 20:23 Blood Culture - Final Peripheral Venipuncture No growth. Final report. 06/01/18 15:04 Blood Culture - Final Peripheral Venipuncture No growth. Final report. 06/01/18 12:54 Blood Culture - Final Peripheral Venipuncture No growth. Final report. Serology 06/07/18 06/01/18 Range/Units 11:35 15:13 Urine Color Yellow Yellow (Yellow) Urine Clarity Cloudy A Hazy A (Clear) Urine pH 5.5 6.0 (5.0-8.0) pH Units Ur Specific [place] 1.024 > 1.030 H (1.010-1.025) Urine Protein 30 H 100 H (Neg-Trace) mg/dL Urine Glucose (UA) Normal Normal (Normal) mg/dL Urine Ketones Negative Negative (Negative) mg/dL Urine Blood Large H Moderate H (Negative) Urine Nitrite Negative Negative (Negative) Urine Bilirubin Negative Negative (Negative) Urine Urobilinogen Normal Normal (Normal) mg/dL Ur Leukocyte Esterase Trace H Negative (Negative) Urine Microscopic RBC 50-100 H 30-50 H (0-3) per hpf Urine Microscopic WBC 15-30 H 5-15 H (0-3) per hpf Ur Squamous Epith Cells Many H Many H (None-Few) per lpf Ur Transition Epith Cell Few (None-Few) per hpf Ur Renal Epithelial Cell Few (None-Few) per hpf Amorphous Sediment Many H (Few) Urine Bacteria None Seen None Seen (None-Few) per hpf Hyaline Casts Few (None-Few) per lpf Granular Casts Few H (None Seen) per lpf Urine Mucus Moderate H (Few) Urine Yeast Moderate H (None Seen) per hpf Ur Culture Indicated? NO. A NO (NO) Exam - Constitutional Vitals: Temp Pulse Resp BP Pulse Ox 97.8 F 82 18 103/76 94 06/18/18 06:46 06/18/18 06:46 06/18/18 06:46 06/18/18 06:46 06/18/18 06:46 Exam: Gen.: Vitals noted. No acute distress. AAOx2 HEENT: PERRL/EOMI, oropharynx clear, Normocephalic, atraumatic, MMM Cardiac: RRR, systolic murmur, +S1/S2 Pulmonary: CTA bilaterally, no wheezes, rales or rhonchi, equal chest expansion Abdomen: soft, nontender, BS noted, no guarding, no rebound. Colostomy bag with liquid green output. Surgical incisions appear clean and dry with no obvious infection. 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 I agree with the documented findings, disposition and treatment plan as described except to the extent set forth below.
== END 2018-06-18 16:15 | disposition home health service (06) | DRG 853 ==
LOC: EMEROOARM 12:20 → ICNU 16:45 → SUATTDRO 16:45 → ICNU 17:17 → 2NNU 06-06 11:54 → 2NENU 06-16 16:31
PROVIDERS: ADMIT Surgery; ATTEND Internal Medicine